=== PATIENT | female | born 1940 | race Caucasian/White ===

== ENCOUNTER → 2016-07-30 | Outpatient (CLI) | payer MEDICARE, BC ==
[2016-07-30 15:15] LABS: CH 29.7; CHCM 31.3; HCT 32.2 % (34.0-46.0); HDW 2.63; HGB 10.2 gm/dL (11.4-16.0); Hypochromasia Slight; MCH 30.3 pg (25.0-35.0); MCHC 31.7 g/dL (31.0-37.0); MCV 95.5 fL (80.0-100.0); Mean Platelet Volume 7.9; RBC 3.37 m/uL (3.80-5.40); RDW 14.2 % (11.5-15.5); WBC 4.6 k/uL (3.8-10.6)
[2016-07-30 15:34] LABS: Calcium 10.1 mg/dL (8.4-10.2); Phosphorous 3.9 mg/dL (2.5-4.5); Potassium 4.5 mmol/L (3.5-5.1)
== END | disposition home or self-care (01) ==
LOC: LABWHC1 14:56
PROVIDERS: ATTEND Internal Medicine Nephrology
DX: N18.4 Chronic kidney disease, stage 4 (severe) (principal)
CPT/HCPCS: 36415; 80069; 85027

== ENCOUNTER → 2016-12-19 | Outpatient (CLI) | payer MEDICARE, BC ==
--- NOTE | 2016-12-20 06:40 | BD ---
EXAMINATION TYPE: MG DEXA axial skeleton. DATE OF EXAM: 12/19/2016 COMPARISON: NONE CLINICAL HISTORY: Postmenopausal female with chronic kidney disease. Height: 64 Weight: 161.1 FRAX RISK QUESTIONS: Alcohol (3 or more units per day): NO Family History (Parent hip fracture): NO Glucocorticoids (More than 3mos): NO (Ex: prednisone, prednisolone, methylprednisolone, dexamethasone, and hydrocortisone). History of Fracture in Adulthood: NO Secondary Osteoporosis: 1. Type 1 Diabetes: NO 2. Hyperthyroidism: NO 3. Menopause before 45: NO 4. Malnutrition: NO 5. Chronic liver disease: NO Rheumatoid Arthritis: NO Current Tobacco Use: NO RISK FACTORS HISTORY OF: Hip Fracture (Right/Left): NO Spine Fracture: NO History of Wrist Fracture: NO Surgery to Spine/Hip(right/left)/Wrist (right/left): NO Family History of Osteoporosis: NO Active: YES Diet low in dairy products/other sources of calcium: YES Postmenopausal woman: AGE 47 Lost more than 2 inches in height since high school: NO Frequent falls: NO Poor Health: NO Hyperparathyroidism: NO Adrenal Insufficiency: NO MEDICATIONS: TYPE 2 DIABETIC MEDS, BLOOD PRESSURE MEDS, CHOLESTEROL MEDS Thyroid Medications: LEVATHYROXINE How Lon YEARS Additional History: CHRONIC KIDNEY DISEASE EXAM MEASUREMENTS: Bone mineral densitometry was performed using the [employer] System. Bone mineral density as measured about the Lumbar spine is: ----- L1-L4(G/cm2): 1.015 T Score Values are as follows: ----- L2: -2.5 ----- L3: -0.7 ----- L4: -0.9 ----- L1-L4: -1.4 Bone mineral density BASELINE Bone mineral density about the R hip (g/cm2): 0.683 Bone mineral density about the L hip (g/cm2): 0.722 T Score values are as follows: -----R Neck: -2.6 -----L Neck: -2.3 -----R Total: -1.7 -----L Total: -1.6 Bone mineral density BASELINE IMPRESSION: Osteopenia (T Score between -2.5 and -1 as noted by T score values) There is slightly increased risk of fracture and the patient may be considered for treatment. Re-Screen 2-5 years. NOTE: T-SCORE=SD OF THE YOUNG ADULT MEAN.
== END | disposition home or self-care (01) ==
LOC: RADBDWWP 13:13
PROVIDERS: ATTEND Family Medicine
DX: M85.80 Other specified disorders of bone density and structure, unspecified site (principal); N95.1 Menopausal and female climacteric states
CPT/HCPCS: 77080

== ENCOUNTER → 2017-01-30 | Outpatient (CLI) | payer MEDICARE, BC ==
[2017-01-30 13:07] LABS: CH 30.2; CHCM 33.2; HCT 35.5 % (34.0-46.0); HDW 2.66; HGB 11.6 gm/dL (11.4-16.0); MCH 29.9 pg (25.0-35.0); MCHC 32.6 g/dL (31.0-37.0); MCV 91.7 fL (80.0-100.0); Mean Platelet Volume 7.4; RBC 3.87 m/uL (3.80-5.40); RDW 14.3 % (11.5-15.5); WBC 5.4 k/uL (3.8-10.6)
[2017-01-30 13:20] LABS: Calcium 9.8 mg/dL (8.4-10.2); Phosphorous 3.3 mg/dL (2.5-4.5); Potassium 4.6 mmol/L (3.5-5.1)
== END | disposition home or self-care (01) ==
LOC: LABWHC1 12:09
PROVIDERS: ATTEND Internal Medicine Nephrology
DX: N18.4 Chronic kidney disease, stage 4 (severe) (principal)
CPT/HCPCS: 36415; 80069; 85027

== ENCOUNTER → 2017-03-26 | Outpatient (CLI) | payer MEDICARE, BC ==
[2017-03-26 16:03] LABS: Calcium 10.4 mg/dL (8.4-10.2); Phosphorus 3.8 mg/dL (2.5-4.5)
== END | disposition home or self-care (01) ==
LOC: LABWHC1 15:13
PROVIDERS: ATTEND Internal Medicine Nephrology
DX: E11.9 Type 2 diabetes mellitus without complications (principal)
CPT/HCPCS: 36415; 80069

== ENCOUNTER → 2017-06-20 | Outpatient (CLI) | payer MEDICARE, BC ==
[2017-06-20 15:25] LABS: Creatinine,Urine Random 62.3 mg/dL
[2017-06-20 15:50] LABS: Albumin 4.7 g/dL (3.5-5.0); Calcium 10.2 mg/dL (8.4-10.2); Phosphorus 3.7 mg/dL (2.5-4.5)
== END | disposition home or self-care (01) ==
LOC: LABWHC1 14:55
PROVIDERS: ATTEND Internal Medicine Nephrology
DX: E11.9 Type 2 diabetes mellitus without complications (principal)
CPT/HCPCS: 36415; 80069; 82570; 84156

== ENCOUNTER → 2017-09-11 | Outpatient (CLI) | payer MEDICARE, BC ==
[2017-09-11 15:34] LABS: HCT 34.2 % (34.0-46.0); HGB 10.8 gm/dL (11.4-16.0); MCH 29.3 pg (25.0-35.0); MCHC 31.7 g/dL (31.0-37.0); MCV 92.5 fL (80.0-100.0); Mean Platelet Volume 7.4; Platelet Count 367 k/uL (150-450); RDW 13.9 % (11.5-15.5); WBC 4.9 k/uL (3.8-10.6)
[2017-09-11 15:55] LABS: Albumin 4.8 g/dL (3.5-5.0); Calcium 10.5 mg/dL (8.4-10.2); Phosphorus 3.7 mg/dL (2.5-4.5); Potassium 5.3 mmol/L (3.5-5.1)
== END | disposition home or self-care (01) ==
LOC: LABWHC1 14:33
PROVIDERS: ATTEND Internal Medicine Nephrology
DX: N18.4 Chronic kidney disease, stage 4 (severe) (principal)
CPT/HCPCS: 36415; 80069; 85027

== ENCOUNTER → 2017-09-25 | Outpatient (CLI) | payer MEDICARE, BC | LOC: LABWHC1 12:59 | PROVIDERS: ATTEND Internal Medicine Nephrology | DX: I12.9 Hypertensive chronic kidney disease with stage 1 through stage 4 chronic kidney disease, or unspecified chronic kidney disease (principal); N18.4 Chronic kidney disease, stage 4 (severe); E83.52 Hypercalcemia | CPT/HCPCS: 36415; 82330 ==

== ENCOUNTER 2019-06-18 15:58 | Inpatient (IN) | payer MEDICARE, BC ==
[2019-06-18] MEDS ORDERED: MORPHINE SULFATE 4 MG/ML SYRINGE IVP STA (16:53)
[2019-06-18] MEDS ORDERED: SODIUM CHLORIDE 0.9% 1,000 ML IV STA ×2 (16:53)
[2019-06-18] MEDS ORDERED: KETOROLAC 30 MG/ML 1 ML VIAL IVP STA (16:53)
[2019-06-18 17:31] LABS: Basophils # (A) 0.3 k/uL (0-0.2); Basophils % (A) 3 %; Eosinophils # (A) 0.3 k/uL (0-0.7); Eosinophils % (A) 3 %; HCT 36.7 % (34.0-46.0); HGB 11.4 gm/dL (11.4-16.0); Lymphocytes # (A) 0.8 k/uL (1.0-4.8); Lymphocytes % (A) 8 %; MCH 29.3 pg (25.0-35.0); MCV 94.4 fL (80.0-100.0); Mean Platelet Volume 7.3; Monocytes # (A) 0.5 k/uL (0-1.0); Monocytes % (A) 6 %; Neutrophils % (A) 78 %; Platelet Count 411 k/uL (150-450); RBC 3.89 m/uL (3.80-5.40); RDW 13.9 % (11.5-15.5); WBC 8.9 k/uL (3.8-10.6)
[2019-06-18 17:37] LABS: Albumin 4.1 g/dL (3.5-5.0); Calcium 10.8 mg/dL (8.4-10.2); Magnesium 1.6 mg/dL (1.6-2.3); Phosphorus 4.6 mg/dL (2.5-4.5); Total Bilirubin 0.6 mg/dL (0.2-1.3); Total Protein 7.3 g/dL (6.3-8.2)
[2019-06-18 17:44] LABS: Potassium 5.6 mmol/L (3.5-5.1)
--- NOTE | 2019-06-18 18:04 | ED ---
Extremity Problem HPI - General Chief complaint: Extremity Problem,Nontraumatic Stated complaint: Hip Pain Time Seen by Provider: 06/18/19 16:23 Source: EMS, RN notes reviewed, old records reviewed Mode of arrival: EMS Limitations: no limitations - History of Present Illness Initial comments: This is a 69-year-old female DF for evaluation severe left hip pain in the left hip and lower back pain especially with movement. No traumas no falls. No other complaints no fevers. Patient denies any significant loss of sensation or muscle weakness which is states the pain is severe. Patient was impatient hospitalized for pain control last week discharged home once her pain patch went off the pain did appear to come back. Otherwise patient has no significant other complaints. No abdominal pain no loss of bowel or bladder MD Complaint: extremity pain, joint pain (l hip) -: days(s) Location: left, lower extremity History of Same: Yes -: Yes myalgia, Yes arthralgia Radiation: none Severity scale (1-10): 7 Consistency: constant Improves with: nothing Worsens with: weight bearing, walking Associated Symptoms: denies other symptoms - Related Data Allergies Allergy/AdvReac Type Severity Reaction Status Date / Time No Known Allergies Allergy Verified 06/18/19 16:36 Review of Systems ROS Statement: Those systems with pertinent positive or pertinent negative responses have been documented in the HPI. ROS Other: All systems not noted in ROS Statement are negative. Past Medical History Past Medical History: Diabetes Mellitus, Hyperlipidemia, Hypertension Additional Past Medical History / Comment(s): osterperosis History of Any Multi-Drug Resistant Organisms: None Reported Past Surgical History: No Surgical Hx Reported Past Psychological History: No Psychological Hx Reported Smoking Status: Former smoker Past Alcohol Use History: None Reported Past Drug Use History: None Reported General Exam Limitations: no limitations General appearance: alert, in no apparent distress Head exam: Present: atraumatic, normocephalic, normal inspection Eye exam: Present: normal appearance, PERRL, EOMI. Absent: scleral icterus, conjunctival injection, periorbital swelling ENT exam: Present: normal exam, mucous membranes moist Neck exam: Present: normal inspection. Absent: tenderness, meningismus, lymphadenopathy Respiratory exam: Present: normal lung sounds bilaterally. Absent: respiratory distress, wheezes, rales, rhonchi, stridor Cardiovascular Exam: Present: regular rate, normal rhythm, normal heart sounds. Absent: systolic murmur, diastolic murmur, rubs, gallop, clicks GI/Abdominal exam: Present: soft, normal bowel sounds. Absent: distended, tenderness, guarding, rebound, rigid Extremities exam: Present: normal inspection, full ROM, normal capillary refill, other (severe leg pain with movement). Absent: tenderness, pedal edema, joint swelling, calf tenderness Back exam: Present: normal inspection Neurological exam: Present: alert, oriented X3, CN II-XII intact Psychiatric exam: Present: normal affect, normal mood Skin exam: Present: warm, dry, intact, normal color. Absent: rash Course Vital Signs 06/18/19 06/18/19 16:11 18:46 Temperature 97.0 F L Pulse Rate 65 70 Respiratory 16 Rate Blood Pressure 160/81 O2 Sat by Pulse 96 99 Oximetry - Reevaluation(s) Reevaluation #1: 06/18/19 18:20 Medical records reviewed 06/18/19 19:52 Request from [facility] not yet received Reevaluation #2: 06/18/19 18:21 Patient does not have any have improved pain control currently 06/18/19 19:52 Pain is still uncontrolled patient is unable to ambulate - Consultations Consultation #1: spoke w [facility] for admission Medical Decision Making - Lab Data Result diagrams: 06/18/19 17:15 06/18/19 17:15 Lab Results 06/18/19 06/18/19 06/18/19 Range/Units 17:15 17:15 17:15 WBC 8.9 (3.8-10.6) k/uL RBC 3.89 (3.80-5.40) m/uL Hgb 11.4 (11.4-16.0) gm/dL Hct 36.7 (34.0-46.0) % MCV 94.4 (80.0-100.0) fL MCH 29.3 (25.0-35.0) pg MCHC 31.0 (31.0-37.0) g/dL RDW 13.9 (11.5-15.5) % Plt Count 411 (150-450) k/uL Neutrophils % 78 % Lymphocytes % 8 % Monocytes % 6 % Eosinophils % 3 % Basophils % 3 % Neutrophils # 7.0 (1.3-7.7) k/uL Lymphocytes # 0.8 L (1.0-4.8) k/uL Monocytes # 0.5 (0-1.0) k/uL Eosinophils # 0.3 (0-0.7) k/uL Basophils # 0.3 H (0-0.2) k/uL Sodium 140 (137-145) mmol/L Potassium 5.6 H (3.5-5.1) mmol/L Chloride 106 (98-107) mmol/L Carbon Dioxide 26 (22-30) mmol/L Anion Gap 8 mmol/L BUN 37 H (7-17) mg/dL Creatinine 1.58 H (0.52-1.04) mg/dL Est GFR (CKD-EPI)AfAm 36 (>60 ml/min/1.73 sqM) Est GFR (CKD-EPI)NonAf 31 (>60 ml/min/1.73 sqM) Glucose 109 H (74-99) mg/dL Calcium 10.8 H (8.4-10.2) mg/dL Phosphorus 4.6 H (2.5-4.5) mg/dL Magnesium 1.6 (1.6-2.3) mg/dL Total Bilirubin 0.6 (0.2-1.3) mg/dL AST 41 H (14-36) U/L ALT 15 (4-34) U/L Alkaline Phosphatase 52 (38-126) U/L Creatine Kinase 36 (30-135) U/L Troponin I 0.061 H* (0.000-0.034) ng/mL Total Protein 7.3 (6.3-8.2) g/dL Albumin 4.1 (3.5-5.0) g/dL Urine Color Urine Appearance (Clear) Urine pH (5.0-8.0) Ur Specific [place] (1.001-1.035) Urine Protein (Negative) Urine Glucose (UA) (Negative) Urine Ketones (Negative) Urine Blood (Negative) Urine Nitrite (Negative) Urine Bilirubin (Negative) Urine Urobilinogen (<2.0) mg/dL Ur Leukocyte Esterase (Negative) 06/18/19 Range/Units 19:09 WBC (3.8-10.6) k/uL RBC (3.80-5.40) m/uL Hgb (11.4-16.0) gm/dL Hct (34.0-46.0) % MCV (80.0-100.0) fL MCH (25.0-35.0) pg MCHC (31.0-37.0) g/dL RDW (11.5-15.5) % Plt Count (150-450) k/uL Neutrophils % % Lymphocytes % % Monocytes % % Eosinophils % % Basophils % % Neutrophils # (1.3-7.7) k/uL Lymphocytes # (1.0-4.8) k/uL Monocytes # (0-1.0) k/uL Eosinophils # (0-0.7) k/uL Basophils # (0-0.2) k/uL Sodium (137-145) mmol/L Potassium (3.5-5.1) mmol/L Chloride (98-107) mmol/L Carbon Dioxide (22-30) mmol/L Anion Gap mmol/L BUN (7-17) mg/dL Creatinine (0.52-1.04) mg/dL Est GFR (CKD-EPI)AfAm (>60 ml/min/1.73 sqM) Est GFR (CKD-EPI)NonAf (>60 ml/min/1.73 sqM) Glucose (74-99) mg/dL Calcium (8.4-10.2) mg/dL Phosphorus (2.5-4.5) mg/dL Magnesium (1.6-2.3) mg/dL Total Bilirubin (0.2-1.3) mg/dL AST (14-36) U/L ALT (4-34) U/L Alkaline Phosphatase (38-126) U/L Creatine Kinase (30-135) U/L Troponin I (0.000-0.034) ng/mL Total Protein (6.3-8.2) g/dL Albumin (3.5-5.0) g/dL Urine Color Light Yellow Urine Appearance Clear (Clear) Urine pH 5.0 (5.0-8.0) Ur Specific [place] 1.011 (1.001-1.035) Urine Protein Negative (Negative) Urine Glucose (UA) Negative (Negative) Urine Ketones Negative (Negative) Urine Blood Negative (Negative) Urine Nitrite Negative (Negative) Urine Bilirubin Negative (Negative) Urine Urobilinogen <2.0 (<2.0) mg/dL Ur Leukocyte Esterase Negative (Negative) - EKG Data -: EKG Interpreted by Me (EKG shows sinus rhythm rate of 82, ND 246, QRS 86, QTc 425) Disposition Clinical Impression: Debility, Intractable pain, Left hip pain, Arthritis Disposition: ADMITTED IP TO THIS HOSP Condition: Fair Is patient prescribed a controlled substance at d/c from ED?: No Referrals: Denton Benoit MD [Primary Care Provider] - 1-2 days
[2019-06-18 19:18] LABS: Appearance,Urine Clear (Clear); Bilirubin,Urine Negative (Negative); Blood,Urine Negative (Negative); Color,Urine Light Yellow; Glucose,Urine (UA) Negative (Negative); Ketones,Urine Negative (Negative); Leukocyte Esterase,Urine Negative (Negative); Nitrite,Urine Negative (Negative); Protein,Urine Negative (Negative); Specific Gravity,Urine 1.011 (1.001-1.035); Urobilinogen,Urine <2.0 mg/dL (<2.0)
[2019-06-18] MEDS ORDERED: SODIUM CHLORIDE 0.9% 1,000 ML IV ONE (19:48)
[2019-06-18] MEDS ORDERED: IBUPROFEN 400 MG TAB PO SCH (22:00)
[2019-06-18] MEDS ORDERED: LORazepam 1 MG TAB PO PRN (22:17)
[2019-06-18] MEDS: MORPHINE SULFATE 4 MG/ML SYRINGE IVP PRN (22:28)
[2019-06-18] MEDS ORDERED: TEMAZEPAM 15 MG CAP PO PRN (22:30)
[2019-06-18] MEDS: PRAVASTATIN SODIUM 80 MG TAB PO SCH (23:06)
[2019-06-18] MEDS: FUROSEMIDE 20 MG TAB PO SCH (23:06)
[2019-06-18] MEDS: SODIUM BICARBONATE TAB 650 MG TAB PO SCH (23:06)
[2019-06-18] MEDS: IMIPRAMINE 25 MG TAB PO SCH (23:07)
--- NOTE | 2019-06-19 00:17 | P.HPIM ---
History of Present Illness H&P Date: 06/18/19 Patient is a 78-year-old female with a PMH of type 2 diabetes mellitus, hypertension, hyperlipidemia, CKD and left hip osteoarthritis presented to the ED with complaints of left hip pain. The patient reports that she was seen at [facility] last week and was discharged home with a pain patch due to her significant left hip pain. She reports that after the patch came off, her pain returned. She reports that she has essentially been bedbound for the last one month, and that her has been having a very difficult time trying to take care of her. The patient notes that she previously used to ambulate with a walker which she is no longer able to do. She reports that her daughter works at one of the rehab facilities and that she would like to be transferred there possible. She is unable to recall the name of the facility at this time. She reports pain at her left hip brought on with movement, 7 out of 10, but no pain at rest. She denied any additional complaints. She denied chest pain, shortness of breath, nausea, vomiting, fever, chills, abdominal pain, diarrhea, or dizziness. She underwent an extensive ALLERGY in the emergency room with EKG showing normal sinus rhythm at 82 bpm with T-wave inversion in leads V1 to V3 and flattening in leads V4 to V6. Laboratory evaluation revealed a WBC count of 8.9, hemoglobin 11.4, sodium 140, potassium 5.6 (hemolyzed sample), BUN 37, creatinine 1.58, glucose 109, troponin of 0.061, and a UA unremarkable. Review of Systems Pertinent positives and negatives as discussed in HPI, a complete review of systems was performed and all other systems are negative. Past Medical History Past Medical History: Diabetes Mellitus, Hyperlipidemia, Hypertension Additional Past Medical History / Comment(s): osterperosis History of Any Multi-Drug Resistant Organisms: None Reported Past Surgical History: No Surgical Hx Reported Past Anesthesia/Blood Transfusion Reactions: No Reported Reaction Past Psychological History: No Psychological Hx Reported Smoking Status: Former smoker Past Alcohol Use History: None Reported Past Drug Use History: None Reported - Past Family History Mother Family Medical History: Cancer Father Family Medical History: Cancer Medications and Allergies Home Medications Medication Instructions Recorded Confirmed Type Diclofenac Sodium [Voltaren Gel] 1 applic TOPICAL QID 06/18/19 06/18/19 History Eszopiclone [Lunesta] 2 mg PO HS 06/18/19 06/18/19 History Fenofibrate Nanocrystallized 145 mg PO DAILY 06/18/19 06/18/19 History [Fenofibrate] Furosemide [Lasix] 20 mg PO BID 06/18/19 06/18/19 History Imipramine Pamoate [Tofranil Pm] 75 mg PO HS 06/18/19 06/18/19 History LORazepam [Ativan] 2 mg PO Q8H PRN 06/18/19 06/18/19 History Levothyroxine Sodium 25 mcg PO DAILY 06/18/19 06/18/19 History Lisinopril [Prinivil] 5 mg PO DAILY 06/18/19 06/18/19 History Pravastatin Sodium [Pravachol] 80 mg PO HS 06/18/19 06/18/19 History Sodium Bicarbonate Tab 650 mg PO BID 06/18/19 06/18/19 History Tolterodine Tartrate [Detrol LA] 4 mg PO DAILY 06/18/19 06/18/19 History amLODIPine [Norvasc] 5 mg PO DAILY 06/18/19 06/18/19 History sitaGLIPtin [Januvia] 50 mg PO DAILY 06/18/19 06/18/19 History traMADol HCL [Ultram] 50 mg PO Q8H PRN 06/18/19 06/18/19 History Allergies Allergy/AdvReac Type Severity Reaction Status Date / Time No Known Allergies Allergy Verified 06/18/19 21:59 Physical Exam Vitals: Vital Signs Temp Pulse Pulse Resp BP BP Pulse Ox 06/18/19 20:55 98.4 F 72 18 168/70 95 06/18/19 20:47 80 16 161/81 98 06/18/19 19:00 97.5 F L 66 18 166/85 98 06/18/19 18:46 70 99 06/18/19 16:11 97.0 F L 65 16 160/81 96 Intake and Output 06/18/19 06/18/19 06/19/19 14:59 22:59 06:59 Other: Voiding Method Bedside Commode Weight 65.771 kg General: Elderly female, non toxic, no distress, appears at stated age, normal weight Derm: no unusual rashes/lesions no unusual ecchymoses, warm, dry Head: atraumatic, normocephalic, symmetric Eyes: EOMI, no lid lag, anicteric sclera, pupils equal round reactive to light ENT: Nose and ears atraumatic, no thrush, no pharyngeal erythema Neck: No thyromegaly, no cervical lymphadenopathy, trachea midline, supple Mouth: no lip lesion, mucus membranes moist Cardiovascular: S1S2 reg, systolic murmur grade 3 appreciated, positive posterior tibial pulse bilateral, no edema, capillary refill less than 2 seconds Lungs: CTA bilateral, no rhonchi, no rales , no accessory muscle use Abdominal: soft, nontender to palpation, no guarding, no appreciable organomegaly, normal bowel sounds Ext: no gross muscle atrophy, muscle strength 4 out of 5 in all extremities except left lower extremity 3 out of 5 due to pain, no contractures, mild left hip tenderness on palpation Neuro: CN II-XI grossly intact, light touch intact all 4 extremities, finger to nose within normal limits, Psych: Alert, oriented, appropriate affect Results CBC & Chem 7: 06/18/19 17:15 06/18/19 17:15 Labs: Abnormal Lab Results - Last 24 Hours (Table) 06/18/19 06/18/19 06/18/19 Range/Units 17:15 17:15 17:15 Lymphocytes # 0.8 L (1.0-4.8) k/uL Basophils # 0.3 H (0-0.2) k/uL Potassium 5.6 H (3.5-5.1) mmol/L BUN 37 H (7-17) mg/dL Creatinine 1.58 H (0.52-1.04) mg/dL Glucose 109 H (74-99) mg/dL Calcium 10.8 H (8.4-10.2) mg/dL Phosphorus 4.6 H (2.5-4.5) mg/dL AST 41 H (14-36) U/L Troponin I 0.061 H* (0.000-0.034) ng/mL Thrombosis Risk Factor Assmnt - Choose All That Apply Any of the Below Risk Factors Present?: Yes Each Factor Represents 1 point: Medical pt on bed rest Other Risk Factors: Yes Each Risk Factor Represents 3 Points: Age 75 years or older Thrombosis Risk Factor Assessment Total Risk Factor Score: 4 Thrombosis Risk Factor Assessment Level: Moderate Risk Assessment and Plan Plan: Left hip pain, chronic -PT/OT consult -Pain control -Patient will need outpatient orthopedic surgery evaluation. Patient and family unsure if she was elevated by orthopedic surgery in the past Troponin elevation -Patient denying any current chest pain or shortness of breath -Trend for now -Cardiac monitoring Type 2 diabetes mellitus -Lispro insulin sliding scale -Blood glucose monitoring CKD, at baseline -Monitor BMP for now Chronic conditions: Hypertension, hyperlipidemia -Continue with home meds: Lisinopril, Norvasc, Pravachol DVT prophylaxis -Heparin The patient is admitted with an anticipated less than 2 midnight stay for evaluation of debility CODE STATUS: Full Code Discussed with: Patient, Anticipated discharge date: 1-[address]: SNF A total of 40 minutes was spent on the care of this complex patient more than 50% of the time was spent in counseling and care coordination.
[2019-06-19] MEDS: MORPHINE SULFATE 4 MG/ML SYRINGE IVP PRN ×5 (01:29→21:16)
[2019-06-19] MEDS: DICLOFENAC SODIUM GEL 100 GM TUBE TOPICAL SCH ×5 (02:14→23:07)
[2019-06-19] MEDS: LEVOTHYROXINE 25 MCG TAB PO SCH (05:18)
[2019-06-19 06:55] LABS: Glucose,Whole Blood 96 mg/dL (75-99)
[2019-06-19] MEDS: INSULIN ASPART (NovoLOG) 100 UNIT/ML VIAL SQ SCH ×4 (06:57→21:11)
[2019-06-19 07:52] LABS: Calcium 9.5 mg/dL (8.4-10.2); Potassium 4.5 mmol/L (3.5-5.1)
[2019-06-19] MEDS: OXYBUTYNIN XL 5 MG TAB.ER.24 PO SCH (08:57)
[2019-06-19] MEDS: SODIUM BICARBONATE TAB 650 MG TAB PO SCH ×2 (08:57→21:23)
[2019-06-19] MEDS: amLODIPine 5 MG TAB PO SCH (08:58)
[2019-06-19] MEDS: FENOFIBRATE 160 MG TAB PO SCH (08:58)
[2019-06-19] MEDS: LISINOPRIL 5 MG TAB PO SCH (08:58)
[2019-06-19] MEDS: HEPARIN SODIUM,PORCINE 5,000 UNIT/ML 1 ML VIAL SQ SCH ×3 (08:58→23:10)
[2019-06-19] MEDS: FUROSEMIDE 20 MG TAB PO SCH ×2 (08:58→16:33)
[2019-06-19] MEDS: ONDANSETRON 4 MG/2 ML VIAL IVP PRN ×3 (11:02→22:04)
[2019-06-19 11:52] LABS: Glucose,Whole Blood 135 mg/dL (75-99)
[2019-06-19] MEDS: traMADol 50 MG TAB PO PRN ×2 (13:14→23:33)
--- NOTE | 2019-06-19 14:47 | P.PN ---
Subjective Progress Note Date: 06/19/19 Principal diagnosis: follow up for left hip pain debilitating patient seen and examined, still reporting left hip pain . denies any chest pain , or trouble breathing denies any fevers or chills, denies any recent fall or trauma patient used to use walker but she can not weight bear any more Objective - Vital Signs Vital signs: Vital Signs Temp 98.4 F 06/19/19 07:27 Pulse 76 06/19/19 07:27 Resp 18 06/19/19 07:27 BP 148/80 06/19/19 07:27 Pulse Ox 96 06/19/19 07:27 Intake & Output 06/18/19 06/19/19 06/19/19 18:59 06:59 18:59 Intake Total 800 1210 Balance 800 1210 Weight 65.771 kg 65.771 kg Intake: Intake, IV Titration 800 700 Amount Sodium Chloride 0.9% 1, 800 700 000 ml @ 100 mls/hr IV . Q10H ONE Rx#:[id number] Oral 510 Other: Voiding Method Bedside Commode Bedside Commode # Voids 3 2 - Exam Constitutional: vital signs stable, Not in acute distress, pleasant, conversant Lungs: Clear to auscultation bilaterally, clear to percussion, normal respiratory effort Cardiovascular: Regular rate and rhythm, no murmurs, no gallops, no rubs, no peripheral edema Gastrointestinal: Soft, no tenderness to palpation, bowel sounds positive Extremities: No digital cyanosis , peripheral pulses palpable and equal , no calf muscle tenderness, no echymosis, swelling, or erythema over left hip, no point tenderness Psych: Alert, oriented to place, person and time, appropriate affect, intact judgment - Labs CBC & Chem 7: 06/18/19 17:15 06/19/19 06:26 Labs: Abnormal Lab Results - Last 24 Hours (Table) 06/18/19 06/18/19 06/18/19 Range/Units 17:15 17:15 17:15 Lymphocytes # 0.8 L (1.0-4.8) k/uL Basophils # 0.3 H (0-0.2) k/uL Potassium 5.6 H (3.5-5.1) mmol/L Chloride (98-107) mmol/L BUN 37 H (7-17) mg/dL Creatinine 1.58 H (0.52-1.04) mg/dL Glucose 109 H (74-99) mg/dL POC Glucose (mg/dL) (75-99) mg/dL Calcium 10.8 H (8.4-10.2) mg/dL Phosphorus 4.6 H (2.5-4.5) mg/dL AST 41 H (14-36) U/L Troponin I 0.061 H* (0.000-0.034) ng/mL 06/19/19 06/19/19 Range/Units 06:26 11:50 Lymphocytes # (1.0-4.8) k/uL Basophils # (0-0.2) k/uL Potassium (3.5-5.1) mmol/L Chloride 109 H (98-107) mmol/L BUN 31 H (7-17) mg/dL Creatinine 1.54 H (0.52-1.04) mg/dL Glucose (74-99) mg/dL POC Glucose (mg/dL) 135 H (75-99) mg/dL Calcium (8.4-10.2) mg/dL Phosphorus (2.5-4.5) mg/dL AST (14-36) U/L Troponin I (0.000-0.034) ng/mL Assessment and Plan Assessment: Patient is a 78-year-old female with type 2 diabetes mellitus, controlled with oral hypoglycemics, hypertension, hyperlipidemia, CKD III and left hip osteoarthritis presented to the ED with complaints of left hip pain. The patient reports that she was seen at [facility] last week and was discharged home with a pain patch due to her significant left hip pain. She reports that after the patch came off, her pain returned. She reports that she has essentially been bedbound for the last one month, The patient notes that she previously used to ambulate with a walker which she is no longer able to do. Plan: Left hip pain, acute on chronic -PT/OT eval -Pain control orthopedic evaluation xrays of left hip Troponin elevation Patient denying any current chest pain or shortness of breath Trend for now Cardiac monitoring Type 2 diabetes mellitus Lispro insulin sliding scale Blood glucose monitoring CKD, at baseline Monitor BMP for now Chronic conditions: Hypertension, hyperlipidemia Continue with home meds: Lisinopril, Norvasc, Pravachol DVT prophylaxis -Heparin discontinue IVF encourage PO intake discharge planning to [facility]o eval
--- NOTE | 2019-06-19 15:05 | XR ---
EXAMINATION TYPE: XR Hip Limited LT DATE OF EXAM: 06/19/2019 CLINICAL HISTORY: Pain TECHNIQUE: Single view left hip submitted. COMPARISON: None. FINDINGS: There is no acute fracture/dislocation evident in the left hip. The joint space in the le ft hip appears within normal limits. The overlying soft tissue appears unremarkable. IMPRESSION: There is no acute fracture or dislocation in the left hip.
[2019-06-19] MEDS: LIDOCAINE 5% PATCH TOPICAL SCH (15:22)
--- NOTE | 2019-06-19 16:24 | P.CNOR ---
History of Present Illness - [facility] Consult date: 06/19/19 Consult reason: joint pain History of present illness: Patient is a 78-year-old female who presented to [facility] late last night with regards to pain involving her left lower extremity. Apparently the patient was at [facility] in [place] earlier in the week with regards the same problem, images were done, they determined it was hip arthritis in the center home with a Lidoderm patch. Patient notes very minimal improvement with patch. She's been having a very difficult time ambulating, she normally uses a walker. She is essentially been lying in bed since being home from the hospital due to the pain. Upon arrival to the hospital, an AP hip x-ray was done on the left side. Images to demonstrate minimal arthritic changes involving the left hip. Orthopedic team was consulted today with regards to the pain involving the left leg. Patient was evaluated at bedside today, there are multiple family members present. The patient had recently received some IV morphine, she did have a slight difficulty answering some of my questions both reviewing her history and doing her physical exam, the patient's family was able to help answer those questions. Family describes that she's had a hard time with the left leg over the last 4-5 months. She has had no significant trauma, this including falls. She has had no previous surgery involving the left or right lower extremity. She denies any previous back surgery. The family does admit that she's had back pain in the past. She normally uses a walker, it's become very hard for her to family with this. Her said been having a very hard time taking care of her at home. There is concern at this time that the patient may need long term facility placement due to help with ADLs. Besides the pain involving the left lower extremity, patient has no other orthopedic complaints at this time. She denies any fevers or chills. Eyes any loss of bowel or bladder function. She does admit to the discomfort extending down the leg and to the foot on occasion. She denies any of those symptoms involving the right lower extremity. Review of Systems Constitutional: Reports as per HPI Past Medical History Past Medical History: Diabetes Mellitus, Hyperlipidemia, Hypertension Additional Past Medical History / Comment(s): osterperosis History of Any Multi-Drug Resistant Organisms: None Reported Past Surgical History: No Surgical Hx Reported Past Anesthesia/Blood Transfusion Reactions: No Reported Reaction Past Psychological History: No Psychological Hx Reported Smoking Status: Former smoker Past Alcohol Use History: None Reported Past Drug Use History: None Reported - Past Family History Mother Family Medical History: Cancer Father Family Medical History: Cancer Medications and Allergies Home Medications Medication Instructions Recorded Confirmed Type Diclofenac Sodium [Voltaren Gel] 1 applic TOPICAL QID 06/18/19 06/18/19 History Eszopiclone [Lunesta] 2 mg PO HS 06/18/19 06/18/19 History Fenofibrate Nanocrystallized 145 mg PO DAILY 06/18/19 06/18/19 History [Fenofibrate] Furosemide [Lasix] 20 mg PO BID 06/18/19 06/18/19 History Imipramine Pamoate [Tofranil Pm] 75 mg PO HS 06/18/19 06/18/19 History LORazepam [Ativan] 2 mg PO Q8H PRN 06/18/19 06/18/19 History Levothyroxine Sodium 25 mcg PO DAILY 06/18/19 06/18/19 History Lisinopril [Prinivil] 5 mg PO DAILY 06/18/19 06/18/19 History Pravastatin Sodium [Pravachol] 80 mg PO HS 06/18/19 06/18/19 History Sodium Bicarbonate Tab 650 mg PO BID 06/18/19 06/18/19 History Tolterodine Tartrate [Detrol LA] 4 mg PO DAILY 06/18/19 06/18/19 History amLODIPine [Norvasc] 5 mg PO DAILY 06/18/19 06/18/19 History sitaGLIPtin [Januvia] 50 mg PO DAILY 06/18/19 06/18/19 History traMADol HCL [Ultram] 50 mg PO Q8H PRN 06/18/19 06/18/19 History Allergies Allergy/AdvReac Type Severity Reaction Status Date / Time No Known Allergies Allergy Verified 06/18/19 21:59 Physical Examination General orthopedic exam: No obvious open lesions or sores present throughout the extremity, Lidoderm patch is noted on the lateral aspect of the lower leg just above the knee No obvious erythema or areas of soft tissue swelling Logroll maneuver the bilateral legs reproduces no pain in the groin Patient is able to straight leg raise with both legs, when testing strength there is weakness on the left when compared to the right. Plantar flexion, dorsiflexion, EHL, FHL are intact, weakness is noted on the left mainly with dorsiflexion Catheters soft, no tenderness with palpation Dorsal pedis pulses 2+ bilaterally Passive motion of the left hip through flexion, internal and external rotation reproduces no pain in the groin No significant tenderness with palpation surrounding the knee, no effusion is appreciated Tenderness with palpation over the greater trochanter and also along the IT band distribution Sensory exam to light touch throughout the bilateral lower extremities is intact Results - Labs Labs: Abnormal Lab Results - Last 24 Hours (Table) 06/18/19 06/18/19 06/18/19 Range/Units 17:15 17:15 17:15 Lymphocytes # 0.8 L (1.0-4.8) k/uL Basophils # 0.3 H (0-0.2) k/uL Potassium 5.6 H (3.5-5.1) mmol/L Chloride (98-107) mmol/L BUN 37 H (7-17) mg/dL Creatinine 1.58 H (0.52-1.04) mg/dL Glucose 109 H (74-99) mg/dL POC Glucose (mg/dL) (75-99) mg/dL Calcium 10.8 H (8.4-10.2) mg/dL Phosphorus 4.6 H (2.5-4.5) mg/dL AST 41 H (14-36) U/L Troponin I 0.061 H* (0.000-0.034) ng/mL 06/19/19 06/19/19 Range/Units 06:26 11:50 Lymphocytes # (1.0-4.8) k/uL Basophils # (0-0.2) k/uL Potassium (3.5-5.1) mmol/L Chloride 109 H (98-107) mmol/L BUN 31 H (7-17) mg/dL Creatinine 1.54 H (0.52-1.04) mg/dL Glucose (74-99) mg/dL POC Glucose (mg/dL) 135 H (75-99) mg/dL Calcium (8.4-10.2) mg/dL Phosphorus (2.5-4.5) mg/dL AST (14-36) U/L Troponin I (0.000-0.034) ng/mL H & H 06/18/19 Range/Units 17:15 Hgb 11.4 (11.4-16.0) gm/dL Hct 36.7 (34.0-46.0) % Result Diagrams: 06/18/19 17:15 06/19/19 06:26 - Diagnostic results Hip x-ray: report reviewed, image reviewed Assessment and Plan Plan: Imaging: Report and image of the AP left hip was reviewed. Minimal osteoarthritic changes are noted. No acute fractures or dislocations appreciated. Assessment: 1. Left lower extremity pain 2. Minimal left hip osteoarthritis 3. Left hip greater trochanteric bursitis 4. Likely lumbar radiculopathy 5. Other medical comorbidities Plan: I was able to discuss the case, including both physical exam findings and imaging studies and the attending Dr. Enamorado. No general orthopedic surgical intervention recommended at this time. I believe that most of the symptoms involving the left lower extremity are stemming from a likely lumbar radiculopathy. X-rays will be ordered of the lumbar spine, complete right hip and also right knee. Due to the patient's difficulty and altered gait, this is likely lead to the greater trochanteric bursitis on the left side. May consider a steroid injection to that area Pain control, avoid IV narcotics GI and DVT prophylaxis per medical recommendations Internal medicine recommendations Further recommendations to follow Time with Patient: Less than 30
[2019-06-19 17:37] LABS: Glucose,Whole Blood 133 mg/dL (75-99)
--- NOTE | 2019-06-19 17:38 | XR ---
EXAMINATION TYPE: XR lumbar spine 2 or 3V DATE OF EXAM: 06/19/2019 COMPARISON: NONE HISTORY: Low back pain TECHNIQUE: 3 views FINDINGS: There is mild levoscoliosis. There is mild disc space narrowing at L4-5 with vacuum disc an d spur formation. Abdominal aorta is atheromatous. There is no compression fracture. Sacroiliac joint s appear normal. There is disc space narrowing at L5-S1. IMPRESSION: Spondylotic changes. No fracture seen.
--- NOTE | 2019-06-19 17:39 | XR ---
EXAMINATION TYPE: XR knee limited LT DATE OF EXAM: 06/19/2019 COMPARISON: NONE HISTORY: Left knee pain TECHNIQUE: 2 views FINDINGS: I see no fracture nor dislocation. Joint spaces are fairly normal. There is calcification o f the menisci. There is no joint effusion. IMPRESSION: There is meniscal calcification consistent with pseudogout. No fracture. No significant j oint space narrowing.
--- NOTE | 2019-06-19 17:40 | XR ---
EXAMINATION TYPE: XR Hip Complete LT DATE OF EXAM: 06/19/2019 COMPARISON: Today HISTORY: Hip pain TECHNIQUE: 3 views FINDINGS: There is mild acetabular spurring. There is minor spurring on the femoral head. I see no fr acture nor dislocation. There is no sign of hip dysplasia. Sacroiliac joint appears intact. IMPRESSION: Mild degenerative hypertrophic changes. No fracture.
[2019-06-19 20:04] LABS: Glucose,Whole Blood 124 mg/dL (75-99)
[2019-06-19] MEDS: PRAVASTATIN SODIUM 80 MG TAB PO SCH (21:24)
[2019-06-19] MEDS: IMIPRAMINE 25 MG TAB PO SCH (21:25)
[2019-06-20] MEDS: MORPHINE SULFATE 4 MG/ML SYRINGE IVP PRN ×4 (04:33→22:01)
[2019-06-20] MEDS: LEVOTHYROXINE 25 MCG TAB PO SCH (04:39)
[2019-06-20 04:47] LABS: Glucose,Whole Blood 140 mg/dL (75-99)
[2019-06-20 06:49] LABS: Glucose,Whole Blood 134 mg/dL (75-99)
[2019-06-20] MEDS: OXYBUTYNIN XL 5 MG TAB.ER.24 PO SCH (08:15)
[2019-06-20] MEDS: FUROSEMIDE 20 MG TAB PO SCH ×2 (08:15→16:05)
[2019-06-20] MEDS: DICLOFENAC SODIUM GEL 100 GM TUBE TOPICAL SCH ×4 (08:18→22:12)
[2019-06-20] MEDS: FENOFIBRATE 160 MG TAB PO SCH (08:18)
[2019-06-20] MEDS: SODIUM BICARBONATE TAB 650 MG TAB PO SCH ×2 (08:18→22:05)
[2019-06-20] MEDS: LISINOPRIL 5 MG TAB PO SCH (08:18)
[2019-06-20] MEDS: amLODIPine 5 MG TAB PO SCH (08:18)
[2019-06-20] MEDS: HEPARIN SODIUM,PORCINE 5,000 UNIT/ML 1 ML VIAL SQ SCH ×3 (08:20→23:57)
[2019-06-20] MEDS: ONDANSETRON 4 MG/2 ML VIAL IVP PRN (08:20)
--- NOTE | 2019-06-20 09:59 | P.PN ---
Subjective Progress Note Date: 06/20/19 Principal diagnosis: Left lower extremity pain, left greater trochanteric bursitis, lumbar degenerative disc disease with radiculopathy Patient was evaluated today at bedside. Her is present with her. They've been trying to wean off the IV pain medication, she's having some nausea and stomach discomfort along with increasing pain in the left leg. I discussed with the patient and family yesterday the possibility of a steroid injection into the trochanteric bursa on the left side help with symptoms, patient does not want to do that today. X-rays were done of the hip, knee and lumbar spine. Objective - Vital Signs Vital signs: Vital Signs Temp 97.8 F 06/20/19 07:00 Pulse 80 06/20/19 07:00 Resp 17 06/20/19 07:00 BP 122/69 06/20/19 07:00 Pulse Ox 96 06/20/19 07:00 Intake & Output 06/19/19 06/20/19 06/20/19 18:59 06:59 18:59 Intake Total 1310 Balance 1310 Intake: Intake, IV Titration 700 Amount Sodium Chloride 0.9% 1, 700 000 ml @ 100 mls/hr IV . Q10H ONE Rx#:[id number] Oral 610 Other: Voiding Method Bedside Commode Bedside Commode # Voids 1 1 - Exam Physical exam is unchanged since initial exam - Labs CBC & Chem 7: 06/18/19 17:15 06/19/19 06:26 Labs: Abnormal Lab Results - Last 24 Hours (Table) 06/19/19 06/19/19 06/19/19 Range/Units 11:50 17:35 20:01 POC Glucose (mg/dL) 135 H 133 H 124 H (75-99) mg/dL 06/20/19 06/20/19 Range/Units 04:45 06:47 POC Glucose (mg/dL) 140 H 134 H (75-99) mg/dL Assessment and Plan Plan: Imaging: X-rays reviewed of the left knee, hip and lumbar spine. Images of the knee no acute fractures or dislocations, calcifications noted throughout the joint, likely pseudogout. X-rays of the hip confirmed the minimal arthritic changes, no fractures or dislocations. Lumbar spine x-rays reveal multiple levels of degenerative disc disease Assessment: 1. Left lower extremity pain 2. Minimal left hip osteoarthritis 3. Left hip greater trochanteric bursitis 4. Lumbar degenerative disc disease with lumbar radiculopathy 5. Other medical comorbidities Plan: Patient does not want to proceed with the steroid injection of the greater trochanteric bursitis. I believe most of her symptoms are stemming from the lumbar spine. Recommend pain management orthopedic spine evaluation for further evaluation and treatment Physical therapy evaluation, which appears tolerated with walker Pain control, avoid IV narcotics GI and DVT prophylaxis per medical recommendations Internal medicine recommendations We'll be available for any further questions regarding this patient Time with Patient: Less than 30
[2019-06-20] MEDS: traMADol 50 MG TAB PO PRN ×2 (10:52→17:48)
[2019-06-20 11:36] LABS: Glucose,Whole Blood 157 mg/dL (75-99)
--- NOTE | 2019-06-20 14:18 | CT ---
EXAMINATION TYPE: CT thor lumbar spine wo con DATE OF EXAM: 06/20/2019 COMPARISON: None. HISTORY: iNTRACTABLE LEG PAIN CT DLP: 1434.1 mGycm Automated exposure control for dose reduction was used. FINDINGS there is extensive vascular calcification of the visualized arterial structures. This includ es coronary arteries. Paraspinal soft tissues are otherwise unremarkable. Vertebral body height is maintained. There is a minimal retrograde listhesis of L2 on L3 and L4 on L5 . No fractures are seen. There is no spondylolisthesis or spondylolysis. There is a gentle levoscolio sis in the thoracic region and a gentle dextroscoliosis in the lumbar region. Thoracic region, there is no significant compressive discopathy. The neural foramina appear well main tained. In the lumbar region there is degenerative disc disease with vacuum phenomena present at L2-3, L4-5 a nd L5-S1. There is hypertrophic spondylosis present at L2-3, L3-4 and L4-5. There is hypertrophic changes in the facets at L3-4 and there is a diffuse disc displacement causing moderate to severe central canal stenosis at this level. Similar appearance is present at L4-5. There is only moderate central canal stenosis at this level. No definite discal protrusion is seen. IMPRESSION: 1. NO ACUTE OSSEOUS LESION. 2. DIFFUSE DEGENERATIVE DISC DISEASE. 3. LUMBAR FACET ARTHROPATHY. 4. VARYING DEGREES OF CENTRAL CANAL COMPROMISE MOST MARKED AT L3-4 BUT ALSO PRESENT TO LESSER EXTENT L4-5.
[2019-06-20] MEDS: INSULIN ASPART (NovoLOG) 100 UNIT/ML VIAL SQ SCH ×4 (15:15→21:56)
[2019-06-20] MEDS: SODIUM CHLORIDE 0.9% 1,000 ML IV SCH (15:55)
[2019-06-20] MEDS: LIDOCAINE 5% PATCH TOPICAL SCH (15:55)
[2019-06-20 16:43] LABS: Glucose,Whole Blood 148 mg/dL (75-99)
--- NOTE | 2019-06-20 17:21 | P.PN ---
Subjective Progress Note Date: 06/20/19 (delayed charting seen at 1300) Principal diagnosis: hip pain Patient is a 78-year-old female with diabetes mellitus type 2, hypertension, dyslipidemia, chronic kidney disease who presented to the emergency Department complaints of left hip pain. [facility] with a Lidoderm patch patch was removed her pain came back. The ER she was found to be hypertensive with a blood pressure of 160/81. Analysis did show an elevated potassium of 5.6, creatinine was near her baseline at 1.58, calcium slightly elevated at 10.6, phosphorus elevated at 4.6, and a mildly elevated troponin at 0.061. Urinalysis was negative. X-ray showed no fracture or dislocation. She was seen by orthopedic surgery and was thought to have possible trochanteric bursitis. She underwent lumbar spine x-ray which showed lytic changes with mild disc space narrowing at L4 5 and disc space narrowing at L5-S1. Left knee showed meniscal calcification about fracture or significant joint space narrowing. Repeat x-ray again demonstrated arthritic changes in the left hip but no fracture. Orthopedic surgery recommended possible tear right injection however patient refused. Seen and examined at bedside with family present. Arrival to the room patient was having some urinary retention. She has been receiving morphine and her oxybutynin. I ordered a straight cath 1. Patient appears significantly confused and slow to answer questions. Initially she is unable to tell me if she's been having any back pain. However family indicates that she has been complaining of some lower spine and buttock pain along with her left hip pain. For me she complained of left groin and hip discomfort. She denied any chest pain or shortness of breath. Objective - Vital Signs Vital signs: Vital Signs Temp 98.3 F 06/20/19 15:00 Pulse 99 06/20/19 15:00 Resp 17 06/20/19 15:00 BP 168/83 06/20/19 15:00 Pulse Ox 93 L 06/20/19 15:00 Intake & Output 06/19/19 06/20/19 06/20/19 18:59 06:59 18:59 Intake Total 1310 Output Total 600 Balance 1310 -600 Intake: Intake, IV Titration 700 Amount Sodium Chloride 0.9% 1, 700 000 ml @ 100 mls/hr IV . Q10H ONE Rx#:[id number] Oral 610 Output: Urine 600 Straight 500 Other: Voiding Method Bedside Commode Bedside Commode # Voids 1 1 - Exam General: ill appearing, no distress, appears at stated age Derm: warm, dry Head: atraumatic, normocephalic, symmetric Eyes: EOMI, no lid lag, anicteric sclera Mouth: no lip lesion, mucus membranes moist Cardiovascular: S1S2 reg, no murmur, positive posterior tibial pulse bilateral, Lungs: CTA bilateral, no rhonchi, no rales , no accessory muscle use Abdominal: soft, nontender to palpation, no guarding, no appreciable organomegaly Ext: no gross muscle atrophy, no edema, no contractures, no spinous process tenderness Neuro: CN II-XI grossly intact, no focal neuro deficits inability to lift left hip due to pain, msucels trength 4.5 RLE Psych: Alert, oriented, appropriate affect - Labs CBC & Chem 7: 06/18/19 17:15 06/19/19 06:26 Labs: Abnormal Lab Results - Last 24 Hours (Table) 06/19/19 06/19/19 06/20/19 Range/Units 17:35 20:01 04:45 POC Glucose (mg/dL) 133 H 124 H 140 H (75-99) mg/dL 06/20/19 06/20/19 06/20/19 Range/Units 06:47 11:34 16:41 POC Glucose (mg/dL) 134 H 157 H 148 H (75-99) mg/dL Assessment and Plan Assessment: Severe left hip pain, intractable, failed outpatient treatment - pain control - ortho recs appreciated - PT/OT evaluation - fn Back pain with urinary retention - stat CT thoracic and lumbar spine - pain control - straight cath X1 then bladder scan after next void - consult ortho spine Elevated troponin - no symptoms of acute cornary syndrome - repeat troponin and CPK DM 2 - Januvia - SSI - check A1C CKD III - Cr at bseline - avoid additional nephrotoxic agents - continue sodium bicarb HTN - lisinopril and norvasc HLD - statin hypercalcemia, resolved DVT prophylaxis: Heparin Discussed with: Patient, family, nursing Anticipated discharge: 2-[address]: [facility] A total of [45] minutes was spent on the care of this complex patient more than 50% of the time was spent in counseling and care coordination.
[2019-06-20 20:23] LABS: Glucose,Whole Blood 172 mg/dL (75-99)
[2019-06-20] MEDS: IMIPRAMINE 25 MG TAB PO SCH (22:05)
[2019-06-20] MEDS: PRAVASTATIN SODIUM 80 MG TAB PO SCH (22:06)
[2019-06-21] MEDS: MORPHINE SULFATE 4 MG/ML SYRINGE IVP PRN ×2 (03:16→11:44)
[2019-06-21] MEDS: LEVOTHYROXINE 25 MCG TAB PO SCH (06:10)
[2019-06-21 06:51] LABS: HCT 33.6 % (34.0-46.0); HGB 10.6 gm/dL (11.4-16.0); MCH 29.5 pg (25.0-35.0); MCHC 31.7 g/dL (31.0-37.0); MCV 93.2 fL (80.0-100.0); Mean Platelet Volume 7.1; Platelet Count 378 k/uL (150-450); RDW 13.9 % (11.5-15.5); WBC 8.6 k/uL (3.8-10.6)
[2019-06-21 07:02] LABS: Calcium 8.6 mg/dL (8.4-10.2); Potassium 3.8 mmol/L (3.5-5.1)
[2019-06-21 07:03] LABS: Glucose,Whole Blood 145 mg/dL (75-99)
[2019-06-21] MEDS: INSULIN ASPART (NovoLOG) 100 UNIT/ML VIAL SQ SCH ×4 (07:30→22:42)
[2019-06-21] MEDS: traMADol 50 MG TAB PO PRN (07:30)
[2019-06-21] MEDS: HEPARIN SODIUM,PORCINE 5,000 UNIT/ML 1 ML VIAL SQ SCH ×3 (07:30→23:03)
[2019-06-21] MEDS: amLODIPine 5 MG TAB PO SCH (07:32)
[2019-06-21] MEDS: SODIUM BICARBONATE TAB 650 MG TAB PO SCH ×2 (07:32→22:28)
[2019-06-21] MEDS: FUROSEMIDE 20 MG TAB PO SCH ×2 (07:32→17:15)
[2019-06-21] MEDS: FENOFIBRATE 160 MG TAB PO SCH (07:32)
[2019-06-21] MEDS: LISINOPRIL 5 MG TAB PO SCH (07:32)
[2019-06-21] MEDS: DICLOFENAC SODIUM GEL 100 GM TUBE TOPICAL SCH ×4 (07:36→22:33)
[2019-06-21] MEDS ORDERED: ASPIRIN 81 MG PO SCH (09:00)
[2019-06-21] MEDS ORDERED: HYDROcodone/APAP 5-325MG 1 EACH TAB PO PRN (09:26)
[2019-06-21] MEDS ORDERED: DEXAMETHASONE SOD PHOSPHATE 4 MG/ML 1 ML VIAL IV STA (10:02)
--- NOTE | 2019-06-21 10:22 | P.PN ---
Subjective Progress Note Date: 06/21/19 Principal diagnosis: hip pain Patient is a 78-year-old female with diabetes mellitus type 2, hypertension, dyslipidemia, chronic kidney disease who presented to the emergency Department complaints of left hip pain. [facility] with a Lidoderm patch patch was removed her pain came back. The ER she was found to be hypertensive with a blood pressure of 160/81. Analysis did show an elevated potassium of 5.6, creatinine was near her baseline at 1.58, calcium slightly elevated at 10.6, phosphorus elevated at 4.6, and a mildly elevated troponin at 0.061. Urinalysis was negative. X-ray showed no fracture or dislocation. She was seen by orthopedic surgery and was thought to have possible trochanteric bursitis. She underwent lumbar spine x-ray which showed lytic changes with mild disc space narrowing at L4 5 and disc space narrowing at L5-S1. Left knee showed meniscal calcification about fracture or significant joint space narrowing. Repeat x-ray again demonstrated arthritic changes in the left hip but no fracture. Orthopedic surgery recommended possible tear right injection however patient refused. CT thorasic and lumbar spine demonstrated lumbar facet arthropathy with central canal compromise that is moderate to severe at L3/4. She continued to have low back pain with pain into the left hip and leg and intermittently wrapping around the abdomen. She developed urinary retention [facility] incomplete bladder emptying on 06/20, she required straigth cath X 1 and her detrol was discontinued. Patient seen and examined at bedside wt presented. She continues to have low back pain and feels the frequent need to empty her bladder. She denies any constipation, chest pain, or shortness of breath. She continues to have slowed thinking and appears confused. Objective - Vital Signs Vital signs: Vital Signs Temp 97.8 F 06/21/19 07:00 Pulse 77 06/21/19 07:00 Resp 17 06/21/19 07:00 BP 187/74 06/21/19 07:00 Pulse Ox 94 L 06/21/19 07:00 Intake & Output 06/20/19 06/21/19 06/21/19 18:59 06:59 18:59 Intake Total 600 Output Total 600 700 90 Balance -600 -100 -90 Intake: Intake, IV Titration 600 Amount Sodium Chloride 0.9% 1, 600 000 ml @ 100 mls/hr IV . Q10H [facility] Rx#:[id number] Output: Urine 600 450 90 Straight 500 450 Post Void Residual 250 Other: Voiding Method Bedside Commode # Voids 1 - Exam General: ill appearing, no distress, appears at stated age Derm: warm, dry Head: atraumatic, normocephalic, symmetric Eyes: EOMI, no lid lag, anicteric sclera Mouth: no lip lesion, mucus membranes moist Cardiovascular: S1S2 reg, no murmur, positive posterior tibial pulse bilateral, Lungs: CTA bilateral, no rhonchi, no rales , no accessory muscle use Abdominal: soft, nontender to palpation, no guarding, no appreciable organomegaly Ext: no gross muscle atrophy, no edema, no contractures, no spinous process tenderness Neuro: CN II-XI grossly intact, no focal neuro deficits Psych: Alert, oriented with slowed thinking, unable to answer questions appropriatly., appropriate affect - Labs CBC & Chem 7: 06/21/19 06:35 06/21/19 06:35 Labs: Abnormal Lab Results - Last 24 Hours (Table) 06/20/19 06/20/19 06/20/19 Range/Units 11:34 16:41 18:21 RBC (3.80-5.40) m/uL Hgb (11.4-16.0) gm/dL Hct (34.0-46.0) % BUN (7-17) mg/dL Creatinine (0.52-1.04) mg/dL Glucose (74-99) mg/dL POC Glucose (mg/dL) 157 H 148 H (75-99) mg/dL Troponin I 0.107 H* (0.000-0.034) ng/mL 06/20/19 06/21/19 06/21/19 Range/Units 20:21 06:35 06:35 RBC 3.60 L (3.80-5.40) m/uL Hgb 10.6 L (11.4-16.0) gm/dL Hct 33.6 L (34.0-46.0) % BUN 18 H (7-17) mg/dL Creatinine 1.15 H (0.52-1.04) mg/dL Glucose 140 H (74-99) mg/dL POC Glucose (mg/dL) 172 H (75-99) mg/dL Troponin I (0.000-0.034) ng/mL 06/21/19 06/21/19 Range/Units 06:35 07:01 RBC (3.80-5.40) m/uL Hgb (11.4-16.0) gm/dL Hct (34.0-46.0) % BUN (7-17) mg/dL Creatinine (0.52-1.04) mg/dL Glucose (74-99) mg/dL POC Glucose (mg/dL) 145 H (75-99) mg/dL Troponin I 0.102 H* (0.000-0.034) ng/mL Assessment and Plan Assessment: Severe left hip pain, intractable, failed outpatient treatment - pain control - ortho recs appreciated - PT/OT evaluation - ultram discontinued started on norco, lidoderm patch ordered - alternate heart and ice Low back pain with central canal stenosis with urinary retention - solumedrol IV X 3, then prednisone in AM - pain control - required straight cath X1, continue to bladder scan after each void. - await ortho spine recs Elevated troponin - flat not consistent with acute coronary syndrome - no symptoms of acute coronary syndrome - repeat troponin and CPK DM 2 - Januvia - SSI - await A1C CKD III - Cr at bseline - avoid additional nephrotoxic agents - continue sodium bicarb HTN - lisinopril and norvasc HLD - statin hypercalcemia, resolved DVT prophylaxis: Heparin Discussed with: Patient, family, nursing Anticipated discharge: 2-[address]: [facility] A total of 25 minutes was spent on the care of this complex patient more than 50% of the time was spent in counseling and care coordination.
[2019-06-21] MEDS: methylPREDNISolone SOD SUCCI 125 MG/2 ML VIAL IV SCH ×3 (10:24→23:04)
[2019-06-21] MEDS: LINAGLIPTIN 5 MG TABLET PO SCH (10:28)
--- NOTE | 2019-06-21 11:07 | P.CNOR ---
History of Present Illness - [facility] Consult date: 06/21/19 Consult reason: low back pain History of present illness: Patient is a very pleasant 78-year-old female who is been having low back pain with worsening for her over the past 6 months. She says that last summer she is not having any problems. She is somewhat of a limited historian and her is present with her at bedside. She is having some difficulty answering questions but she is able answer questions and follow commands appropriately. She denies any specific injury or trauma. Prior to 6 months ago she says she is not having problems with her back but was having some increased difficulty getting around and doing activities. She was doing the household activities such as cleaning and meal preparation just last month but slowing down with that. Her daughter lives with her and she has been doing significant help with those activities. Over the past couple weeks patient has had worsening of her symptoms and has had significant decrease cavity decreased ability to do things run house. She is now needing assistance with the person and with her walker over the past week and presented to the hospital. She says the pain was primarily at her left side of her low back and down toward her thigh. It occasionally went down her left leg but not regularly. She was not having weakness. She is not having nausea or vomiting or fevers. She denies any changes in her bowels but was having some difficulty with urinating. She has been able to urinate on her own. Review of Systems As stated per HPI. Denies any weakness in her lower extremity is. She there is some troubles with her being able to urinate. She has been able to urinate on her own. She denies any loss of control of her bowels. She denies any trauma or injury. She denies any back pain prior to 6 months ago. Past Medical History Past Medical History: Diabetes Mellitus, Hyperlipidemia, Hypertension Additional Past Medical History / Comment(s): osterperosis History of Any Multi-Drug Resistant Organisms: None Reported Past Surgical History: No Surgical Hx Reported Past Anesthesia/Blood Transfusion Reactions: No Reported Reaction Past Psychological History: No Psychological Hx Reported Smoking Status: Former smoker Past Alcohol Use History: None Reported Past Drug Use History: None Reported - Past Family History Mother Family Medical History: Cancer Father Family Medical History: Cancer Medications and Allergies Home Medications Medication Instructions Recorded Confirmed Type Diclofenac Sodium [Voltaren Gel] 1 applic TOPICAL QID 06/18/19 06/18/19 History Eszopiclone [Lunesta] 2 mg PO HS 06/18/19 06/18/19 History Fenofibrate Nanocrystallized 145 mg PO DAILY 06/18/19 06/18/19 History [Fenofibrate] Furosemide [Lasix] 20 mg PO BID 06/18/19 06/18/19 History Imipramine Pamoate [Tofranil Pm] 75 mg PO HS 06/18/19 06/18/19 History LORazepam [Ativan] 2 mg PO Q8H PRN 06/18/19 06/18/19 History Levothyroxine Sodium 25 mcg PO DAILY 06/18/19 06/18/19 History Lisinopril [Prinivil] 5 mg PO DAILY 06/18/19 06/18/19 History Pravastatin Sodium [Pravachol] 80 mg PO HS 06/18/19 06/18/19 History Sodium Bicarbonate Tab 650 mg PO BID 06/18/19 06/18/19 History Tolterodine Tartrate [Detrol LA] 4 mg PO DAILY 06/18/19 06/18/19 History amLODIPine [Norvasc] 5 mg PO DAILY 06/18/19 06/18/19 History sitaGLIPtin [Januvia] 50 mg PO DAILY 06/18/19 06/18/19 History traMADol HCL [Ultram] 50 mg PO Q8H PRN 06/18/19 06/18/19 History Allergies Allergy/AdvReac Type Severity Reaction Status Date / Time No Known Allergies Allergy Verified 06/18/19 21:59 Physical Examination Osteopathic Statement: *. No significant issues noted on an osteopathic structural exam other than those noted in the History and Physical/Consult. - L Spine: dermatomal strength & reflexes left Strength: hip flexion: 5/5 (At her lower back there are no open wounds lacerations or abrasions. She is nontender over her lower back at the midline and toward her left side. She is able to lift her legs up off the bed independently with good 5 out of 5 strength. She has sustained 5 and 5 strength at 4/plantarflexion and EHL. There is no pain with internal rotation or external rotation of her hips. Her abdomen is soft and nontender. Sensory is intact in her lower extremity is. She has 2 over 4 deep tendon reflexes and pulses.) Results - Labs Labs: Abnormal Lab Results - Last 24 Hours (Table) 06/20/19 06/20/19 06/20/19 Range/Units 11:34 16:41 18:21 RBC (3.80-5.40) m/uL Hgb (11.4-16.0) gm/dL Hct (34.0-46.0) % BUN (7-17) mg/dL Creatinine (0.52-1.04) mg/dL Glucose (74-99) mg/dL POC Glucose (mg/dL) 157 H 148 H (75-99) mg/dL Troponin I 0.107 H* (0.000-0.034) ng/mL 06/20/19 06/21/19 06/21/19 Range/Units 20:21 06:35 06:35 RBC 3.60 L (3.80-5.40) m/uL Hgb 10.6 L (11.4-16.0) gm/dL Hct 33.6 L (34.0-46.0) % BUN 18 H (7-17) mg/dL Creatinine 1.15 H (0.52-1.04) mg/dL Glucose 140 H (74-99) mg/dL POC Glucose (mg/dL) 172 H (75-99) mg/dL Troponin I (0.000-0.034) ng/mL 06/21/19 06/21/19 Range/Units 06:35 07:01 RBC (3.80-5.40) m/uL Hgb (11.4-16.0) gm/dL Hct (34.0-46.0) % BUN (7-17) mg/dL Creatinine (0.52-1.04) mg/dL Glucose (74-99) mg/dL POC Glucose (mg/dL) 145 H (75-99) mg/dL Troponin I 0.102 H* (0.000-0.034) ng/mL H & H 06/18/19 06/21/19 Range/Units 17:15 06:35 Hgb 11.4 10.6 L (11.4-16.0) gm/dL Hct 36.7 33.6 L (34.0-46.0) % Result Diagrams: 06/21/19 06:35 06/21/19 06:35 - Diagnostic results Lumbar AP/lateral x-ray: report reviewed, image reviewed CT Scan - lumbar: report reviewed, image reviewed (Computed tomography scan of her lumbar spine as well as x-rays of her lumbar spine reviewed. She has degenerative scoliosis. She has severe degenerative disc disease at L2-3 L3 4 L4 5 and L5-S1. There is evidence of severe central and bilateral foraminal stenosis L2-3 L3 4 and L4 5. I do not see acute fracture. There is significant bony sclerosis at the interbody spaces and facet arthrosis.) Assessment and Plan Assessment: Chronic low back pain with acute exacerbation Degenerative scoliosis Spinal stenosis with left lower extremity radiculopathy Facet arthrosis and diffuse severe lumbar spondylosis No apparent neurologic deficit Plan: Chronic low back pain with acute exacerbation Degenerative scoliosis Spinal stenosis with left lower extremity radiculopathy Facet arthrosis and diffuse severe lumbar spondylosis No apparent neurologic deficit The patient has chronic changes at her lumbar spine on imaging but her symptoms are still relatively new. She's been having worsening over the past 6 months with acute exacerbation over the past week. Her symptoms are primarily located her left low back and down her left lower extremity. She is not having any neurologic deficit. I do not think that she needs any acute surgical intervention but could do well with dedicated conservative treatment. I was asked to see if she does with IV steroid and possible epidural steroid injection through interventional pain management. I would also have physical therapy see her to try to help with her mobilization and activity. She has been able to urinate on her own and I do not see need for acute surgical intervention for her. Certainly she has severe changes at his lumbar spine and may need further treatment if conservative measures are not alleviating her. I think that she would attempt conservative treatment over the next several weeks to months before considering any sort of possible surgical intervention. Physical to predict how she would do with any sort of surgery if needed given her age and somewhat frail overall status and extensive lumbar issues. They would like to avoid surgery as well think that is appropriate. We will continue see how she does with dedicated conservative treatment. We will give her IV steroid medication and then consult interventional pain management. When she is stable from medical aspect it'll be okay for her to be discharged from surgery and follow-up on an outpatient basis. Time with Patient: Greater than 30
[2019-06-21 11:55] LABS: Glucose,Whole Blood 165 mg/dL (75-99)
[2019-06-21] MEDS: LIDOCAINE 5% PATCH TOPICAL SCH (12:57)
[2019-06-21] MEDS: SODIUM CHLORIDE 0.9% 1,000 ML IV SCH ×3 (12:57→22:45)
[2019-06-21 17:01] LABS: Glucose,Whole Blood 213 mg/dL (75-99)
[2019-06-21] MEDS: ONDANSETRON 4 MG/2 ML VIAL IVP PRN (19:41)
[2019-06-21 20:16] LABS: Glucose,Whole Blood 177 mg/dL (75-99)
[2019-06-21] MEDS ORDERED: DEXAMETHASONE 4 MG TAB PO SCH (21:00)
[2019-06-21] MEDS ORDERED: MELATONIN 3 MG TABLET PO SCH (21:00)
[2019-06-21] MEDS: PRAVASTATIN SODIUM 80 MG TAB PO SCH ×2 (22:28→22:31)
[2019-06-21] MEDS: IMIPRAMINE 25 MG TAB PO SCH (22:31)
[2019-06-21 22:46] LABS: Glucose,Whole Blood 202 mg/dL (75-99)
[2019-06-22] MEDS ORDERED: MELATONIN 3 MG TABLET PO PRN (04:45)
[2019-06-22] MEDS: LEVOTHYROXINE 25 MCG TAB PO SCH (06:12)
[2019-06-22] MEDS: SODIUM CHLORIDE 0.9% 1,000 ML IV SCH ×2 (06:12→17:27)
[2019-06-22 06:53] LABS: Glucose,Whole Blood 179 mg/dL (75-99)
[2019-06-22 07:27] LABS: HCT 35.1 % (34.0-46.0); HGB 10.9 gm/dL (11.4-16.0); MCH 29.3 pg (25.0-35.0); MCHC 31.1 g/dL (31.0-37.0); MCV 94.3 fL (80.0-100.0); Platelet Count 371 k/uL (150-450); RBC 3.72 m/uL (3.80-5.40); WBC 10.2 k/uL (3.8-10.6)
[2019-06-22 07:35] LABS: Albumin 3.7 g/dL (3.5-5.0); Calcium 8.7 mg/dL (8.4-10.2); Potassium 4.4 mmol/L (3.5-5.1); Total Bilirubin 0.5 mg/dL (0.2-1.3); Total Protein 6.8 g/dL (6.3-8.2)
[2019-06-22] MEDS: DICLOFENAC SODIUM GEL 100 GM TUBE TOPICAL SCH ×4 (07:38→21:40)
[2019-06-22] MEDS: methylPREDNISolone SOD SUCCI 125 MG/2 ML VIAL IV SCH (07:39)
[2019-06-22] MEDS: HEPARIN SODIUM,PORCINE 5,000 UNIT/ML 1 ML VIAL SQ SCH ×3 (07:39→18:30)
[2019-06-22] MEDS: LIDOCAINE 5% PATCH TOPICAL SCH (07:40)
[2019-06-22] MEDS: FENOFIBRATE 160 MG TAB PO SCH (07:40)
[2019-06-22] MEDS: LINAGLIPTIN 5 MG TABLET PO SCH (07:40)
[2019-06-22] MEDS: amLODIPine 5 MG TAB PO SCH (07:40)
[2019-06-22] MEDS: FUROSEMIDE 20 MG TAB PO SCH ×2 (07:40→17:27)
[2019-06-22] MEDS: SODIUM BICARBONATE TAB 650 MG TAB PO SCH ×2 (07:40→20:23)
[2019-06-22] MEDS: LISINOPRIL 5 MG TAB PO SCH (07:40)
[2019-06-22] MEDS: INSULIN ASPART (NovoLOG) 100 UNIT/ML VIAL SQ SCH ×4 (07:41→20:24)
[2019-06-22 11:27] VITALS: BMI 24.9
[2019-06-22 11:35] LABS: Glucose,Whole Blood 174 mg/dL (75-99)
[2019-06-22] MEDS: predniSONE 20 MG TAB PO SCH (12:39)
[2019-06-22 13:40] LABS: Hemoglobin A1C 5.8 % (4.0-6.0)
--- NOTE | 2019-06-22 15:29 | P.PAINCN ---
History of Present Illness - Reason for Consult Consult date: 06/22/19 - History of Present Illness This is 78 years old female with a chronic history of low back pain with radiation to the left lower extremity, she reported that the pain started 6 months ago she denies any initiating event, and she reported that the intensity of the pain increased over the last few weeks, the pain is constant and increases with any activity and admitted to the left lower extremity, interfering with her ability to walk or do any activity of daily livings, she is not able to ambulate secondary to an intensity of the pain, the pain is constant radiated to the posterior aspect of her left leg, she denies any change in her bowel movement but she has difficulty urinating and now she had a Reynoso catheter in place, she is being treated for her pain with [place] 5/325 every 6 hours when necessary and Voltaren gel and she continued to have severe pain Past Medical History Past Medical History: Diabetes Mellitus, Hyperlipidemia, Hypertension Additional Past Medical History / Comment(s): osterperosis History of Any Multi-Drug Resistant Organisms: None Reported Past Surgical History: No Surgical Hx Reported Past Anesthesia/Blood Transfusion Reactions: No Reported Reaction Past Psychological History: No Psychological Hx Reported Smoking Status: Former smoker Past Alcohol Use History: None Reported Past Drug Use History: None Reported - Past Family History Mother Family Medical History: Cancer Father Family Medical History: Cancer Medications and Allergies Home Medications Medication Instructions Recorded Confirmed Type Diclofenac Sodium [Voltaren Gel] 1 applic TOPICAL QID 06/18/19 06/18/19 History Eszopiclone [Lunesta] 2 mg PO HS 06/18/19 06/18/19 History Fenofibrate Nanocrystallized 145 mg PO DAILY 06/18/19 06/18/19 History [Fenofibrate] Furosemide [Lasix] 20 mg PO BID 06/18/19 06/18/19 History Imipramine Pamoate [Tofranil Pm] 75 mg PO HS 06/18/19 06/18/19 History LORazepam [Ativan] 2 mg PO Q8H PRN 06/18/19 06/18/19 History Levothyroxine Sodium 25 mcg PO DAILY 06/18/19 06/18/19 History Lisinopril [Prinivil] 5 mg PO DAILY 06/18/19 06/18/19 History Pravastatin Sodium [Pravachol] 80 mg PO HS 06/18/19 06/18/19 History Sodium Bicarbonate Tab 650 mg PO BID 06/18/19 06/18/19 History Tolterodine Tartrate [Detrol LA] 4 mg PO DAILY 06/18/19 06/18/19 History amLODIPine [Norvasc] 5 mg PO DAILY 06/18/19 06/18/19 History sitaGLIPtin [Januvia] 50 mg PO DAILY 06/18/19 06/18/19 History traMADol HCL [Ultram] 50 mg PO Q8H PRN 06/18/19 06/18/19 History Allergies Allergy/AdvReac Type Severity Reaction Status Date / Time No Known Allergies Allergy Verified 06/18/19 21:59 Physical Exam Vitals: Vital Signs Temp Pulse Resp BP Pulse Ox 06/22/19 07:00 97.7 F 97 17 132/74 93 L 06/22/19 03:06 18 06/22/19 02:30 81 18 113/68 06/22/19 00:30 16 06/21/19 20:00 93 16 06/21/19 19:48 98.1 F 93 16 183/80 93 L Intake and Output 06/22/19 06/22/19 06/22/19 06:59 14:59 22:59 Intake Total 600 354 Balance 600 354 Intake: Intake, IV Titration 600 Amount Sodium Chloride 0.9% 1, 600 000 ml @ 100 mls/hr IV . Q10H [facility] Rx#:[id number] Oral 354 Other: Voiding Method Indwelling Catheter # Voids 3 # Bowel Movements 1 Weight 65.771 kg Results CBC & Chem 7: 06/22/19 06:55 06/22/19 06:55 Labs: Abnormal Lab Results - Last 24 Hours (Table) 06/21/19 06/21/19 06/21/19 Range/Units 16:59 20:13 22:28 RBC (3.80-5.40) m/uL Hgb (11.4-16.0) gm/dL BUN (7-17) mg/dL Creatinine (0.52-1.04) mg/dL Glucose (74-99) mg/dL POC Glucose (mg/dL) 213 H 177 H 202 H (75-99) mg/dL 06/22/19 06/22/19 06/22/19 Range/Units 06:51 06:55 06:55 RBC 3.72 L (3.80-5.40) m/uL Hgb 10.9 L (11.4-16.0) gm/dL BUN 21 H (7-17) mg/dL Creatinine 1.38 H (0.52-1.04) mg/dL Glucose 163 H (74-99) mg/dL POC Glucose (mg/dL) 179 H (75-99) mg/dL 06/22/19 Range/Units 11:33 RBC (3.80-5.40) m/uL Hgb (11.4-16.0) gm/dL BUN (7-17) mg/dL Creatinine (0.52-1.04) mg/dL Glucose (74-99) mg/dL POC Glucose (mg/dL) 174 H (75-99) mg/dL Computed tomography scan of the lumbar spine= multilevel lumbar degenerative disc disease and multilevel lumbar facet arthropathy. Comments: Physical Examinations : -Constitutiona : Cooperative , not in acute distress . -HEENT : nech : supple , no Lymphadenopathy , normal thyroid size . : eyes : no ptosis , no icterus, no photophobia . : ENT : normal of hearing , normal oropharynx , no Thrush . - Respiratory : Chest clear to auscultations Bilaterally , no wheezing , no Rhonchi . - Cardiovascula : regular rate and rhythem , S1 , S2 , no S3 , no S4. - Gastrointestina : abdomen soft no tenderness , bowel sounds , no organomegally . - Genitourinary : Defferred . - neurologic : Cranial nerve II to XII intact , no focal neurological deffecit . -psychatric : alert , oriented X 3 , appropriate affect , intact judgment and insight . -Lymphatic : no Lymphadenopathy . - musculoskeltal : Lumber spine moter stegnth lower extremities ,thigh and legs 5/5 Right side , 4/5 Left side deep tendon reflexes : normal Knee Jerk , normal ankle Jerk lumber facet Loading Test =positive Right , positive Left Range of motion of the lumbar spine Flexion 30 degrees, extension 10 degrees strait leg raising test = positive bi lateral Fabere test= positive Right , and positive LT . tenderness over the Sacroiliac joint on the Left sides Assessment and Plan Plan: Assessment and plan=1-lumbar radiculopathy. 2-Lumber degenerative disc disease. 3-lumbar spondylosis with lumbar facet arthropathy. she good candidate to have lumbar epidural steroid injections under fluoroscopy guidance. It will be done tomorrow morning We'll hold heparin subcu for the procedure Time with Patient: Greater than 30 PQRS Measure Charge Sheet PQRS Narrative: Smoking Status Former smoker Do You Want the Pneumonia Vaccine Up to Date Vaccine AT THIS TIME? Blood Pressure [Right Arm] 132/74 Blood Pressure 161/81 Pain Intensity [Left Hip] 0 Pain Intensity 1 Pain Scale Used Non Verbal Pain Indicator Scale Used Non Verbal Pain Indicator Home Medications: Ambulatory Orders Diclofenac Sodium [Voltaren Gel] 1 applic TOPICAL QID 06/18/19 Eszopiclone [Lunesta] 2 mg PO HS 06/18/19 Fenofibrate Nanocrystallized [Fenofibrate] 145 mg PO DAILY 06/18/19 Furosemide [Lasix] 20 mg PO BID 06/18/19 Imipramine Pamoate [Tofranil Pm] 75 mg PO HS 06/18/19 LORazepam [Ativan] 2 mg PO Q8H PRN 06/18/19 Levothyroxine Sodium 25 mcg PO DAILY 06/18/19 Lisinopril [Prinivil] 5 mg PO DAILY 06/18/19 Pravastatin Sodium [Pravachol] 80 mg PO HS 06/18/19 Sodium Bicarbonate Tab 650 mg PO BID 06/18/19 Tolterodine Tartrate [Detrol LA] 4 mg PO DAILY 06/18/19 amLODIPine [Norvasc] 5 mg PO DAILY 06/18/19 sitaGLIPtin [Januvia] 50 mg PO DAILY 06/18/19 traMADol HCL [Ultram] 50 mg PO Q8H PRN 06/18/19
[2019-06-22 16:59] LABS: Glucose,Whole Blood 203 mg/dL (75-99)
--- NOTE | 2019-06-22 17:10 | P.PN ---
Subjective Progress Note Date: 06/22/19 (delayed charting seen at 1130) Principal diagnosis: hip pain Patient is a 78-year-old female with diabetes mellitus type 2, hypertension, dyslipidemia, chronic kidney disease who presented to the emergency Department complaints of left hip pain. [facility] with a Lidoderm patch patch was removed her pain came back. The ER she was found to be hypertensive with a blood pressure of 160/81. Analysis did show an elevated potassium of 5.6, creatinine was near her baseline at 1.58, calcium slightly elevated at 10.6, phosphorus elevated at 4.6, and a mildly elevated troponin at 0.061. Urinalysis was negative. X-ray showed no fracture or dislocation. She was seen by orthopedic surgery and was thought to have possible trochanteric bursitis. She underwent lumbar spine x-ray which showed lytic changes with mild disc space narrowing at L4 5 and disc space narrowing at L5-S1. Left knee showed meniscal calcification about fracture or significant joint space narrowing. Repeat x-ray again demonstrated arthritic changes in the left hip but no fracture. Orthopedic surgery recommended possible tear right injection however patient refused. CT thorasic and lumbar spine demonstrated lumbar facet arthropathy with central canal compromise that is moderate to severe at L3/4. She continued to have low back pain with pain into the left hip and leg and intermittently wrapping around the abdomen. She developed urinary retention with incomplete bladder emptying on 06/20, she required straigth cath X 1 and her detrol was discontinued. She continued to have urinary retention and a gilbert cath was placed. She was started on IV steroids. Ortho spine recommended conservative management. Seen by pain management. Patient seen and examined at bedside with presented. Pain is much improved today, responding faster, eating better, able to move better. Objective - Vital Signs Vital signs: Vital Signs Temp 98.1 F 06/22/19 15:00 Pulse 101 H 06/22/19 15:00 Resp 18 06/22/19 15:00 BP 145/69 06/22/19 15:00 Pulse Ox 97 06/22/19 15:00 Intake & Output 06/21/19 06/22/19 06/22/19 18:59 06:59 18:59 Intake Total 600 354 Output Total 890 150 Balance -890 450 354 Weight 65.771 kg Intake: Intake, IV Titration 600 Amount Sodium Chloride 0.9% 1, 600 000 ml @ 100 mls/hr IV . Q10H [facility] Rx#:[id number] Oral 354 Output: Urine 890 150 Other: Voiding Method Indwelling Catheter # Voids 3 # Bowel Movements 1 - Exam General: non toxic, no distress, appears at stated age Derm: warm, dry Head: atraumatic, normocephalic, symmetric Eyes: EOMI, no lid lag, anicteric sclera Mouth: no lip lesion, mucus membranes moist Cardiovascular: S1S2 reg, no murmur, positive posterior tibial pulse bilateral, Lungs: CTA bilateral, no rhonchi, no rales , no accessory muscle use Abdominal: soft, nontender to palpation, no guarding, no appreciable organomegaly, gilbert in place Ext: no gross muscle atrophy, no edema, no contractures, no spinous process tenderness Neuro: CN II-XI grossly intact, no focal neuro deficits Psych: Alert, oriented still slight confusion when answering questions, appr opriate affect - Labs CBC & Chem 7: 06/22/19 06:55 06/22/19 06:55 Labs: Abnormal Lab Results - Last 24 Hours (Table) 06/21/19 06/21/19 06/21/19 Range/Units 16:59 20:13 22:28 RBC (3.80-5.40) m/uL Hgb (11.4-16.0) gm/dL BUN (7-17) mg/dL Creatinine (0.52-1.04) mg/dL Glucose (74-99) mg/dL POC Glucose (mg/dL) 213 H 177 H 202 H (75-99) mg/dL 06/22/19 06/22/19 06/22/19 Range/Units 06:51 06:55 06:55 RBC 3.72 L (3.80-5.40) m/uL Hgb 10.9 L (11.4-16.0) gm/dL BUN 21 H (7-17) mg/dL Creatinine 1.38 H (0.52-1.04) mg/dL Glucose 163 H (74-99) mg/dL POC Glucose (mg/dL) 179 H (75-99) mg/dL 06/22/19 Range/Units 11:33 RBC (3.80-5.40) m/uL Hgb (11.4-16.0) gm/dL BUN (7-17) mg/dL Creatinine (0.52-1.04) mg/dL Glucose (74-99) mg/dL POC Glucose (mg/dL) 174 H (75-99) mg/dL Assessment and Plan Assessment: Low back pain with central canal stenosis and left leg radiculopathy causing intractable left hip pain Degenerative disc disease - pain management recs appreciated: plan is for steroid injection in AM - Prednisone X 1 more day - pain control - ortho spice recs appreciated - norco Urinary retention - off detrol - D/C gilbert today, voiding trail - limit morphine Elevated troponin - flat not consistent with acute coronary syndrome - no symptoms of acute coronary syndrome DM 2 - Januvia - SSI - A1C 5.8 CKD III - Cr at bseline - avoid additional nephrotoxic agents - continue sodium bicarb HTN - lisinopril and norvasc HLD - statin hypercalcemia, resolved DVT prophylaxis: Heparin Discussed with: Patient, family, nursing Anticipated discharge: in AM after epidural injection Anticipated discharge place: [facility] A total of 25 minutes was spent on the care of this complex patient more than 50% of the time was spent in counseling and care coordination.
[2019-06-22 20:17] LABS: Glucose,Whole Blood 218 mg/dL (75-99)
[2019-06-22] MEDS: IMIPRAMINE 25 MG TAB PO SCH (20:23)
[2019-06-23] MEDS: SODIUM CHLORIDE 0.9% 1,000 ML IV SCH (02:15)
[2019-06-23] MEDS: LEVOTHYROXINE 25 MCG TAB PO SCH (05:41)
[2019-06-23 06:47] LABS: Glucose,Whole Blood 141 mg/dL (75-99)
[2019-06-23] MEDS: HEPARIN SODIUM,PORCINE 5,000 UNIT/ML 1 ML VIAL SQ SCH (07:40)
[2019-06-23] MEDS: FUROSEMIDE 20 MG TAB PO SCH (07:42)
[2019-06-23] MEDS: LIDOCAINE 5% PATCH TOPICAL SCH (07:42)
[2019-06-23] MEDS: amLODIPine 5 MG TAB PO SCH (07:42)
[2019-06-23] MEDS: SODIUM BICARBONATE TAB 650 MG TAB PO SCH (07:42)
[2019-06-23] MEDS: predniSONE 20 MG TAB PO SCH (07:42)
[2019-06-23] MEDS: FENOFIBRATE 160 MG TAB PO SCH (07:42)
[2019-06-23] MEDS: LISINOPRIL 5 MG TAB PO SCH (07:42)
[2019-06-23] MEDS: LINAGLIPTIN 5 MG TABLET PO SCH (07:42)
[2019-06-23] MEDS: INSULIN ASPART (NovoLOG) 100 UNIT/ML VIAL SQ SCH ×2 (07:42→12:28)
[2019-06-23] MEDS: DICLOFENAC SODIUM GEL 100 GM TUBE TOPICAL SCH (07:43)
[2019-06-23] MEDS ORDERED: IV FLUID CONTINUATION 1,000 ML IV ONE (09:28)
[2019-06-23 09:29] VITALS: BP 163/73; PULSE 90; RESP 16; TEMP 96.6
[2019-06-23] MEDS ORDERED: IOPAMIDOL M200 10 ML VIAL ONE (10:18)
[2019-06-23] MEDS ORDERED: TRIAMCINOLONE ACETONIDE 40 MG/ML 1 ML VIAL ONE (10:18)
[2019-06-23] MEDS ORDERED: BUPIVACAINE (PF) 0.5% 30 ML VIAL ONE (10:18)
--- NOTE | 2019-06-23 10:37 | P.PCN ---
Date of Procedure: 06/23/19 Surgeon: Frances Ambrosio Pathology: none sent Condition: stable Disposition: PACU Description of Procedure: PREOPERATIVE DIAGNOSIS: 1-Lumbar radiculopathy 2- Lumber Degenerative Disc Diseases. POSTOPERATIVE DIAGNOSIS: 1-Lumbar radiculopathy. 2-Lumbar Degenerative Disc Diseases PROCEDURE 1. Lumbar epidural steroid injection under fluoroscopic guidance at the L2-3 level in the left paramedian approach. 2. Lumbar epidurogram. ANESTHESIA: Local only with 1% lidocaine EBL: Minimal PROCEDURE INDICATION: The patient with low back pain and radiculitis symptoms unresponsive to conservative treatment. Fluoroscopy was used to optimize visualization of the needle placement and to maximize safety. The patient's pain is in the left iliac crest and hip area which is more consistent with a pathology at the L2-3 or L3 4 levels in the lumbar spine. PROCEDURE DESCRIPTION / TECHNIQUE: The patient was seen and identified in the preoperative area. Risks, benefits, complications including but not limited to infections ,bleeding ,allergic reaction to the medications ,nerve damage and not complete pain relief , and alternatives were discussed with the patient. The patient agreed to proceed with the procedure and signed the consent. IV was started, and vital signs were stable. Patient was taken to the OR and time out was completed. The patient was placed in the prone position on procedure table and a pillow was placed under the abdomen to reduce lumbar lordosis. The lumbosacral area was prepped and draped in the usual sterile fashion with ChloraPrep.Patient was closely monitored during the procedure. Conscious sedation was used during the procedure to decrease patients anxiety. Vital signs were monitered during the entire procedure. Using anterior-posterior fluoroscopy, the L3-3 interlaminar space was identified and the skin over this site was marked and then infiltrated with 1% lidocaine subcutaneously. Subsequently, a 20-gauge Tuohy epidural needle was inserted in the left paramedian approach and advanced toward the epidural space using the Loss of resistance to air technique and guided by AP and lateral fluoroscopy. The correct needle position in the epidural space was verified with the injection of 1 mL of the water soluble contrast dye Omnipaque 180 contrast and observing an excellent epidurogram with the epidural spread of the dye, after negative aspiration for blood and CSF and in the absence of paresthesias. Again after negative aspiration, a 6 ml mixture containing 40 mg of Kenalog and 3 ml of preservative free Normal Saline, and 2 ml of preservative free ropivacaine 0.5% solution was injected and a washout of epidurogram was seen. Needle was withdrawn intact, skin was cleansed, and bandages were applied. patient tolerated procedure well and was transferred to PACU in stable condition. COMPLICATIONS: None DISPOSITION / PLANS: The patient was placed in a supine position and transferred to the recovery area in a stable condition for observation. There was no evidence of lower extremity motor or sensory deficit after the procedure. Patient was discharged from the recovery room after meeting discharge criteria.
--- NOTE | 2019-06-23 11:09 | FL ---
EXAMINATION TYPE: FL guided pain mgmt statistic DATE OF EXAM: 06/23/2019 CLINICAL HISTORY: Left sacroiliac joint pain. TECHNIQUE: Fluoroscopy. COMPARISON: None. FINDINGS: Fluoroscopic guidance was provided during pain relief procedure performed by Dr. Ambrosio . A total of 8 seconds of fluoroscopic time was utilized during the procedure and two spot images are acquired. Images acquired shows needle localization from posterior approach with contrast injection at L3 level. IMPRESSION: As Above.
[2019-06-23 11:32] LABS: Glucose,Whole Blood 141 mg/dL (75-99)
--- NOTE | 2019-06-23 11:46 | P.DS ---
Providers Date of admission: 06/19/19 12:26 Expected date of discharge: 06/23/19 Attending physician: Kirby Nicholas MD Consults: 06/19/19 14:26 Consult Physician Routine Consulting Provider: Ian Denny Consult Reason/Comments: left hip pain Do you want consulting provider notified?: Yes 06/20/19 12:46 Consult Physician Routine Consulting Provider: Ralph Urias Consult Reason/Comments: back and hip pain Do you want consulting provider notified?: Yes 06/21/19 11:08 Consult to Anesthesia Routine Consulting Provider: Anesthesia,Services Consult Reason/Comments: Possible epidural injections for low back pain and left lower extremity rad Primary care physician: D[facility] Course: Discharge Diagnosis: Back pain secondary to 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 [facility] with a Lidoderm patch patch was removed her pain came back. In the ER she was found to be hypertensive with a blood pressure of 160/81. Labatory analysis did show an elevated potassium of 5.6, creatinine was near her baseline at 1.58, calcium slightly elevated at 10.6, phosphorus elevated at 4.6, and a mildly elevated troponin at 0.061. Urinalysis was negative. X-ray showed no fracture or dislocation. She was seen by orthopedic surgery and was thought to have possible trochanteric bursitis. She underwent lumbar spine x-ray which showed lytic changes with mild disc space narrowing at L4-5 and disc space narrowing at L5-S1. Left knee x-ray showed meniscal calcification about fracture or significant joint space narrowing. Repeat x-ray again demonstrated arthritic changes in the left hip but no fracture. Orthopedic surgery recommended possible right hip injection however patient refused. CT thorasic and lumbar spine demonstrated lumbar facet arthropathy with central canal compromise that is moderate to severe at L3/4. She continued to have low back pain with pain into the left hip and leg and intermittently wrapping around the abdomen. She developed urinary retention with incomplete bladder emptying on 06/20, she required straigth cath X 1 and her detrol was discontinued. She continued to have urinary retention and a gilbert cath was placed, and was sucessfully removed on 06/22. She was started on IV steroids. Ortho spine recommended conservative management. Seen by pain management and had epidural steroid injection on 06/23. Her pain was much improved. She was determined stable for discharge home. She will follow-up with pain management and Dr. Urias. She was given an RX for norcoa and will follow-up with the physi solomon at the [facility] for further dosing. Patient seen and examined at bedside. Feeling better, eating better, pain is better controlled, Confusion improving per family. Vital signs reviewed and stable. General: non toxic, no distress, appears at stated age Derm: warm, dry Head: atraumatic, normocephalic, symmetric Eyes: EOMI, no lid lag, anicteric sclera Mouth: no lip lesion, mucus membranes moist Cardiovascular: S1S2 reg, no murmur, positive posterior tibial pulse bilateral, Lungs: CTA bilateral, no rhonchi, no rales , no accessory muscle use Abdominal: soft, nontender to palpation, no guarding, no appreciable organomegaly Ext: no gross muscle atrophy, no edema, no contractures Neuro: CN II-XI grossly intact, no focal neuro deficits Psych: Alert, oriented to self, confusion improving, appropriate affect A total of 35 minutes of time were spent preparing this complex discharge summary . Patient Condition at Discharge: Stable Plan - Discharge Summary Discharge Rx Participant: No New Discharge Prescriptions: New predniSONE [Deltasone] 40 mg PO DAILY #2 tab Lidocaine 5% Patch [Lidoderm 5% Patch] 1 patch TOPICAL DAILY patch HYDROcodone/APAP 5-325MG [[place] 5-325] 1 each PO Q6HR PRN #12 tab PRN Reason: Pain Continue Sodium Bicarbonate Tab 650 mg PO BID Diclofenac Sodium [Voltaren Gel] 1 applic TOPICAL QID sitaGLIPtin [Januvia] 50 mg PO DAILY Pravastatin Sodium [Pravachol] 80 mg PO HS Lisinopril [Prinivil] 5 mg PO DAILY Levothyroxine Sodium 25 mcg PO DAILY Imipramine Pamoate [Tofranil Pm] 75 mg PO HS Furosemide [Lasix] 20 mg PO BID Fenofibrate Nanocrystallized [Fenofibrate] 145 mg PO DAILY amLODIPine [Norvasc] 5 mg PO DAILY Eszopiclone [Lunesta] 2 mg PO HS LORazepam [Ativan] 2 mg PO Q8H PRN #9 tab PRN Reason: Anxiety Discontinued traMADol HCL [Ultram] 50 mg PO Q8H PRN PRN Reason: Pain Tolterodine Tartrate [Detrol LA] 4 mg PO DAILY Discharge Medication List Diclofenac Sodium [Voltaren Gel] 1 applic TOPICAL QID 06/18/19 [History] Eszopiclone [Lunesta] 2 mg PO HS 06/18/19 [History] Fenofibrate Nanocrystallized [Fenofibrate] 145 mg PO DAILY 06/18/19 [History] Furosemide [Lasix] 20 mg PO BID 06/18/19 [History] Imipramine Pamoate [Tofranil Pm] 75 mg PO HS 06/18/19 [History] Levothyroxine Sodium 25 mcg PO DAILY 06/18/19 [History] Lisinopril [Prinivil] 5 mg PO DAILY 06/18/19 [History] Pravastatin Sodium [Pravachol] 80 mg PO HS 06/18/19 [History] Sodium Bicarbonate Tab 650 mg PO BID 06/18/19 [History] amLODIPine [Norvasc] 5 mg PO DAILY 06/18/19 [History] sitaGLIPtin [Januvia] 50 mg PO DAILY 06/18/19 [History] HYDROcodone/APAP 5-325MG [[place] 5-325] 1 each PO Q6HR PRN #12 tab 06/23/19 [Rx] LORazepam [Ativan] 2 mg PO Q8H PRN #9 tab 06/23/19 [Rx] Lidocaine 5% Patch [Lidoderm 5% Patch] 1 patch TOPICAL DAILY patch 06/23/19 [Rx] predniSONE [Deltasone] 40 mg PO DAILY #2 tab 06/23/19 [Rx] Follow up Appointment(s)/Referral(s): Denton Benoit MD [Primary Care Provider] - 1-2 days Ralph Urias DO [Doctor of Osteopathic Medicine] - 4 Weeks (Patient may follow- up with Dr. Yonas Urias at [facility] in approximately 3-4 weeks for further evaulation following discharge.) [facility] [NON-STAFF] - 2 Weeks Activity/Diet/Wound Care/Special Instructions: Activity: as tolerated, fall precuations Diet: regular ensure Discharge/Stand Alone Forms: [facility] Instructions Discharge Disposition: TRANSFER TO SNF/ECF
== END 2019-06-23 14:01 | DRG 552 ==
LOC: EC 15:58 → 4SSUR 19:48 → OBSVTOIN 06-19 12:26
PROVIDERS: ADMIT Internal Medicine; ATTEND Internal Medicine
PROC: 3E0R3BZ Introduction of Anesthetic Agent into Spinal Canal, Percutaneous Approach (ICD-10-PCS; principal; 2019-06-23 10:00)
PROC: B01B1ZZ Fluoroscopy of Spinal Cord using Low Osmolar Contrast (ICD-10-PCS; principal; 2019-06-23 10:00)
PROC: 3E0R33Z Introduction of Anti-inflammatory into Spinal Canal, Percutaneous Approach (ICD-10-PCS; principal; 2019-06-23 10:00)
DX: M51.16 Intervertebral disc disorders with radiculopathy, lumbar region (principal); M41.50 Other secondary scoliosis, site unspecified; E11.22 Type 2 diabetes mellitus with diabetic chronic kidney disease; N18.3 Chronic kidney disease, stage 3 (moderate); M16.12 Unilateral primary osteoarthritis, left hip; M70.62 Trochanteric bursitis, left hip; G89.29 Other chronic pain; I12.9 Hypertensive chronic kidney disease with stage 1 through stage 4 chronic kidney disease, or unspecified chronic kidney disease; E83.52 Hypercalcemia; E86.0 Dehydration; R33.9 Retention of urine, unspecified; M48.061 Spinal stenosis, lumbar region without neurogenic claudication; M81.0 Age-related osteoporosis without current pathological fracture; E78.5 Hyperlipidemia, unspecified; R79.89 Other specified abnormal findings of blood chemistry; Z79.890 Hormone replacement therapy; Z79.84 Long term (current) use of oral hypoglycemic drugs; Z79.899 Other long term (current) drug therapy; Z87.891 Personal history of nicotine dependence; Z74.01 Bed confinement status; Z80.9 Family history of malignant neoplasm, unspecified
CPT/HCPCS: 36415; 62323; 72100; 72128; 72131; 73501; 73502; 80048; 80053; 81003; 82550; 83036; 83735; 84100; 84484; 85025; 85027; 93005; 96361; 96374; 96375; 99152; 99285

== ENCOUNTER → 2019-07-28 | Day surgery (SDC) | payer MEDICARE, BC ==
[2019-07-27 09:12] VITALS: BMI 21.2
[~2019-07-28] MED LIST: IOPAMIDOL M200 10 ML VIAL ONE; IV FLUID CONTINUATION 600 ML IV ONE; LACTATED RINGERS 1,000 ML IV SCH; LIDOCAINE 1% (10MG/ML) FOR IV START INTRADERMA ONE; MIDAZOLAM 2 MG/2 ML VIAL ONE; ROPIVACAINE 5MG/ML 20ML VIAL ONE; fentaNYL (PF) 50 MCG/ML 2 ML AMP ONE; methylPREDNISolone ACETATE 40 MG/ML 1 ML VIAL ONE
[2019-07-28 09:28] VITALS: RESP 16; TEMP 98.1
[2019-07-28 09:40] LABS: Glucose,Whole Blood 171 mg/dL (75-99)
--- NOTE | 2019-07-28 10:14 | P.GSHP ---
History of Present Illness H&P Date: 07/28/19 This is 78 years old female with a chronic history of low back pain with radiation to the left lower extremity, she reported that the pain started 6 months ago she denies any initiating event, and she reported that the intensity of the pain increased over the last few weeks, the pain is constant and increases with any activity and admitted to the left lower extremity, interfering with her ability to walk or do any activity of daily livings, she is not able to ambulate secondary to an intensity of the pain, the pain is constant radiated to the posterior aspect of her left leg, a few weeks ago we have done lumbar epidural steroid injection, the procedure helped her pain to some degree, Past Medical History Past Medical History: Diabetes Mellitus, Hyperlipidemia, Hypertension, Renal Disease, Vascular Disorder Additional Past Medical History / Comment(s): osteoporosis. stage III kidney disease. peripheral circ. disorder. DDD History of Any Multi-Drug Resistant Organisms: None Reported Past Surgical History: No Surgical Hx Reported Past Anesthesia/Blood Transfusion Reactions: No Reported Reaction Smoking Status: Former smoker - Past Family History Mother Family Medical History: Cancer Father Family Medical History: Cancer Medications and Allergies Home Medications Medication Instructions Recorded Confirmed Type Diclofenac Sodium [Voltaren Gel] 1 applic TOPICAL QID 06/18/19 07/27/19 History Furosemide [Lasix] 20 mg PO BID 06/18/19 07/27/19 History Imipramine Pamoate [Tofranil Pm] 75 mg PO HS 06/18/19 07/27/19 History Levothyroxine Sodium 25 mcg PO QAM 06/18/19 07/27/19 History Lisinopril [Prinivil] 5 mg PO QAM 06/18/19 07/27/19 History Pravastatin Sodium [Pravachol] 80 mg PO HS 06/18/19 07/27/19 History Sodium Bicarbonate Tab 650 mg PO BID 06/18/19 07/27/19 History amLODIPine [Norvasc] 5 mg PO QAM 06/18/19 07/27/19 History sitaGLIPtin [Januvia] 50 mg PO QAM 06/18/19 07/27/19 History Lidocaine 5% Patch [Lidoderm 5% 1 patch TOPICAL DAILY patch 06/23/19 07/27/19 Rx Patch] Tolterodine Tartrate [Detrol LA] 4 mg PO QAM 07/10/19 07/27/19 History HYDROcodone/APAP 5-325MG [[place] 1 tab PO Q4HR PRN 07/27/19 07/27/19 History 5-325] LORazepam [Ativan] 1 mg PO Q8H PRN 07/27/19 07/27/19 History Pregabalin [Lyrica] 25 mg PO HS 07/27/19 07/27/19 History Allergies Allergy/AdvReac Type Severity Reaction Status Date / Time No Known Allergies Allergy Verified 07/28/19 09:26 Surgical - Exam Vital Signs Temp Pulse Resp BP Pulse Ox 98.1 F 102 H 16 133/77 97 07/28/19 09:26 07/28/19 09:26 07/28/19 09:26 07/28/19 09:26 07/28/19 09:26 -Constitutiona : Cooperative , not in acute distress . -HEENT : nech : supple , no Lymphadenopathy , normal thyroid size . : eyes : no ptosis , no icterus, no photophobia . : ENT : normal of hearing , normal oropharynx , no Thrush . - Respiratory : Chest clear to auscultations Bilaterally , no wheezing , no Rhonchi . - Cardiovascula : regular rate and rhythem , S1 , S2 , no S3 , no S4. - Gastrointestina : abdomen soft no tenderness , bowel sounds , no organomegally . - Genitourinary : Defferred . - neurologic : Cranial nerve II to XII intact , no focal neurological deffecit . -psychatric : alert , oriented X 3 , appropriate affect , intact judgment and insight . -Lymphatic : no Lymphadenopathy . - musculoskeltal : Lumber spine moter stegnth lower extremities ,thigh and legs 5/5 Right side , 3- 4/5 Left side deep tendon reflexes : normal Knee Jerk , normal ankle Jerk lumber facet Loading Test =positive Right , positive Left Range of motion of the lumbar spine Flexion 30 degrees, extension 10 degrees strait leg raising test = positive left side at 45, negative on the right Fabere test= positive Right , and positive LT . tenderness over the Sacroiliac joint on the Left sides. Severe tenderness over the left trochanteric bursa Results - Labs Abnormal Lab Results - Last 24 Hours (Table) 07/28/19 Range/Units 09:34 POC Glucose (mg/dL) 171 H (75-99) mg/dL Assessment and Plan Plan: Assessment and plan=1-lumbar radiculopathy. 2-Lumber degenerative disc disease. 3-lumbar spondylosis with lumbar facet arthropathy. 4-left trochanteric bursitis Patient here for lumbar epidural steroid injections ( left paramedian at L3-4 or L4-5 )& Left trochanteric bursa steroid injection Time with Patient: Less than 30
--- NOTE | 2019-07-28 10:34 | P.PCN ---
Date of Procedure: 07/28/19 Procedure(s) Performed: PREOPERATIVE DIAGNOSIS: 1- Lumbar Degenerative Disc Diseases 2-Lumbar spondylosis with Facet arthropathy without myelopathy. 3-lumbar radiculopathy. 4-left trochanteric bursitis. POSTOPERATIVE DIAGNOSIS: Same as pre-op diagnosis . PROCEDURE 1. Lumbar epidural steroid injection under fluoroscopic guidance at the L4-5 level. (Fluoroscopy imaging was available in radiology department) 2. Lumbar epidurogram. 3. Left trochanteric bursa steroid injection under fluoroscopy guidance. ANESTHESIA: Local with 1% lidocaine 3 ml and , moderate sedation with intravenous Versed 1 mg ,and fentanyle 50 Mcg EBL: Minimal PROCEDURE INDICATION: The patient with low back pain and radiculitis symptoms unresponsive to conservative treatment. Fluoroscopy was used to optimize visualization of the needle placement and to maximize safety. PROCEDURE DESCRIPTION / TECHNIQUE: The patient was seen and identified in the preoperative area. Risks, benefits, complications including but not limited to infections ,bleeding ,allergic reaction to the medications ,nerve damage and not complete pain releife , and alternatives were discussed with the patient. The patient agreed to proceed with the procedure and signed the consent. IV was started, and vital signs were stable. Patient was taken to the OR and time out was completed. The patient was placed in the prone position on procedure table and a pillow was placed under the abdomen to reduce lumbar lordosis. The lumbosacral area was prepped and draped in the usual sterile fashion.ere closely monitored during the procedure. Conscious sedation was used during the procedure to decrease patients anxiety. Vital signs was monitered during the entire procedure. Using anterior-posterior fluoroscopy, the L4-5 interlaminar space was identified and the skin over this site was marked and then infiltrated with 1% lidocaine subcutaneously. Subsequently, a 20-gauge Tuohy epidural needle was inserted and advanced toward the epidural space using the ``Loss of resistance technique and guided by AP and lateral fluoroscopy. The correct needle position in the epidural space was verified with the injection of 2 mL of the water soluble contrast dye Isovue 200 contrast and observing an excellent epidurogram with the epidural spread of the dye, after negative aspiration for blood and CSF and in the absence of paresthesias. Again after negative aspiration, a 6 ml mixture containing 30 mg of Depo-medrol , and 2 ml of preservative free Normal Saline, and 2 ml of preservative free lidocaine 1% solution was injected and a washout of epidurogram was seen. Needle was withdrawn intact, Then after that the left trochanteric bursa injection done in steril technique after the left hip area prepped with Betadine 3, then 22-gauge Quincke-type needle advanced slowly under fluoroscopy and placed in the left trochanteric bursa , needle placement confirmed with the fluoroscopy, then after negative aspiration ropivacaine 0.5% 5 ML and 10 mg of Depo-Medrol were injected and the left trochanter bursa after negative aspiration COMPLICATIONS: None DISPOSITION / PLANS: The patient was placed in a supine position and transferred to the recovery area in a stable condition for observation. There was no evidence of lower extremity motor or sensory deficit after the procedure. Patient was discharged from the recovery room after meeting discharge criteria. Home discharge instructions were given to the patient by the staff. The patient was reexamined prior to discharge. The patient will schedule a follow up in the clinic in 2-4 weeks.
--- NOTE | 2019-07-28 10:39 | FL ---
EXAMINATION TYPE: FL guided pain mgmt statistic DATE OF EXAM: 07/28/2019 CLINICAL HISTORY: Low back and hip pain. TECHNIQUE: Fluoroscopy. COMPARISON: None. FINDINGS: Fluoroscopic guidance was provided during pain relief procedure performed by Dr. Dowling . A total of 4 seconds of fluoroscopic time was utilized during the procedure and two spot images ar e acquired. Images acquired shows needle localization of the lumbosacral junction and left hip. IMPRESSION: As Above.
[2019-07-28 10:56] VITALS: BP 120/70; PULSE 80
== END ==
LOC: ORPAIN 09:02
PROVIDERS: ATTEND Specialist
DX: G89.29 Other chronic pain (principal); M70.62 Trochanteric bursitis, left hip; M51.16 Intervertebral disc disorders with radiculopathy, lumbar region; M47.26 Other spondylosis with radiculopathy, lumbar region; I12.9 Hypertensive chronic kidney disease with stage 1 through stage 4 chronic kidney disease, or unspecified chronic kidney disease; N18.3 Chronic kidney disease, stage 3 (moderate); E11.51 Type 2 diabetes mellitus with diabetic peripheral angiopathy without gangrene; E78.5 Hyperlipidemia, unspecified; M81.0 Age-related osteoporosis without current pathological fracture; Z87.891 Personal history of nicotine dependence; Z80.9 Family history of malignant neoplasm, unspecified; Z79.890 Hormone replacement therapy; Z79.899 Other long term (current) drug therapy; Z78.0 Asymptomatic menopausal state
CPT/HCPCS: 62323; 20610; J2250; J1030; J3010; Q9966; J2795; 99152

== ENCOUNTER → 2019-09-25 | Outpatient (CLI) | payer MEDICARE, BC ==
--- NOTE | 2019-09-25 12:20 | P.PAINPG ---
Subjective Progress Note Date: 09/25/19 THIS ENCOUNTER WAS PERFORMED A TELEMEDICINE VISIT VIA SECURE TWO-WAY VIDEO AND AUDIO TO MINIMIZE RISK AND TRANSMISSION OF COVID-19. This is a 78 year old female with a chronic history of low back pain with radiation to the left lower extremity, she has been diagnosed with lumbar radiculopathy, lumbar degenerative disc disease, left trochanteric bursitis. She underwent lumbar epidural steroid injection and left greater trochanter bursa injection on 07/28/2019. She reports 100% relief from these procedures, lasting until about 2 weeks ago. over the last 2 weeks, her pain has been getting worse, primarily located in the low back and left hip. Pain is rated as 10/10. It is constant. pain is associated with numbness and tingling in the left lower extremity, from left hip up to foot. she is finding it very difficult to ambulate due to pain. She does endorse subjective weakness.Pain is described as dull and aching, worse with standing on left leg, better with lidocaine patch, ice, heat, steroid pack prescribed by primary care physician. PCP has also prescribed [place] however this was constipating, she is also prescribed tramadol. Review of systems is negative for chest pain, shortness of breath, new onset weakness, numbness/tingling, abdominal pain, malaise, fever, night sweats, chills, homicidal or suicidal ideation, or bowel or bladder incontinence. Objective Physical exam : Constitutional: Healthy appearing, well developed, alert, in no acute distress Psychiatric: Judgement and insight intact, alert and oriented Mood and Affect: mood normal, affect appropriate Head and Face: Inspection: normocephalic atraumatic, extraocular movement intact Respiratory: Breathing non-labored nondyspneic Skin: Head and Neck: skin with no lesions of rash Gait:ambulates with walker Assessment and Plan Assessment and plan=1-lumbar radiculopathy. 2-Lumber degenerative disc disease. 3-lumbar spondylosis with lumbar facet arthropathy. 4-left trochanteric bursitis she could benefit from repeat lumbar epidural steroid injections ( left paramedian at L4-5 ), and left trochanteric bursa steroid injection Which can be done and the same timewe will schedule this when the clinic is reopened for procedures I advised the patient to call primary care physician as she needs a refill of tramadol. I also advised her to take extra strength Tylenol2 tablets 3 times a day. PQRS Measure Charge Sheet PQRS Narrative: Smoking Status Former smoker Hx Alcohol Use (MH) No Home Medications: Ambulatory Orders Diclofenac Sodium [Voltaren Gel] 1 applic TOPICAL QID 06/18/19 Furosemide [Lasix] 20 mg PO BID 06/18/19 Imipramine Pamoate [Tofranil Pm] 75 mg PO HS 06/18/19 Levothyroxine Sodium 25 mcg PO QAM 06/18/19 Lisinopril [Prinivil] 5 mg PO QAM 06/18/19 Pravastatin Sodium [Pravachol] 80 mg PO HS 06/18/19 Sodium Bicarbonate Tab 650 mg PO BID 06/18/19 amLODIPine [Norvasc] 5 mg PO QAM 06/18/19 sitaGLIPtin [Januvia] 50 mg PO QAM 06/18/19 Lidocaine 5% Patch [Lidoderm 5% Patch] 1 patch TOPICAL DAILY patch 06/23/19 Tolterodine Tartrate [Detrol LA] 4 mg PO QAM 07/10/19 HYDROcodone/APAP 5-325MG [[place] 5-325] 1 tab PO Q4HR PRN 07/27/19 LORazepam [Ativan] 1 mg PO Q8H PRN 07/27/19 Pregabalin [Lyrica] 25 mg PO HS 07/27/19 Controlled Substance Measures - Controlled Substance Measures Is patient prescribed a controlled substance at discharge?: No
== END | disposition home or self-care (01) ==
LOC: PNWHC3 07:23
PROVIDERS: ATTEND Anesthesiology
DX: Z53.9 Procedure and treatment not carried out, unspecified reason (principal)

== ENCOUNTER → 2019-10-23 | Outpatient (CLI) | payer MEDICARE, BC | END | disposition home or self-care (01) | LOC: LABWHC1 14:36 | PROVIDERS: ATTEND Family Medicine | DX: Z11.59 Encounter for screening for other viral diseases (principal) ==

== ENCOUNTER 2019-10-27 08:55 | Day surgery (SDC) | payer MEDICARE, BC ==
[2019-10-26 11:28] VITALS: BMI 21.6
[2019-10-27 09:15] VITALS: RESP 16; TEMP 98.5
[2019-10-27 09:19] LABS: Glucose,Whole Blood 160 mg/dL (75-99)
[2019-10-27] MEDS ORDERED: LACTATED RINGERS 1,000 ML IV ONE ×2 (09:21→10:06)
[2019-10-27] MEDS ORDERED: fentaNYL (PF) 50 MCG/ML 2 ML AMP ONE (09:45)
[2019-10-27] MEDS ORDERED: MIDAZOLAM 2 MG/2 ML VIAL ONE (09:45)
[2019-10-27] MEDS ORDERED: IOPAMIDOL M200 10 ML VIAL ONE (09:45)
[2019-10-27] MEDS ORDERED: TRIAMCINOLONE ACETONIDE 40 MG/ML 1 ML VIAL ONE (09:45)
[2019-10-27] MEDS ORDERED: LACTATED RINGERS 1,000 ML IV SCH (10:00)
--- NOTE | 2019-10-27 10:03 | P.PCN ---
Date of Procedure: 10/27/19 Description of Procedure: PREOPERATIVE DIAGNOSIS: 1-lumbar radiculopathy 2-Lumbar spondylosis with Facet arthropathy without myelopathy POSTOPERATIVE DIAGNOSIS: Lumbar radiculopathy 2-Lumbar spondylosis with Facet arthropathy without myelopathy PROCEDURE 1. Lumbar epidural steroid injection under fluoroscopic guidance at the L3-L4 level. 2. Lumbar epidurogram. ANESTHESIA: Local with 1% lidocaine 3 ml and IV sedation with Versed 1mg and 50mcq Fentanyl EBL: Minimal PROCEDURE INDICATION: The patient with low back pain and radiculitis symptoms unresponsive to conservative treatment. Fluoroscopy was used to optimize visualization of the needle placement and to maximize safety. PROCEDURE DESCRIPTION / TECHNIQUE: The patient was seen and identified in the preoperative area. Risks, benefits, complications including but not limited to infections ,bleeding ,allergic reaction to the medications ,nerve damage and not complete pain releife , and alternatives were discussed with the patient. The patient agreed to proceed with the procedure and signed the consent. IV was started, and vital signs were stable. Patient was taken to the OR and time out was completed. The patient was placed in the prone position on procedure table and a pillow was placed under the abdomen to reduce lumbar lordosis. The lumbosacral area was prepped and draped in the usual sterile fashion.ere closely monitored during the procedure. Conscious sedation was used during the procedure to decrease patients anxiety. Vital signs was monitered during the entire procedure. Using anterior-posterior fluoroscopy, the L3-L4 interlaminar space was identified and the skin over this site was marked and then infiltrated with 1% lidocaine subcutaneously. Subsequently, a 20-gauge Tuohy epidural needle was inserted and advanced toward the epidural space using the ``Loss of resistance technique and guided by AP and lateral fluoroscopy. The correct needle position in the epidural space was verified with the injection of 2 mL of the water soluble contrast dye Omnipaque 180 contrast and observing an excellent epidurogram with the epidural spread of the dye, after negative aspiration for blood and CSF and in the absence of paresthesias. Again after negative aspiration, a 5 ml mixture containing 40mg of Kenalog and 4 ml of preservative free Normal Saline was injected and a washout of epidurogram was seen. Needle was withdrawn intact, skin was cleansed, and bandages were applied. AP and Oblique images were saved. COMPLICATIONS: None DISPOSITION / PLANS: The patient was placed in a supine position and transferred to the recovery area in a stable condition for observation. There was no e vidence of lower extremity motor or sensory deficit after the procedure. Patient was discharged from the recovery room after meeting discharge criteria. Home discharge instructions were given to the patient by the staff. The patient was reexamined prior to discharge. Patient will return in 2-4 weeks for LEFT TFESI at L4-5 interspace. Interlaminar access is difficult.
[2019-10-27] MEDS ORDERED: IV FLUID CONTINUATION 1,000 ML IV ONE (10:06)
[2019-10-27 10:19] VITALS: BP 111/70; PULSE 84
--- NOTE | 2019-10-27 12:12 | FL ---
EXAMINATION TYPE: FL guided pain mgmt statistic DATE OF EXAM: 10/27/2019 HISTORY: Fluoroscopy time 10 seconds of fluoroscopy provided. IMPRESSION: 1. Fluoroscopy time.
== END 2019-10-27 10:37 | disposition home or self-care (01) ==
LOC: ORPAIN 08:55
PROVIDERS: ATTEND Anesthesiology
DX: M47.26 Other spondylosis with radiculopathy, lumbar region (principal); E11.9 Type 2 diabetes mellitus without complications; I10 Essential (primary) hypertension; E07.9 Disorder of thyroid, unspecified
CPT/HCPCS: 62323; J2250; J3301; J3010; Q9966; 99152

== ENCOUNTER → 2019-11-04 | Outpatient (CLI) | payer MEDICARE, BC ==
[2019-11-04 13:37] VITALS: BP 121/85; PULSE 95; RESP 18; TEMP 97.9
--- NOTE | 2019-11-05 07:29 | P.PAINPG ---
Subjective Progress Note Date: 11/04/19 This is a 78 year old female with a chronic history of low back pain with radiation to the left lower extremity, she has been diagnosed with lumbar radiculopathy, lumbar degenerative disc disease, left trochanteric bursitis. She underwent lumbar epidural steroid injection at L3-4 on 10/27/2019. Unfortun ately, she has had significant pain in the low back since procedure. On review procedure note, it appears that interlaminar space access was difficult. She did have 1 episode of bladder incontinence following the procedure, however attributes this to not wanting to get up from a seated position due to pain. She did have the sensation of bladder fullness at the time. She does not report any new weakness, numbness, tingling or bowel incontinence. She continues to use a walker to ambulate. She does continue to have left hip pain as well. Pain is rated as 10/10. It is constant. she is finding it very difficult to ambulate due to pain. Review of systems is negative for chest pain, shortness of breath, new onset weakness, numbness/tingling, abdominal pain, malaise, fever, chills, homicidal or suicidal ideation, or bowel incontinence. Review of systems is notable for weight loss of 30 pounds over the last 3 months, reduced appetite, excessive fatigue and night sweats. I have asked her to follow up with her primary care physician regarding these concerning symptoms. Objective Physical exam: Vitals: Reviewed in EMR GENERAL: Well appearing, in no acute distress, seated in wheelchair PSYCH: Mood and affect is appropriate. Awake, alert, and oriented SKIN: Skin color, texture, turgor normal, no rashes or lesions HEENT: Normocephalic, atraumatic. EOM intact CV: No pedal edema RESP: Respirations are unlabored, no audible wheezing GI: Abdomen non-distended MUSCULOSKELETAL: Bilateral lower extremity strength is normal and symmetric. No atrophy or tone abnormalities are noted. Lumbar spine: Tenderness to palpation over the lumbar spine and paraspinous muscles. Limited range of motion with pain reproduction Buttocks: No pain to palpation over the PSIS, sacroiliac joint maneuvers are negative for pain. Tenderness to palpation along left greater trochanter Extremities: Peripheral joint ROM is full and pain free without obvious instability or laxity in all four extremities. No edema or skin discolorations noted. NEUR: Bilateral lower extremity coordination and muscle stretch reflexes are physiologic and symmetric. Negative clonus bilaterally. No loss of sensation is noted. Assessment and Plan Assessment and plan=1-lumbar radiculopathy. 2-Lumber degenerative disc disease. 3-lumbar spondylosis with lumbar facet arthropathy. 4-left trochanteric bursitis 5. Acute post procedural pain I counseled the patient on red flag symptoms such as new onset fevers, weakness, numbness, tingling, bowel or bladder incontinence and asked her to seek care in an emergency department if she were to give any of these. For acute postprocedural pain, I prescribed tramadol 50 mg 3 times a day when necessary for pain7 day course with no refills. We will schedule her for repeat lumbar epidural steroid injections ( left paramedian at L4-5 ), and left trochanteric bursa steroid injection in 2-3 weeks. Patient had excellent relief from prior procedure done in July, we will plan on using Depo-Medrol for the procedure, as it was done in July. Procedure done on 10/27/2019, Kenalog was used. I asked her to seek care with her primary care physician regarding weight loss, fatigue, night sweats, reduced appetite prior to the procedure. Objective - Vital Signs Vital signs: Intake & Output 11/03/19 11/04/19 11/04/19 18:59 06:59 18:59 Weight 59.421 kg PQRS Measure Charge Sheet Measure #130: Documentation of Current Meds in Medical Chart: Patient's medications documented in chart Measure #226: Tobacco Use: Screen & Cessation Intervention: Pt not a tobacco user Measure #111: Pneumonia Vaccination: Pneumococcal vaccine administered or previously received Measure #47: Advance Care Plan: Advance care planning discussed & documented, pt chose/unable to give Measure #412: Opioid Treatment Agreement: No documentation of signed opioid treatment agreement Measure #408: Opioid Therapy Follow-up Evaluation: Patient had NO f/u eval minimum every 3 months during opioid therapy Measure #317: Preventitive Care & Scrn High Bld Press & F/U: Normal blood pressure, f/u not required Measure #128: Body Mass Index (BMI) Screening & Follow-up: BMI documented within normal parameters Measure #131: Pain Assessment & Follow-up: Pain positive & plan documented, Follow-up scheduled Measure #431: Unhealthy Alcohol Use Preventative Care & Scrn: Patient not identified as an unhealthy alcohol user PQRS Narrative: Smoking Status Former smoker Pain Intensity [Left Hip] 10 Scale Used Numeric (1 - 10) Hx Alcohol Use (MH) No Home Medications: Ambulatory Orders Furosemide [Lasix] 20 mg PO DAILY 06/18/19 Levothyroxine Sodium 25 mcg PO QAM 06/18/19 Lisinopril [Prinivil] 5 mg PO QAM 06/18/19 Pravastatin Sodium [Pravachol] 80 mg PO HS 06/18/19 Sodium Bicarbonate Tab 650 mg PO BID 06/18/19 amLODIPine [Norvasc] 5 mg PO QAM 06/18/19 Tolterodine Tartrate [Detrol LA] 4 mg PO QAM 07/10/19 Arnicare 1 applic TOPICAL DIRECTED PRN 10/26/19 Cholecalciferol [Vitamin D3 (25 Mcg = 1000 Iu)] 1,000 unit PO DAILY 10/26/19 Cognium 1 tab PO DAILY 10/26/19 Cyanocobalamin [Vitamin B-12] 500 mcg PO DAILY 10/26/19 Escitalopram [Lexapro] 10 mg PO DAILY 10/26/19 Fenofibrate Nanocrystallized [Fenofibrate] 145 mg PO DAILY 10/26/19 Lidocaine HCl [Aspercreme] 1 applic TOPICAL DIRECTED PRN 10/26/19 Megestrol [Megace] 40 mg PO DAILY PRN 10/26/19 Ondansetron [Zofran] 4 mg PO Q8HR PRN 10/26/19 hydrOXYzine HCL [Atarax] 50 mg PO DAILY PRN 10/26/19 traMADol HCL [Ultram] 50 mg PO TID PRN 10/26/19 Controlled Substance Measures - Controlled Substance Measures Is patient prescribed a controlled substance at discharge?: Yes When asked, does pt state using other controlled substances?: No If prescribed controlled substance>3 days was MAPS reviewed?: Yes If Rx opioid, was Start Talking consent form obtained?: Yes If opioid is for acute pain is fill amount 7 days or less?: Yes Was information provided regarding opioid addiction?: Yes
== END | disposition home or self-care (01) ==
LOC: PNWHC3 13:18
PROVIDERS: ATTEND Anesthesiology
DX: M51.16 Intervertebral disc disorders with radiculopathy, lumbar region (principal); M47.26 Other spondylosis with radiculopathy, lumbar region; M46.96 Unspecified inflammatory spondylopathy, lumbar region; M70.62 Trochanteric bursitis, left hip; G89.18 Other acute postprocedural pain; Z87.891 Personal history of nicotine dependence; Z79.899 Other long term (current) drug therapy
CPT/HCPCS: 99211

== ENCOUNTER 2019-11-17 10:26 | Day surgery (SDC) | payer MEDICARE, BC ==
[2019-11-16 13:06] VITALS: BMI 22.3
[~2019-11-17 10:26] MED LIST changes: -IOPAMIDOL M200 10 ML VIAL ONE; -IV FLUID CONTINUATION 600 ML IV ONE; -LIDOCAINE 1% (10MG/ML) FOR IV START INTRADERMA ONE; -MIDAZOLAM 2 MG/2 ML VIAL ONE; -ROPIVACAINE 5MG/ML 20ML VIAL ONE; -fentaNYL (PF) 50 MCG/ML 2 ML AMP ONE; -methylPREDNISolone ACETATE 40 MG/ML 1 ML VIAL ONE
[2019-11-17 10:48] VITALS: RESP 16; TEMP 96.1
[2019-11-17] MEDS ORDERED: LIDOCAINE 1% (10MG/ML) FOR IV START INTRADERMA ONE (10:55)
[2019-11-17 11:03] LABS: Glucose,Whole Blood 148 mg/dL (75-99)
[2019-11-17] MEDS ORDERED: methylPREDNISolone ACETATE 40 MG/ML 1 ML VIAL ONE (11:05)
[2019-11-17] MEDS ORDERED: IOPAMIDOL M200 10 ML VIAL ONE (11:05)
[2019-11-17] MEDS ORDERED: ROPIVACAINE 5MG/ML 20ML VIAL ONE (11:05)
[2019-11-17] MEDS ORDERED: MIDAZOLAM 2 MG/2 ML VIAL ONE (11:05)
[2019-11-17 11:42] VITALS: BP 124/71; PULSE 88
--- NOTE | 2019-11-17 12:02 | P.PCN ---
Date of Procedure: 11/17/19 Procedure(s) Performed: PREOPERATIVE DIAGNOSIS: 1- Lumbar radiculopathy, Lumbar Degenerative Disc Diseases 2-Lumbar spondylosis with Facet arthropathy without myelopathy 3. Left greater trochanter bursitis POSTOPERATIVE DIAGNOSIS: 1-Lumber Degenerative Disc Diseases 2-Lumbar spondylosis with Facet arthropathy without myelopathy 3. Left greater trochanter bursitis PROCEDURE 1. Lumbar epidural steroid injection under fluoroscopic guidance at the L4-5 level using a left paramedian approach 2. Lumbar epidurogram. 3. Left greater trochanter bursa injection ANESTHESIA: Local with 1% lidocaine 3 ml, moderate sedation with intravenous Versed, sedation time 13 minutes Fluoroscopy was used for the procedure and images were saved in the radiology portion of the chart. EBL: Minimal PROCEDURE INDICATION: The patient with low back pain and radiculitis symptoms unresponsive to conservative treatment. Fluoroscopy was used to optimize visualization of the needle placement and to maximize safety. PROCEDURE DESCRIPTION / TECHNIQUE: The patient was seen and identified in the preoperative area. Risks, benefits, complications including but not limited to infections ,bleeding ,allergic reaction to the medications ,nerve damage and incomplete pain releif , and alternatives were discussed with the patient. The patient agreed to proceed with the procedure and signed the consent. IV was started, and vital signs were stable. Patient was taken to the OR and time out was completed. The patient was placed in the prone position on procedure table and a pillow was placed under the abdomen to reduce lumbar lordosis. The lumbosacral area was prepped and draped in the usual sterile fashion. Vitals were closely monitored during the procedure. Conscious sedation was used during the procedure to decrease patients anxiety. Using anterior-posterior fluoroscopy, the L4-5 interlaminar space was identified and the skin over this site was marked and then infiltrated with 1% lidocaine subcutaneously. Subsequently, a 20-gauge 3.5" Tuohy epidural needle was inserted and advanced toward the epidural space using the loss of resistance technique and guided by AP and lateral/ oblique fluoroscopy. The correct needle position in the epidural space was verified with the injection of 2 mL of the water soluble contrast dye Isovue 200 contrast under live fluoroscopy, observing an excellent epidurogram. Then, after negative aspiration for blood and CSF and in the absence of paresthesias, a 5 ml mixture containing 20 mg of Depo-medrol , 3 ml of preservative free Normal Saline, and 1 ml of preservative free lidocaine 1% solution was injected and a washout epidurogram was seen. Needle was withd rawn intact, skin was cleansed, and bandages were applied. Then, I turned my attention to the left greater trochanter, which was identified on AP fluoroscopy. After the skin and subcutaneous tissue was infiltrated with 2mL of1% lidocaine, a , a 3.5 inch Quincke needle, was advanced to the left greater trochanter. Then, 1 mL of Isovue was injected, revealing no intravascular uptake. Then, treatment solution consisting of 3 mL 5% ropivacaine and 20 mL of Depo-Medrol was injected. The needle was removed. Band-Aid was applied. COMPLICATIONS: None DISPOSITION / PLANS: The patient was placed in a supine position and transferred to the recovery area in a stable condition for observation. There was no evidence of lower extremity motor or sensory deficit after the procedure. Patient was discharged from the recovery room after meeting discharge criteria. Home discharge instructions were given to the patient by the staff. The patient will schedule a follow up in the clinic in 2-4 weeks.
--- NOTE | 2019-11-17 12:29 | FL ---
Fluoroscopy HISTORY: Pain 7 seconds fluoroscopy time supplied to the referring clinician. 4 intraoperative C-arm images docume nt the procedure. See dictated report from anesthesia.
== END 2019-11-17 11:55 | disposition home or self-care (01) ==
LOC: ORPAIN 10:26
PROVIDERS: ATTEND Anesthesiology
DX: M47.26 Other spondylosis with radiculopathy, lumbar region (principal); M51.16 Intervertebral disc disorders with radiculopathy, lumbar region; M70.62 Trochanteric bursitis, left hip; E11.9 Type 2 diabetes mellitus without complications
CPT/HCPCS: 62323; 20610; J2250; J1030; Q9966; J2795; 99152

== ENCOUNTER 2019-11-24 19:56 | Inpatient (IN) | payer MEDICARE, BC ==
[2019-11-24] MEDS ORDERED: SODIUM CHLORIDE 0.9% 500 ML 500 ML IV STA (20:54)
[2019-11-24] MEDS ORDERED: ONDANSETRON 4 MG/2 ML VIAL IVP STA (20:54)
[2019-11-24] MEDS ORDERED: METOCLOPRAMIDE 5 MG/ML 2 ML VIAL IVP STA ×2 (20:58→21:14)
[2019-11-24 21:54] LABS: Anisocytosis Slight; Basophils % (A) 1 %; Eosinophils # (A) 0.2 k/uL (0-0.7); Eosinophils % (A) 3 %; HCT 30.3 % (34.0-46.0); HGB 9.5 gm/dL (11.4-16.0); Lymphocytes # (A) 1.8 k/uL (1.0-4.8); Lymphocytes % (A) 31 %; MCH 27.4 pg (25.0-35.0); MCHC 31.3 g/dL (31.0-37.0); MCV 87.5 fL (80.0-100.0); Monocytes # (A) 0.6 k/uL (0-1.0); Monocytes % (A) 10 %; Neutrophils # (A) 3.1 k/uL (1.3-7.7); Neutrophils % (A) 53 %; Platelet Count 536 k/uL (150-450); RBC 3.46 m/uL (3.80-5.40); RDW 16.5 % (11.5-15.5); WBC 5.7 k/uL (3.8-10.6)
[2019-11-24 22:04] LABS: Albumin 4.1 g/dL (3.5-5.0); Calcium 10.2 mg/dL (8.4-10.2); Potassium 4.3 mmol/L (3.5-5.1); Total Bilirubin 0.5 mg/dL (0.2-1.3); Total Protein 6.6 g/dL (6.3-8.2)
[2019-11-24 22:51] LABS: Appearance,Urine Cloudy (Clear); Bilirubin,Urine Negative (Negative); Blood,Urine Negative (Negative); Color,Urine Yellow; Glucose,Urine (UA) Negative (Negative); Hyaline Casts,Urine 5 /lpf (0-2); Ketones,Urine Negative (Negative); Leukocyte Esterase,Urine Trace (Negative); Mucus,Urine Rare /hpf; Nitrite,Urine Negative (Negative); PH, Urine 6.5 (5.0-8.0); Protein,Urine Negative (Negative); RBC,Urine 2 /hpf (0-5); Specific Gravity,Urine 1.016 (1.001-1.035); Squamous Epithelial Cell,Urine <1 /hpf (0-4); Urobilinogen,Urine <2.0 mg/dL (<2.0); WBC,Urine 10 /hpf (0-5)
[2019-11-24] MEDS ORDERED: MORPHINE SULFATE 4 MG/ML SYRINGE IV STA (22:58)
[2019-11-24] MEDS ORDERED: HEPARIN SODIUM,PORCINE 5,000 UNIT/ML 1 ML VIAL IV PRN (23:02)
[2019-11-24] MEDS ORDERED: HEPARIN SODIUM,PORCINE 5,000 UNIT/ML 1 ML VIAL IV ONE (23:02)
[2019-11-24] MEDS ORDERED: cefTRIAXone IN SWFI 1,000 MG/10 ML SYRINGE IVP STA (23:02)
[2019-11-24] MEDS: HEPARIN SOD,PORK IN 0.45% NACL 25,000 UNIT in 0.45% NACL 1 250ML.BAG IV SCH (23:10)
[2019-11-24] MEDS ORDERED: NITROGLYCERIN SL TABS 0.4 MG TAB SUBLINGUAL PRN (23:11)
[2019-11-24] MEDS ORDERED: MORPHINE SULFATE 4 MG/ML SYRINGE IV PRN (23:11)
--- NOTE | 2019-11-24 23:15 | ED ---
General Adult HPI - General Chief complaint: Back Pain/Injury Stated complaint: Back Pain Time Seen by Provider: 11/24/19 19:59 Source: patient, RN notes reviewed, old records reviewed Mode of arrival: ambulatory Limitations: no limitations - History of Present Illness Initial comments: 78-year-old female patient proceeded for chief complaint of nausea. Patient reports that she does have chronic hip and back pain is unchanged denies any recent falls or trauma. Has a flag symptoms. She reports that she has been fully nauseous today. Denies any abdominal pain. Denies any chest pain or shortness of breath. Denies any other complaints. Systemic: Pt denies fatigue, fever/chills, rash. Pt denies weakness, night sweats, weight loss. Neuro: Pt denies headache, visual disturbances, syncope or pre-syncope. HEENT: Pt denies ocular discharge or irritation, otalgia, rhinorrhea, pharyngitis or notable lymphadenopathy. Cardiopulmonary: Pt denies chest pain, SOB, heart palpitations, dyspnea on exertion. Abdominal/GI: Pt denies abdominal pain, v/d. : Pt denies dysuria, burning w/ urination, frequency/urgency. Denies new onset urinary or bowel incontinence. MSK: Pt denies myalgia, loss of strength or function in extremities. Neuro: Pt denies new onset weakness, paresthesias. - Related Data Home Medications Medication Instructions Recorded Confirmed Furosemide [Lasix] 20 mg PO BID 06/18/19 11/24/19 Levothyroxine Sodium 25 mcg PO QAM 06/18/19 11/24/19 Lisinopril [Prinivil] 5 mg PO QAM 06/18/19 11/24/19 Pravastatin Sodium [Pravachol] 80 mg PO HS 06/18/19 11/24/19 Sodium Bicarbonate Tab 650 mg PO BID 06/18/19 11/24/19 amLODIPine [Norvasc] 5 mg PO QAM 06/18/19 11/24/19 Tolterodine Tartrate [Detrol LA] 4 mg PO QAM 07/10/19 11/24/19 Cholecalciferol [Vitamin D3 (25 1,000 unit PO DAILY 10/26/19 11/24/19 Mcg = 1000 Iu)] Escitalopram [Lexapro] 10 mg PO DAILY 06/08/20 07/07/20 hydrOXYzine HCL [Atarax] 50 mg PO TID PRN 10/26/19 11/24/19 Cyanocobalamin (Vitamin B-12) 1,000 mcg PO DAILY 11/24/19 11/24/19 [Vitamin B-12] Eszopiclone [Lunesta] 2 mg PO HS PRN 11/24/19 11/24/19 Imipramine Pamoate [Tofranil Pm] 100 mg PO DAILY 11/24/19 11/24/19 Multivitamins, Thera [Multivitamin 1 tab PO DAILY 11/24/19 11/24/19 (formulary)] Niacin 250 mg PO DAILY 11/24/19 11/24/19 Allergies Allergy/AdvReac Type Severity Reaction Status Date / Time No Known Allergies Allergy Verified 11/24/19 22:25 Review of Systems ROS Statement: Those systems with pertinent positive or pertinent negative responses have been documented in the HPI. ROS Other: All systems not noted in ROS Statement are negative. Past Medical History Past Medical History: Diabetes Mellitus, Hyperlipidemia, Hypertension, Renal Disease, Vascular Disorder Additional Past Medical History / Comment(s): osteoporosis. stage III kidney disease. peripheral circ. disorder. DDD. HAS SOME MOLES ON HER BACK THAT HAVE CHANGES RECENTLY-PCP AWARE History of Any Multi-Drug Resistant Organisms: None Reported Past Surgical History: No Surgical Hx Reported Additional Past Surgical History / Comment(s): PAIN CLINIC PROCEDURE Past Anesthesia/Blood Transfusion Reactions: No Reported Reaction Past Psychological History: Anxiety Smoking Status: Former smoker - Past Family History Mother Family Medical History: Cancer Father Family Medical History: Cancer General Exam - General Exam Comments Initial Comments: Constitutional: NAD, AOX3, Pt has pleasant affect. HEENT: NC/AT, trachea midline, neck supple, no lymphadenopathy. Posterior pharynx non erythematous, without exudates. External ears appear normal, without discharge. Mucous membranes moist. Eyes PERRLA, EOM intact. There is no scleral icterus. No pallor noted. Cardiopulmonary: RRR, no murmurs, rubs or gallops, no JVD noted. Lungs CTAB in anterior and posterior meyer. No peripheral edema. Abdominal exam: Abdomen soft and non-distended. Abdomen non-tender to palpation in all 4 quadrants. Bowel sounds active in LLQ. No hepatosplenomegaly. No ecchym osis Neuro: CN II-XII intact. No nuchal rigidity. No raccon eyes, no tillman sign, no hemotympanum. No cervical spinal tenderness. MSK: Left lateral hip and left paralumbar region mildly tender to palpation. No external skin changes. No fluctuance or discharge is noted. Range of motion is intact. Distal pulses are intact and equal. Limitations: no limitations Course Vital Signs 11/24/19 11/24/19 20:04 23:19 Temperature 98.8 F Pulse Rate 88 113 H Respiratory 16 18 Rate Blood Pressure 126/80 119/74 O2 Sat by Pulse 99 98 Oximetry Medical Decision Making - Medical Decision Making 78-year-old female patient proceeded for chief complaint of nausea. Patient reports that she does have chronic hip and back pain is unchanged denies any recent falls or trauma. Has a flag symptoms. She reports that she has been fully nauseous today. Denies any abdominal pain. Denies any chest pain or shortness of breath. Denies any other complaints. Pt VSS, afebrile. Physical exam displayed: Left lateral hip and left paralumbar region mildly tender to palpation. No external skin changes. No fluctuance or discharge is noted. Range of motion is intact. Distal pulses are intact and equal. Laboratory investigations reveal hemoglobin of 9.5. Patient's baseline is in the low times. Mild increase in BUN/creatinine. Agent was administered a fluid bolus. Lipase is 266. Troponin 0.030. UA displayed mild urinary tract infection. Patient is initiated on Rocephin. EKG does display atrial fibrillation with a rate of 106. Patient has now history of atrial fibrillation. Patient declines any contra indication to anticoagulation. Pt is declining any imaging of her back or hip as she states that the pain is unchanged. Denies any prior history of GI bleed any recent bleeding from any locations any recent falls. Patient will be admitted for further evaluation. Case discussed with Dr. No. - Lab Data Result diagrams: 11/24/19 21:19 11/24/19 21: Lab Results 11/24/19 11/24/19 11/24/19 Range/Units 21:19 21:19 21:19 WBC 5.7 (3.8-10.6) k/uL RBC 3.46 L (3.80-5.40) m/uL Hgb 9.5 L (11.4-16.0) gm/dL Hct 30.3 L (34.0-46.0) % MCV 87.5 (80.0-100.0) fL MCH 27.4 (25.0-35.0) pg MCHC 31.3 (31.0-37.0) g/dL RDW 16.5 H (11.5-15.5) % Plt Count 536 H (150-450) k/uL Neutrophils % 53 % Lymphocytes % 31 % Monocytes % 10 % Eosinophils % 3 % Basophils % 1 % Neutrophils # 3.1 (1.3-7.7) k/uL Lymphocytes # 1.8 (1.0-4.8) k/uL Monocytes # 0.6 (0-1.0) k/uL Eosinophils # 0.2 (0-0.7) k/uL Basophils # 0.0 (0-0.2) k/uL Anisocytosis Slight Sodium 139 (137-145) mmol/L Potassium 4.3 (3.5-5.1) mmol/L Chloride 105 (98-107) mmol/L Carbon Dioxide 24 (22-30) mmol/L Anion Gap 10 mmol/L BUN 44 H (7-17) mg/dL Creatinine 2.14 H (0.52-1.04) mg/dL Est GFR (CKD-EPI)AfAm 25 (>60 ml/min/1.73 sqM) Est GFR (CKD-EPI)NonAf 21 (>60 ml/min/1.73 sqM) Glucose 166 H (74-99) mg/dL Calcium 10.2 (8.4-10.2) mg/dL Total Bilirubin 0.5 (0.2-1.3) mg/dL AST 29 (14-36) U/L ALT 13 (4-34) U/L Alkaline Phosphatase 60 (38-126) U/L Troponin I 0.030 (0.000-0.034) ng/mL Total Protein 6.6 (6.3-8.2) g/dL Albumin 4.1 (3.5-5.0) g/dL Lipase 366 H (23-300) U/L Urine Color Urine Appearance (Clear) Urine pH (5.0-8.0) Ur Specific [place] (1.001-1.035) Urine Protein (Negative) Urine Glucose (UA) (Negative) Urine Ketones (Negative) Urine Blood (Negative) Urine Nitrite (Negative) Urine Bilirubin (Negative) Urine Urobilinogen (<2.0) mg/dL Ur Leukocyte Esterase (Negative) Urine RBC (0-5) /hpf Urine WBC (0-5) /hpf Ur Squamous Epith Cells (0-4) /hpf Hyaline Casts (0-2) /lpf Urine Mucus (None) /hpf 11/24/19 Range/Units 22:10 WBC (3.8-10.6) k/uL RBC (3.80-5.40) m/uL Hgb (11.4-16.0) gm/dL Hct (34.0-46.0) % MCV (80.0-100.0) fL MCH (25.0-35.0) pg MCHC (31.0-37.0) g/dL RDW (11.5-15.5) % Plt Count (150-450) k/uL Neutrophils % % Lymphocytes % % Monocytes % % Eosinophils % % Basophils % % Neutrophils # (1.3-7.7) k/uL Lymphocytes # (1.0-4.8) k/uL Monocytes # (0-1.0) k/uL Eosinophils # (0-0.7) k/uL Basophils # (0-0.2) k/uL Anisocytosis Sodium (137-145) mmol/L Potassium (3.5-5.1) mmol/L Chloride (98-107) mmol/L Carbon Dioxide (22-30) mmol/L Anion Gap mmol/L BUN (7-17) mg/dL Creatinine (0.52-1.04) mg/dL Est GFR (CKD-EPI)AfAm (>60 ml/min/1.73 sqM) Est GFR (CKD-EPI)NonAf (>60 ml/min/1.73 sqM) Glucose (74-99) mg/dL Calcium (8.4-10.2) mg/dL Total Bilirubin (0.2-1.3) mg/dL AST (14-36) U/L ALT (4-34) U/L Alkaline Phosphatase (38-126) U/L Troponin I (0.000-0.034) ng/mL Total Protein (6.3-8.2) g/dL Albumin (3.5-5.0) g/dL Lipase (23-300) U/L Urine Color Yellow Urine Appearance Cloudy H (Clear) Urine pH 6.5 (5.0-8.0) Ur Specific [place] 1.016 (1.001-1.035) Urine Protein Negative (Negative) Urine Glucose (UA) Negative (Negative) Urine Ketones Negative (Negative) Urine Blood Negative (Negative) Urine Nitrite Negative (Negative) Urine Bilirubin Negative (Negative) Urine Urobilinogen <2.0 (<2.0) mg/dL Ur Leukocyte Esterase Trace H (Negative) Urine RBC 2 (0-5) /hpf Urine WBC 10 H (0-5) /hpf Ur Squamous Epith Cells <1 (0-4) /hpf Hyaline Casts 5 H (0-2) /lpf Urine Mucus Rare H (None) /hpf - EKG Data -: EKG Interpreted by Me (and Dr. No ) EKG Comments: Ventricular rate 106, QRS 70, QT/QTC 350/460. Atrial fibrillation with rapid ventricular response. Nonspecific T wave abnormality. Abnormal ECG. Disposition Clinical Impression: Atrial fibrillation Disposition: ADMITTED IP TO THIS HOSP Condition: Serious Is patient prescribed a controlled substance at d/c from ED?: No Referrals: Denton Benoit MD [Primary Care Provider] - 1-2 days
[2019-11-24] MEDS ORDERED: ONDANSETRON 4 MG/2 ML VIAL IVP PRN (23:21)
[2019-11-24] MEDS ORDERED: METOPROLOL SUCCINATE (ER) 25 MG TAB.ER.24H PO STA (23:35)
[2019-11-25 00:01] LABS: Anisocytosis Slight; Basophils % (A) 1 %; Eosinophils # (A) 0.3 k/uL (0-0.7); Eosinophils % (A) 4 %; HCT 29.3 % (34.0-46.0); Hypochromasia Slight; Lymphocytes # (A) 2.4 k/uL (1.0-4.8); Lymphocytes % (A) 35 %; MCH 27.4 pg (25.0-35.0); MCHC 30.7 g/dL (31.0-37.0); Mean Platelet Volume 7.2; Monocytes # (A) 0.5 k/uL (0-1.0); Monocytes % (A) 8 %; Neutrophils # (A) 3.3 k/uL (1.3-7.7); Neutrophils % (A) 49 %; Platelet Count 505 k/uL (150-450); RBC 3.29 m/uL (3.80-5.40); RDW 16.6 % (11.5-15.5); WBC 6.7 k/uL (3.8-10.6)
[2019-11-25 01:29] LABS: INR 1.1 (<1.2); Prothrombin Time 11.2 sec (9.0-12.0)
[2019-11-25 01:36] LABS: Partial Thromboplastin Time 21.6 sec (22.0-30.0)
[2019-11-25] MEDS ORDERED: MORPHINE SULFATE 2 MG/ML SYRINGE IV PRN (04:16)
--- NOTE | 2019-11-25 04:22 | P.HPIM ---
History of Present Illness H&P Date: 11/25/19 The patient was seen and evaluated in the emergency room at 2 AM on 11/24 Patient is 78-year-old female with a PMH of chronic kidney disease, left hip OA, hypertension, hyperlipidemia, hypothyroidism, and type II DM who presented to the ED with complaints of nausea. The patient reports that her nausea started 2 days ago and has been persistent, causing her to have a poor appetite. She denied vomiting, abdominal pain, or diarrhea. The patient also reports chronic lower back pain and left sided hip pain. She denied chest discomfort, palpitations, shortness of breath, or dizziness. She also denied dysuria, fever, chills, or cough. In the emergency room, EKG revealed A. fib with RVR at 106 bpm with T-wave inversion in leads V1 and V2 and flattening in lead V3. The patient denied any prior history of A. fib or any other arrhythmias. Laboratory evaluation revealed a WBC count of 6.7, hemoglobin 9.0, platelets 505, troponin 0.030, sodium 139, potassium 4.3, BUN 44, creatinine 2.14, glucose 166, and lipase of 366. The patient was started on heparin infusion and is being admitted for further management. Review of Systems Pertinent positives and negatives as discussed in HPI, a complete review of systems was performed and all other systems are negative. Past Medical History Past Medical History: Diabetes Mellitus, Hyperlipidemia, Hypertension, Renal Disease, Vascular Disorder Additional Past Medical History / Comment(s): osteoporosis. stage III kidney disease. peripheral circ. disorder. DDD. HAS SOME MOLES ON HER BACK THAT HAVE CHANGES RECENTLY-PCP AWARE History of Any Multi-Drug Resistant Organisms: None Reported Past Surgical History: No Surgical Hx Reported Additional Past Surgical History / Comment(s): PAIN CLINIC PROCEDURE for hip pain Past Anesthesia/Blood Transfusion Reactions: No Reported Reaction Past Psychological History: Anxiety Additional Psychological History / Comment(s): dueto medication while in the hospital Smoking Status: Former smoker Past Alcohol Use History: None Reported Additional Past Alcohol Use History / Comment(s): QUIT SMOKING 25+YEARS AGO Past Drug Use History: None Reported - Past Family History Mother Family Medical History: Cancer Father Family Medical History: Cancer Medications and Allergies Home Medications Medication Instructions Recorded Confirmed Type Furosemide [Lasix] 20 mg PO BID 06/18/19 11/24/19 History Levothyroxine Sodium 25 mcg PO QAM 06/18/19 11/24/19 History Lisinopril [Prinivil] 5 mg PO QAM 06/18/19 11/24/19 History Pravastatin Sodium [Pravachol] 80 mg PO HS 06/18/19 11/24/19 History Sodium Bicarbonate Tab 650 mg PO BID 06/18/19 11/24/19 History amLODIPine [Norvasc] 5 mg PO QAM 06/18/19 11/24/19 History Tolterodine Tartrate [Detrol LA] 4 mg PO QAM 07/10/19 11/24/19 History Cholecalciferol [Vitamin D3 (25 1,000 unit PO DAILY 10/26/19 11/24/19 History Mcg = 1000 Iu)] Escitalopram [Lexapro] 10 mg PO DAILY 10/26/19 11/24/19 History hydrOXYzine HCL [Atarax] 50 mg PO TID PRN 10/26/19 11/24/19 History Cyanocobalamin (Vitamin B-12) 1,000 mcg PO DAILY 11/24/19 11/24/19 History [Vitamin B-12] Eszopiclone [Lunesta] 2 mg PO HS PRN 11/24/19 11/24/19 History Imipramine Pamoate [Tofranil Pm] 100 mg PO DAILY 11/24/19 11/24/19 History Multivitamins, Thera [Multivitamin 1 tab PO DAILY 11/24/19 11/24/19 History (formulary)] Niacin 250 mg PO DAILY 11/24/19 11/24/19 History Allergies Allergy/AdvReac Type Severity Reaction Status Date / Time No Known Allergies Allergy Verified 11/24/19 22:25 Physical Exam Vitals: Vital Signs Temp Pulse Resp BP Pulse Ox 11/24/19 23:19 113 H 18 119/74 98 11/24/19 20:04 98.8 F 88 16 126/80 99 Intake and Output 11/24/19 11/24/19 11/25/19 14:59 22:59 06:59 Other: Weight 58.967 kg 58.967 kg General: non toxic, no distress, appears at stated age, normal weight Derm: no unusual rashes/lesions no unusual ecchymoses, warm, dry Head: atraumatic, normocephalic, symmetric Eyes: EOMI, no lid lag, anicteric sclera, pupils equal round reactive to light ENT: Nose and ears atraumatic, no thrush, no pharyngeal erythema Neck: No thyromegaly, no cervical lymphadenopathy, trachea midline, supple Mouth: no lip lesion, mucus membranes moist Cardiovascular: S1S2 reg, systolic murmur appreciated, positive posterior tibial pulse bilateral, no edema, capillary refill less than 2 seconds Lungs: CTA bilateral, no rhonchi, no rales , no accessory muscle use Abdominal: soft, nontender to palpation, no guarding, no appreciable organomegaly, normal bowel sounds Ext: no gross muscle atrophy, muscle strength 4 out of 5 in all 4 extremities grossly, no contractures, left hip and left lower back mild tenderness to palpation Neuro: CN II-XI grossly intact, light touch intact all 4 extremities, finger to nose within normal limits, Psych: Alert, oriented, appropriate affect Results CBC & Chem 7: 11/24/19 23:42 11/24/19 21:19 Labs: Abnormal Lab Results - Last 24 Hours (Table) 11/24/19 11/24/19 11/24/19 Range/Units 21:15 21:19 21:19 RBC 3.46 L (3.80-5.40) m/uL Hgb 9.5 L (11.4-16.0) gm/dL Hct 30.3 L (34.0-46.0) % MCHC (31.0-37.0) g/dL RDW 16.5 H (11.5-15.5) % Plt Count 536 H (150-450) k/uL APTT 21.6 L (22.0-30.0) sec BUN 44 H (7-17) mg/dL Creatinine 2.14 H (0.52-1.04) mg/dL Glucose 166 H (74-99) mg/dL Lipase 366 H (23-300) U/L Urine Appearance (Clear) Ur Leukocyte Esterase (Negative) Urine WBC (0-5) /hpf Hyaline Casts (0-2) /lpf Urine Mucus (None) /hpf 11/24/19 11/24/19 Range/Units 22:10 23:42 RBC 3.29 L (3.80-5.40) m/uL Hgb 9.0 L (11.4-16.0) gm/dL Hct 29.3 L (34.0-46.0) % MCHC 30.7 L (31.0-37.0) g/dL RDW 16.6 H (11.5-15.5) % Plt Count 505 H (150-450) k/uL APTT (22.0-30.0) sec BUN (7-17) mg/dL Creatinine (0.52-1.04) mg/dL Glucose (74-99) mg/dL Lipase (23-300) U/L Urine Appearance Cloudy H (Clear) Ur Leukocyte Esterase Trace H (Negative) Urine WBC 10 H (0-5) /hpf Hyaline Casts 5 H (0-2) /lpf Urine Mucus Rare H (None) /hpf Thrombosis Risk Factor Assmnt - Choose All That Apply Any of the Below Risk Factors Present?: No Other Risk Factors: Yes Each Risk Factor Represents 3 Points: Age 75 years or older Other congenital or acquired thrombophilia - If yes, enter type in comment: No Thrombosis Risk Factor Assessment Total Risk Factor Score: 3 Thrombosis Risk Factor Assessment Level: Moderate Risk Assessment and Plan Plan: Newly diagnosed A. fib with RVR, with systolic murmur on exam -Heparin infusion -Cardiac monitoring -Cardiology consult -Echocardiogram Nausea, possibly secondary to A. fib -Continue with antiemetics for now BELLA on chronic kidney disease -Possibly secondary to poor oral intake in setting of nausea -Gentle hydration -Monitor BMP Normocytic anemia, slightly worse from baseline -Patient denying bloody or dark stools, or noticing any additional bleeding -Monitor for now Abnormal UA, likely colonization -Patient denying dysuria -Hold off on antibiotics at this time Type II DM -Lispro sliding scale with blood glucose monitoring -Check A1C Chronic conditions: Hypertension, hyperlipidemia, hypothyroidism -Hold off on antihypertensives in setting of A. fib and borderline BP DVT prophylaxis -Heparin infusion The patient is admitted with an anticipated greater than 2 midnight stay for evaluation of afib CODE STATUS: Full Code Discussed with: Patient, Anticipated discharge date: 2-[address]: Home A total of 40 minutes was spent on the care of this complex patient more than 50% of the time was spent in counseling and care coordination.
[2019-11-25 04:42] LABS: Magnesium 1.9 mg/dL (1.6-2.3); Phosphorus 3.6 mg/dL (2.5-4.5)
[2019-11-25 06:09] LABS: Anisocytosis Slight; Basophils % (A) 1 %; Eosinophils # (A) 0.2 k/uL (0-0.7); Eosinophils % (A) 3 %; HCT 29.4 % (34.0-46.0); HGB 9.1 gm/dL (11.4-16.0); Hypochromasia Slight; Lymphocytes # (A) 2.9 k/uL (1.0-4.8); Lymphocytes % (A) 38 %; MCH 27.7 pg (25.0-35.0); MCHC 30.8 g/dL (31.0-37.0); MCV 89.9 fL (80.0-100.0); Mean Platelet Volume 6.9; Monocytes # (A) 0.5 k/uL (0-1.0); Monocytes % (A) 7 %; Neutrophils # (A) 3.6 k/uL (1.3-7.7); Neutrophils % (A) 48 %; Platelet Count 510 k/uL (150-450); RBC 3.27 m/uL (3.80-5.40); RDW 16.5 % (11.5-15.5); WBC 7.5 k/uL (3.8-10.6)
[2019-11-25 06:31] LABS: Cholesterol 119 mg/dL (<200); HDL Cholesterol 25 mg/dL (40-60); LDL Cholesterol,Calculated 40 mg/dL (0-99); Triglycerides 270 mg/dL (<150)
[2019-11-25] MEDS ORDERED: hydrOXYzine HCL 25 MG TAB PO PRN (09:00)
[2019-11-25] MEDS: LEVOTHYROXINE 25 MCG TAB PO SCH (09:07)
[2019-11-25] MEDS: INSULIN ASPART (NovoLOG) 100 UNIT/ML VIAL SQ SCH ×3 (09:07→17:44)
[2019-11-25] MEDS: SODIUM BICARBONATE TAB 650 MG TAB PO SCH ×2 (09:08→22:41)
[2019-11-25] MEDS: IMIPRAMINE PAMOATE 100 MG PO SCH (09:08)
--- NOTE | 2019-11-25 14:48 | P.CRDCN ---
History of Present Illness Consult date: 11/25/19 Consult reason: atrial fibrillation Chief complaint: Nausea and weakness History of present illness: This is a 78-year-old with history of hypertension, hyperlipidemia, hypothyroidism, presented to the emergency room with symptoms of nausea and weakness, she states that she felt like she had flulike symptoms. She denies any fever no chills no shortness of breath or palpitations. EKG was performed on arrival here that showed atrial fibrillation with a rapid ventricular response for this reason a cardiology consultation was requested. Patient is currently on IV heparin, I spoke with the patient and her regarding the importance of anticoagulation for stroke prevention. Blood pressure 120/68, heart rate 80, respirations 16, 97% on room air. White blood cell count 7.5, hemoglobin 9.1, platelet count 510. Sodium 139, potassium 4.3, BUN 44, creatinine 2.1. Troponin 0.03, 0.02, 0.03. At the time of my examination, patient is having diarrhea stools, she was quite constipated on arrival to the emergency room, was given some medication for that and now she's having significant loose stools. Past Medical History Past Medical History: Diabetes Mellitus, Hyperlipidemia, Hypertension, Renal Disease, Vascular Disorder Additional Past Medical History / Comment(s): osteoporosis. stage III kidney disease. peripheral circ. disorder. DDD. HAS SOME MOLES ON HER BACK THAT HAVE CHANGES RECENTLY-PCP AWARE History of Any Multi-Drug Resistant Organisms: None Reported Past Surgical History: No Surgical Hx Reported Additional Past Surgical History / Comment(s): PAIN CLINIC PROCEDURE for hip pain Past Anesthesia/Blood Transfusion Reactions: No Reported Reaction Past Psychological History: Anxiety Additional Psychological History / Comment(s): dueto medication while in the hospital Smoking Status: Former smoker Past Alcohol Use History: None Reported Additional Past Alcohol Use History / Comment(s): QUIT SMOKING 25+YEARS AGO Past Drug Use History: None Reported - Past Family History Mother Family Medical History: Cancer Father Family Medical History: Cancer Medications and Allergies Home Medications Medication Instructions Recorded Confirmed Type Furosemide [Lasix] 20 mg PO BID 06/18/19 11/24/19 History Levothyroxine Sodium 25 mcg PO QAM 06/18/19 11/24/19 History Lisinopril [Prinivil] 5 mg PO QAM 06/18/19 11/24/19 History Pravastatin Sodium [Pravachol] 80 mg PO HS 06/18/19 11/24/19 History Sodium Bicarbonate Tab 650 mg PO BID 06/18/19 11/24/19 History amLODIPine [Norvasc] 5 mg PO QAM 06/18/19 11/24/19 History Tolterodine Tartrate [Detrol LA] 4 mg PO QAM 07/10/19 11/24/19 History Cholecalciferol [Vitamin D3 (25 1,000 unit PO DAILY 10/26/19 11/24/19 History Mcg = 1000 Iu)] Escitalopram [Lexapro] 10 mg PO DAILY 10/26/19 11/24/19 History hydrOXYzine HCL [Atarax] 50 mg PO TID PRN 10/26/19 11/24/19 History Cyanocobalamin (Vitamin B-12) 1,000 mcg PO DAILY 11/24/19 11/24/19 History [Vitamin B-12] Eszopiclone [Lunesta] 2 mg PO HS PRN 11/24/19 11/24/19 History Imipramine Pamoate [Tofranil Pm] 100 mg PO DAILY 11/24/19 11/24/19 History Multivitamins, Thera [Multivitamin 1 tab PO DAILY 11/24/19 11/24/19 History (formulary)] Niacin 250 mg PO DAILY 11/24/19 11/24/19 History Allergies Allergy/AdvReac Type Severity Reaction Status Date / Time No Known Allergies Allergy Verified 11/24/19 22:25 Physical Exam Vitals: Vital Signs Temp Pulse Pulse Resp BP BP Pulse Ox 11/25/19 07:55 80 16 121/68 97 11/25/19 04:00 77 16 128/72 98 11/24/19 23:19 113 H 18 119/74 98 11/24/19 20:04 98.8 F 88 16 126/80 99 Intake and Output 11/24/19 11/25/19 11/25/19 22:59 06:59 14:59 Intake Total 55.311 Balance 55.311 Intake: Intake, IV Titration 55.311 Amount Heparin Sod,Pork in 0.45% 55.311 NaCl 25,000 unit In 0.45 % NaCl 1 250ml.bag @ 12 UNITS/KG/HR 7.076 mls/hr IV .Q24H [facility] Rx#: [id number] Other: Voiding Method Bedside Commode Weight 58.967 kg 58.967 kg PHYSICAL EXAMINATION: GENERAL: 78-year-old female in no acute distress at the time of my examination HEENT: Head is atraumatic, normocephalic. Pupils equal, round. Sclera anicteric. Conjunctiva are clear. Mucous membranes of the mouth are moist. Neck is supple. There is no elevated jugular venous pressure. No carotid bruit is heard. HEART EXAMINATION: S1 and S2 irregularly irregular CHEST EXAMINATION: Lungs are clear to auscultation and precussion. No chest wall tenderness is noted on palpation or with deep breathing. ABDOMEN: Soft, nontender. Bowel sounds are heard. No organomegaly noted. EXTREMITIES: 2+ peripheral pulses with no evidence of peripheral edema and no calf tenderness noted. NEUROLOGIC patient is awake, alert and oriented 3 . . Results 11/25/19 05:31 11/24/19 21:19 Cardiac Enzymes 11/24/19 11/24/19 11/24/19 Range/Units 21:19 21:19 23:42 AST 29 (14-36) U/L Troponin I 0.030 0.029 (0.000-0.034) ng/mL 11/25/19 Range/Units 03:00 AST (14-36) U/L Troponin I 0.032 (0.000-0.034) ng/mL Coagulation 11/24/19 11/25/19 Range/Units 21:15 05:31 PT 11.2 (9.0-12.0) sec APTT 21.6 L 57.4 H (22.0-30.0) sec Lipids 11/25/19 Range/Units 05:31 Triglycerides 270 H (<150) mg/dL Cholesterol 119 (<200) mg/dL HDL Cholesterol 25 L (40-60) mg/dL CBC 11/24/19 11/24/19 11/25/19 Range/Units 21:19 23:42 05:31 WBC 5.7 6.7 7.5 (3.8-10.6) k/uL RBC 3.46 L 3.29 L 3.27 L (3.80-5.40) m/uL Hgb 9.5 L 9.0 L 9.1 L (11.4-16.0) gm/dL Hct 30.3 L 29.3 L 29.4 L (34.0-46.0) % Plt Count 536 H 505 H 510 H (150-450) k/uL Comprehensive Metabolic Panel 11/24/19 Range/Units 21:19 Sodium 139 (137-145) mmol/L Potassium 4.3 (3.5-5.1) mmol/L Chloride 105 (98-107) mmol/L Carbon Dioxide 24 (22-30) mmol/L BUN 44 H (7-17) mg/dL Creatinine 2.14 H (0.52-1.04) mg/dL Glucose 166 H (74-99) mg/dL Calcium 10.2 (8.4-10.2) mg/dL AST 29 (14-36) U/L ALT 13 (4-34) U/L Alkaline Phosphatase 60 (38-126) U/L Total Protein 6.6 (6.3-8.2) g/dL Albumin 4.1 (3.5-5.0) g/dL Current Medications Generic Name Dose Route Start Last Admin Trade Name Freq PRN Reason Stop Dose Admin Heparin Sodium (Porcine) 0 unit 11/24/19 23:02 Heparin IV PER PROTOCOL PRN Low PTT Protocol Hydroxyzine HCl 50 mg 11/25/19 09:00 Atarax PO TID PRN Anxiety Heparin Sodium/Sodium Chloride 250 mls @ 7.076 mls/hr 11/24/19 23:15 11/25/19 06:59 25,000 unit/ Sodium Chloride IV 12 units/kg/hr .Q24H [facility] 7.076 mls/hr Titration Protocol 12 UNITS/KG/HR Sodium Chloride 1,000 mls @ 75 mls/hr 11/25/19 04:30 Saline 0.9% IV .[id number] [facility] Insulin Aspart 0 unit 11/25/19 07:30 11/25/19 13:19 Novolog SQ Not Given AC-TID [facility] Protocol Levothyroxine Sodium 25 mcg 11/25/19 06:30 11/25/19 09:07 Synthroid PO 25 mcg DAILY@0630 [facility] Administration Morphine Sulfate 2 mg 11/25/19 04:16 11/25/19 09:06 Morphine Sulfate (Inj) IV 2 mg Q6HR PRN Administration Breakthrough Pain Nitroglycerin 0.4 mg 11/24/19 23:11 Nitrostat SUBLINGUAL Q5M PRN Chest Pain Non-Formulary Medication 100 mg 11/25/19 09:00 11/25/19 09:08 Imipramine Pamoate [Tofranil Pm] PO Not Given DAILY [facility] Ondansetron HCl 4 mg 11/24/19 23:21 Zofran IVP Q8HR PRN Nausea And Vomiting Pravastatin Sodium 80 mg 11/25/19 21:00 Pravachol PO HS [facility] Sodium Bicarbonate 650 mg 11/25/19 09:00 11/25/19 09:08 Sodium Bicarbonate Tab PO Not Given BID [facility] Intake and Output 11/24/19 11/25/19 11/25/19 22:59 06:59 14:59 Intake Total 55.311 Balance 55.311 Intake: Intake, IV Titration 55.311 Amount Heparin Sod,Pork in 0.45% 55.311 NaCl 25,000 unit In 0.45 % NaCl 1 250ml.bag @ 12 UNITS/KG/HR 7.076 mls/hr IV .Q24H [facility] Rx#: [id number] Other: Voiding Method Bedside Commode Weight 58.967 kg 58.967 kg 11/25/19 05:31 11/24/19 21:19 EKG Interpretations (text) EKG shows atrial fibrillation with rapid ventricular response. Assessment and Plan Plan: Assessment and plan #1 symptoms of nausea and weakness #2 atrial fibrillation with rapid ventricular response #3 hypertension #4 hyperlipidemia #5 hypothyroidism Plan We will obtain an echocardiogram with Doppler study. The IV heparin this evening from tomorrow start the patient on Eliquis. We will also state the patient on Lopressor 25 mg one tablet by mouth twice a day. Check a TSH level. DNP note has been reviewed, I agree with a documented findings and plan of care. Patient was seen and examined.
--- NOTE | 2019-11-25 16:00 | ECHOF ---
Referral Reason:afib MEASUREMENTS -------- HEIGHT: 162.6 cm WEIGHT: 59.0 kg BP: 128/72 RVIDd: 2.9 cm (< 3.3) IVSd: 1.1 cm (0.6 - 1.1) LVIDd: 4.1 cm (3.9 - 5.3) LVPWd: 1.1 cm (0.6 - 1.1) IVSs: 1.7 cm LVIDs: 3.0 cm LVPWs: 1.9 cm LA Diam: 3.7 cm (2.7 - 3.8) LAESV Index (A-L): 20.74 ml/m Ao Diam: 2.7 cm (2.0 - 3.7) AV Cusp: 1.7 cm (1.5 - 2.6) MV EXCURSION: 17.007 mm (> 18.000) MV EF SLOPE: 79 mm/s (70 - 150) EPSS: 0.3 cm MV E Syed: 1.13 m/s MV DecT: 291 ms MV A Syed: 1.38 m/s MV E/A Ratio: 0.82 AV maxP.71 mmHg AV meanP.35 mmHg RAP: 5.00 mmHg RVSP: 34.50 mmHg FINDINGS -------- Atrial fibrillation. This was a technically adequate study. The left ventricular size is normal. There is borderline concentric left ventricular hypertrophy. Overall left ventricular systolic function is normal with, an EF between 55 - 60 %. The right ventricle is normal in size. Normal LA size by volume 22+/-6 ml/m2. The right atrial size is normal. Interatrial and interventricular septum intact. There is mild aortic valve sclerosis. There is mild aortic stenosis present. Peak/mean gradient a cross the Aortic Valve is 14.71mmHg / 7.35mmHg. Mild mitral annular calcification present. Mild mitral regurgitation is present. Mild tricuspid regurgitation present. Right ventricular systolic pressure is normal at < 35 mmHg. The right ventricular systolic pressure, as measured by Doppler, is 34.50mmHg. Trace/mild (physiologic) pulmonic regurgitation. The aortic root size is normal. IVC Not well visulized. There is no pericardial effusion. CONCLUSIONS -------- 1. There is borderline concentric left ventricular hypertrophy. 2. Overall left ventricular systolic function is normal with, an EF between 55 - 60 %. 3. Normal LA size by volume 22+/-6 ml/m2. 4. There is mild aortic valve sclerosis. 5. There is mild aortic stenosis present. 6. Peak/mean gradient across the Aortic Valve is 14.71mmHg / 7.35mmHg. 7. Mild mitral annular calcification present. 8. Mild mitral regurgitation is present. 9. Mild tricuspid regurgitation present. 10. Trace/mild (physiologic) pulmonic regurgitation. 11. There is no pericardial effusion. WEB ADMINISTRATOR: Marybeth Chapman RDCS
[2019-11-25] MEDS ORDERED: METOPROLOL TARTRATE 25 MG TAB ONE (16:10)
[2019-11-25] MEDS ORDERED: MORPHINE SULFATE 2 MG/ML SYRINGE ONE (16:10)
--- NOTE | 2019-11-25 16:47 | P.PN ---
Progress Note - Text Progress Note Date: 11/25/19 Patient was seen and examined. Patient reports improvement in her nausea. She reports pain in her lower back, chronic. She denies any chest pain, shortness of breath or palpitations. No vomiting. No fever or chills. Heart rate continues to be irregular but now in the 80s. She has been started on Eliquis and Toprol by mouth. She is on telemetry monitoring. Echocardiogram has been ordered. TSH has been ordered. She is pending clinical improvement. Likely DC tomorrow.
[2019-11-25 16:55] LABS: Glucose,Whole Blood 174 mg/dL (75-99)
--- NOTE | 2019-11-25 17:38 | XR ---
EXAMINATION TYPE: XR chest 1V DATE OF EXAM: 11/25/2019 COMPARISON: NONE HISTORY: Short of breath TECHNIQUE: Single view FINDINGS: There is no heart failure nor confluent pneumonic infiltrate. Costophrenic angles are clear . Thoracic aorta is atheromatous. There are chest leads. Bony thorax is intact. IMPRESSION: No active cardiopulmonary disease. Normal heart.
[2019-11-25] MEDS: SODIUM CHLORIDE 0.9% 1,000 ML IV SCH ×2 (17:44→20:12)
--- NOTE | 2019-11-25 18:09 | CONS ---
CONSULTATION REASON FOR CONSULT: Renal failure. HISTORY OF PRESENT ILLNESS: Patient is a 78-year-old female with history of chronic kidney disease, stage 4, who follows with Dr. Rocha from our group in the [facility]. The patient was admitted to the hospital with complaints of severe back pain radiating to down to the leg. She also complained of weakness. She has not been eating much. The patient complained of nausea. No diarrhea. The patient was found to have atrial fibrillation with RVR and T- wave changes on EKG on arrival in the ER. She has been started on heparin IV and IV fluids. Serum creatinine was 2.1 mg/dL, with a previous creatinine noted on 06/22/2019 to be 1.38. Blood pressure has been on the lower side. Patient denies use of any nonsteroidal anti-inflammatory agents prior to admission. She is not on any ARELIS inhibitors or angiotensin receptor blockers. The patient was on diuretics, which are currently on hold. No significant urinary symptoms. PAST MEDICAL HISTORY: Hypertension, type 2 diabetes, CKD, osteoarthritis, hypothyroidism, hyperlipidemia, osteoporosis. PAST SURGICAL HISTORY: None. SOCIAL HISTORY: Negative for smoking, drug abuse or alcohol abuse. Patient is an ex-smoker. MEDICATIONS: Medications at home prior to admission included Lasix, Synthroid, Prinivil, Pravachol, sodium bicarb, Norvasc, Detrol LA, Lexapro, Atarax, Tofranil, Lunesta, multivitamins, niacin. ALLERGIES: NONE. PHYSICAL EXAMINATION: Patient is comfortable, awake, not in any acute distress. Blood pressure was 128/72, heart rate 77 per minute. She is afebrile. EXAMINATION OF THE HEART: S1 and S2. EXAMINATION OF LUNGS: Bilateral breath sounds are heard. ABDOMEN: Soft, non-tender. Examination of lower extremities shows no evidence of edema. MAINTENANCE MANAGER exam is grossly intact. LABS: Labs show sodium 139, potassium 4.3, chloride 105, BUN 44, creatinine 2.14. Hemoglobin was 9.5 g/dL. UA shows WBCs 10. No blood or protein was noted. ASSESSMENT: 1. Acute kidney injury, most likely prerenal. Agree with holding off on ARELIS inhibitors. May continue with IV fluids for now. Check chest x-ray. Repeat labs today. UA is quite benign. 2. Atrial fibrillation with rapid ventricular response with controlled ventricular response now, maintained on IV heparin. 3. Metabolic acidosis, maintained on sodium bicarb at home. 4. Hypertension. Blood pressure is not elevated. Continue to maintain patient off of ARELIS inhibitors and hold off on Lasix as well. 5. Chronic kidney disease, stage 3, secondary to nephrosclerosis. Previous creatinine 1.3 in June of 2019. Etiology is nephrosclerosis. PLAN: Check chest x-ray. Repeat labs today. May continue IV fluids. Continue to hold off on ARELIS inhibitors. Thank you for this consultation. Will continue to follow the patient with you during her hospitalization. MMODL / IJN: [id number] /
[2019-11-25] MEDS: ACETAMINOPHEN TAB 325 MG TAB PO SCH (20:10)
[2019-11-25 20:47] LABS: Glucose,Whole Blood 181 mg/dL (75-99)
[2019-11-25] MEDS: PRAVASTATIN SODIUM 80 MG TAB PO SCH (22:41)
[2019-11-26] MEDS: METOPROLOL TARTRATE 25 MG TAB PO SCH ×4 (05:18→20:41)
[2019-11-26] MEDS: ACETAMINOPHEN TAB 325 MG TAB PO SCH ×4 (05:19→17:43)
[2019-11-26 05:37] LABS: Calcium 10.1 mg/dL (8.4-10.2); Potassium 4.2 mmol/L (3.5-5.1)
[2019-11-26 06:13] LABS: Glucose,Whole Blood 184 mg/dL (75-99)
[2019-11-26] MEDS: SODIUM CHLORIDE 0.9% 1,000 ML IV SCH (06:23)
[2019-11-26] MEDS: INSULIN ASPART (NovoLOG) 100 UNIT/ML VIAL SQ SCH ×3 (06:23→17:45)
[2019-11-26] MEDS: LEVOTHYROXINE 25 MCG TAB PO SCH (06:23)
[2019-11-26] MEDS: HEPARIN SOD,PORK IN 0.45% NACL 25,000 UNIT in 0.45% NACL 1 250ML.BAG IV SCH (06:24)
[2019-11-26 07:12] LABS: Anisocytosis Slight; Basophils % (A) 1 %; Eosinophils # (A) 0.3 k/uL (0-0.7); Eosinophils % (A) 4 %; HCT 28.6 % (34.0-46.0); Hypochromasia Moderate; Lymphocytes # (A) 2.3 k/uL (1.0-4.8); Lymphocytes % (A) 30 %; MCH 28.5 pg (25.0-35.0); MCHC 31.3 g/dL (31.0-37.0); MCV 90.9 fL (80.0-100.0); Mean Platelet Volume 6.9; Monocytes # (A) 0.4 k/uL (0-1.0); Monocytes % (A) 6 %; Neutrophils # (A) 4.3 k/uL (1.3-7.7); Neutrophils % (A) 58 %; Platelet Count 481 k/uL (150-450); RBC 3.14 m/uL (3.80-5.40); RDW 16.3 % (11.5-15.5); WBC 7.4 k/uL (3.8-10.6)
[2019-11-26] MEDS: SODIUM BICARBONATE TAB 650 MG TAB PO SCH ×2 (09:52→20:41)
[2019-11-26] MEDS: IMIPRAMINE PAMOATE 100 MG PO SCH (11:14)
[2019-11-26] MEDS: HYDROcodone/APAP 5-325MG 1 EACH TAB PO PRN ×2 (11:22→15:51)
[2019-11-26 11:41] LABS: Calcium 9.7 mg/dL (8.4-10.2); Potassium 4.4 mmol/L (3.5-5.1)
[2019-11-26 11:50] LABS: Glucose,Whole Blood 171 mg/dL (75-99)
--- NOTE | 2019-11-26 12:21 | P.PN ---
Subjective Patient is feeling well today. She is complaining of low back pain and hip pain that is not well controlled with Tylenol. She said that her pain is mostly chronic. He denies any chest pain or palpitation. Objective - Vital Signs Vital signs: Vital Signs Temp 97.0 F L 11/26/19 08:15 Pulse 66 11/26/19 08:15 Resp 16 11/26/19 08:15 BP 149/72 11/26/19 08:15 Pulse Ox 99 11/26/19 08:15 Intake & Output 11/25/19 11/26/19 11/26/19 18:59 06:59 18:59 Intake Total 240 165.696 360 Balance 240 165.696 360 Weight 58.5 kg Intake: Intake, IV Titration 165.696 Amount Heparin Sod,Pork in 0.45% 165.696 NaCl 25,000 unit In 0.45 % NaCl 1 250ml.bag @ 12 UNITS/KG/HR 7.076 mls/hr IV .Q24H [facility] Rx#: [id number] Oral 240 360 Other: Voiding Method Bedside Commode Bedside Commode # Voids 1 1 - Exam General: The patient is awake and alert, in no distress Eye: there is normal conjunctiva bilaterally. Neck: The neck is supple, there is no JVD. Cardiovascular: Normal S1-S2, no S3-S4, no murmurs. Respiratory: Lungs clear to auscultation bilaterally Gastrointestinal: Abdomen is soft, nontender Musculoskeletal: There is no pedal edema. Neurological:. Speech is normal. Skin: Skin is warm and dry - Labs CBC & Chem 7: 11/26/19 06:20 11/26/19 06:20 Labs: Abnormal Lab Results - Last 24 Hours (Table) 11/24/19 11/25/19 11/25/19 Range/Units 21:15 05:31 16:53 RBC (3.80-5.40) m/uL Hgb (11.4-16.0) gm/dL Hct (34.0-46.0) % RDW (11.5-15.5) % Plt Count (150-450) k/uL APTT 21.6 L (22.0-30.0) sec Chloride 110 H (98-107) mmol/L Carbon Dioxide 17 L (22-30) mmol/L BUN 42 H (7-17) mg/dL Creatinine 1.91 H (0.52-1.04) mg/dL Glucose 174 H (74-99) mg/dL POC Glucose (mg/dL) 174 H (75-99) mg/dL 11/25/19 11/26/19 11/26/19 Range/Units 20:46 06:12 06:20 RBC 3.14 L (3.80-5.40) m/uL Hgb 9.0 L (11.4-16.0) gm/dL Hct 28.6 L (34.0-46.0) % RDW 16.3 H (11.5-15.5) % Plt Count 481 H (150-450) k/uL APTT (22.0-30.0) sec Chloride (98-107) mmol/L Carbon Dioxide (22-30) mmol/L BUN (7-17) mg/dL Creatinine (0.52-1.04) mg/dL Glucose (74-99) mg/dL POC Glucose (mg/dL) 181 H 184 H (75-99) mg/dL 11/26/19 11/26/19 11/26/19 Range/Units 06:20 06:20 11:49 RBC (3.80-5.40) m/uL Hgb (11.4-16.0) gm/dL Hct (34.0-46.0) % RDW (11.5-15.5) % Plt Count (150-450) k/uL APTT 38.6 H (22.0-30.0) sec Chloride 112 H (98-107) mmol/L Carbon Dioxide 20 L (22-30) mmol/L BUN 24 H (7-17) mg/dL Creatinine 1.18 H (0.52-1.04) mg/dL Glucose 159 H (74-99) mg/dL POC Glucose (mg/dL) 171 H (75-99) mg/dL Assessment and Plan Assessment: Newly diagnosed A. fib with RVR, -Seen and evaluated by cardiology. Currently on IV heparin for anticoagulation was plan to transition to oral Eliquis. Started on metoprolol 25 mg twice daily. -Thyroid function tests within normal range -Echocardiogram showed preserved ejection fraction with no significant valvular Nausea, now resolved BELLA on chronic kidney disease -Possibly secondary to poor oral intake in setting of nausea -Improved with IV fluid hydration. We will discontinue today and encourage oral fluid hydration. -Repeat BMP in the morning. Normocytic anemia, slightly worse from baseline -Patient denying bloody or dark stools, or noticing any additional bleeding -Monitor for now Chronic conditions: Hypertension, hyperlipidemia, hypothyroidism, and DM -Hold off on antihypertensives in setting of A. fib and borderline BP DVT prophylaxis -Heparin infusion
--- NOTE | 2019-11-26 12:45 | PN ---
PROGRESS NOTE Patient is seen for followup for chronic kidney disease and acute kidney injury. Patient is currently comfortable. She is complaining of feeling very depressed since they have recently moved and the fact that patient is currently admitted to the hospital. She denies any chest pains or shortness of breath. Patient is maintained on IV fluids at 75 mL an hour. Her creatinine was slightly better yesterday 1.9 from 2.1 on initial admission. We do not have labs from today. The patient has had good urine output. She is having some abdominal discomfort as well as diarrhea. She also admitted to some nausea this morning. No fevers or chills. PHYSICAL EXAMINATION: On examination, blood pressure was 149/72, heart rate 66 per minute, she is afebrile. Examination of the heart S1, S2. Examination of lungs, bilateral breath sounds are heard. Abdomen is soft. Mild tenderness noted. Examination of the lower extremities shows no significant edema. BUTTER [employer] exam grossly intact. LABS: From yesterday show sodium 140, potassium 4.2, chloride 110, CO2 is 17, BUN 42, creatinine 1.9. No labs available today. Hemoglobin was 9.0, white cell count 7.4. ASSESSMENT: 1. Acute kidney injury, mostly prerenal currently maintained on IV fluids with some improvement in renal function from labs yesterday. I do not have labs from today. We will order a BMP for today. 2. Chronic kidney disease NKF stage 4, secondary to nephrosclerosis with baseline creatinine around 1.3 in June of 2019. 3. Atrial fibrillation with RVR currently within sinus rhythm, maintained on IV heparin. 4. Metabolic acidosis maintained on sodium bicarb which is being continued. 5. Hypertension, currently off ARELIS inhibitors and diuretics. PLAN: Continue IV fluids. Continue to hold off ARELIS inhibitors and diuretics. Check labs today. Symptomatic treatment for nausea. Consider CT of the abdomen if abdominal pain and diarrhea does not improve. MMODL / IJN: [id number] /
--- NOTE | 2019-11-26 14:12 | P.PN ---
Subjective Progress Note Date: 11/26/19 This is a 78-year-old with history of hypertension, hyperlipidemia, hypothyroidism, presented to the emergency room with symptoms of nausea and weakness, she states that she felt like she had flulike symptoms. She denies any fever no chills no shortness of breath or palpitations. EKG was performed on arrival here that showed atrial fibrillation with a rapid ventricular response for this reason a cardiology consultation was requested. Patient is currently on IV heparin, I spoke with the patient and her regarding the importance of anticoagulation for stroke prevention. Blood pressure 120/68, heart rate 80, respirations 16, 97% on room air. White blood cell count 7.5, hemoglobin 9.1, platelet count 510. Sodium 139, potassium 4.3, BUN 44, creatinine 2.1. Troponin 0.03, 0.02, 0.03. At the time of my examination, patient is having diarrhea stools, she was quite constipated on arrival to the emergency room, was given some medication for that and now she's having significant loose stools. 11/26/2019 Patient seen and examined this morning, she is actually able to start eating a little bit today, still has some nausea and decreased appetite feeling. Echocardiogram with Doppler study revealed an ejection fraction of 55-60%. Blood pressure 140/60 with a heart rate in the 60s, 99% on room air. White blood cell count 7.4, hemoglobin 9.0, platelet count 481. Sodium 141, potassium 4.4, BUN 24, creatinine 1.1. Objective - Vital Signs Vital signs: Vital Signs Temp 97.0 F L 11/26/19 08:15 Pulse 66 11/26/19 08:15 Resp 16 11/26/19 08:15 BP 149/72 11/26/19 08:15 Pulse Ox 99 11/26/19 08:15 Intake & Output 11/25/19 11/26/19 11/26/19 18:59 06:59 18:59 Intake Total 240 165.696 600 Balance 240 165.696 600 Weight 58.5 kg Intake: Intake, IV Titration 165.696 Amount Heparin Sod,Pork in 0.45% 165.696 NaCl 25,000 unit In 0.45 % NaCl 1 250ml.bag @ 12 UNITS/KG/HR 7.076 mls/hr IV .Q24H [facility] Rx#: [id number] Oral 240 600 Other: Voiding Method Bedside Commode Bedside Commode # Voids 1 1 - Exam PHYSICAL EXAMINATION: GENERAL: 78-year-old female in no acute distress at the time of my examination HEENT: Head is atraumatic, normocephalic. Pupils equal, round. Sclera anicteric. Conjunctiva are clear. Mucous membranes of the mouth are moist. Neck is supple. There is no elevated jugular venous pressure. No carotid bruit is heard. HEART EXAMINATION: S1 and S2 irregularly irregular CHEST EXAMINATION: Lungs are clear to auscultation and precussion. No chest wall tenderness is noted on palpation or with deep breathing. ABDOMEN: Soft, nontender. Bowel sounds are heard. No organomegaly noted. EXTREMITIES: 2+ peripheral pulses with no evidence of peripheral edema and no calf tenderness noted. NEUROLOGIC patient is awake, alert and oriented 3 . - Labs CBC & Chem 7: 11/26/19 06:20 11/26/19 06:20 Labs: Abnormal Lab Results - Last 24 Hours (Table) 11/24/19 11/25/19 11/25/19 Range/Units 21:15 05:31 16:53 RBC (3.80-5.40) m/uL Hgb (11.4-16.0) gm/dL Hct (34.0-46.0) % RDW (11.5-15.5) % Plt Count (150-450) k/uL APTT 21.6 L (22.0-30.0) sec Chloride 110 H (98-107) mmol/L Carbon Dioxide 17 L (22-30) mmol/L BUN 42 H (7-17) mg/dL Creatinine 1.91 H (0.52-1.04) mg/dL Glucose 174 H (74-99) mg/dL POC Glucose (mg/dL) 174 H (75-99) mg/dL 11/25/19 11/26/19 11/26/19 Range/Units 20:46 06:12 06:20 RBC 3.14 L (3.80-5.40) m/uL Hgb 9.0 L (11.4-16.0) gm/dL Hct 28.6 L (34.0-46.0) % RDW 16.3 H (11.5-15.5) % Plt Count 481 H (150-450) k/uL APTT (22.0-30.0) sec Chloride (98-107) mmol/L Carbon Dioxide (22-30) mmol/L BUN (7-17) mg/dL Creatinine (0.52-1.04) mg/dL Glucose (74-99) mg/dL POC Glucose (mg/dL) 181 H 184 H (75-99) mg/dL 11/26/19 11/26/19 11/26/19 Range/Units 06:20 06:20 11:49 RBC (3.80-5.40) m/uL Hgb (11.4-16.0) gm/dL Hct (34.0-46.0) % RDW (11.5-15.5) % Plt Count (150-450) k/uL APTT 38.6 H (22.0-30.0) sec Chloride 112 H (98-107) mmol/L Carbon Dioxide 20 L (22-30) mmol/L BUN 24 H (7-17) mg/dL Creatinine 1.18 H (0.52-1.04) mg/dL Glucose 159 H (74-99) mg/dL POC Glucose (mg/dL) 171 H (75-99) mg/dL Assessment and Plan Plan: Assessment and plan #1 symptoms of nausea and weakness #2 atrial fibrillation with rapid ventricular response, persistent #3 hypertension #4 hyperlipidemia #5 hypothyroidism Plan Echocardiogram with Doppler study revealed a normal left ventricular systolic function. We'll discontinue the IV heparin and start the patient on oral anticoagulation. From our perspective the patient may be discharged home once cleared by primary. We will make her a follow-up appointment in the office post discharge. DNP note has been reviewed, I agree with a documented findings and plan of care. Patient was seen and examined.
[2019-11-26 16:55] LABS: Glucose,Whole Blood 136 mg/dL (75-99)
[2019-11-26] MEDS: PRAVASTATIN SODIUM 80 MG TAB PO SCH (20:41)
[2019-11-26 20:43] LABS: Glucose,Whole Blood 158 mg/dL (75-99)
[2019-11-26] MEDS: APIXABAN 5 MG TAB PO SCH (21:52)
[2019-11-27] MEDS: ACETAMINOPHEN TAB 325 MG TAB PO SCH ×2 (00:19→05:58)
[2019-11-27 05:54] LABS: Glucose,Whole Blood 123 mg/dL (75-99)
[2019-11-27] MEDS: LEVOTHYROXINE 25 MCG TAB PO SCH (05:59)
[2019-11-27] MEDS: INSULIN ASPART (NovoLOG) 100 UNIT/ML VIAL SQ SCH (06:02)
[2019-11-27 07:20] LABS: Calcium 9.9 mg/dL (8.4-10.2); Potassium 4.3 mmol/L (3.5-5.1)
[2019-11-27 07:24] LABS: Anisocytosis Slight; Basophils % (A) 0 %; Eosinophils # (A) 0.3 k/uL (0-0.7); Eosinophils % (A) 4 %; HCT 28.2 % (34.0-46.0); HGB 8.9 gm/dL (11.4-16.0); Hypochromasia Marked; Lymphocytes # (A) 1.7 k/uL (1.0-4.8); Lymphocytes % (A) 26 %; MCH 28.7 pg (25.0-35.0); MCHC 31.5 g/dL (31.0-37.0); MCV 91.2 fL (80.0-100.0); Mean Platelet Volume 6.8; Monocytes # (A) 0.4 k/uL (0-1.0); Monocytes % (A) 6 %; Neutrophils # (A) 4.1 k/uL (1.3-7.7); Neutrophils % (A) 62 %; Platelet Count 464 k/uL (150-450); RDW 16.6 % (11.5-15.5); WBC 6.7 k/uL (3.8-10.6)
[2019-11-27] MEDS: SODIUM BICARBONATE TAB 650 MG TAB PO SCH (08:41)
[2019-11-27] MEDS: APIXABAN 5 MG TAB PO SCH (08:41)
[2019-11-27] MEDS: METOPROLOL TARTRATE 25 MG TAB PO SCH (08:41)
[2019-11-27] MEDS: IMIPRAMINE PAMOATE 100 MG PO SCH (08:42)
--- NOTE | 2019-11-27 08:59 | P.DS ---
Providers Date of admission: 11/24/19 23:35 Expected date of discharge: 11/27/19 Attending physician: Kirby Nicholas MD Consults: 11/24/19 23:11 Consult Physician Urgent Consulting Provider: Guanakito Jacobo Consult Reason/Comments: atrial fibrillation new onset Do you want consulting provider notified?: Yes Primary care physician: Denton Knox [facility] Course: This is a 78-year-old female with past medical history significant for underlying CKG, left hip also arthritis, attention, and hyperlipidemia who presented to the hospital with chief complaint of nausea. Patient was evaluated in the ER and twelve-lead EKG reveals atrial fibrillation with heart rate up to 106. Patient was admitted to the hospital for further management of her medical problems noted below. Newly diagnosed A. fib with RVR, -Seen and evaluated by cardiology. Started on metoprolol 25 mg twice daily, heart rate well controlled. Also started on anticoagulation with Eliquis. Risk and benefits of anticoagulation discussed with patient. -Thyroid function tests within normal range -Echocardiogram showed preserved ejection fraction with no significant valvular Nausea, now resolved BELLA on chronic kidney disease -Possibly secondary to poor oral intake in setting of nausea -Improved with IV fluid hydration. Normocytic anemia, slightly worse from baseline -Patient denying bloody or dark stools, or noticing any additional bleeding -Follow up outpatient Chronic conditions: Hypertension, hyperlipidemia, hypothyroidism, and DM -Blood pressure regimen adjusted. Amlodipine dose changed to 2.5 mg daily. Patient will be discharged home in a stable condition. For further details about this hospitalization please refer to the electronic chart. Patient Condition at Discharge: Fair Plan - Discharge Summary Discharge Rx Participant: No New Discharge Prescriptions: New Apixaban [Eliquis] 5 mg PO BID #60 tab Metoprolol Tartrate [Lopressor] 25 mg PO BID #60 tab amLODIPine [Norvasc] 2.5 mg PO DAILY #30 tablet Continue Sodium Bicarbonate Tab 650 mg PO BID Pravastatin Sodium [Pravachol] 80 mg PO HS Lisinopril [Prinivil] 5 mg PO QAM Levothyroxine Sodium 25 mcg PO QAM Tolterodine Tartrate [Detrol LA] 4 mg PO QAM Escitalopram [Lexapro] 10 mg PO DAILY Cholecalciferol [Vitamin D3 (25 Mcg = 1000 Iu)] 1,000 unit PO DAILY Imipramine Pamoate [Tofranil Pm] 100 mg PO DAILY Eszopiclone [Lunesta] 2 mg PO HS PRN PRN Reason: Insomnia Cyanocobalamin (Vitamin B-12) [Vitamin B-12] 1,000 mcg PO DAILY Niacin 250 mg PO DAILY Multivitamins, Thera [Multivitamin (formulary)] 1 tab PO DAILY Discontinued Furosemide [Lasix] 20 mg PO BID amLODIPine [Norvasc] 5 mg PO QAM hydrOXYzine HCL [Atarax] 50 mg PO TID PRN PRN Reason: Anxiety Discharge Medication List Levothyroxine Sodium 25 mcg PO QAM 06/18/19 [History] Lisinopril [Prinivil] 5 mg PO QAM 06/18/19 [History] Pravastatin Sodium [Pravachol] 80 mg PO HS 06/18/19 [History] Sodium Bicarbonate Tab 650 mg PO BID 06/18/19 [History] Tolterodine Tartrate [Detrol LA] 4 mg PO QAM 07/10/19 [History] Cholecalciferol [Vitamin D3 (25 Mcg = 1000 Iu)] 1,000 unit PO DAILY 10/26/19 [History] Escitalopram [Lexapro] 10 mg PO DAILY 10/26/19 [History] Cyanocobalamin (Vitamin B-12) [Vitamin B-12] 1,000 mcg PO DAILY 11/24/19 [History] Eszopiclone [Lunesta] 2 mg PO HS PRN 11/24/19 [History] Imipramine Pamoate [Tofranil Pm] 100 mg PO DAILY 11/24/19 [History] Multivitamins, Thera [Multivitamin (formulary)] 1 tab PO DAILY 11/24/19 [History] Niacin 250 mg PO DAILY 11/24/19 [History] Apixaban [Eliquis] 5 mg PO BID #60 tab 11/27/19 [Rx] Metoprolol Tartrate [Lopressor] 25 mg PO BID #60 tab 11/27/19 [Rx] amLODIPine [Norvasc] 2.5 mg PO DAILY #30 tablet 11/27/19 [Rx] Follow up Appointment(s)/Referral(s): Denton Benoit MD [Primary Care Provider] - 1-2 days Discharge Disposition: HOME SELF-CARE
[2019-11-27 09:15] VITALS: BP 177/90; PULSE 77; RESP 16
[2019-11-27 09:47] VITALS: TEMP 98.5
--- NOTE | 2019-11-27 11:22 | PN ---
PROGRESS NOTE Patient is seen for followup for acute kidney injury on top of chronic kidney disease. Patient was maintained on IV fluids, she is doing better. There are plans for discharge today. Serum creatinine has decreased to 1.1 mg/dL from 2 at the time of admission. Baseline creatinine about 1.3 mg/dL. PHYSICAL EXAMINATION: Patient is comfortable. Blood pressure was elevated 177/90, heart rate is 77 per minute. She is afebrile. Examination shows patient to be euvolemic, with no evidence of edema bilateral lower extremities. [employer] exam is grossly intact. LABS: Show sodium 142, potassium 4.3, chloride 113, CO2 is 22, BUN 17, creatinine 1.1, hemoglobin 8.9 g/dL. ASSESSMENT: 1. Acute kidney injury prerenal, currently resolved. 2. Chronic kidney disease secondary to nephrosclerosis NKF stage 3. Baseline creatinine about 1.3 mg/dL. 3. Atrial fibrillation with RVR, now in sinus rhythm. 4. Metabolic acidosis maintained on sodium bicarb which is to be continued. 5. Hypertension. Patient can resume her ARELIS inhibitors that she was taking at home. He should maintain adequate fluid intake as well. Follow up with Nephrology as outpatient. Patient has an appointment with Dr. Rocha next week. MMODL / IJN: [id number] /
--- NOTE | 2019-11-27 14:12 | P.PN ---
Subjective Progress Note Date: 11/27/19 This is a 78-year-old with history of hypertension, hyperlipidemia, hypothyroidism, presented to the emergency room with symptoms of nausea and weakness, she states that she felt like she had flulike symptoms. She denies any fever no chills no shortness of breath or palpitations. EKG was performed on arrival here that showed atrial fibrillation with a rapid ventricular response for this reason a cardiology consultation was requested. Patient is currently on IV heparin, I spoke with the patient and her regarding the importance of anticoagulation for stroke prevention. Blood pressure 120/68, heart rate 80, respirations 16, 97% on room air. White blood cell count 7.5, hemoglobin 9.1, platelet count 510. Sodium 139, potassium 4.3, BUN 44, creatinine 2.1. Troponin 0.03, 0.02, 0.03. At the time of my examination, patient is having diarrhea stools, she was quite constipated on arrival to the emergency room, was given some medication for that and now she's having significant loose stools. 11/26/2019 Patient seen and examined this morning, she is actually able to start eating a little bit today, still has some nausea and decreased appetite feeling. Echocardiogram with Doppler study revealed an ejection fraction of 55-60%. Blood pressure 140/60 with a heart rate in the 60s, 99% on room air. White blood cell count 7.4, hemoglobin 9.0, platelet count 481. Sodium 141, potassium 4.4, BUN 24, creatinine 1.1. 11/27/2019 Patient seen and examined this morning, hemodynamically stable. Blood pressure 150/70 with a heart rate of 70, 98.5 temperature, 98% on room air. White blood cell count 6.7, hemoglobin 8.9, platelet count 464. Sodium 142, potassium 4.3, BUN 17, creatinine 1.1. Objective - Vital Signs Vital signs: Vital Signs Temp 98.5 F 11/27/19 08:40 Pulse 77 11/27/19 08:40 Resp 16 11/27/19 08:40 BP 177/90 11/27/19 08:40 Pulse Ox 98 11/27/19 08:40 Intake & Output 11/26/19 11/27/19 11/27/19 18:59 06:59 18:59 Intake Total 840 0 Balance 840 0 Weight 58.8 kg Intake: Oral 840 0 Other: Voiding Method Bedside Commode Toilet Toilet # Voids 3 1 1 # Bowel Movements 1 - Exam PHYSICAL EXAMINATION: GENERAL: 78-year-old female in no acute distress at the time of my examination HEENT: Head is atraumatic, normocephalic. Pupils equal, round. Sclera anicteric. Conjunctiva are clear. Mucous membranes of the mouth are moist. Neck is supple. There is no elevated jugular venous pressure. No carotid bruit is heard. HEART EXAMINATION: S1 and S2 irregularly irregular CHEST EXAMINATION: Lungs are clear to auscultation and precussion. No chest wall tenderness is noted on palpation or with deep breathing. ABDOMEN: Soft, nontender. Bowel sounds are heard. No organomegaly noted. EXTREMITIES: 2+ peripheral pulses with no evidence of peripheral edema and no calf tenderness noted. NEUROLOGIC patient is awake, alert and oriented 3 . - Labs CBC & Chem 7: 11/27/19 06:38 11/27/19 06:38 Labs: Abnormal Lab Results - Last 24 Hours (Table) 11/26/19 11/26/19 11/27/19 Range/Units 16:54 20:39 05:51 RBC (3.80-5.40) m/uL Hgb (11.4-16.0) gm/dL Hct (34.0-46.0) % RDW (11.5-15.5) % Plt Count (150-450) k/uL Chloride (98-107) mmol/L Creatinine (0.52-1.04) mg/dL Glucose (74-99) mg/dL POC Glucose (mg/dL) 136 H 158 H 123 H (75-99) mg/dL 11/27/19 11/27/19 Range/Units 06:38 06:38 RBC 3.10 L (3.80-5.40) m/uL Hgb 8.9 L (11.4-16.0) gm/dL Hct 28.2 L (34.0-46.0) % RDW 16.6 H (11.5-15.5) % Plt Count 464 H (150-450) k/uL Chloride 113 H (98-107) mmol/L Creatinine 1.11 H (0.52-1.04) mg/dL Glucose 126 H (74-99) mg/dL POC Glucose (mg/dL) (75-99) mg/dL Assessment and Plan Plan: Assessment and plan #1 symptoms of nausea and weakness #2 atrial fibrillation with rapid ventricular response, persistent #3 hypertension #4 hyperlipidemia #5 hypothyroidism Plan From cardiology's perspective, patient may be able to be discharged home today. We'll make her a follow-up appointment to see Dr. Lopez in the office post discharge. DNP note has been reviewed, I agree with a documented findings and plan of care. Patient was seen and examined.
== END 2019-11-27 11:08 | disposition home or self-care (01) | DRG 309 ==
LOC: EC 19:56 → 3SCARD 23:35
PROVIDERS: ADMIT Internal Medicine; ATTEND Internal Medicine
DX: I48.19 Other persistent atrial fibrillation (principal); N17.9 Acute kidney failure, unspecified; N18.4 Chronic kidney disease, stage 4 (severe); E87.2 Acidosis; E78.5 Hyperlipidemia, unspecified; E11.22 Type 2 diabetes mellitus with diabetic chronic kidney disease; E03.9 Hypothyroidism, unspecified; F41.9 Anxiety disorder, unspecified; D64.9 Anemia, unspecified; I12.9 Hypertensive chronic kidney disease with stage 1 through stage 4 chronic kidney disease, or unspecified chronic kidney disease; G89.29 Other chronic pain; M16.12 Unilateral primary osteoarthritis, left hip; Z79.899 Other long term (current) drug therapy; Z87.891 Personal history of nicotine dependence; Z80.9 Family history of malignant neoplasm, unspecified; Z11.59 Encounter for screening for other viral diseases
CPT/HCPCS: 36415; 71045; 80048; 80053; 80061; 81001; 83690; 83735; 84100; 84443; 84484; 85025; 85610; 85730; 93005; 93306; 96361; 96365; 96366; 96375; 96376; 99285

== ENCOUNTER → 2020-01-06 | Outpatient (CLI) | payer MEDICARE, BC ==
[2020-01-06 13:58] VITALS: BP 139/63; PULSE 51; RESP 18; TEMP 97
--- NOTE | 2020-01-06 14:07 | P.PAINPG ---
Subjective Progress Note Date: 12/23/19 This is a 79 year old female with a chronic history of low back pain with radiation to the left lower extremity, she has been diagnosed with lumbar radiculopathy, lumbar degenerative disc disease, left trochanteric bursitis. She underwent lumbar epidural steroid injection at L3-4 on 11/17/2019. This pro cedure did not help enforce that she had significant low back pain after the procedure she was prescribed 7 days prescription of tramadol which her primary care physician is since picked up. She also had a sensation of bladder fullness at the time but she did not have any weakness, numbness, tingling or bowel incontinence. She noted that the epidural that she had in July helped significantly but her last 2 have not helped at all. Her pain is in the left low back scribe as sharp shooting and stabbing with radiation into the buttock and left hip as well as the anterior thigh. Sitting is uncomfortable for her and any form of physical activity exacerbates the pain. Tramadol takes the edge off the nothing really alleviates the pain. Currently an 8 out of 10. Of note she is on Eliquis due to diagnosis of atrial fibrillation. Review of systems is negative for chest pain, shortness of breath, new onset weakness, numbness/tingling, abdominal pain, malaise, fever, night sweats, chills, homicidal or suicidal ideation, or bowel or bladder incontinence. Objective Physical exam: Vitals: Reviewed in EMR GENERAL: Well appearing, in no acute distress, seated in wheelchair PSYCH: Mood and affect is appropriate. Awake, alert, and oriented SKIN: Skin color, texture, turgor normal, no rashes or lesions HEENT: Normocephalic, atraumatic. EOM intact CV: No pedal edema RESP: Respirations are unlabored, no audible wheezing GI: Abdomen non-distended MUSCULOSKELETAL: Bilateral lower extremity strength is normal and symmetric. No atrophy or tone abnormalities are noted. Lumbar spine: Tenderness to palpation over the lumbar spine and paraspinous muscles. Limited range of motion with pain reproduction Buttocks: No pain to palpation over the PSIS, sacroiliac joint maneuvers are negative for pain. Tenderness to palpation along left greater trochanter Extremities: Peripheral joint ROM is full and pain free without obvious instabil ity or laxity in all four extremities. No edema or skin discolorations noted. NEUR: Bilateral lower extremity coordination and muscle stretch reflexes are physiologic and symmetric. Negative clonus bilaterally. No loss of sensation is noted. Assessment and Plan Assessment and plan=1-lumbar radiculopathy. 2-Lumber degenerative disc disease. 3-lumbar spondylosis with lumbar facet arthropathy. 4-left trochanteric bursitis 5- atrial fibrillation ON ELIQUIS - Schedule patient for left SI joint injection. If this does not work could consider left-sided medial branch workup - Her PCP is prescribing her tramadol and I'll defer to them for this - Educated on doing some form of physical activity at home to strengthen her paraspinal musculature. Objective - Vital Signs Vital signs: Intake & Output Smoking Status Former smoker Pain Intensity [Left Hip] 10 Scale Used Numeric (1 - 10) Hx Alcohol Use (MH) No PQRS Measure Charge Sheet Measure #226: Tobacco Use: Screen & Cessation Intervention: Pt not a tobacco user Measure #111: Pneumonia Vaccination: Pneumococcal vaccine administered or previously received Measure #47: Advance Care Plan: Advance care planning discussed & documented, pt chose/unable to give Measure #412: Opioid Treatment Agreement: No documentation of signed opioid treatment agreement Measure #408: Opioid Therapy Follow-up Evaluation: Patient had NO f/u eval minimum every 3 months during opioid therapy Measure #131: Pain Assessment & Follow-up: Pain positive & plan documented, Follow-up scheduled Measure #431: Unhealthy Alcohol Use Preventative Care & Scrn: Patient not identified as an unhealthy alcohol user PQRS Narrative: Smoking Status Former smoker Pain Intensity [Back] 5 Scale Used Numeric (1 - 10) Hx Alcohol Use (MH) No Home Medications: Ambulatory Orders Levothyroxine Sodium 25 mcg PO QAM 06/18/19 Pravastatin Sodium [Pravachol] 80 mg PO HS 06/18/19 Sodium Bicarbonate Tab 650 mg PO BID 06/18/19 lisinopriL [Prinivil] 5 mg PO QAM 06/18/19 Tolterodine Tartrate [Detrol LA] 4 mg PO QAM 07/10/19 Cholecalciferol [Vitamin D3 (25 Mcg = 1000 Iu)] 1,000 unit PO DAILY 10/26/19 Escitalopram [Lexapro] 10 mg PO DAILY 10/26/19 Cyanocobalamin (Vitamin B-12) [Vitamin B-12] 1,000 mcg PO DAILY 11/24/19 Apixaban [Eliquis] 5 mg PO BID #60 tab 11/27/19 Metoprolol Tartrate [Lopressor] 25 mg PO BID #60 tab 11/27/19 amLODIPine [Norvasc] 2.5 mg PO DAILY #30 tablet 11/27/19 Fenofibrate Nanocrystallized [Fenofibrate] 145 mg PO DAILY 12/17/19 traMADol HCL [Ultram] 50 mg PO Q6HR PRN 12/17/19 Controlled Substance Measures - Controlled Substance Measures Is patient prescribed a controlled substance at discharge?: No
== END | disposition home or self-care (01) ==
LOC: PNWHC3 13:31
PROVIDERS: ATTEND Anesthesiology
DX: M51.16 Intervertebral disc disorders with radiculopathy, lumbar region (principal); M47.26 Other spondylosis with radiculopathy, lumbar region; M70.62 Trochanteric bursitis, left hip; I48.91 Unspecified atrial fibrillation; Z79.01 Long term (current) use of anticoagulants; Z87.891 Personal history of nicotine dependence; Z79.890 Hormone replacement therapy; Z79.899 Other long term (current) drug therapy; Z79.891 Long term (current) use of opiate analgesic
CPT/HCPCS: 99211

== ENCOUNTER → 2020-03-16 | Outpatient (CLI) | payer MEDICARE, BC ==
[2020-03-16 14:27] VITALS: BP 183/75; PULSE 50; RESP 20; TEMP 98.3
--- NOTE | 2020-03-16 15:02 | P.PN ---
Subjective Progress Note Date: 03/16/20 Amelia is an 79-year-old female presents today for follow-up. She is status post 2 injections which she reports did not help significant only. She reports she's doing OK with the current medication. She has pain across the low back which sometimes goes into her left leg. She is here today with her . She has slight difficulty hearing so her assists her. She feels that she has pain with movement including standing or trying to walk for long periods of time. She denies any significant weakness. Denies any bowel or bladder incontinence related to the back pain. She is currently happy with the medications that she is receiving from the primary care doctor. Objective - Vital Signs Vital signs: Vital Signs Temp 98.3 F 03/16/20 14:20 Pulse 50 L 03/16/20 14:20 Resp 20 03/16/20 14:20 BP 183/75 03/16/20 14:20 Pulse Ox 96 03/16/20 14:20 Intake & Output 03/15/20 03/16/20 03/16/20 18:59 06:59 18:59 Weight 58.693 kg - Exam General: Awake and alert oriented 3 no distress Respiratory exam: No audible wheezing no accessory muscle usage Cardiovascular exam: regular rate, palpable bilateral pulses, no lower extremity edema Abdominal exam: No distention nontender to palpation Cervical spine: Normal alignment, Spurling's negative, facet loading negative, Results Technician strength is 5/5, garnett negative Lumbar spine: Forward flexed body position, level scoliosis, loss of lordosis and atrophy of the paraspinal muscles and is evident. Lower extremity strength is 4-5 across all muscle groups. Neuro exam: Normal sensation in bilateral upper extremities, deep tendon reflexes are 2+ bilateral upper extremities. Normal sensation in bilateral lower extremities. Deep tendon reflexes are 2+ in lower extremities Psych exam: Cooperative, appropriate mood Assessment and Plan Assessment: #1 lumbar spinal stenosis #2 neurogenic claudication Plan: I discussed with the patient her that the symptoms may not be alleviated with conservative therapy. She is not a good surgical candidate. If she is happy with the current medication regimen she should continue with that as a conservative role. She can have injections in the future if her pain progresses. At this time I'll have him follow-up with us as needed
== END | disposition home or self-care (01) ==
LOC: PNWHC3 14:02
PROVIDERS: ATTEND Hospitalist
DX: M48.061 Spinal stenosis, lumbar region without neurogenic claudication (principal); I73.9 Peripheral vascular disease, unspecified
CPT/HCPCS: 99211

== ENCOUNTER 2021-01-02 14:32 | Inpatient (IN) | payer MEDICARE, BC ==
--- NOTE | 2021-01-02 14:41 | ED ---
General Adult HPI - General Source: patient, family, RN notes reviewed Limitations: altered mental status <Mando Nava - Last Filed: 01/02/21 14:40> <Tres Hu - Last Filed: 01/02/21 17:15> - General Stated complaint: altered mental status Time Seen by Provider: 01/02/21 14:38 - History of Present Illness Initial comments: This an 80-year-old female presents emergency department for generalized weakness, confusion. states that she has not been eating much, decreased oral intake. He is also last 3 days. She has had some confusion. She also complained of some lower abdominal pain. No reported fever. Denies any chest pain or shortness of breath no new medications. Patient is in no recent procedures. Denies any cough or cold like symptoms (Mando Nava) - Related Data Home Medications Medication Instructions Recorded Confirmed Levothyroxine Sodium 25 mcg PO QAM 06/18/19 03/16/20 Pravastatin Sodium [Pravachol] 80 mg PO HS 06/18/19 03/16/20 Sodium Bicarbonate Tab 650 mg PO BID 06/18/19 03/16/20 lisinopriL [Prinivil] 5 mg PO QAM 06/18/19 03/16/20 Tolterodine Tartrate [Detrol LA] 4 mg PO QAM 07/10/19 03/16/20 Cholecalciferol [Vitamin D3 (25 1,000 unit PO DAILY 10/26/19 03/16/20 Mcg = 1000 Iu)] Escitalopram [Lexapro] 10 mg PO DAILY 10/26/19 03/16/20 Cyanocobalamin (Vitamin B-12) 1,000 mcg PO DAILY 11/24/19 03/16/20 [Vitamin B-12] Fenofibrate Nanocrystallized 145 mg PO DAILY 12/17/19 03/16/20 [Fenofibrate] traMADol HCL [Ultram] 50 mg PO Q6HR PRN 12/17/19 03/16/20 Furosemide [Lasix] 20 mg PO DAILY 01/29/20 03/16/20 Lidocaine 5% Patch [Lidoderm] 1 patch TOPICAL DAILY 01/29/20 03/16/20 Mirtazapine 7.5 mg PO HS 01/29/20 03/16/20 amLODIPine [Norvasc] 5 mg PO DAILY 01/29/20 03/16/20 hydrOXYzine HCL [Atarax] 50 mg PO DIRECTED PRN 01/29/20 03/16/20 sitaGLIPtin [Januvia] 50 mg PO DAILY 01/29/20 03/16/20 Previous Rx's Medication Instructions Recorded Apixaban [Eliquis] 5 mg PO BID #60 tab 11/27/19 Metoprolol Tartrate [Lopressor] 25 mg PO BID #60 tab 11/27/19 Allergies Allergy/AdvReac Type Severity Reaction Status Date / Time No Known Allergies Allergy Verified 01/02/21 14:43 Review of Systems ROS Other: All systems not noted in ROS Statement are negative. <Mando Nava - Last Filed: 01/02/21 14:40> ROS Other: All systems not noted in ROS Statement are negative. <Tres Hu - Last Filed: 01/02/21 17:15> ROS Statement: Those systems with pertinent positive or pertinent negative responses have been documented in the HPI. Past Medical History Past Medical History: Diabetes Mellitus, Hyperlipidemia, Hypertension, Renal Disease, Vascular Disorder Additional Past Medical History / Comment(s): osteoporosis. stage III kidney disease. peripheral circ. disorder. DDD. HAS SOME MOLES ON HER BACK THAT HAVE CHANGES RECENTLY-PCP AWARE History of Any Multi-Drug Resistant Organisms: None Reported Past Surgical History: No Surgical Hx Reported Additional Past Surgical History / Comment(s): PAIN CLINIC PROCEDURE for hip pain Past Anesthesia/Blood Transfusion Reactions: No Reported Reaction Past Psychological History: Anxiety Additional Psychological History / Comment(s): dueto medication while in the hospital Smoking Status: Former smoker Past Alcohol Use History: None Reported Additional Past Alcohol Use History / Comment(s): QUIT SMOKING 25+YEARS AGO Past Drug Use History: None Reported - Past Family History Mother Family Medical History: Cancer Father Family Medical History: Cancer <Mando Nava - Last Filed: 01/02/21 14:40> Course Vital Signs 01/02/21 01/02/21 01/02/21 14:39 15:13 16:33 Temperature 97.6 F Pulse Rate 85 59 L 55 L Respiratory 18 18 Rate Blood Pressure 188/58 188/66 O2 Sat by Pulse 97 98 96 Oximetry EKG Findings - EKG Comments: EKG Findings:: EKG: Normal sinus rhythm, right bundle-branch block, rate of 76, RI interval 124, QRS duration 134, QTC 463, no ST segment elevation. <Tres Hu - Last Filed: 01/02/21 17:15> Medical Decision Making - Lab Data Result diagrams: 01/02/21 15:13 01/02/21 15:13 <Tres Hu - Last Filed: 01/02/21 17:15> - Medical Decision Making 20-year-old female presenting with increased confusion, poor intake over the past 3 days. History is obtained. We from the is at bedside. Patient herself has no pain complaints, no headache, no chest pain, no abdominal pain. Workup is initiated, head CT shows no acute process, there is signs of active vascular ischemia, no intracranial hemorrhage or mass effect, chest x-rays negative for focal pneumonia. She has a mild leukocytosis, stable hemoglobin, kidney function is at baseline. Troponin is mildly elevated which does appear chronic for this patient has 0.036, repeat level will be added to ensure stability. Urinalysis pending. Case discussed with Dr. Fraser who will admit. (Tres Hu) - Lab Data Lab Results 01/02/21 01/02/21 01/02/21 Range/Units 15:13 15:13 15:13 WBC 11.3 H (3.8-10.6) k/uL RBC 4.13 (3.80-5.40) m/uL Hgb 12.5 (11.4-16.0) gm/dL Hct 38.0 (34.0-46.0) % MCV 91.9 (80.0-100.0) fL MCH 30.2 (25.0-35.0) pg MCHC 32.8 (31.0-37.0) g/dL RDW 14.2 (11.5-15.5) % Plt Count 396 (150-450) k/uL MPV 7.4 Neutrophils % 83 % Lymphocytes % 8 % Monocytes % 6 % Eosinophils % 1 % Basophils % 0 % Neutrophils # 9.4 H (1.3-7.7) k/uL Lymphocytes # 0.9 L (1.0-4.8) k/uL Monocytes # 0.7 (0-1.0) k/uL Eosinophils # 0.1 (0-0.7) k/uL Basophils # 0.0 (0-0.2) k/uL PT 11.7 (9.0-12.0) sec INR 1.1 (<1.2) APTT 25.1 (22.0-30.0) sec Sodium 135 L (137-145) mmol/L Potassium 3.9 (3.5-5.1) mmol/L Chloride 98 (98-107) mmol/L Carbon Dioxide 26 (22-30) mmol/L Anion Gap 11 mmol/L BUN 28 H (7-17) mg/dL Creatinine 1.25 H (0.52-1.04) mg/dL Est GFR (CKD-EPI)AfAm 47 (>60 ml/min/1.73 sqM) Est GFR (CKD-EPI)NonAf 41 (>60 ml/min/1.73 sqM) Glucose 212 H (74-99) mg/dL Plasma Lactic Acid Melvin (0.7-2.0) mmol/L Calcium 10.4 H (8.4-10.2) mg/dL Total Bilirubin 0.6 (0.2-1.3) mg/dL AST 46 H (14-36) U/L ALT 13 (4-34) U/L Alkaline Phosphatase 74 (38-126) U/L Troponin I (0.000-0.034) ng/mL Total Protein 6.9 (6.3-8.2) g/dL Albumin 4.0 (3.5-5.0) g/dL Lipase 125 (23-300) U/L 01/02/21 01/02/21 Range/Units 15:13 15:13 WBC (3.8-10.6) k/uL RBC (3.80-5.40) m/uL Hgb (11.4-16.0) gm/dL Hct (34.0-46.0) % MCV (80.0-100.0) fL MCH (25.0-35.0) pg MCHC (31.0-37.0) g/dL RDW (11.5-15.5) % Plt Count (150-450) k/uL MPV Neutrophils % % Lymphocytes % % Monocytes % % Eosinophils % % Basophils % % Neutrophils # (1.3-7.7) k/uL Lymphocytes # (1.0-4.8) k/uL Monocytes # (0-1.0) k/uL Eosinophils # (0-0.7) k/uL Basophils # (0-0.2) k/uL PT (9.0-12.0) sec INR (<1.2) APTT (22.0-30.0) sec Sodium (137-145) mmol/L Potassium (3.5-5.1) mmol/L Chloride (98-107) mmol/L Carbon Dioxide (22-30) mmol/L Anion Gap mmol/L BUN (7-17) mg/dL Creatinine (0.52-1.04) mg/dL Est GFR (CKD-EPI)AfAm (>60 ml/min/1.73 sqM) Est GFR (CKD-EPI)NonAf (>60 ml/min/1.73 sqM) Glucose (74-99) mg/dL Plasma Lactic Acid Melvin 1.8 (0.7-2.0) mmol/L Calcium (8.4-10.2) mg/dL Total Bilirubin (0.2-1.3) mg/dL AST (14-36) U/L ALT (4-34) U/L Alkaline Phosphatase (38-126) U/L Troponin I 0.036 H* (0.000-0.034) ng/mL Total Protein (6.3-8.2) g/dL Albumin (3.5-5.0) g/dL Lipase (23-300) U/L Disposition <Mando Nava - Last Filed: 01/02/21 14:40> Is patient prescribed a controlled substance at d/c from ED?: No Decision to Admit Reason: Admit from EC Decision Date: 01/02/21 Decision Time: 17:15 <Tres Hu - Last Filed: 01/02/21 17:15> Clinical Impression: Altered mental status, Dehydration Disposition: ADMITTED IP TO THIS [facility] Condition: Stable Referrals: None,Stated [REFERRING] - 1-2 days
[2021-01-02 15:32] LABS: Basophils % (A) 0 %; Eosinophils # (A) 0.1 k/uL (0-0.7); Eosinophils % (A) 1 %; HGB 12.5 gm/dL (11.4-16.0); Lymphocytes # (A) 0.9 k/uL (1.0-4.8); Lymphocytes % (A) 8 %; MCH 30.2 pg (25.0-35.0); MCHC 32.8 g/dL (31.0-37.0); MCV 91.9 fL (80.0-100.0); Mean Platelet Volume 7.4; Monocytes # (A) 0.7 k/uL (0-1.0); Monocytes % (A) 6 %; Neutrophils # (A) 9.4 k/uL (1.3-7.7); Neutrophils % (A) 83 %; Platelet Count 396 k/uL (150-450); RBC 4.13 m/uL (3.80-5.40); RDW 14.2 % (11.5-15.5); WBC 11.3 k/uL (3.8-10.6)
[2021-01-02 15:41] LABS: Calcium 10.4 mg/dL (8.4-10.2); Potassium 3.9 mmol/L (3.5-5.1); Total Bilirubin 0.6 mg/dL (0.2-1.3); Total Protein 6.9 g/dL (6.3-8.2)
--- NOTE | 2021-01-02 15:45 | CT ---
EXAMINATION TYPE: CT brain wo con DATE OF EXAM: 01/02/2021 COMPARISON: None HISTORY: Altered mental status. CT DLP: 1099.4 mGycm Automated exposure control for dose reduction was used. FINDINGS: Moderate to severe generalized degenerative change. Low-attenuation the white matter is nonspecific b ut most typical remote white matter ischemia. Ocular calcifications are noted. Intracranial atheroscl erotic disease. No midline shift or mass effect no acute hemorrhage. Calvarium intact. Cerebellar tonsils low-lying in position at the level of the foramen magnum. Sella turcica has a normal appearance. IMPRESSION: DEGENERATIVE AND NONSPECIFIC WHITE MATTER CHANGES MOST TYPICAL REMOTE MICROVASCULAR ISCHEMIA. NO MIDL INE SHIFT OR MASS EFFECT.
--- NOTE | 2021-01-02 15:48 | XR ---
EXAMINATION TYPE: XR chest 2V DATE OF EXAM: 01/02/2021 COMPARISON: 11/25/19 HISTORY: Shortness of breath TECHNIQUE: Frontal and lateral views of the chest are obtained. FINDINGS: Scattered senescent parenchymal changes noted. Hyperinflation compatible with COPD. No evidence for infiltrate. No evidence for atelectasis. Heart size is stable. Mediastinal structures are stable and grossly unremarkable. No evidence for hilar prominence. Degenerative changes dorsal spine. IMPRESSION: 1. No evidence for acute pulmonary disease.
[2021-01-02 15:55] LABS: INR 1.1 (<1.2); Partial Thromboplastin Time 25.1 sec (22.0-30.0); Prothrombin Time 11.7 sec (9.0-12.0)
[2021-01-02] MEDS ORDERED: SODIUM CHLORIDE 0.9% 500 ML 500 ML IV ONE (16:41)
[2021-01-02] MEDS ORDERED: LORazepam 2 MG/ML INJ IV STA (17:06)
[2021-01-02] MEDS ORDERED: NALOXONE 0.4 MG/ML 1 ML VIAL IV PRN (17:06)
[2021-01-02 17:43] LABS: Appearance,Urine Clear (Clear); Bilirubin,Urine Negative (Negative); Blood,Urine Small (Negative); Color,Urine Yellow; Glucose,Urine (UA) Negative (Negative); Hyaline Casts,Urine 23 /lpf (0-2); Ketones,Urine Negative (Negative); Leukocyte Esterase,Urine Negative (Negative); Mucus,Urine Rare /hpf; Nitrite,Urine Negative (Negative); Protein,Urine 2+ (Negative); RBC,Urine 4 /hpf (0-5); Specific Gravity,Urine 1.011 (1.001-1.035); Squamous Epithelial Cell,Urine <1 /hpf (0-4); Urobilinogen,Urine <2.0 mg/dL (<2.0); WBC,Urine 3 /hpf (0-5)
[2021-01-02] MEDS ORDERED: amLODIPine 5 MG TAB PO SCH (18:30)
[2021-01-02] MEDS: SODIUM CHLORIDE 0.9% 1,000 ML IV SCH (19:57)
--- NOTE | 2021-01-02 20:35 | HP ---
HISTORY AND PHYSICAL DATE OF SERVICE: 01/02/2021 CHIEF COMPLAINTS: Change in mental status and confusion, dehydration. HISTORY OF PRESENT ILLNESS: This 80-year-old woman with a past medical history of diabetes, hypertension, hyperlipidemia, history of renal disease, history of vascular disorder, history of anxiety, being followed by a primary physician elsewhere, was not eating or drinking for the last couple of days, according to the patient's . The patient has complaints of weakness. The patient also got confused. The patient was taken to [facility] and was admitted for evaluation and treatment. The creatinine was found to be 1.25. The baseline was around 1.11. There is no history of any fever or rigors. No history of headache, loss of consciousness, seizures. Troponin was found to be 0.036. UA showed 2+ protein and some hyaline casts. PAST MEDICAL HISTORY: History of diabetes mellitus, hypertension, hyperlipidemia, history of vascular disorder, osteoporosis, stage 3 kidney disease. MEDICATIONS: Home medications are Ultram, Prinivil, buspirone, Norvasc, Detrol LA, sodium bicarb, , Remeron, Toprol-XL, levothyroxine, Neurontin, Lasix, fenofibrate, Pepcid, Lexapro, vitamin D3, Eliquis. Doses are reviewed. ALLERGIES: NONE. FAMILY HISTORY: History of cancer in the family. SOCIAL HISTORY: No history of smoking. REVIEW OF SYSTEMS: ENT: Diminished hearing. Diminished vision. CARDIOVASCULAR SYSTEM: No angina, palpitations. RESPIRATORY SYSTEM: No cough, hemoptysis. GI: As mentioned earlier. : No dysuria. NERVOUS SYSTEM: No numbness, weakness. ALLERGY/IMMUNOLOGY: No asthma or hay fever. MUSCULOSKELETAL: As mentioned earlier. HEMATOLOGY/ONCOLOGY: No history of anemia. ENDOCRINE: No history of diabetes or hypothyroidism. CONSTITUTIONAL: As mentioned earlier. DERMATOLOGY: Negative. RHEUMATOLOGY: Negative. PSYCHIATRY: As mentioned earlier. PHYSICAL EXAMINATION: Patient alert and oriented x2. Pulse 60, blood pressure 168/77, respiration 18, temperature 97.6, pulse ox 99% on room air. HEENT: Conjunctivae normal. Oral mucosa moist. NECK: No jugular venous distention. No carotid bruit. No lymph node enlargement. CARDIOVASCULAR SYSTEM: S1, S2 muffled. No S3. No S4. RESPIRATORY: Breath sounds diminished at the bases. A few rhonchi. No crackles. ABDOMEN: Soft, nontender. No mass palpable. LEGS: No edema. No swelling. NERVOUS SYSTEM: Higher functions as mentioned earlier. Moves all 4 limbs. Mild diffuse weakness. LYMPHATICS: No lymph node palpable in neck, axillae or groin. SKIN: No ulcer, rash, bleeding. JOINTS: No active deforming arthropathy. LABS: WBC 11.3. Sodium 135. UA unremarkable. Calcium is 10.4. ASSESSMENT: 1. Acute dehydration because of diminished oral intake. 2. Acute on chronic renal failure with chronic kidney disease, stage 3 baseline. 3. Right bundle branch block pattern on EKG. 4. Hypercalcemia. 5. Troponin 0.036, indeterminate. 6. Increased white count, possibly reactive. 7. Diabetes mellitus, type 2. 8. Hypertension. 9. Hyperlipidemia. 10.History of osteoporosis. 11.History of peripheral vascular disease. 12.History of anxiety. 13.Remote history of nicotine dependence. RECOMMENDATION AND DISCUSSION: I recommend to continue current medications, continue with symptomatic treatment. Gentle IV hydration. Repeat labs. Monitor blood pressure closely. Cardiology consultation for elevated troponin. EKG shows right bundle branch block pattern. CT brain also reviewed personally which showed degenerative disease and remote microvascular ischemia. Prognosis is guarded because of multiple complex medical issues. Further recommendations to follow. See orders for further details. Neurology was also consulted. MMODL / IJN: [id number] / KACIE
[2021-01-02] MEDS: SODIUM BICARBONATE TAB 650 MG TAB PO SCH (21:27)
[2021-01-02] MEDS: APIXABAN 2.5 MG TABLET PO SCH (21:27)
[2021-01-02] MEDS: busPIRone HCl 5 MG TAB PO SCH (21:27)
[2021-01-02] MEDS: MIRTAZAPINE 15 MG TAB PO SCH (21:27)
[2021-01-02] MEDS: PRAVASTATIN SODIUM 80 MG TAB PO SCH (21:30)
[2021-01-02] MEDS ORDERED: ASPIRIN 81 MG PO STA (22:38)
[2021-01-02] MEDS: hydrALAZINE HCL 25 MG TAB PO PRN (22:44)
[2021-01-03] MEDS ORDERED: HALOPERIDOL LACTATE 5 MG/ML 1 ML VIAL IVP PRN (01:02)
[2021-01-03] MEDS: LEVOTHYROXINE 25 MCG TAB PO SCH (05:54)
[2021-01-03] MEDS: SODIUM CHLORIDE 0.9% 1,000 ML IV SCH ×2 (05:55→20:00)
[2021-01-03] MEDS: hydrALAZINE HCL 25 MG TAB PO PRN (06:02)
[2021-01-03 06:56] LABS: African American GFR (CKD) 44 (>60 ml/min/1.73 sqM); Anion Gap 7 mmol/L; Blood Urea Nitrogen 24 mg/dL (7-17); Calcium 9.8 mg/dL (8.4-10.2); Carbon Dioxide 28 mmol/L (22-30); Chloride 104 mmol/L (98-107); Glucose 104 mg/dL (74-99); Non-African American GFR(CKD) 38 (>60 ml/min/1.73 sqM); Potassium 3.9 mmol/L (3.5-5.1); Sodium 139 mmol/L (137-145)
[2021-01-03] MEDS: busPIRone HCl 5 MG TAB PO SCH ×3 (08:33→21:15)
[2021-01-03] MEDS: APIXABAN 2.5 MG TABLET PO SCH ×2 (08:33→21:15)
[2021-01-03] MEDS: lisinopriL 10 MG TAB PO SCH (08:33)
[2021-01-03] MEDS: amLODIPine 10 MG TAB PO SCH (08:33)
[2021-01-03] MEDS: CHOLECALCIFEROL 25 MCG (1000 IU) TABLET PO SCH (08:34)
[2021-01-03] MEDS: METOPROLOL SUCCINATE (ER) 25 MG TAB.ER.24H PO SCH (08:34)
[2021-01-03] MEDS: OXYBUTYNIN 10 MG TAB.ER.24 PO SCH (08:35)
[2021-01-03 08:54] LABS: Basophils # (A) 0.04 X 10*3/uL (0.00-0.10); Basophils % (A) 0.3 %; Eosinophils # (A) 0.12 X 10*3/uL (0.04-0.35); Eosinophils % (A) 0.9 %; HCT 31.7 % (37.2-46.3); HGB 10.6 g/dL (12.0-15.0); Lymphocytes # (A) 1.51 X 10*3/uL (0.90-5.00); Lymphocytes % (A) 11.9 %; MCH 31.9 pg (27.0-32.0); MCHC 33.4 g/dL (32.0-37.0); MCV 95.5 fL (80.0-97.0); Mean Platelet Volume 10.3 fL (9.5-12.2); Monocytes # (A) 1.48 X 10*3/uL (0.20-1.00); Monocytes % (A) 11.6 %; Neutrophils # (A) 9.53 X 10*3/uL (1.80-7.70); Neutrophils % (A) 74.9 %; Platelet Count 362 X 10*3/uL (140-440); RBC 3.32 X 10*6/uL (4.10-5.20); RDW 14.6 % (11.5-14.5); WBC 12.73 X 10*3/uL (4.50-10.00)
--- NOTE | 2021-01-03 10:17 | P.CRDCN ---
History of Present Illness History of present illness: This is a 80-year-old with a past medical history of paroxysmal atrial fibrillation (on Eliquis), type 2 diabetes, former tobacco use, hypertension, hyperlipidemia, hypothyroidism. We have been asked to see in consultation for elevated troponin. Patient follows with a nail maker, Dr. Garzon. Patient presented to the emergency room by her for 3 days of worsening confusion, fatigue, and decreased appetite. He also states she was complaining of some abdominal pain. Patient seen and examined in the emergency department, no acute distress, she is lying flat in bed comfortably. When awoken she is alert. Only oriented to person. Per her she does appear more alert but sometimes it comes and goes. Her orientation sometimes comes and goes as well. Patient denies chest pain, shortness of breath, palpitations, abdominal pain, nausea, vomiting, lightheadedness or dizziness. No symptoms of orthopnea or PND. No history of AL, Stroke. No family history of heart disease. Laboratory. WBC 12.7, hemoglobin 10.6, platelets 262, sodium 139, potassium 3.9, BUN 24, serum creatinine 1.3, troponin 0.03, 0.06, 0.08. DIAGNOSTICS EKG reveals sinus rhythm, heart rate 76, right bundle branch block which is new compared to old EKGs. T wave inversions in lead III. Prior EKG in 11/2019- Patient appears to be in multifocal atrial tachycardia not A Fib. Telemetry tracings indicate sinus mechanism with PACs. Chest xray no acute cardiopulmonary process. Brain CT reveals degenerative a nonspecific white matter changes most typical remote microvascular ischemia. No midline shift or mass effect. No acute hemorrhage. Current home cardiac medications include Eliquis 2.5 mg twice a day, fenofibrate, Lasix 20 mg twice a day, metoprolol succinate 12.5mg daily, pravastatin 80 mg nightly, amlodipine 5 mg daily, lisinopril 10 mg daily Most recent echocardiogram 11/2019 revealed EF 5560%, mild aortic stenosis peak/mean gradient of 14 mmHg/7.3 mmHg, mild mitral regurgitation, mild tricuspid regurgitation. REVIEW OF SYSTEMS At the time of my exam: CONSTITUTIONAL: Denies fever or chills. CARDIOVASCULAR: Denies chest pain, shortness of breath, orthopnea, PND or palpitations. RESPIRATORY: Denies cough. GASTROINTESTINAL: Denies abdominal pain, diarrhea, constipation, nausea or vomiting. MUSCULOSKELETAL: Denies myalgias. NEUROLOGIC: Denies numbness, tingling, headacbe or weakness. ENDOCRINE: Denies fatigue, weight change, polydipsia or polyurina. GENITOURINARY: Denies burning, hematuria or urgency with micturation. HEMATOLOGIC: Denies history of anemia or bleeding. PHYSICAL EXAMINATION Blood pressure 161/66 heart rate 82 afebrile and maintaining oxygen saturation 97% room air CONSTITUTIONAL: No apparent distress. HEENT: Head is normocephalic. Pupils are equal, round. Sclerae anicteric. Mucous membranes of the mouth are moist. No JVD. No carotid bruit. CHEST EXAMINATION: Lungs are clear to auscultation. No chest wall tenderness is noted on palpation or with deep breathing. HEART EXAMINATION: Regular rate and rhythm. S1, S2 heard. Systolic murmur at right sternal border ABDOMEN: Soft, nontender. Positive bowel sounds. EXTREMITIES: 2+ peripheral pulses, no lower extremity edema and no calf tenderness. NEUROLOGIC EXAMINATION: Patient is awake,alert and oriented x 1. ASSESSMENT Elevated troponin, most likely related to patient's acute kidney injury and dehydration, patient without any symptoms of chest pain or shortness of breath Right bundle branch block Confusion Dehydration Acute on chronic kidney disease Nausea and abdominal pain History of paroxysmal atrial fibrillation- however, past EKG patient in multifocal atrial tachycardia Type 2 Diabetes Former tobacco use PLAN Obtain 2D echocardiogram Monitor renal function and electrolytes Continue home cardiac medications Recommend patient follow up with her primary nail maker for outpatient monitor for further evaluation of patient's atrial fibrillation and if anticoagulation is indicated. Further recommendations based on clinical course Nurse Practitioner note has been reviewed, I agree with a documented findings and plan of care. Patient was seen and examined. Past Medical History Past Medical History: Diabetes Mellitus, Hyperlipidemia, Hypertension, Renal Disease, Vascular Disorder Additional Past Medical History / Comment(s): osteoporosis. stage III kidney disease. peripheral circ. disorder. DDD. HAS SOME MOLES ON HER BACK THAT HAVE CHANGES RECENTLY-PCP AWARE History of Any Multi-Drug Resistant Organisms: None Reported Past Surgical History: No Surgical Hx Reported Additional Past Surgical History / Comment(s): PAIN CLINIC PROCEDURE for hip pain Past Anesthesia/Blood Transfusion Reactions: No Reported Reaction Past Psychological History: Anxiety Additional Psychological History / Comment(s): dueto medication while in the hospital Smoking Status: Former smoker Past Alcohol Use History: None Reported Additional Past Alcohol Use History / Comment(s): QUIT SMOKING 25+YEARS AGO Past Drug Use History: None Reported - Past Family History Mother Family Medical History: Cancer Father Family Medical History: Cancer Medications and Allergies Home Medications Medication Instructions Recorded Confirmed Type Levothyroxine Sodium 25 mcg PO DAILY 06/18/19 01/02/21 History Pravastatin Sodium [Pravachol] 80 mg PO HS 06/18/19 01/02/21 History Sodium Bicarbonate Tab 650 mg PO BID 06/18/19 01/02/21 History lisinopriL [Prinivil] 10 mg PO DAILY 06/18/19 01/02/21 History Tolterodine Tartrate [Detrol LA] 4 mg PO DAILY 07/10/19 01/02/21 History Cholecalciferol [Vitamin D3 (25 50 mcg PO DAILY 10/26/19 01/02/21 History Mcg = 1000 Iu)] Escitalopram [Lexapro] 10 mg PO DAILY 10/26/19 01/02/21 History Fenofibrate Nanocrystallized 145 mg PO DAILY 12/17/19 01/02/21 History [Fenofibrate] traMADol HCL [Ultram] 50 mg PO Q6H PRN 12/17/19 01/02/21 History Furosemide [Lasix] 20 mg PO BID 01/29/20 01/02/21 History Mirtazapine 7.5 mg PO HS 01/29/20 01/02/21 History amLODIPine [Norvasc] 5 mg PO DAILY 01/29/20 01/02/21 History Apixaban [Eliquis] 2.5 mg PO BID 01/02/21 01/02/21 History Famotidine [Pepcid] 20 mg PO BID 01/02/21 01/02/21 History Gabapentin [Neurontin] 100 mg PO TID 01/02/21 01/02/21 History Metoprolol Succinate (ER) [Toprol 12.5 mg PO DAILY 01/02/21 01/02/21 History Xl] busPIRone HCL 15 mg PO TID 01/02/21 01/02/21 History Allergies Allergy/AdvReac Type Severity Reaction Status Date / Time No Known Allergies Allergy Verified 01/02/21 17:21 Physical Exam Vitals: Vital Signs Temp Pulse Pulse Resp BP BP Pulse Ox 01/03/21 08:05 80 161/66 01/03/21 06:00 82 20 174/70 97 01/03/21 02:00 99.2 F 75 13 149/63 98 01/02/21 23:41 161/64 01/02/21 22:20 63 18 188/68 97 01/02/21 21:05 62 18 170/66 97 01/02/21 18:04 60 18 168/77 99 01/02/21 16:33 55 L 188/66 96 01/02/21 15:13 59 L 18 188/58 98 01/02/21 14:39 97.6 F 85 18 97 Results 01/03/21 05:48 01/03/21 05:48 Cardiac Enzymes 01/02/21 01/02/21 01/02/21 Range/Units 15:13 15:13 21:11 AST 46 H (14-36) U/L Troponin I 0.036 H* 0.065 H* (0.000-0.034) ng/mL 01/03/21 Range/Units 05:48 AST (14-36) U/L Troponin I 0.082 H* (0.000-0.034) ng/mL Coagulation 01/02/21 Range/Units 15:13 PT 11.7 (9.0-12.0) sec APTT 25.1 (22.0-30.0) sec CBC 01/02/21 Range/Units 15:13 WBC 11.3 H (3.8-10.6) k/uL RBC 4.13 (3.80-5.40) m/uL Hgb 12.5 (11.4-16.0) gm/dL Hct 38.0 (34.0-46.0) % Plt Count 396 (150-450) k/uL Comprehensive Metabolic Panel 01/02/21 01/03/21 Range/Units 15:13 05:48 Sodium 135 L 139 (137-145) mmol/L Potassium 3.9 3.9 (3.5-5.1) mmol/L Chloride 98 104 (98-107) mmol/L Carbon Dioxide 26 28 (22-30) mmol/L BUN 28 H 24 H (7-17) mg/dL Creatinine 1.25 H 1.32 H (0.52-1.04) mg/dL Glucose 212 H 104 H (74-99) mg/dL Calcium 10.4 H 9.8 (8.4-10.2) mg/dL AST 46 H (14-36) U/L ALT 13 (4-34) U/L Alkaline Phosphatase 74 (38-126) U/L Total Protein 6.9 (6.3-8.2) g/dL Albumin 4.0 (3.5-5.0) g/dL Current Medications Generic Name Dose Route Start Last Admin Trade Name Freq PRN Reason Stop Dose Admin Acetaminophen 650 mg 01/02/21 17:06 Acetaminophen Tab 325 Mg Tab PO Q6HR PRN Mild Pain or Fever > 100.5 Amlodipine Besylate 10 mg 01/03/21 09:00 Amlodipine 10 Mg Tab PO DAILY [facility] Apixaban 2.5 mg 01/02/21 21:00 01/02/21 21:27 Apixaban 2.5 Mg Tablet PO 2.5 mg BID BESSIE Administration Buspirone HCl 15 mg 01/02/21 22:00 01/02/21 21:27 Buspirone Hcl 5 Mg Tab PO 15 mg TID [facility] Administration Cholecalciferol 50 mcg 01/03/21 09:00 Cholecalciferol 25 Mcg (1000 Iu) Tablet PO DAILY [facility] Haloperidol Lactate 1 mg 01/03/21 01:02 01/03/21 01:10 Haloperidol Lactate 5 Mg/Ml 1 Ml Vial IVP 1 mg Q6H PRN Administration Agitation or Acute Psychosis Hydralazine HCl 25 mg 01/02/21 22:34 01/03/21 06:02 Hydralazine Hcl 25 Mg Tab PO 25 mg QID PRN Administration Blood Pressure - High Sodium Chloride 1,000 mls @ 75 mls/hr 01/02/21 16:45 01/03/21 05:55 Saline 0.9% IV 75 mls/hr .[id number] BESSIE Administration Levothyroxine Sodium 25 mcg 01/03/21 06:30 01/03/21 05:54 Levothyroxine 25 Mcg Tab PO 25 mcg DAILY@0630 [facility] Administration Lisinopril 10 mg 01/03/21 09:00 Lisinopril 10 Mg Tab PO DAILY [facility] Metoprolol Succinate 12.5 mg 01/03/21 09:00 Metoprolol Succinate (Er) 25 Mg Tab.Er.24h PO DAILY [facility] Mirtazapine 7.5 mg 01/02/21 21:00 01/02/21 21:27 Mirtazapine 15 Mg Tab PO 7.5 mg HS BESSIE Administration Naloxone HCl 0.2 mg 01/02/21 17:06 Naloxone 0.4 Mg/Ml 1 Ml Vial IV Q2M PRN Opioid Reversal Oxybutynin Chloride 10 mg 01/03/21 09:00 Oxybutynin 10 Mg Tab.Er.24 PO DAILY BESSIE Pravastatin Sodium 80 mg 01/02/21 21:00 01/02/21 21:30 Pravastatin Sodium 80 Mg Tab PO 80 mg HS BESSIE Administration Sodium Bicarbonate 650 mg 01/02/21 21:00 01/02/21 21:27 Sodium Bicarbonate Tab 650 Mg Tab PO 650 mg BID BESSIE Administration 01/02/21 15:13 01/03/21 05:48
--- NOTE | 2021-01-03 10:24 | P.CNNES ---
History of Present Illness Consult date: 01/03/21 Requesting physician: Tres Hu Reason for Consult: altered mental status History of Present Illness: This is a 80-year-old woman with medical history of diabetes mellitus, chronic lower back pain, hyperlipidemia, hypertension, chronic kidney insuffiency multiple osteoporosis is at the emergency department on 01/02/2021 for generalized weakness and decreased oral intake as well as confusion for the last 3 days. Some of the history was reported from patient's (Alvaro) who is at bedside. The patient's he stated the patient has been having nausea as well as lower abdominal pain for the last 3 days with decreased oral intake and she's been more sleepy. He stated that the patient that he felt was slightly confused than baseline and upon asking him not to expand on that he said that she's been more sleepy but otherwise she hasn't been slurring her speech, any jerk in of any extremity, any focal weakness, any gaze deviation, no foaming around the mouth. He denies the patient has any history of seizures. He denies of the patient had any fevers. Currently he feels the patient is doing drastically better compared to initial presentation. Patient also states that she's doing better. Patient will medication consist of tramadol 50 mg every 6 hours as needed, Lisnopril, Buspirone 15 mg 1 tablet 3 times a day, amlodipine 5 mg daily, pravastatin 80 mg daily at bedtime, mirtazapine 7.5 mg daily at bedtime, Toprol, Synthroid, gabapentin 100 mg 1 tablet 3 times a day, Lasix, Pepcid, Lexapro, Eliquis 2.5 mg 1 tablet twice a day, vitamin D3, Lexapro. Upon asking the patient and her Y the patient is on mirtazapine he stated that he is not sure but she does not have any history of dementia that he knows of. Some of the workup in the hospital consisted of: Initial vital signs is blood pressure of 188/58, with a heart rate of 59, respiratory rate of 18, initial temperature is 97.6 Fahrenheit oral and pulse ox of 98% room air. So far the patient has been afebrile that is recorded. CT of the head is reported as degenerative and nonspecific white matter changes most typical remote microvascular ischemia. No midline shift or mass effect. EKG is reported as normal sinus rhythm. Right bundle branch block. Abnormal EKG. Initial white blood cell is 11.3 thousand which is slightly elevated and slightly neutrophilic otherwise that hemoglobin and hematocrit is normal. Imagery panel is the sodium is 135 which slightly low in the repeat is 139 which is concerned within normal limits. The creatinine is 1.25 which is slightly elevated in the repeat is 1.32. The glucose is 212 which is elevated repeat is 104 which is improved. AST is 46 which is slightly elevated but ALT is 13 which is considered within normal limits. Troponin is 0.036 and the repeat his 0.065 and then the last one is 0.082 which is slightly trending up at. Urinalysis is negative for urinary tract infection. Review of Systems Review of system: The 12 point system was reviewed and apparent positive and negative per HPI. Past Medical History Past Medical History: Diabetes Mellitus, Hyperlipidemia, Hypertension, Renal Disease, Vascular Disorder Additional Past Medical History / Comment(s): osteoporosis. stage III kidney disease. peripheral circ. disorder. DDD. HAS SOME MOLES ON HER BACK THAT HAVE CHANGES RECENTLY-PCP AWARE History of Any Multi-Drug Resistant Organisms: None Reported Past Surgical History: No Surgical Hx Reported Additional Past Surgical History / Comment(s): PAIN CLINIC PROCEDURE for hip pain Past Anesthesia/Blood Transfusion Reactions: No Reported Reaction Past Psychological History: Anxiety Additional Psychological History / Comment(s): dueto medication while in the hospital Smoking Status: Former smoker Past Alcohol Use History: None Reported Additional Past Alcohol Use History / Comment(s): QUIT SMOKING 25+YEARS AGO Past Drug Use History: None Reported - Past Family History Mother Family Medical History: Cancer Father Family Medical History: Cancer Medications and Allergies Home Medications Medication Instructions Recorded Confirmed Type Levothyroxine Sodium 25 mcg PO DAILY 06/18/19 01/02/21 History Pravastatin Sodium [Pravachol] 80 mg PO HS 06/18/19 01/02/21 History Sodium Bicarbonate Tab 650 mg PO BID 06/18/19 01/02/21 History lisinopriL [Prinivil] 10 mg PO DAILY 06/18/19 01/02/21 History Tolterodine Tartrate [Detrol LA] 4 mg PO DAILY 07/10/19 01/02/21 History Cholecalciferol [Vitamin D3 (25 50 mcg PO DAILY 10/26/19 01/02/21 History Mcg = 1000 Iu)] Escitalopram [Lexapro] 10 mg PO DAILY 10/26/19 01/02/21 History Fenofibrate Nanocrystallized 145 mg PO DAILY 12/17/19 01/02/21 History [Fenofibrate] traMADol HCL [Ultram] 50 mg PO Q6H PRN 12/17/19 01/02/21 History Furosemide [Lasix] 20 mg PO BID 01/29/20 01/02/21 History Mirtazapine 7.5 mg PO HS 01/29/20 01/02/21 History amLODIPine [Norvasc] 5 mg PO DAILY 01/29/20 01/02/21 History Apixaban [Eliquis] 2.5 mg PO BID 01/02/21 01/02/21 History Famotidine [Pepcid] 20 mg PO BID 01/02/21 01/02/21 History Gabapentin [Neurontin] 100 mg PO TID 01/02/21 01/02/21 History Metoprolol Succinate (ER) [Toprol 12.5 mg PO DAILY 01/02/21 01/02/21 History Xl] busPIRone HCL 15 mg PO TID 01/02/21 01/02/21 History Allergies Allergy/AdvReac Type Severity Reaction Status Date / Time No Known Allergies Allergy Verified 01/02/21 17:21 Physical Examination - Vital Signs Vital Signs: Vital Signs Temp Pulse Pulse Resp BP BP Pulse Ox 01/03/21 08:05 80 161/66 01/03/21 06:00 82 20 174/70 97 01/03/21 02:00 99.2 F 75 13 149/63 98 01/02/21 23:41 161/64 01/02/21 22:20 63 18 188/68 97 01/02/21 21:05 62 18 170/66 97 01/02/21 18:04 60 18 168/77 99 01/02/21 16:33 55 L 188/66 96 01/02/21 15:13 59 L 18 188/58 98 01/02/21 14:39 97.6 F 85 18 97 GENERAL: The patient is lying in bed and is not in acute distress. CHEST: The heart rate is regular rate rhythm. No murmurs to auscultation. No carotid bruit bilaterally. LUNG: Clear to auscultation bilaterally no wheezing noted throughout. Not labored breathing. ABDOMEN/GI: Bowel sounds present in all 4 quadrants. No tenderness to palpation throughout. NEUROLOGICAL: Higher mental function: The patient is awake, alert, oriented to self, place. She is oriented to year but did not respond to month. She was able to state the season is summer. She is able to name objects appropriately (watch, pen). She correctly stated that she has only 4 daughter and name of her . Patient is following commands. No aphasia and no neglect. Cranial nerves: The pupils are round, equal and reactive to light and accommodation. Visual meyer are full to confrontation throughout. Extraocular movement is intact no nystagmus is noted. Facial sensation is normal to touch throughout. The facial strength is flattening over the left (per patient and is baseline). Hearing is moderately decrased bilaterally to hand rub (has hearing aids). Tongue is midline and moved [id number] without any difficulty. No dysarthria is noted. Shoulder shrug is normal bilaterally. Motor: Gait is deferred. The strength is 5 over 5 throughout. Normal tone and bulk. Cerebellum: Normal finger to nose bilaterally. Sensation: Sensation is normal to touch throughout. Reflexes (right/left): 2+ throughout uppers while lowers are 1+ throughout.. Plantars is upgoing on the left (baseline without stimulation) and mute on the right. Results - Laboratory Findings CBC and BMP: 01/03/21 05:48 01/03/21 05:48 Abnormal Lab Findings: Abnormal Labs 01/02/21 01/02/21 01/02/21 15:13 15:13 15:13 WBC 11.3 H RBC Hgb Hct RDW Immature Gran # Neutrophils # 9.4 H Lymphocytes # 0.9 L Monocytes # Sodium 135 L BUN 28 H Creatinine 1.25 H Glucose 212 H Calcium 10.4 H AST 46 H Troponin I 0.036 H* Urine Protein Urine Blood Hyaline Casts Urine Mucus 01/02/21 01/02/21 01/03/21 17:19 21:11 05:48 WBC 12.73 H RBC 3.32 L Hgb 10.6 L Hct 31.7 L RDW 14.6 H Immature Gran # 0.05 H Neutrophils # 9.53 H Lymphocytes # Monocytes # 1.48 H Sodium BUN Creatinine Glucose Calcium AST Troponin I 0.065 H* Urine Protein 2+ H Urine Blood Small H Hyaline Casts 23 H Urine Mucus Rare H 01/03/21 01/03/21 05:48 05:48 WBC RBC Hgb Hct RDW Immature Gran # Neutrophils # Lymphocytes # Monocytes # Sodium BUN 24 H Creatinine 1.32 H Glucose 104 H Calcium AST Troponin I 0.082 H* Urine Protein Urine Blood Hyaline Casts Urine Mucus Assessment and Plan Assessment: Altered mental status seems due likely due component of metabolic encephalopathy (elevated sugar and acute on chronic kidney insuffiency)--improved Nausea and abdominal pain for past 3 days. Acute on chronic kidney insufficiency Diabetes mellitus with the elevated sugar on presentation in the 200s--improved Slight elevated troponin History of hyperlipidemia Hypertension History of osteoporosis Plan: I ordered TSH, folate and the vitamin B-12. An EEG is not warranted since this is not seizure (per she was having nausea, abdominal pain for past 3 days and was more sleepy). 2-D echo was ordered the by the cardiology team is pending. PT and OT are consulted. Will defer the rest of medical management to the primary team. The plan is discussed with the patient and her . Beside work-up stated above no further work-up is needed for neurological perspective. Thank you for the consultation. Jaylen Munson MD Neuro-Hospitalist Time with Patient: Greater than 30
--- NOTE | 2021-01-03 12:00 | ECHOF ---
Referral Reason:LV function. elevated troponin MEASUREMENTS -------- HEIGHT: 165.1 cm WEIGHT: 58.5 kg BP: 161/66 RVIDd: 2.9 cm (< 3.3) IVSd: 1.5 cm (0.6 - 1.1) LVIDd: 4.1 cm (3.9 - 5.3) LVPWd: 1.7 cm (0.6 - 1.1) IVSs: 1.8 cm LVIDs: 2.5 cm LVPWs: 1.6 cm LAESV Index (A-L): 32.99 ml/m Ao Diam: 2.8 cm (2.0 - 3.7) AV Cusp: 1.9 cm (1.5 - 2.6) LA Diam: 4.0 cm (2.7 - 3.8) MV EXCURSION: 15.792 mm (> 18.000) MV EF SLOPE: 41 mm/s (70 - 150) EPSS: 0.3 cm MV E Syed: 1.36 m/s MV DecT: 217 ms MV A Syed: 0.90 m/s MV E/A Ratio: 1.52 AV maxP.62 mmHg AV meanP.81 mmHg RAP: 5.00 mmHg RVSP: 40.98 mmHg FINDINGS -------- Sinus rhythm. This was a technically adequate study. The left ventricular size is normal. There is moderate concentric left ventricular hypertrophy. O verall left ventricular systolic function is normal with, an EF between 55 - 60 %. The diastolic fi lling pattern is normal for the age of the patient 40.20. The right ventricle is normal in size. LA is midly dilated 29-33ml/m2. The right atrial size is normal. Interatrial and interventricular septum intact. The aortic valve is trileaflet and appears structurally normal. There is no evidence of aortic regu rgitation. There is mild aortic stenosis present. Peak/mean gradient across the Aortic Valve is 2 5.62mmHg / 11.81mmHg. Mild mitral annular calcification present. Mild mitral regurgitation is present. [id number]-[id number] mitral stenosis , with a MVA of 2.4cm (by PHT) [id number] tricuspid regurgitation present. There is mild to moderate pulmonary hypertension. The right ventricular systolic pressure, as measured by Doppler, is 40.98mmHg. Trace/mild (physiologic) pulmonic regurgitation. The aortic root size is normal. Normal inferior vena cava with normal inspiratory collapse consistent with estimated right atrial pre ssure of 5 mmHg. There is no pericardial effusion. CONCLUSIONS -------- 1. The left ventricular size is normal. 2. There is moderate concentric left ventricular hypertrophy. 3. Overall left ventricular systolic function is normal with, an EF between 55 - 60 %. 4. The diastolic filling pattern is normal for the age of the patient 40.20 5. LA is midly dilated 29-33ml/m2. 6. There is mild aortic stenosis present. 7. Peak/mean gradient across the Aortic Valve is 25.62mmHg / 11.81mmHg. 8. Mild mitral annular calcification present. 9. Mild mitral regurgitation is present. 10. Dmht-ie-hrrwsood mitral stenosis. 11. , with a MVA of 2.4cm (by PHT) 12. [id number] tricuspid regurgitation present. 13. There is mild to moderate pulmonary hypertension. 14. The right ventricular systolic pressure, as measured by Doppler, is 40.98mmHg. 15. Trace/mild (physiologic) pulmonic regurgitation. MD ALLERGY IMMUNOLOGY: Lacy Randle RDCS
[2021-01-03] MEDS: SODIUM BICARBONATE TAB 650 MG TAB PO SCH ×2 (14:47→21:15)
[2021-01-03 16:17] LABS: Folate, Serum >24.0 ng/mL
--- NOTE | 2021-01-03 17:10 | PN ---
PROGRESS NOTE DATE OF SERVICE: 01/03/2021 This 80-year-old woman who was admitted with change in mental status and dehydration is being closely monitored at this time. The patient also had right bundle branch block in the EKG. The patient underwent a 2D echo with Doppler which showed ejection fraction about 55-60 percent and mild aortic stenosis also noted with multiple mild to moderate valvular abnormalities, including mitral regurgitation, mitral stenosis also as well as tricuspid regurgitation. Neurology has seen the patient. Recommended continue the current medications. Patient also had diminished p.o. intake also. PAST MEDICAL HISTORY: Reviewed. REVIEW OF SYSTEMS: Cardiovascular: No angina or palpitations. Respiration: As mentioned earlier. GI: As mentioned earlier. : No dysuria. Nervous system: No numbness or weakness. CURRENT MEDICATIONS: Reviewed and include: Tylenol, Norvasc, Eliquis, BuSpar, vitamin D, Haldol, Apresoline, Synthroid. PHYSICAL EXAMINATION: Patient is alert, oriented x2. Pulse 74, blood pressure 161/51, respirations 16, temperature 98.7, pulse ox 97% on room air. HEENT: Conjunctivae normal. Neck: No JVD. Cardiovascular: S1, S2 muffled. Respiratory: Breath sounds diminished in the bases. A few scattered rhonchi. Abdomen: Soft, nontender. Legs are no edema, no swelling. Nervous system: No focal deficits. LAB STUDIES: WBC 12.7, hemoglobin 10.6. INR is 1.32. The troponin 0.082. ASSESSMENT: 1. Acute dehydration because of diminished p.o. intake with possible acute gastritis, rule out peptic ulcer disease. 2. Change in mental status, acute metabolic encephalopathy multifactorial. 3. Acute on chronic renal failure with chronic kidney disease stage 3 baseline. 4. Right bundle block in EKG. 5. Hypercalcemia. 6. Troponin 0.036 indeterminate. 7. Increased WBC, possibly reactive. 8. Diabetes mellitus type 2. 9. Hypertension. 10.Hyperlipidemia. 11.History of osteoporosis. 12.History of peripheral vascular disease. 13.History of anxiety. 14.Remote history of nicotine dependence. 15.Mild to moderate mitral stenosis. Mitral regurgitation as well as tricuspid regurgitation. RECOMMENDATIONS AND DISCUSSION: I recommend to continue current medications, symptomatic treatment. Otherwise, I would repeat the UA as well and also recommend Gastroenterology evaluation for possible endoscopes and continue to monitor. Prognosis guarded. Discussed with the family. MMODL / IJN: [id number] /
[2021-01-03] MEDS: PRAVASTATIN SODIUM 80 MG TAB PO SCH (21:15)
[2021-01-03] MEDS: MIRTAZAPINE 15 MG TAB PO SCH (21:15)
[2021-01-04] MEDS: LEVOTHYROXINE 25 MCG TAB PO SCH (05:14)
[2021-01-04] MEDS: SODIUM CHLORIDE 0.9% 1,000 ML IV SCH ×2 (05:14→21:30)
[2021-01-04 07:07] LABS: Glucose,Whole Blood 131 mg/dL (75-99)
[2021-01-04] MEDS: lisinopriL 10 MG TAB PO SCH (07:50)
[2021-01-04] MEDS: busPIRone HCl 5 MG TAB PO SCH ×3 (07:50→21:28)
[2021-01-04] MEDS: ACETAMINOPHEN TAB 325 MG TAB PO PRN ×2 (07:51→21:19)
[2021-01-04] MEDS: SODIUM BICARBONATE TAB 650 MG TAB PO SCH ×2 (07:51→21:19)
[2021-01-04] MEDS: APIXABAN 2.5 MG TABLET PO SCH ×2 (07:51→21:20)
[2021-01-04] MEDS: amLODIPine 10 MG TAB PO SCH (07:51)
[2021-01-04] MEDS: METOPROLOL SUCCINATE (ER) 25 MG TAB.ER.24H PO SCH (07:51)
[2021-01-04] MEDS: CHOLECALCIFEROL 25 MCG (1000 IU) TABLET PO SCH (07:52)
[2021-01-04] MEDS: OXYBUTYNIN 10 MG TAB.ER.24 PO SCH (07:52)
[2021-01-04] MEDS: PANTOPRAZOLE 40 MG/10 ML VIAL IVP SCH (07:55)
[2021-01-04 11:31] LABS: Glucose,Whole Blood 188 mg/dL (75-99)
--- NOTE | 2021-01-04 11:59 | P.CONS ---
History of Present Illness - Reason for Consult Consult date: 01/04/21 Decreased oral intake, possible peptic ulcer disease Requesting physician: Ludmila Fraser - Chief Complaint Confusion, weakness, decreased oral intake - History of Present Illness This is an 80-year-old female with a past medical history of atrial fibrillation on Eliquis, type 2 diabetes, former tobacco user, hypertension, hyperlipidemia, hypothyroidism who presented to the emergency department with confusion, decreased oral intake, with complaints of nausea and abdominal pain for the last 3-4 days duration. The patient is a poor historian and pleasantly confused. jah is unable to give much of a history. Her is at the bedside. Her had reported that she was having worsening confusion, fatigue and decreased appetite. States he could not get her to eat much only a couple bites of soup over the last couple days. On admission the patient was found to be dehydrated due to poor oral intake, acute on chronic renal failure with elevated troponins. WBC was 12.7, hemoglobin 10.6, hematocrit 31, platelet count 362,000, total bilirubin 0.6, alkaline phosphatase 74, AST 46, ALT 13. Patient denies any abdominal pain, nausea or vomiting. No fevers or chills. She was able to eat at least half of her breakfast this morning. She's had no vomiting. reports that she's had some nausea at home but no vomiting with a poor appetite. Cardiology is following and believes elevated troponins are related to acute kidney injury. Neurology is following patient as well believes that she has some component of metabolic encephalopathy due to dehydration and acute on chronic kidney injury. Review of Systems REVIEW OF SYSTEMS: CARDIOPULMONARY: No chest pain or shortness of breath. Gastrointestinal: Abdominal pain. Nausea, no vomiting. Decreased appetite and poor oral intake.. No hematemesis, coffee-ground emesis. No rectal bleeding, or melena. GENITOURINARY: No dysuria or hematuria. MUSCULOSKELETAL: Reports normal range of motion., Joint pain. SKIN: No rashes. No jaundice. ENDOCRINE: No chills, fevers. No excessive weight gain or loss. No polydipsia or polyuria. PSYCHIATRIC: Unremarkable. NEUROLOGY: Confusion.. ENT: Vision unremarkable. CONSTITUTIONAL: No recent weight loss. No fever, chills, night sweats. Past Medical History Past Medical History: Diabetes Mellitus, Hyperlipidemia, Hypertension, Renal Disease, Vascular Disorder Additional Past Medical History / Comment(s): osteoporosis. stage III kidney disease. peripheral circ. disorder. DDD. HAS SOME MOLES ON HER BACK THAT HAVE CHANGES RECENTLY-PCP AWARE History of Any Multi-Drug Resistant Organisms: None Reported Past Surgical History: No Surgical Hx Reported Additional Past Surgical History / Comment(s): PAIN CLINIC PROCEDURE for hip pain Past Anesthesia/Blood Transfusion Reactions: No Reported Reaction Past Psychological History: Anxiety Additional Psychological History / Comment(s): dueto medication while in the hospital Smoking Status: Former smoker Past Alcohol Use History: None Reported Additional Past Alcohol Use History / Comment(s): QUIT SMOKING 25+YEARS AGO Past Drug Use History: None Reported - Past Family History Mother Family Medical History: Cancer Father Family Medical History: Cancer Medications and Allergies Home Medications Medication Instructions Recorded Confirmed Type Levothyroxine Sodium 25 mcg PO DAILY 06/18/19 01/02/21 History Pravastatin Sodium [Pravachol] 80 mg PO HS 06/18/19 01/02/21 History Sodium Bicarbonate Tab 650 mg PO BID 06/18/19 01/02/21 History lisinopriL [Prinivil] 10 mg PO DAILY 06/18/19 01/02/21 History Tolterodine Tartrate [Detrol LA] 4 mg PO DAILY 07/10/19 01/02/21 History Cholecalciferol [Vitamin D3 (25 50 mcg PO DAILY 10/26/19 01/02/21 History Mcg = 1000 Iu)] Escitalopram [Lexapro] 10 mg PO DAILY 10/26/19 01/02/21 History Fenofibrate Nanocrystallized 145 mg PO DAILY 12/17/19 01/02/21 History [Fenofibrate] traMADol HCL [Ultram] 50 mg PO Q6H PRN 12/17/19 01/02/21 History Furosemide [Lasix] 20 mg PO BID 01/29/20 01/02/21 History Mirtazapine 7.5 mg PO HS 01/29/20 01/02/21 History amLODIPine [Norvasc] 5 mg PO DAILY 01/29/20 01/02/21 History Apixaban [Eliquis] 2.5 mg PO BID 01/02/21 01/02/21 History Famotidine [Pepcid] 20 mg PO BID 01/02/21 01/02/21 History Gabapentin [Neurontin] 100 mg PO TID 01/02/21 01/02/21 History Metoprolol Succinate (ER) [Toprol 12.5 mg PO DAILY 01/02/21 01/02/21 History Xl] busPIRone HCL 15 mg PO TID 01/02/21 01/02/21 History Allergies Allergy/AdvReac Type Severity Reaction Status Date / Time No Known Allergies Allergy Verified 01/02/21 17:21 Physical Exam Vitals: Vital Signs Temp Pulse Pulse Pulse Resp BP BP 01/04/21 02:06 100.0 F H 84 17 185/70 01/03/21 20:00 75 72 18 01/03/21 19:19 98.5 F 77 17 185/73 01/03/21 17:28 98.3 F 72 187/69 01/03/21 15:51 99.9 F H 79 18 01/03/21 15:28 98.7 F 74 16 161/51 01/03/21 14:31 16 01/03/21 10:58 98.7 F 74 18 161/51 01/03/21 08:05 80 161/66 Pulse Ox 01/04/21 02:06 98 01/03/21 20:00 01/03/21 19:19 97 01/03/21 17:28 01/03/21 15:51 98 01/03/21 15:28 97 01/03/21 14:31 01/03/21 10:58 97 01/03/21 08:05 Intake and Output 01/03/21 01/04/21 01/04/21 22:59 06:59 14:59 Other: Voiding Method Incontinent # Voids 1 2 Weight 58.513 kg General appearance: The patient is alert, oriented, appears in no acute distress. HET: Head is normocephalic and atraumatic. Conjunctiva pink. Sclera anicteric. Neck: Supple without lymphadenopathy. Trachea midline. Heart: S1 S2. Regular rate and rhythm. Lungs: Clear to auscultation. Abdomen: Soft, nontender, nondistended with bowel sounds. No guarding or rigidity. Skin: No rashes. No jaundice. Extremities: Normal skin color and turgor. No pedal edema. Neurological: No focal deficits. Alert and oriented 3.. Results CBC & Chem 7: 01/03/21 05:48 01/03/21 05:48 Labs: Abnormal Lab Results - Last 24 Hours (Table) 01/03/21 01/03/21 01/04/21 Range/Units 05:48 05:48 07:06 WBC 12.73 H (4.50-10.00) X 10*3/uL RBC 3.32 L (4.10-5.20) X 10*6/uL Hgb 10.6 L (12.0-15.0) g/dL Hct 31.7 L (37.2-46.3) % RDW 14.6 H (11.5-14.5) % Immature Gran # 0.05 H (0.00-0.04) X 10*3/uL Neutrophils # 9.53 H (1.80-7.70) X 10*3/uL Monocytes # 1.48 H (0.20-1.00) X 10*3/uL POC Glucose (mg/dL) 131 H (75-99) mg/dL Vitamin B12 1299.0 H (200.0-944.0) pg/mL Microbiology - Last 24 Hours (Table) 01/02/21 19:46 Blood Culture - Preliminary Blood No Growth after 24 hours Assessment and Plan (1) Abdominal pain Narrative/Plan: 80-year-old female who was brought in by her for complaints of increased confusion over the last 3-4 days duration. Patient has had poor oral intake due to abdominal pain and nausea is reported per the .. She's been afebrile. She has multiple comorbidities including atrial fibrillation on Eliquis. She was found to be dehydrated with acute on chronic kidney injury. She had elevated troponins on admission and cardiology was consult, they believe related to dehydration and acute kidney injury. Neurology is also following patient for confusion and believes a component related to metabolic encephalopathy due to dehydration and acute kidney injury. Patient is reporting no abdominal pain, she is nontender on palpation. She was able to eat have her breakfast this morning. No complaints of nausea or vomiting today. Current Visit: Yes Status: Acute Code(s): R10.9 - UNSPECIFIED ABDOMINAL PAIN SNOMED Code(s): 93624267 (2) Nausea Current Visit: Yes Status: Acute Code(s): R11.0 - NAUSEA SNOMED Code(s): 244330407 (3) Decreased oral intake Current Visit: Yes Status: Acute Code(s): R63.8 - OTHER SYMPTOMS AND SIGNS CONCERNING FOOD AND FLUID INTAKE SNOMED Code(s): 996848673 (4) Altered mental status Current Visit: Yes Status: Acute Code(s): R41.82 - ALTERED MENTAL STATUS, UNSPECIFIED SNOMED Code(s): 472928391 (5) Dehydration Current Visit: Yes Status: Acute Code(s): E86.0 - DEHYDRATION SNOMED Code(s): 48532979 (6) Atrial fibrillation Current Visit: No Status: Acute Code(s): I48.91 - UNSPECIFIED ATRIAL FIBRILLATION SNOMED Code(s): 26797870 Plan: 1. Continue symptomatic and supportive care 2. Protonix 40 mg daily 3. Antiemetics as needed 4. Diet as tolerated 5. No plans on endoscopic evaluation at this time Thank you for this consultation, we will continue to follow. Dr. Leobardo Jacobo I agree with the dictator's note, documented as a scribe by Aranza Scott.
--- NOTE | 2021-01-04 12:39 | P.PN ---
Subjective Progress Note Date: 01/04/21 The patient seen at bedside and that she is accompanied with her and he stated that she's doing the what's better today compared to her initial presentation. Denies of any new neurological or all problems. Objective - Vital Signs Vital signs: Vital Signs Temp 100.5 F H 01/04/21 07:30 Pulse 85 01/04/21 07:30 Resp 28 H 01/04/21 08:00 BP 179/75 01/04/21 07:30 Pulse Ox 96 01/04/21 07:30 Intake & Output 01/03/21 01/04/21 01/04/21 18:59 06:59 18:59 Weight 58.513 kg Other: Voiding Method Incontinent Incontinent # Voids 1 2 - Exam GENERAL: The patient is lying in bed and is not in acute distress. NEUROLOGICAL: Higher mental function: The patient is awake, alert, oriented to self and stated she was in the hospital but did not know name. She is oriented to year but did not respond to month. She is able to name objects appropriately (watch, pen). She correctly stated that she has only 4 daughter and name of her . Patient is following commands. No aphasia and no neglect. Cranial nerves: The pupils are round, equal and reactive to light and accommodation. Visual meyer are full to confrontation throughout. Extraocular movement is intact no nystagmus is noted. Facial sensation is normal to touch throughout. The facial strength is flattening over the left (per patient and is baseline). Hearing is moderately decrased bilaterally to hand rub (has hearing aids). Tongue is midline and moved [id number] without any difficulty. No dysarthria is noted. Shoulder shrug is normal bilaterally. Motor: Gait is deferred. The strength is 5 over 5 throughout. Normal tone and bulk. Cerebellum: Normal finger to nose bilaterally. Sensation: Sensation is normal to touch throughout. Reflexes (right/left): 2+ throughout uppers while lowers are 1+ throughout.. Plantars is upgoing on the left (baseline without stimulation) and mute on the right. WORK-UP: Vitamin B12 was 1299 which is above normal limits (which is considered normal). Serum folate level is more than 24 which is considered normal. TSH is 1.310 which is considered within normal limits. CT of the head is reported as degenerative and nonspecific white matter changes most typical remote microvascular ischemia. No midline shift or mass effect. EKG is reported as normal sinus rhythm. Right bundle branch block. Abnormal EKG. - Labs CBC & Chem 7: 01/03/21 05:48 01/03/21 05:48 Labs: Abnormal Lab Results - Last 24 Hours (Table) 01/03/21 01/04/21 01/04/21 Range/Units 05:48 07:06 11:25 POC Glucose (mg/dL) 131 H 188 H (75-99) mg/dL Vitamin B12 1299.0 H (200.0-944.0) pg/mL Microbiology - Last 24 Hours (Table) 01/02/21 19:46 Blood Culture - Preliminary Blood No Growth after 24 hours Assessment and Plan Assessment: Altered mental status seems due likely due component of metabolic encephalopathy (elevated sugar and acute on chronic kidney insuffiency)--improved Nausea and abdominal pain for past 3 days. Acute on chronic kidney insufficiency Diabetes mellitus with the elevated sugar on presentation in the 200s--improved Slight elevated troponin History of hyperlipidemia Hypertension History of osteoporosis Plan: An EEG is not warranted since this is not seizure (per she was having nausea, abdominal pain for past 3 days and was more sleepy). PT and OT are consulted. Will defer the rest of medical management to the primary team. The plan is discussed with the patient and her . There is no further neurological work-up. Neurology will sign off. Please reconsult if needed. Jaylen Munson MD Neuro-Hospitalist Time with Patient: Less than 30
[2021-01-04 13:07] LABS: Basophils % (A) 0 %; Eosinophils # (A) 0.1 k/uL (0-0.7); Eosinophils % (A) 1 %; HCT 34.5 % (34.0-46.0); HGB 10.8 gm/dL (11.4-16.0); Lymphocytes % (A) 8 %; MCHC 31.3 g/dL (31.0-37.0); MCV 92.6 fL (80.0-100.0); Mean Platelet Volume 7.2; Monocytes # (A) 0.9 k/uL (0-1.0); Monocytes % (A) 7 %; Neutrophils # (A) 10.5 k/uL (1.3-7.7); Neutrophils % (A) 82 %; Platelet Count 409 k/uL (150-450); RBC 3.72 m/uL (3.80-5.40); RDW 14.9 % (11.5-15.5); WBC 12.8 k/uL (3.8-10.6)
[2021-01-04 13:15] LABS: African American GFR (CKD) 58 (>60 ml/min/1.73 sqM); Anion Gap 10 mmol/L; Blood Urea Nitrogen 23 mg/dL (7-17); Calcium 9.3 mg/dL (8.4-10.2); Carbon Dioxide 23 mmol/L (22-30); Chloride 108 mmol/L (98-107); Glucose 191 mg/dL (74-99); Non-African American GFR(CKD) 50 (>60 ml/min/1.73 sqM); Potassium 3.2 mmol/L (3.5-5.1); Sodium 141 mmol/L (137-145)
[2021-01-04 14:04] VITALS: BMI 21.4
[2021-01-04] MEDS ORDERED: POTASSIUM CHLORIDE ER 20 MEQ TAB.ER PO STA (14:39)
--- NOTE | 2021-01-04 16:27 | P.PN ---
Subjective Progress Note Date: 01/04/21 This is an 80-year-old female who was recently admitted with change in mental status and dehydration and being closely monitored. Patient was seen and evaluated by neurology along with GI. No plans for endoscopic intervention and patient is tolerating diet with no further reports of nausea or vomiting or abdominal pain noted. at the bedside states she was able to eat most of her breakfast and mentation has improved. Patient is weak and will have PT/OT therapy evaluate the patient and states plans are to return home with possible home care as needed. Patient denies any chest pain, shortness of breath, or palpitations. Patient is having low-grade temp of 99.0-100.5. White blood count continues to be elevated at 12.8 with no obvious source of infection and will order COVID-19, pro-calcitonin, sed rate, and CRP along with repeat urinalysis and continue to monitor closely. Most recent chest x-ray shows no evidence for acute pulmonary disease or process. Blood culture remains negative. May initiate empiric antibiotics. Sodium is 141 with a potassium of 3.2 and will replace and repeat labs and creatinine slightly improved at 1.05. Review of systems: Constitutional: No reports of fatigue, fever, or chills Cardiovascular: No reports of chest pain or palpitations Respiratory: No reports of shortness of breath or cough GI: No reports of nausea, vomiting, or diarrhea, reports being able to tolerate breakfast : No reports of dysuria or retention Neurovascular: Reports generalized weakness All medications have been reviewed Active Medications Acetaminophen (Acetaminophen Tab 325 Mg Tab) 650 mg PO Q6HR PRN PRN Reason: Mild Pain or Fever > 100.5 Last Admin: 01/04/21 07:51 Dose: 650 mg Documented by: Amlodipine Besylate (Amlodipine 10 Mg Tab) 10 mg PO DAILY [facility] Last Admin: 01/04/21 07:51 Dose: 10 mg Documented by: Apixaban (Apixaban 2.5 Mg Tablet) 2.5 mg PO BID [facility] Last Admin: 01/04/21 07:51 Dose: 2.5 mg Documented by: Buspirone HCl (Buspirone Hcl 5 Mg Tab) 15 mg PO TID [facility] Last Admin: 01/04/21 15:24 Dose: 15 mg Documented by: Cholecalciferol (Cholecalciferol 25 Mcg (1000 Iu) Tablet) 50 mcg PO DAILY [facility] Last Admin: 01/04/21 07:52 Dose: 50 mcg Documented by: Haloperidol Lactate (Haloperidol Lactate 5 Mg/Ml 1 Ml Vial) 1 mg IVP Q6H PRN PRN Reason: Agitation or Acute Psychosis Last Admin: 01/03/21 01:10 Dose: 1 mg Documented by: Hydralazine HCl (Hydralazine Hcl 25 Mg Tab) 25 mg PO QID PRN PRN Reason: Blood Pressure - High Last Admin: 01/03/21 06:02 Dose: 25 mg Documented by: Sodium Chloride (Saline 0.9%) 1,000 mls @ 75 mls/hr IV .[id number] [facility] Last Admin: 01/04/21 05:14 Dose: 75 mls/hr Documented by: Levothyroxine Sodium (Levothyroxine 25 Mcg Tab) 25 mcg PO DAILY@0630 [facility] Last Admin: 01/04/21 05:14 Dose: 25 mcg Documented by: Lisinopril (Lisinopril 10 Mg Tab) 10 mg PO DAILY [facility] Last Admin: 01/04/21 07:50 Dose: 10 mg Documented by: Metoprolol Succinate (Metoprolol Succinate (Er) 25 Mg Tab.Er.24h) 12.5 mg PO DAILY [facility] Last Admin: 01/04/21 07:51 Dose: 12.5 mg Documented by: Mirtazapine (Mirtazapine 15 Mg Tab) 7.5 mg PO HS [facility] Last Admin: 01/03/21 21:15 Dose: 7.5 mg Documented by: Naloxone HCl (Naloxone 0.4 Mg/Ml 1 Ml Vial) 0.2 mg IV Q2M PRN PRN Reason: Opioid Reversal Oxybutynin Chloride (Oxybutynin 10 Mg Tab.Er.24) 10 mg PO DAILY [facility] Last Admin: 01/04/21 07:52 Dose: 10 mg Documented by: Pantoprazole Sodium (Pantoprazole 40 Mg/10 Ml Vial) 40 mg IVP DAILY [facility] Last Admin: 01/04/21 07:55 Dose: 40 mg Documented by: Pravastatin Sodium (Pravastatin Sodium 80 Mg Tab) 80 mg PO HS [facility] Last Admin: 01/03/21 21:15 Dose: 80 mg Documented by: Sodium Bicarbonate (Sodium Bicarbonate Tab 650 Mg Tab) 650 mg PO BID [facility] Last Admin: 01/04/21 07:51 Dose: 650 mg Documented by: Objective - Vital Signs Vital signs: Vital Signs Temp 100.5 F H 01/04/21 07:30 Pulse 85 01/04/21 07:30 Resp 28 H 01/04/21 08:00 BP 179/75 01/04/21 07:30 Pulse Ox 96 01/04/21 07:30 Intake & Output 01/03/21 01/04/21 01/04/21 18:59 06:59 18:59 Weight 58.513 kg Other: Voiding Method Incontinent Incontinent # Voids 1 2 - Exam Gen: This is a 80-year-old female awake, alert and oriented 1-2. Thin built. Temp is 99F, pulse is 68, respirations are 16, blood pressure 170/53, oxygen saturation is 98% on room air. HEENT: Head is atraumatic, normocephalic. Pupils equal, round. Sclerae is anicteric. NECK: Supple. No JVD. No lymphadenopathy. No thyromegaly. LUNGS: Diminished breath sounds bilaterally with no wheezing or rhonchi noted. No intercostal retractions. HEART: S1, S2 are muffled ABDOMEN: Soft. Bowel sounds are present. No masses. No tenderness. EXTREMITIES: No pedal edema. No calf tenderness. NEUROLOGICAL: Patient is awake, alert and oriented x1-2. Diffusely weak. - Labs CBC & Chem 7: 01/04/21 12:38 01/04/21 12:38 Labs: Abnormal Lab Results - Last 24 Hours (Table) 01/03/21 01/04/21 01/04/21 Range/Units 05:48 07:06 11:25 POC Glucose (mg/dL) 131 H 188 H (75-99) mg/dL Vitamin B12 1299.0 H (200.0-944.0) pg/mL Microbiology - Last 24 Hours (Table) 01/02/21 19:46 Blood Culture - Preliminary Blood No Growth after 24 hours Assessment and Plan Assessment: Acute dehydration because of diminished oral intake with possible acute gastritis, rule out peptic ulcer disease Change in mental status, acute metabolic encephalopathy, multifactorial Acute on chronic renal failure with chronic kidney disease stage III baseline Right bundle branch block on the EKG Hypercalcemia troponin 0.036 indeterminant Increased white blood count, possibly reactive Diabetes mellitus type 2 Hypertension Hyperlipidemia History of osteoporosis history of peripheral vascular disease history of anxiety Remote history of nicotine dependence Mild to moderate mitral stenosis with mitral regurgitation as well as tricuspid regurgitation present Full code Recommendations and discussion: Recommend to continue with current medications, management, and symptomatic treatment. Will continue with gentle IV hydration and repeat labs. Patient is having intermittent low-grade fevers and will order repeat urinalysis along with Propulsid on an, CRP, COVID-19, sed rate and monitor vital signs and labs closely. Patient was seen by GI recommending outpatient follow-up as needed with no endoscopic interventions at this time. Patient also evaluated by neurology with no further workup indicated. Per at the bedside patient's mentation is improved. Patient continues to be weak and will have PT/OT evaluate the patient. May initiate empiric antibiotics given low-grade temp and continued elevated white blood count. Will await repeat labs and repeat a.m. labs as well. Due to multiple complex medical issues, prognosis is guarded. states they will be returning home with home care when stabilized and discharged. Possible discharge in 24-48 hours. Time with Patient: Greater than 30
[2021-01-04 16:59] LABS: Glucose,Whole Blood 169 mg/dL (75-99)
[2021-01-04 17:00] LABS: Appearance,Urine Clear (Clear); Bacteria,Urine Rare /hpf; Bilirubin,Urine Negative (Negative); Blood,Urine Moderate (Negative); Color,Urine Yellow; Glucose,Urine (UA) Trace (Negative); Ketones,Urine Negative (Negative); Leukocyte Esterase,Urine Small (Negative); Mucus,Urine Rare /hpf; Nitrite,Urine Negative (Negative); Protein,Urine 3+ (Negative); RBC,Urine 12 /hpf (0-5); Specific Gravity,Urine 1.015 (1.001-1.035); Squamous Epithelial Cell,Urine <1 /hpf (0-4); Urobilinogen,Urine <2.0 mg/dL (<2.0); WBC,Urine 7 /hpf (0-5)
[2021-01-04 20:56] LABS: Glucose,Whole Blood 163 mg/dL (75-99)
[2021-01-04] MEDS: PRAVASTATIN SODIUM 80 MG TAB PO SCH (21:19)
[2021-01-04] MEDS: MIRTAZAPINE 15 MG TAB PO SCH (21:20)
[2021-01-05] MEDS: LEVOTHYROXINE 25 MCG TAB PO SCH (06:17)
[2021-01-05 06:46] LABS: Glucose,Whole Blood 164 mg/dL (75-99)
[2021-01-05 07:08] LABS: Basophils % (A) 0 %; Eosinophils # (A) 0.2 k/uL (0-0.7); Eosinophils % (A) 1 %; HCT 31.4 % (34.0-46.0); HGB 10.1 gm/dL (11.4-16.0); Hypochromasia Slight; Lymphocytes % (A) 9 %; MCH 30.1 pg (25.0-35.0); MCHC 32.2 g/dL (31.0-37.0); MCV 93.4 fL (80.0-100.0); Mean Platelet Volume 7.7; Monocytes % (A) 8 %; Neutrophils # (A) 9.4 k/uL (1.3-7.7); Neutrophils % (A) 80 %; Platelet Count 331 k/uL (150-450); RBC 3.36 m/uL (3.80-5.40); RDW 14.2 % (11.5-15.5); WBC 11.8 k/uL (3.8-10.6)
[2021-01-05 07:33] LABS: African American GFR (CKD) 63 (>60 ml/min/1.73 sqM); Anion Gap 7 mmol/L; Blood Urea Nitrogen 26 mg/dL (7-17); Carbon Dioxide 20 mmol/L (22-30); Chloride 115 mmol/L (98-107); Glucose 154 mg/dL (74-99); Non-African American GFR(CKD) 54 (>60 ml/min/1.73 sqM); Potassium 3.9 mmol/L (3.5-5.1); Sodium 142 mmol/L (137-145)
[2021-01-05] MEDS: PANTOPRAZOLE 40 MG/10 ML VIAL IVP SCH (08:46)
[2021-01-05] MEDS: busPIRone HCl 5 MG TAB PO SCH ×4 (08:46→21:09)
[2021-01-05] MEDS: lisinopriL 10 MG TAB PO SCH (08:46)
[2021-01-05] MEDS: METOPROLOL SUCCINATE (ER) 25 MG TAB.ER.24H PO SCH (08:46)
[2021-01-05] MEDS: OXYBUTYNIN 10 MG TAB.ER.24 PO SCH (08:46)
[2021-01-05] MEDS: SODIUM BICARBONATE TAB 650 MG TAB PO SCH ×2 (08:46→21:07)
[2021-01-05] MEDS: amLODIPine 10 MG TAB PO SCH (08:47)
[2021-01-05] MEDS: CHOLECALCIFEROL 25 MCG (1000 IU) TABLET PO SCH (08:47)
[2021-01-05] MEDS: APIXABAN 2.5 MG TABLET PO SCH ×2 (08:47→21:08)
[2021-01-05] MEDS: SODIUM CHLORIDE 0.9% 1,000 ML IV SCH ×2 (08:48→15:58)
[2021-01-05] MEDS: ACETAMINOPHEN TAB 325 MG TAB PO PRN (09:12)
--- NOTE | 2021-01-05 10:01 | XR ---
EXAMINATION TYPE: XR chest 1V portable DATE OF EXAM: 01/05/2021 HISTORY: Shortness of breath. COMPARISON: 01/02/2021 TECHNIQUE: Single view of the chest is submitted. FINDINGS: Demonstrated are scattered senescent parenchymal change. There is no evidence for focal infiltrate. The heart is stable. Hilar and mediastinal structures are within normal limits. Degenerative changes are seen of the dorsal spine. IMPRESSION: 1. Chronic changes without evidence for acute pulmonary disease.
[2021-01-05 11:39] LABS: Glucose,Whole Blood 183 mg/dL (75-99)
[2021-01-05] MEDS: traMADol 50 MG TAB PO PRN (15:52)
[2021-01-05] MEDS: LIDOCAINE 5% PATCH TOPICAL SCH (15:53)
--- NOTE | 2021-01-05 16:38 | P.PN ---
Subjective Progress Note Date: 01/05/21 Principal diagnosis: poor oral intake, possible peptic ulcer disease 80-year-old female who presented to the emergency department with altered mental status, poor oral intake for the last 1 week's duration. Yesterday the patient was seen and had eaten half of her breakfast at that time. Today she seen and examined sitting up. She denies any abdominal pain, nausea, or vomiting. Her is at the bedside and states that she ate her breakfast and lunch. Objective - Vital Signs Vital signs: Vital Signs Temp 99.4 F 01/05/21 13:26 Pulse 69 01/05/21 13:26 Resp 32 H 01/05/21 13:26 BP 163/73 01/05/21 13:26 Pulse Ox 99 01/05/21 13:26 Intake & Output 01/04/21 01/05/21 01/05/21 18:59 06:59 18:59 Weight 58.513 kg Other: Voiding Method Incontinent # Voids 2 1 1 # Bowel Movements 1 - Exam General appearance: The patient is alert, oriented, appears in no acute distress. HET: Head is normocephalic and atraumatic. Conjunctiva pink. Sclera anicteric. Neck: Supple without lymphadenopathy. Abdomen: Soft, nontender, nondistended with bowel sounds. No guarding or rigidity. Extremities: Normal skin color and turgor. No pedal edema Skin: No rashes, no jaundice Neurological: No focal deficits. Alert and oriented 1. - Labs CBC & Chem 7: 01/05/21 06:38 01/05/21 06:38 Labs: Abnormal Lab Results - Last 24 Hours (Table) 01/04/21 01/04/21 01/04/21 Range/Units 12:38 12:38 16:00 WBC (3.8-10.6) k/uL RBC (3.80-5.40) m/uL Hgb (11.4-16.0) gm/dL Hct (34.0-46.0) % Neutrophils # (1.3-7.7) k/uL Chloride (98-107) mmol/L Carbon Dioxide (22-30) mmol/L BUN (7-17) mg/dL Glucose (74-99) mg/dL POC Glucose (mg/dL) (75-99) mg/dL C-Reactive Protein 8.1 H (<1.0) mg/dL Procalcitonin 0.17 H (0.02-0.09) ng/mL Urine Protein 3+ H (Negative) Urine Glucose (UA) Trace H (Negative) Urine Blood Moderate H (Negative) Ur Leukocyte Esterase Small H (Negative) Urine RBC 12 H (0-5) /hpf Urine WBC 7 H (0-5) /hpf Urine Bacteria Rare H (None) /hpf Urine Mucus Rare H (None) /hpf 01/04/21 01/04/21 01/05/21 Range/Units 16:57 20:54 06:38 WBC 11.8 H (3.8-10.6) k/uL RBC 3.36 L (3.80-5.40) m/uL Hgb 10.1 L (11.4-16.0) gm/dL Hct 31.4 L (34.0-46.0) % Neutrophils # 9.4 H (1.3-7.7) k/uL Chloride (98-107) mmol/L Carbon Dioxide (22-30) mmol/L BUN (7-17) mg/dL Glucose (74-99) mg/dL POC Glucose (mg/dL) 169 H 163 H (75-99) mg/dL C-Reactive Protein (<1.0) mg/dL Procalcitonin (0.02-0.09) ng/mL Urine Protein (Negative) Urine Glucose (UA) (Negative) Urine Blood (Negative) Ur Leukocyte Esterase (Negative) Urine RBC (0-5) /hpf Urine WBC (0-5) /hpf Urine Bacteria (None) /hpf Urine Mucus (None) /hpf 01/05/21 01/05/21 01/05/21 Range/Units 06:38 06:45 11:37 WBC (3.8-10.6) k/uL RBC (3.80-5.40) m/uL Hgb (11.4-16.0) gm/dL Hct (34.0-46.0) % Neutrophils # (1.3-7.7) k/uL Chloride 115 H (98-107) mmol/L Carbon Dioxide 20 L (22-30) mmol/L BUN 26 H (7-17) mg/dL Glucose 154 H (74-99) mg/dL POC Glucose (mg/dL) 164 H 183 H (75-99) mg/dL C-Reactive Protein (<1.0) mg/dL Procalcitonin (0.02-0.09) ng/mL Urine Protein (Negative) Urine Glucose (UA) (Negative) Urine Blood (Negative) Ur Leukocyte Esterase (Negative) Urine RBC (0-5) /hpf Urine WBC (0-5) /hpf Urine Bacteria (None) /hpf Urine Mucus (None) /hpf Microbiology - Last 24 Hours (Table) 01/04/21 16:00 Urine Culture - Preliminary Urine,Voided 01/02/21 19:46 Blood Culture - Preliminary Blood No Growth after 48 hours Assessment and Plan (1) Abdominal pain Narrative/Plan: 80-year-old female who was brought in by her for complaints of increased confusion over the last 3-4 days duration. Patient has had poor oral intake due to abdominal pain and nausea is reported per the .. She's been afebrile. She has multiple comorbidities including atrial fibrillation on Eliquis. She was found to be dehydrated with acute on chronic kidney injury. She had elevated troponins on admission and cardiology was consult, they believe related to dehydration and acute kidney injury. Neurology is also following patient for confusion and believes a component related to metabolic encephalopathy due to dehydration and acute kidney injury. Patient is reporting no abdominal pain, she is nontender on palpation. She was able to eat have her breakfast this morning. No complaints of nausea or vomiting today. Current Visit: Yes Status: Acute Code(s): R10.9 - UNSPECIFIED ABDOMINAL PAIN SNOMED Code(s): 01568373 (2) Nausea Current Visit: Yes Status: Acute Code(s): R11.0 - NAUSEA SNOMED Code(s): 381299673 (3) Decreased oral intake Current Visit: Yes Status: Acute Code(s): R63.8 - OTHER SYMPTOMS AND SIGNS CONCERNING FOOD AND FLUID INTAKE SNOMED Code(s): 002043148 (4) Altered mental status Current Visit: Yes Status: Acute Code(s): R41.82 - ALTERED MENTAL STATUS, UNSPECIFIED SNOMED Code(s): 260279969 (5) Dehydration Current Visit: Yes Status: Acute Code(s): E86.0 - DEHYDRATION SNOMED Code(s): 26927310 (6) Atrial fibrillation Current Visit: No Status: Acute Code(s): I48.91 - UNSPECIFIED ATRIAL FIBRILLATION SNOMED Code(s): 66943049 Plan: 1. Continue symptomatic and supportive care 2. Protonix 40 mg daily 3. Antiemetics as needed 4. Diet as tolerated 5. No plans on endoscopic evaluation at this time Thank you for this consultation, we will sign off at this time. Dr. Leobardo Jacobo I agree with the dictator's note, documented as a scribe by Aranza Scott.
[2021-01-05 16:42] LABS: Glucose,Whole Blood 166 mg/dL (75-99)
[2021-01-05 20:23] LABS: Glucose,Whole Blood 166 mg/dL (75-99)
[2021-01-05] MEDS: PRAVASTATIN SODIUM 80 MG TAB PO SCH (21:07)
[2021-01-05] MEDS: MIRTAZAPINE 15 MG TAB PO SCH (22:26)
[2021-01-06] MEDS: ACETAMINOPHEN TAB 325 MG TAB PO PRN ×2 (02:05→11:54)
--- NOTE | 2021-01-06 04:45 | P.PN ---
Subjective Progress Note Date: 01/05/21 This is an 80-year-old female who was recently admitted with change in mental status and dehydration and being closely monitored. Patient was seen and evaluated by neurology along with GI. No plans for endoscopic intervention and patient is tolerating diet with no further reports of nausea or vomiting or abdominal pain noted. at the bedside states she was able to eat most of her breakfast and mentation has improved. Patient is weak and will have PT/OT therapy evaluate the patient and states plans are to return home with possible home care as needed. Patient denies any chest pain, shortness of breath, or palpitations. Patient is having low-grade temp of 99.0-100.5. White blood count continues to be elevated at 12.8 with no obvious source of infection and will order COVID-19, pro-calcitonin, sed rate, and CRP along with repeat urinalysis and continue to monitor closely. Most recent chest x-ray shows no evidence for acute pulmonary disease or process. Blood culture remains negative. May initiate empiric antibiotics. Sodium is 141 with a potassium of 3.2 and will replace and repeat labs and creatinine slightly improved at 1.05. 01/05/2021 Patient is seen and evaluated this morning and family is at the bedside. Patient urinalysis is positive for leukocytes esterace and will initiate IV rocephin and patient WBC elevated at 11.8 and has continued fevers. Will consult infectious disease and appreciate recommendations. Nursing staff reports to continued confusion and difficulty to arouse this morning and patient was hesitant to take medications or eat and required encouragement. Patient denies any abdominal pain and has no guarding or rigidity with palpation. Patient was able to get up to the bathroom with assistance and then became more awake, but continues with confusion per . Patient kidney functions improving and creatinine is 0.98 and will decrease fluids and continue gentle IV hydration. Review of systems: Constitutional: No reports of fatigue, fever, or chills, although is having fevers Cardiovascular: No reports of chest pain or palpitations Respiratory: No reports of shortness of breath or cough GI: No reports of nausea, vomiting, or diarrhea : No reports of dysuria or retention Neurovascular: Reports generalized weakness All medications have been reviewed Active Medications Acetaminophen (Acetaminophen Tab 325 Mg Tab) 650 mg PO Q6HR PRN PRN Reason: Mild Pain or Fever > 100.5 Last Admin: 01/05/21 09:12 Dose: 650 mg Documented by: Amlodipine Besylate (Amlodipine 10 Mg Tab) 10 mg PO DAILY [facility] Last Admin: 01/05/21 08:47 Dose: 10 mg Documented by: Apixaban (Apixaban 2.5 Mg Tablet) 2.5 mg PO BID [facility] Last Admin: 01/05/21 08:47 Dose: 2.5 mg Documented by: Buspirone HCl (Buspirone Hcl 5 Mg Tab) 15 mg PO TID [facility] Last Admin: 01/05/21 15:53 Dose: 15 mg Documented by: Cholecalciferol (Cholecalciferol 25 Mcg (1000 Iu) Tablet) 50 mcg PO DAILY [facility] Last Admin: 01/05/21 08:47 Dose: 50 mcg Documented by: Haloperidol Lactate (Haloperidol Lactate 5 Mg/Ml 1 Ml Vial) 1 mg IVP Q6H PRN PRN Reason: Agitation or Acute Psychosis Last Admin: 01/03/21 01:10 Dose: 1 mg Documented by: Hydralazine HCl (Hydralazine Hcl 25 Mg Tab) 25 mg PO QID PRN PRN Reason: Blood Pressure - High Last Admin: 01/03/21 06:02 Dose: 25 mg Documented by: Sodium Chloride (Saline 0.9%) 1,000 mls @ 50 mls/hr IV .Q20H [facility] Last Admin: 01/05/21 15:58 Dose: 50 mls/hr Documented by: Ceftriaxone Sodium 1 gm/ (Sodium Chloride) 50 mls @ 100 mls/hr IVPB Q24HR [facility] Last Admin: 01/05/21 09:03 Dose: 100 mls/hr Documented by: Levothyroxine Sodium (Levothyroxine 25 Mcg Tab) 25 mcg PO DAILY@0630 [facility] Last Admin: 01/05/21 06:17 Dose: 25 mcg Documented by: Lidocaine (Lidocaine 5% Patch) 1 patch TOPICAL DAILY@1600 [facility]; Protocol Last Admin: 01/05/21 15:53 Dose: 1 patch Documented by: Lisinopril (Lisinopril 10 Mg Tab) 10 mg PO DAILY [facility] Last Admin: 01/05/21 08:46 Dose: 10 mg Documented by: Metoprolol Succinate (Metoprolol Succinate (Er) 25 Mg Tab.Er.24h) 12.5 mg PO DAILY [facility] Last Admin: 01/05/21 08:46 Dose: 12.5 mg Documented by: Mirtazapine (Mirtazapine 15 Mg Tab) 7.5 mg PO [facility] Last Admin: 01/04/21 21:20 Dose: 7.5 mg Documented by: Naloxone HCl (Naloxone 0.4 Mg/Ml 1 Ml Vial) 0.2 mg IV Q2M PRN PRN Reason: Opioid Reversal Oxybutynin Chloride (Oxybutynin 10 Mg Tab.Er.24) 10 mg PO DAILY [facility] Last Admin: 01/05/21 08:46 Dose: 10 mg Documented by: Pantoprazole Sodium (Pantoprazole 40 Mg Tablet) 40 mg [facility] Pravastatin Sodium (Pravastatin Sodium 80 Mg Tab) 80 mg PO [facility] Last Admin: 01/04/21 21:19 Dose: 80 mg Documented by: Sodium Bicarbonate (Sodium Bicarbonate Tab 650 Mg Tab) 650 mg PO BID [facility] Last Admin: 01/05/21 08:46 Dose: 650 mg Documented by: Tramadol HCl (Tramadol 50 Mg Tab) 50 mg PO BID PRN PRN Reason: Pain Last Admin: 01/05/21 15:52 Dose: 50 mg Documented by: Objective - Vital Signs Vital signs: Vital Signs Temp 100.7 F H 01/05/21 07:18 Pulse 82 01/05/21 07:18 Resp 30 H 01/05/21 07:18 BP 185/74 01/05/21 07:18 Pulse Ox 99 01/05/21 07:18 Intake & Output 01/04/21 01/05/21 01/05/21 18:59 06:59 18:59 Weight 58.513 kg Other: Voiding Method Incontinent # Voids 2 1 # Bowel Movements 1 - Exam Gen: This is a 80-year-old female awake, alert and oriented 1-2. Thin built. Temp is 100.7F, pulse is 82, respirations are 30, blood pressure 185/74, oxygen saturation is 99% on room air. HEENT: Head is atraumatic, normocephalic. Pupils equal, round. Sclerae is anicteric. NECK: Supple. No JVD. No lymphadenopathy. No thyromegaly. LUNGS: Diminished breath sounds bilaterally with no wheezing or rhonchi noted. No intercostal retractions. HEART: S1, S2 are muffled ABDOMEN: Soft. Bowel sounds are present. No masses. No tenderness. EXTREMITIES: No pedal edema. No calf tenderness. NEUROLOGICAL: Patient is awake, but lethargic, alert and oriented x1-2. continued confusion. Diffusely weak. - Labs CBC & Chem 7: 01/05/21 06:38 01/05/21 06:38 Labs: Abnormal Lab Results - Last 24 Hours (Table) 01/03/21 01/04/21 01/04/21 Range/Units 05:48 11:25 12:38 WBC 12.8 H (3.8-10.6) k/uL RBC 3.72 L (3.80-5.40) m/uL Hgb 10.8 L (11.4-16.0) gm/dL Hct (34.0-46.0) % Neutrophils # 10.5 H (1.3-7.7) k/uL Potassium (3.5-5.1) mmol/L Chloride (98-107) mmol/L Carbon Dioxide (22-30) mmol/L BUN (7-17) mg/dL Creatinine (0.52-1.04) mg/dL Glucose (74-99) mg/dL POC Glucose (mg/dL) 188 H (75-99) mg/dL C-Reactive Protein (<1.0) mg/dL RBC Folate 1,170 H (280 - 791) ng/mL Procalcitonin (0.02-0.09) ng/mL Urine Protein (Negative) Urine Glucose (UA) (Negative) Urine Blood (Negative) Ur Leukocyte Esterase (Negative) Urine RBC (0-5) /hpf Urine WBC (0-5) /hpf Urine Bacteria (None) /hpf Urine Mucus (None) /hpf 01/04/21 01/04/21 01/04/21 Range/Units 12:38 12:38 12:38 WBC (3.8-10.6) k/uL RBC (3.80-5.40) m/uL Hgb (11.4-16.0) gm/dL Hct (34.0-46.0) % Neutrophils # (1.3-7.7) k/uL Potassium 3.2 L (3.5-5.1) mmol/L Chloride 108 H (98-107) mmol/L Carbon Dioxide (22-30) mmol/L BUN 23 H (7-17) mg/dL Creatinine 1.05 H (0.52-1.04) mg/dL Glucose 191 H (74-99) mg/dL POC Glucose (mg/dL) (75-99) mg/dL C-Reactive Protein 8.1 H (<1.0) mg/dL RBC Folate (280 - 791) ng/mL Procalcitonin 0.17 H (0.02-0.09) ng/mL Urine Protein (Negative) Urine Glucose (UA) (Negative) Urine Blood (Negative) Ur Leukocyte Esterase (Negative) Urine RBC (0-5) /hpf Urine WBC (0-5) /hpf Urine Bacteria (None) /hpf Urine Mucus (None) /hpf 01/04/21 01/04/21 01/04/21 Range/Units 16:00 16:57 20:54 WBC (3.8-10.6) k/uL RBC (3.80-5.40) m/uL Hgb (11.4-16.0) gm/dL Hct (34.0-46.0) % Neutrophils # (1.3-7.7) k/uL Potassium (3.5-5.1) mmol/L Chloride (98-107) mmol/L Carbon Dioxide (22-30) mmol/L BUN (7-17) mg/dL Creatinine (0.52-1.04) mg/dL Glucose (74-99) mg/dL POC Glucose (mg/dL) 169 H 163 H (75-99) mg/dL C-Reactive Protein (<1.0) mg/dL RBC Folate (280 - 791) ng/mL Procalcitonin (0.02-0.09) ng/mL Urine Protein 3+ H (Negative) Urine Glucose (UA) Trace H (Negative) Urine Blood Moderate H (Negative) Ur Leukocyte Esterase Small H (Negative) Urine RBC 12 H (0-5) /hpf Urine WBC 7 H (0-5) /hpf Urine Bacteria Rare H (None) /hpf Urine Mucus Rare H (None) /hpf 01/05/21 01/05/21 01/05/21 Range/Units 06:38 06:38 06:45 WBC 11.8 H (3.8-10.6) k/uL RBC 3.36 L (3.80-5.40) m/uL Hgb 10.1 L (11.4-16.0) gm/dL Hct 31.4 L (34.0-46.0) % Neutrophils # 9.4 H (1.3-7.7) k/uL Potassium (3.5-5.1) mmol/L Chloride 115 H (98-107) mmol/L Carbon Dioxide 20 L (22-30) mmol/L BUN 26 H (7-17) mg/dL Creatinine (0.52-1.04) mg/dL Glucose 154 H (74-99) mg/dL POC Glucose (mg/dL) 164 H (75-99) mg/dL C-Reactive Protein (<1.0) mg/dL RBC Folate (280 - 791) ng/mL Procalcitonin (0.02-0.09) ng/mL Urine Protein (Negative) Urine Glucose (UA) (Negative) Urine Blood (Negative) Ur Leukocyte Esterase (Negative) Urine RBC (0-5) /hpf Urine WBC (0-5) /hpf Urine Bacteria (None) /hpf Urine Mucus (None) /hpf Microbiology - Last 24 Hours (Table) 01/04/21 16:00 Urine Culture - Preliminary Urine,Voided 01/02/21 19:46 Blood Culture - Preliminary Blood No Growth after 48 hours Assessment and Plan Assessment: Acute dehydration because of diminished oral intake with possible acute gastritis, rule out peptic ulcer disease Change in mental status, acute metabolic encephalopathy, multifactorial Acute on chronic renal failure with chronic kidney disease stage III baseline possible acute urinary tract infection with cultures growing gram negative bacilli fevers possibly secondary to above Right bundle branch block on the EKG Hypercalcemia troponin 0.036 indeterminant Increased white blood count, possibly reactive or possibly secondary to acute UTI Diabetes mellitus type 2 Hypertension Hyperlipidemia History of osteoporosis history of peripheral vascular disease history of anxiety Remote history of nicotine dependence Mild to moderate mitral stenosis with mitral regurgitation as well as tricuspid regurgitation present Full code Recommendations and discussion: Recommend to continue with current medications, management, and symptomatic treatment. Will continue with gentle IV hydration and decrease the rate as patient continues with poor oral intake and needs encouragement. Continue with s upplements. Creatinine improving. Patient is having continued fevers and urine culture preliminary showing gram negative bacilli and will add IV ceftriaxone. Blood cultures have been negative. Will consult infectious disease and appreciate recommendations. Patient was seen by GI recommending outpatient follow-up as needed with no endoscopic interventions at this time and have signed off. Patient also evaluated by neurology with no further workup indicated. Per at the bedside patient is confused and weak. PT/OT to evaluate the patient. Will repeat a.m. labs as well. Due to multiple complex medical issues, prognosis is guarded.
[2021-01-06] MEDS: traMADol 50 MG TAB PO PRN ×2 (06:10→14:03)
[2021-01-06] MEDS: LEVOTHYROXINE 25 MCG TAB PO SCH (06:10)
[2021-01-06 06:58] LABS: Basophils % (A) 0 %; Eosinophils # (A) 0.1 k/uL (0-0.7); Eosinophils % (A) 1 %; HCT 26.6 % (34.0-46.0); Lymphocytes # (A) 1.2 k/uL (1.0-4.8); Lymphocytes % (A) 10 %; MCH 29.7 pg (25.0-35.0); MCHC 32.1 g/dL (31.0-37.0); MCV 92.5 fL (80.0-100.0); Mean Platelet Volume 7.7; Monocytes # (A) 1.2 k/uL (0-1.0); Monocytes % (A) 10 %; Neutrophils # (A) 9.6 k/uL (1.3-7.7); Neutrophils % (A) 77 %; Platelet Count 310 k/uL (150-450); RBC 2.88 m/uL (3.80-5.40); RDW 13.9 % (11.5-15.5); WBC 12.4 k/uL (3.8-10.6)
[2021-01-06 07:01] LABS: Glucose,Whole Blood 140 mg/dL (75-99)
[2021-01-06 07:12] LABS: African American GFR (CKD) 62 (>60 ml/min/1.73 sqM); Anion Gap 11 mmol/L; Blood Urea Nitrogen 27 mg/dL (7-17); Calcium 8.8 mg/dL (8.4-10.2); Carbon Dioxide 18 mmol/L (22-30); Chloride 110 mmol/L (98-107); Glucose 140 mg/dL (74-99); Non-African American GFR(CKD) 54 (>60 ml/min/1.73 sqM); Potassium 3.6 mmol/L (3.5-5.1); Sodium 139 mmol/L (137-145)
[2021-01-06 07:15] LABS: HGB 8.5 gm/dL (11.4-16.0)
[2021-01-06] MEDS ORDERED: PANTOPRAZOLE 40 MG TABLET PO SCH (07:30)
--- NOTE | 2021-01-06 07:57 | P.CONS ---
History of Present Illness - Reason for Consult Consult date: 01/05/21 fever Requesting physician: Anna Hebert - Chief Complaint confusion and weakness x few days - History of Present Illness History of present illness : Patient is 80-year-old female presenting to the ER 3 days ago for evaluation of generalized weakness confusion and per the patient has not been eating much with decreased oral intake patient symptom has been going on for about 3 days before presentation to the hospital and apparently patient complaining of some lower abdominal pain with the symptom the patient has been evaluated by the ER physician on arrival to the ER the patient was afebrile subsequently has been running a low-grade fever and this morning he spiked a fever of 102.5 F patient did have a white count of 11.3 which is down to 11.8 today urine is showing a gram-negative patient has been treated with Rocephin however with this new fever ID was consulted for further management patient did have my evaluation is feeling slightly better today patient denies any chest pain no shortness of breath or cough denies any nausea no vomiting and no diarrhea Review of system: CONSTITUTIONAL: Positive for weakness along with the fever. EYES: No complaint. ENT: No complaint. RESPIRATORY: No complaint. CARDIOVASCULAR: No complaint. GENITOURINARY: As per history of present illness GASTROINTESTINAL: As per HPI. MUSCULOSKELETAL: No complaint. INTEGUMENTARY: No complaint. PSYCHOLOGIC: No complaint. ENDOCRINE: No complaint. NEUROLOGIC: As per history of present illness. Past medical history : Reviewed, documented below Past surgical history : Reviewed, documented below Social history: Reviewed, documented below Medications: Reviewed, as documented below GENERAL DESCRIPTION: Elderly female up in bed, no distress. No tachypnea or accessory muscle of respiration use. HEENT: Shows Pallor , no scleral icterus. Oral mucous membrane is dry. NECK: Trachea central, no thyromegaly. LUNGS: Unlabored breathing. Clear to auscultation anteriorly. No wheeze or crackle. HEART: S1, S2, regular rate and rhythm. ABDOMEN: Soft, no tenderness , guarding or rigidity EXTREMITIES: No edema of feet. SKIN: No rash, no masses palpable. NEUROLOGICAL: The patient is awake, alert, oriented x2, mood and affect normal. LABS AND RADIOLOGY: Reviewed results see below Assessment : Patient presented to hospital with sepsis in this patient did have fever elevated white count source is likely urinary versus abdominal in this patient seem to have more responded well to the initial bite therapy concern for possible resistant pathogen Plan: 1-we will obtain a CT of abdominal pelvis with contrast to rule out any abdominal pathology 2-discontinue Rocephin 3-start the patient on Zosyn 3.375 g every 8 hours We will follow on clinical condition and cultures to further adjust medication if needed Thank you for this consultation we will follow the patient along with you Past Medical History Past Medical History: Diabetes Mellitus, Hyperlipidemia, Hypertension, Renal Disease, Vascular Disorder Additional Past Medical History / Comment(s): osteoporosis. stage III kidney d isease. peripheral circ. disorder. DDD. HAS SOME MOLES ON HER BACK THAT HAVE CHANGES RECENTLY-PCP AWARE History of Any Multi-Drug Resistant Organisms: None Reported Past Surgical History: No Surgical Hx Reported Additional Past Surgical History / Comment(s): PAIN CLINIC PROCEDURE for hip pain Past Anesthesia/Blood Transfusion Reactions: No Reported Reaction Past Psychological History: Anxiety Additional Psychological History / Comment(s): dueto medication while in the hospital Smoking Status: Former smoker Past Alcohol Use History: None Reported Additional Past Alcohol Use History / Comment(s): QUIT SMOKING 25+YEARS AGO Past Drug Use History: None Reported - Past Family History Mother Family Medical History: Cancer Father Family Medical History: Cancer Medications and Allergies Home Medications Medication Instructions Recorded Confirmed Type Levothyroxine Sodium 25 mcg PO DAILY 06/18/19 01/02/21 History Pravastatin Sodium [Pravachol] 80 mg PO HS 06/18/19 01/02/21 History Sodium Bicarbonate Tab 650 mg PO BID 06/18/19 01/02/21 History lisinopriL [Prinivil] 10 mg PO DAILY 06/18/19 01/02/21 History Tolterodine Tartrate [Detrol LA] 4 mg PO DAILY 07/10/19 01/02/21 History Cholecalciferol [Vitamin D3 (25 50 mcg PO DAILY 10/26/19 01/02/21 History Mcg = 1000 Iu)] Escitalopram [Lexapro] 10 mg PO DAILY 10/26/19 01/02/21 History Fenofibrate Nanocrystallized 145 mg PO DAILY 12/17/19 01/02/21 History [Fenofibrate] traMADol HCL [Ultram] 50 mg PO Q6H PRN 12/17/19 01/02/21 History Furosemide [Lasix] 20 mg PO BID 01/29/20 01/02/21 History Mirtazapine 7.5 mg PO HS 01/29/20 01/02/21 History amLODIPine [Norvasc] 5 mg PO DAILY 01/29/20 01/02/21 History Apixaban [Eliquis] 2.5 mg PO BID 01/02/21 01/02/21 History Famotidine [Pepcid] 20 mg PO BID 01/02/21 01/02/21 History Gabapentin [Neurontin] 100 mg PO TID 01/02/21 01/02/21 History Metoprolol Succinate (ER) [Toprol 12.5 mg PO DAILY 01/02/21 01/02/21 History Xl] busPIRone HCL 15 mg PO TID 01/02/21 01/02/21 History Allergies Allergy/AdvReac Type Severity Reaction Status Date / Time No Known Allergies Allergy Verified 01/02/21 17:21 Physical Exam Vitals: Vital Signs Temp Pulse Resp BP Pulse Ox 01/05/21 09:18 99.0 F 01/05/21 09:02 99 01/05/21 08:55 102.5 F H 01/05/21 07:18 100.7 F H 82 30 H 185/74 99 01/05/21 02:21 98.1 F 81 16 138/54 92 L 01/04/21 21:49 101.9 F H 24 96 01/04/21 19:17 98.4 F 65 18 173/86 96 01/04/21 13:23 99.0 F 68 16 170/53 98 Intake and Output 01/04/21 01/05/21 01/05/21 22:59 06:59 14:59 Other: # Voids 2 1 1 # Bowel Movements 1 Results CBC & Chem 7: 01/06/21 06:20 01/06/21 06:20 Labs: Abnormal Lab Results - Last 24 Hours (Table) 01/03/21 01/04/21 01/04/21 Range/Units 05:48 12:38 12:38 WBC 12.8 H (3.8-10.6) k/uL RBC 3.72 L (3.80-5.40) m/uL Hgb 10.8 L (11.4-16.0) gm/dL Hct (34.0-46.0) % Neutrophils # 10.5 H (1.3-7.7) k/uL Potassium 3.2 L (3.5-5.1) mmol/L Chloride 108 H (98-107) mmol/L Carbon Dioxide (22-30) mmol/L BUN 23 H (7-17) mg/dL Creatinine 1.05 H (0.52-1.04) mg/dL Glucose 191 H (74-99) mg/dL POC Glucose (mg/dL) (75-99) mg/dL C-Reactive Protein (<1.0) mg/dL RBC Folate 1,170 H (280 - 791) ng/mL Procalcitonin (0.02-0.09) ng/mL Urine Protein (Negative) Urine Glucose (UA) (Negative) Urine Blood (Negative) Ur Leukocyte Esterase (Negative) Urine RBC (0-5) /hpf Urine WBC (0-5) /hpf Urine Bacteria (None) /hpf Urine Mucus (None) /hpf 01/04/21 01/04/21 01/04/21 Range/Units 12:38 12:38 16:00 WBC (3.8-10.6) k/uL RBC (3.80-5.40) m/uL Hgb (11.4-16.0) gm/dL Hct (34.0-46.0) % Neutrophils # (1.3-7.7) k/uL Potassium (3.5-5.1) mmol/L Chloride (98-107) mmol/L Carbon Dioxide (22-30) mmol/L BUN (7-17) mg/dL Creatinine (0.52-1.04) mg/dL Glucose (74-99) mg/dL POC Glucose (mg/dL) (75-99) mg/dL C-Reactive Protein 8.1 H (<1.0) mg/dL RBC Folate (280 - 791) ng/mL Procalcitonin 0.17 H (0.02-0.09) ng/mL Urine Protein 3+ H (Negative) Urine Glucose (UA) Trace H (Negative) Urine Blood Moderate H (Negative) Ur Leukocyte Esterase Small H (Negative) Urine RBC 12 H (0-5) /hpf Urine WBC 7 H (0-5) /hpf Urine Bacteria Rare H (None) /hpf Urine Mucus Rare H (None) /hpf 01/04/21 01/04/21 01/05/21 Range/Units 16:57 20:54 06:38 WBC 11.8 H (3.8-10.6) k/uL RBC 3.36 L (3.80-5.40) m/uL Hgb 10.1 L (11.4-16.0) gm/dL Hct 31.4 L (34.0-46.0) % Neutrophils # 9.4 H (1.3-7.7) k/uL Potassium (3.5-5.1) mmol/L Chloride (98-107) mmol/L Carbon Dioxide (22-30) mmol/L BUN (7-17) mg/dL Creatinine (0.52-1.04) mg/dL Glucose (74-99) mg/dL POC Glucose (mg/dL) 169 H 163 H (75-99) mg/dL C-Reactive Protein (<1.0) mg/dL RBC Folate (280 - 791) ng/mL Procalcitonin (0.02-0.09) ng/mL Urine Protein (Negative) Urine Glucose (UA) (Negative) Urine Blood (Negative) Ur Leukocyte Esterase (Negative) Urine RBC (0-5) /hpf Urine WBC (0-5) /hpf Urine Bacteria (None) /hpf Urine Mucus (None) /hpf 01/05/21 01/05/21 Range/Units 06:38 06:45 WBC (3.8-10.6) k/uL RBC (3.80-5.40) m/uL Hgb (11.4-16.0) gm/dL Hct (34.0-46.0) % Neutrophils # (1.3-7.7) k/uL Potassium (3.5-5.1) mmol/L Chloride 115 H (98-107) mmol/L Carbon Dioxide 20 L (22-30) mmol/L BUN 26 H (7-17) mg/dL Creatinine (0.52-1.04) mg/dL Glucose 154 H (74-99) mg/dL POC Glucose (mg/dL) 164 H (75-99) mg/dL C-Reactive Protein (<1.0) mg/dL RBC Folate (280 - 791) ng/mL Procalcitonin (0.02-0.09) ng/mL Urine Protein (Negative) Urine Glucose (UA) (Negative) Urine Blood (Negative) Ur Leukocyte Esterase (Negative) Urine RBC (0-5) /hpf Urine WBC (0-5) /hpf Urine Bacteria (None) /hpf Urine Mucus (None) /hpf Microbiology - Last 24 Hours (Table) 01/04/21 16:00 Urine Culture - Preliminary Urine,Voided 01/02/21 19:46 Blood Culture - Preliminary Blood No Growth after 48 hours
[2021-01-06] MEDS ORDERED: IOPAMIDOL CONTRAST (ORAL USE) VIAL PO PRN (07:58)
[2021-01-06] MEDS: METOPROLOL SUCCINATE (ER) 25 MG TAB.ER.24H PO SCH (08:40)
[2021-01-06] MEDS: APIXABAN 2.5 MG TABLET PO SCH ×2 (08:41→20:14)
[2021-01-06] MEDS: lisinopriL 10 MG TAB PO SCH (08:41)
[2021-01-06] MEDS: amLODIPine 10 MG TAB PO SCH (08:43)
[2021-01-06] MEDS: busPIRone HCl 5 MG TAB PO SCH ×3 (08:43→20:14)
[2021-01-06] MEDS: PIPERACILLIN-TAZOBACTAM 3.375 GM in SODIUM CHLORIDE 0.9% 100 ML IVPB SCH ×3 (08:47→22:59)
[2021-01-06] MEDS: OXYBUTYNIN 10 MG TAB.ER.24 PO SCH (08:51)
[2021-01-06] MEDS: SODIUM BICARBONATE TAB 650 MG TAB PO SCH ×2 (08:52→20:14)
[2021-01-06] MEDS: CHOLECALCIFEROL 25 MCG (1000 IU) TABLET PO SCH (08:52)
[2021-01-06] MEDS ORDERED: METOPROLOL SUCCINATE (ER) 25 MG TAB.ER.24H PO STA (10:46)
--- NOTE | 2021-01-06 11:19 | US ---
EXAMINATION TYPE: US venous doppler duplex UE LT DATE OF EXAM: 01/06/2021 COMPARISON: NONE CLINICAL HISTORY: 80-year-old female recent attempt of phlebotomy with redness and pain. TECHNIQUE: Grayscale, color doppler, spectral doppler imaging performed of the deep veins of the upp er extremities. SIDE PERFORMED: LEFT FINDINGS: Sonography note: Slightly limited exam as the patient is unable to move arm. Left Arm: Negative for DVT IMPRESSION: Exam limitations due to the patient's immobility. No visualized DVT within the left upper extremity.
--- NOTE | 2021-01-06 11:23 | XR ---
EXAMINATION TYPE: XR wrist complete LT DATE OF EXAM: 01/06/2021 COMPARISON: NONE HISTORY: 80-year-old female with left wrist pain TECHNIQUE: 4 views FINDINGS: Generalized soft tissue swelling. Scattered synovial calcifications are present. SHEYLA calcifications a lso noted. Mild degenerative change triscaphe joint and first CMC joint. Some irregularity to the rad ial side distal pole of the scaphoid. No subluxation or dislocation. IMPRESSION: 1. Generalized soft tissue swelling, synovial calcifications, and TFC calcifications. Correlate for p ossible CPPD. 2. 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 3. If there is history of trauma injury, a subtle underlying fracture to the radial sided distal pole of the scaphoid would be difficult to exclude given the cortical irregularity here. If no history of trauma, the irregularity likely relates to osteoarthritic change.
[2021-01-06 11:44] LABS: Glucose,Whole Blood 174 mg/dL (75-99)
--- NOTE | 2021-01-06 15:03 | CT ---
EXAMINATION TYPE: CT abdomen pelvis w con DATE OF EXAM: 01/06/2021 COMPARISON: NONE HISTORY: 80-year-old female Fever, abdominal pain. TECHNIQUE: Contiguous axial scanning of the abdomen and pelvis following administration of 80 ml Isov ue 300 IV contrast. Delayed images through the kidneys and coronal/sagittal reconstructions performe d. CT DLP: 753.4 mGycm Automated exposure control for dose reduction was used. FINDINGS: Heart normal size without pericardial effusion. Mitral annular calcifications. Lung bases show patchy dependent atelectasis. No pleural effusion. Small amount of focal fat along the anterior falciform ligament. Portal venous system is patent. No b iliary ductal dilatation. No abnormal gallbladder distention. Adrenal glands, kidneys, spleen, pancreas within normal limits. Some generalized fold thickening throughout the gastric fundus and proximal to mid gastric body. Moderate atherosclerotic calcifications abdominal aorta. There may be moderate to severe atherosclero tic narrowing proximal common iliac arteries on both sides. No dilated small bowel, free fluid, or free air. Sigmoid diverticulosis. No pericolonic inflammatory change. Mild circumferential wall thickening ammy g the transverse and upper to mid descending colon. Bladder is urine distended. Uterus anteverted. No abnormal fluid collection in the pelvis or pelvic l ymphadenopathy. Both ovaries are visualized. Mild generalized anasarca change. 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 Grade 1 retrolisthesis L2-L5 levels. IMPRESSION: 1. GENERALIZED FOLD THICKENING INVOLVING THE GASTRIC FUNDUS AND PROXIMAL TO MID GASTRIC BODY. CORRELA TE FOR POSSIBLE GASTRITIS. 2. MILD CIRCUMFERENTIAL WALL THICKENING TRANSVERSE COLON AND UPPER TO MID DESCENDING COLON SUSPECTED TO BE SECONDARY TO NONDISTENTION. NONSPECIFIC MILD COLITIS CONSIDERED LESS LIKELY. THERE IS SIGMOID D IVERTICULOSIS WITHOUT ACUTE DIVERTICULITIS. 3. MODERATE TO ADVANCED SPONDYLOTIC CHANGE IN THE LUMBAR SPINE.
[2021-01-06] MEDS: LIDOCAINE 5% PATCH TOPICAL SCH (16:00)
[2021-01-06 17:03] LABS: Glucose,Whole Blood 312 mg/dL (75-99)
[2021-01-06] MEDS: PRAVASTATIN SODIUM 80 MG TAB PO SCH (20:14)
[2021-01-06] MEDS: MIRTAZAPINE 15 MG TAB PO SCH (20:14)
[2021-01-06 20:29] LABS: Glucose,Whole Blood 189 mg/dL (75-99)
[2021-01-06] MEDS: SODIUM CHLORIDE 0.9% 1,000 ML IV SCH (22:59)
[2021-01-07] MEDS: hydrALAZINE HCL 25 MG TAB PO PRN (02:45)
[2021-01-07] MEDS: ACETAMINOPHEN TAB 325 MG TAB PO PRN (02:45)
--- NOTE | 2021-01-07 03:07 | P.PN ---
Subjective Progress Note Date: 01/06/21 This is an 80-year-old female who was recently admitted with change in mental status and dehydration and being closely monitored. Patient was seen and evaluated by neurology along with GI. No plans for endoscopic intervention and patient is tolerating diet with no further reports of nausea or vomiting or abdominal pain noted. at the bedside states she was able to eat most of her breakfast and mentation has improved. Patient is weak and will have PT/OT therapy evaluate the patient and states plans are to return home with possible home care as needed. Patient denies any chest pain, shortness of breath, or palpitations. Patient is having low-grade temp of 99.0-100.5. White blood count continues to be elevated at 12.8 with no obvious source of infection and will order COVID-19, pro-calcitonin, sed rate, and CRP along with repeat urinalysis and continue to monitor closely. Most recent chest x-ray shows no evidence for acute pulmonary disease or process. Blood culture remains negative. May initiate empiric antibiotics. Sodium is 141 with a potassium of 3.2 and will replace and repeat labs and creatinine slightly improved at 1.05. 01/05/2021 Patient is seen and evaluated this morning and family is at the bedside. Patient urinalysis is positive for leukocytes esterace and will initiate IV rocephin and patient WBC elevated at 11.8 and has continued fevers. Will consult infectious disease and appreciate recommendations. Nursing staff reports to continued confusion and difficulty to arouse this morning and patient was hesitant to take medications or eat and required encouragement. Patient denies any abdominal pain and has no guarding or rigidity with palpation. Patient was able to get up to the bathroom with assistance and then became more awake, but continues with confusion per . Patient kidney functions improving and creatinine is 0.98 and will decrease fluids and continue gentle IV hydration. 01/06/2021 Patient seen in follow up this morning and continues to be confused and extremely weak with continued fevers. Patient was continued on IV ceftriaxone with urine cultures finalized showing ecoli with proteus mirabilis and will transition to IV zosyn and infectious disease following closely. Patient is complaining of some mild abdominal discomfort and continued poor oral intake and per nursing staff reported to dark tarry stool and hemoglobin is found to be 8.5. Will continue with protonix and transition to IV protonix twice daily. patient continues with fevers and white blood count is elevated at 12.4. Blood cultures are negative. Patient underwent CT abdomen showing generalized fold thickening involving the gastric fundus and proximal to mid-gastric body to correlate for possible gastritis with mild circumferential wall thickening of the transverse colon and upper to mid descending colon with some diverticulosis without acute diverticulitis. Will repeat am labs and continue to monitor closely. Review of systems: Constitutional: No reports of fatigue, fever, or chills, although is having fevers Cardiovascular: No reports of chest pain or palpitations Respiratory: No reports of shortness of breath or cough GI: No reports of nausea, vomiting, or diarrhea : No reports of dysuria or retention Neurovascular: Reports generalized weakness All medications have been reviewed Active Medications Acetaminophen (Acetaminophen Tab 325 Mg Tab) 650 mg PO Q6HR PRN PRN Reason: Mild Pain or Fever > 100.5 Last Admin: 01/06/21 11:54 Dose: 650 mg Documented by: Amlodipine Besylate (Amlodipine 10 Mg Tab) 10 mg PO DAILY [facility] Last Admin: 01/06/21 08:43 Dose: 10 mg Documented by: Apixaban (Apixaban 2.5 Mg Tablet) 2.5 mg PO BID [facility] Last Admin: 01/06/21 08:41 Dose: 2.5 mg Documented by: Buspirone HCl (Buspirone Hcl 5 Mg Tab) 15 mg PO TID [facility] Last Admin: 01/06/21 08:43 Dose: 15 mg Documented by: Cholecalciferol (Cholecalciferol 25 Mcg (1000 Iu) Tablet) 50 mcg PO DAILY [facility] Last Admin: 01/06/21 08:52 Dose: 50 mcg Documented by: Haloperidol Lactate (Haloperidol Lactate 5 Mg/Ml 1 Ml Vial) 1 mg IVP Q6H PRN PRN Reason: Agitation or Acute Psychosis Last Admin: 01/03/21 01:10 Dose: 1 mg Documented by: Hydralazine HCl (Hydralazine Hcl 25 Mg Tab) 25 mg PO QID PRN PRN Reason: Blood Pressure - High Last Admin: 01/03/21 06:02 Dose: 25 mg Documented by: Sodium Chloride (Saline 0.9%) 1,000 mls @ 50 mls/hr IV .Q20H [facility] Last Admin: 01/05/21 15:58 Dose: 50 mls/hr Documented by: Piperacillin Sod/Tazobactam (Sod 3.375 gm/ Sodium Chloride) 100 mls @ 25 mls/hr IVPB Q8HR [facility] Last Admin: 01/06/21 15:58 Dose: 25 mls/hr Documented by: Iopamidol (Iopamidol Contrast (Oral Use) Vial) 30 ml PO Q60M PRN PRN Reason: CT Scan Stop: 01/07/21 07:58 Last Admin: 01/06/21 08:56 Dose: 30 ml Documented by: Levothyroxine Sodium (Levothyroxine 25 Mcg Tab) 25 mcg PO DAILY@0630 [facility] Last Admin: 01/06/21 06:10 Dose: 25 mcg Documented by: Lidocaine (Lidocaine 5% Patch) 1 patch TOPICAL DAILY@1600 [facility]; Protocol Last Admin: 01/05/21 15:53 Dose: 1 patch Documented by: Lisinopril (Lisinopril 10 Mg Tab) 10 mg PO DAILY [facility] Last Admin: 01/06/21 08:41 Dose: 10 mg Documented by: Metoprolol Succinate (Metoprolol Succinate (Er) 25 Mg Tab.Er.24h) 25 mg PO DAILY [facility] Mirtazapine (Mirtazapine 15 Mg Tab) 7.5 mg PO HS [facility] Last Admin: 01/05/21 22:26 Dose: 7.5 mg Documented by: Naloxone HCl (Naloxone 0.4 Mg/Ml 1 Ml Vial) 0.2 mg IV Q2M PRN PRN Reason: Opioid Reversal Oxybutynin Chloride (Oxybutynin 10 Mg Tab.Er.24) 10 mg PO DAILY [facility] Last Admin: 01/06/21 08:51 Dose: 10 mg Documented by: Pantoprazole Sodium (Pantoprazole 40 Mg Tablet) 40 mg PO AC-BRKFST [facility] Last Admin: 01/06/21 08:42 Dose: 40 mg Documented by: Pravastatin Sodium (Pravastatin Sodium 80 Mg Tab) 80 mg PO HS [facility] Last Admin: 01/05/21 21:07 Dose: 80 mg Documented by: Sodium Bicarbonate (Sodium Bicarbonate Tab 650 Mg Tab) 650 mg PO BID [facility] Last Admin: 01/06/21 08:52 Dose: 650 mg Documented by: Tramadol HCl (Tramadol 50 Mg Tab) 50 mg PO BID PRN PRN Reason: Pain Last Admin: 01/06/21 14:03 Dose: 50 mg Documented by: Objective - Vital Signs Vital signs: Vital Signs Temp 99 F 01/06/21 06:41 Pulse 118 H 01/06/21 06:41 Resp 20 01/06/21 06:41 BP 183/85 01/06/21 06:41 Pulse Ox 99 01/06/21 06:41 Intake & Output 01/05/21 01/06/21 01/06/21 18:59 06:59 18:59 Intake Total 900 Balance 900 Intake: Intake, IV Titration 600 Amount Sodium Chloride 0.9% 1, 600 000 ml @ 50 mls/hr IV . Q20H [facility] Rx#:[id number] Oral 300 Other: Voiding Method Toilet Diaper # Voids 1 2 # Bowel Movements 1 - Exam Gen: This is a 80-year-old female awake, alert and oriented 1-2. Thin built. Temp is 99F, pulse is 94, respirations are 16, blood pressure 183/85, oxygen saturation is 99% on room air. HEENT: Head is atraumatic, normocephalic. Pupils equal, round. Sclerae is anicteric. NECK: Supple. No JVD. No lymphadenopathy. No thyromegaly. LUNGS: Diminished breath sounds bilaterally with no wheezing or rhonchi noted. No intercostal retractions. HEART: S1, S2 are muffled ABDOMEN: Soft. Bowel sounds are present. No masses. No tenderness. EXTREMITIES: No pedal edema. No calf tenderness. NEUROLOGICAL: Patient is awake, but lethargic, alert and oriented x1-2. continued confusion. Diffusely weak. - Labs CBC & Chem 7: 01/06/21 06:20 01/06/21 06:20 Labs: Abnormal Lab Results - Last 24 Hours (Table) 01/05/21 01/05/21 01/05/21 Range/Units 11:37 16:41 20:20 WBC (3.8-10.6) k/uL RBC (3.80-5.40) m/uL Hgb (11.4-16.0) gm/dL Hct (34.0-46.0) % Neutrophils # (1.3-7.7) k/uL Monocytes # (0-1.0) k/uL Chloride (98-107) mmol/L Carbon Dioxide (22-30) mmol/L BUN (7-17) mg/dL Glucose (74-99) mg/dL POC Glucose (mg/dL) 183 H 166 H 166 H (75-99) mg/dL 01/06/21 01/06/21 01/06/21 Range/Units 06:20 06:20 06:59 WBC 12.4 H (3.8-10.6) k/uL RBC 2.88 L (3.80-5.40) m/uL Hgb 8.5 L D (11.4-16.0) gm/dL Hct 26.6 L (34.0-46.0) % Neutrophils # 9.6 H (1.3-7.7) k/uL Monocytes # 1.2 H (0-1.0) k/uL Chloride 110 H (98-107) mmol/L Carbon Dioxide 18 L (22-30) mmol/L BUN 27 H (7-17) mg/dL Glucose 140 H (74-99) mg/dL POC Glucose (mg/dL) 140 H (75-99) mg/dL Microbiology - Last 24 Hours (Table) 01/04/21 22:44 Blood Culture - Preliminary Blood No Growth after 24 hours 01/04/21 16:00 Urine Culture - Preliminary Urine,Voided Gram Neg Bacilli Gram Neg Bacilli#2 01/02/21 19:46 Blood Culture - Preliminary Blood No Growth after 72 hours Assessment and Plan Assessment: Acute dehydration because of diminished oral intake with possible acute gastritis, rule out peptic ulcer disease Change in mental status, acute metabolic encephalopathy, multifactorial Acute on chronic renal failure with chronic kidney disease stage III baseline acute urinary tract infection with cultures showing ecoli and proteus mirabilis fevers possibly secondary to above Right bundle branch block on the EKG Hypercalcemia troponin 0.036 indeterminant Increased white blood count, possibly reactive or possibly secondary to acute UTI Diabetes mellitus type 2 Hypertension Hyperlipidemia History of osteoporosis history of peripheral vascular disease history of anxiety Remote history of nicotine dependence Mild to moderate mitral stenosis with mitral regurgitation as well as tricuspid regurgitation present Full code Recommendations and discussion: Recommend to continue with current medications, management, and symptomatic treatment. Will continue with gentle IV hydration and monitor hemoglobin closely as nursing staff report an episode of dark tarry stools. Hemoglobin has dropped and is currently 8.5. Patient is having continued fevers and urine culture finalized showing ecoli and proteus mriabilis and IV antibiotics being changed to IV Zosyn. Blood cultures have been negative. infectious disease following. Patient was seen by GI recommending outpatient follow-up as needed with no endoscopic interventions at this time and have signed off. If bleeding continues or worsens will consult surgery. Patient also evaluated by neurology with no further workup indicated. PT/OT to evaluate the patient. Will repeat a.m. labs . Due to multiple complex medical issues, prognosis is guarded.
[2021-01-07] MEDS: LEVOTHYROXINE 25 MCG TAB PO SCH (05:59)
[2021-01-07 06:34] LABS: Basophils % (A) 0 %; Eosinophils # (A) 0.1 k/uL (0-0.7); Eosinophils % (A) 1 %; HCT 23.6 % (34.0-46.0); HGB 7.6 gm/dL (11.4-16.0); Lymphocytes # (A) 1.3 k/uL (1.0-4.8); Lymphocytes % (A) 9 %; MCH 29.8 pg (25.0-35.0); MCHC 32.3 g/dL (31.0-37.0); MCV 92.1 fL (80.0-100.0); Mean Platelet Volume 7.8; Monocytes # (A) 1.1 k/uL (0-1.0); Monocytes % (A) 8 %; Neutrophils # (A) 10.8 k/uL (1.3-7.7); Neutrophils % (A) 79 %; Platelet Count 324 k/uL (150-450); RBC 2.56 m/uL (3.80-5.40); RDW 13.9 % (11.5-15.5); WBC 13.6 k/uL (3.8-10.6)
[2021-01-07 06:42] LABS: Glucose,Whole Blood 171 mg/dL (75-99)
[2021-01-07 06:49] LABS: African American GFR (CKD) 47 (>60 ml/min/1.73 sqM); Anion Gap 7 mmol/L; Blood Urea Nitrogen 30 mg/dL (7-17); Calcium 8.5 mg/dL (8.4-10.2); Carbon Dioxide 18 mmol/L (22-30); Chloride 111 mmol/L (98-107); Glucose 154 mg/dL (74-99); Non-African American GFR(CKD) 41 (>60 ml/min/1.73 sqM); Potassium 3.6 mmol/L (3.5-5.1); Sodium 136 mmol/L (137-145)
[2021-01-07] MEDS: PANTOPRAZOLE 40 MG/10 ML VIAL IVP SCH ×2 (09:12→21:26)
[2021-01-07] MEDS: PIPERACILLIN-TAZOBACTAM 3.375 GM in SODIUM CHLORIDE 0.9% 100 ML IVPB SCH ×2 (09:15→16:10)
[2021-01-07] MEDS: METOPROLOL SUCCINATE (ER) 25 MG TAB.ER.24H PO SCH (09:26)
[2021-01-07] MEDS: lisinopriL 10 MG TAB PO SCH (09:27)
[2021-01-07] MEDS: amLODIPine 10 MG TAB PO SCH (09:28)
[2021-01-07] MEDS: CHOLECALCIFEROL 25 MCG (1000 IU) TABLET PO SCH (09:29)
[2021-01-07] MEDS: busPIRone HCl 5 MG TAB PO SCH ×3 (09:33→21:25)
[2021-01-07] MEDS: SODIUM BICARBONATE TAB 650 MG TAB PO SCH ×2 (09:34→21:25)
[2021-01-07] MEDS: OXYBUTYNIN 10 MG TAB.ER.24 PO SCH (09:39)
[2021-01-07 11:39] LABS: Glucose,Whole Blood 167 mg/dL (75-99)
[2021-01-07] MEDS: traMADol 50 MG TAB PO PRN (12:36)
[2021-01-07] MEDS: APIXABAN 2.5 MG TABLET PO SCH (13:08)
--- NOTE | 2021-01-07 16:00 | PN ---
PROGRESS NOTE DATE OF SERVICE: 01/07/2021 REASON FOR FOLLOWUP: Fever, UTI. INTERVAL HISTORY: The patient's overall fever pattern has improved; last temperature was 100.1 around 2 in the morning. No fever since then. The patient is feeling better. She is breathing comfortably. Denies having any chest pain, shortness of breath or cough. No abdominal pain or diarrhea. PHYSICAL EXAMINATION: Blood pressure 150/66, pulse of 90, temperature 99. She is 97% on room air. GENERAL DESCRIPTION: General description is an elderly female lying in bed in no distress. RESPIRATORY SYSTEM: Unlabored breathing. Clear to auscultation anteriorly. HEART: S1, S2. Regular rate and rhythm. ABDOMEN: Soft. No tenderness. No guarding or rigidity. EXTREMITIES: No edema of the feet. LABS: Hemoglobin is 7. , white count 13.3, BUN of 30, creatinine is 1.24. Urine is showing Proteus and E coli. CT of abdomen and pelvis did not show evidence of colitis. DIAGNOSTIC IMPRESSION AND PLAN: Patient with a fever; concern for urinary tract infection versus abdominal source. CT did show some wall thickening involving the gastric fundus and thickening of the transverse colon; concern for possible mild colitis. The patient is on Zosyn; to continue. Transition to oral antibiotic on discharge and monitor clinical course closely. MMODL / IJN: [id number] /
[2021-01-07] MEDS: LIDOCAINE 5% PATCH TOPICAL SCH (16:09)
[2021-01-07] MEDS: SODIUM CHLORIDE 0.9% 1,000 ML IV SCH (16:28)
[2021-01-07 16:48] LABS: Glucose,Whole Blood 174 mg/dL (75-99)
[2021-01-07 21:17] LABS: Glucose,Whole Blood 175 mg/dL (75-99)
[2021-01-07] MEDS: MIRTAZAPINE 15 MG TAB PO SCH (21:25)
[2021-01-07] MEDS: PRAVASTATIN SODIUM 80 MG TAB PO SCH (21:26)
[2021-01-08] MEDS: PIPERACILLIN-TAZOBACTAM 3.375 GM in SODIUM CHLORIDE 0.9% 100 ML IVPB SCH ×3 (00:10→15:35)
--- NOTE | 2021-01-08 01:57 | P.PN ---
Subjective Progress Note Date: 01/07/21 Principal diagnosis: UTI, Possible GI Bleed Ms. Mejia is an 80-year-old female with the past medical history of chronic multiple conditions including hypertension, hyperlipidemia, diabetes mellitus, renal disease, vascular disorder, CKD stage III admitted to the hospital for generalized weakness and confusion. Patient had decreased p.o. intake for almost 3 days with some lower abdominal pain and she spiked a fever of 102.5 with a white count of 11.3. She is currently being treated for UTI. On 01/07/2021 -patient is seen and examined at the bedside. Patient's at the bedside and helped provide the history as the patient is still confused. As per discussion with nursing staff, patient complained of mild abdominal discomfort and she had dark-colored stool.Patient complained that she is tired of getting blood work and does not want anything to be done. She requests that she wants to go home. Patient had an abdominal CT showing generalized fold th ickening involving gastric fundus and proximal to mid gastric body to correlate for possible gastritis and with some diverticulosis but no acute diverticulitis. Patient's vitals this morning T-max of 100.1, heart rate of 76, respiratory rate 18, blood pressure 162/61, saturating at 96% on room air. On reviewing her labs white count of 13.6, hemoglobin 7.6, platelets 324, sodium 136, creatinine 1.24. Objective - Vital Signs Vital signs: Vital Signs Temp 99.0 F 01/07/21 09:16 Pulse 92 01/07/21 09:16 Resp 16 01/07/21 09:16 BP 150/66 01/07/21 09:16 Pulse Ox 97 01/07/21 09:56 Intake & Output 01/06/21 01/07/21 01/07/21 18:59 06:59 18:59 Intake Total 150 Balance 150 Weight 58.513 kg Intake: Oral 150 Other: Voiding Method Toilet Toilet Diaper Diaper # Voids 1 3 - Exam GEN. APPEARANCE: alert, in no apparent distress HE ENT: Mild pallor. No icterus. RESPIRATORY EXAM: Bilateral BS ,slightest diminished at the bases, No wheezes or crackles. CARDIOVASCULAR EXAM: S1-S2 heard. No additional sounds. GI/ABDOMINAL EXAM: soft, normal bowel sounds. Mild lower abdominal tenderness, EXTREMITIES EXAM: No edema. NEUROLOGICAL EXAM: alert, oriented X 1-2 , no focal deficits. SKIN EXAM: No rash. - Labs CBC & Chem 7: 01/07/21 06:21 01/07/21 06:21 Labs: Abnormal Lab Results - Last 24 Hours (Table) 01/06/21 01/06/21 01/07/21 Range/Units 17:01 20:26 06:21 WBC 13.6 H (3.8-10.6) k/uL RBC 2.56 L (3.80-5.40) m/uL Hgb 7.6 L (11.4-16.0) gm/dL Hct 23.6 L (34.0-46.0) % Neutrophils # 10.8 H (1.3-7.7) k/uL Monocytes # 1.1 H (0-1.0) k/uL Sodium (137-145) mmol/L Chloride (98-107) mmol/L Carbon Dioxide (22-30) mmol/L BUN (7-17) mg/dL Creatinine (0.52-1.04) mg/dL Glucose (74-99) mg/dL POC Glucose (mg/dL) 312 H 189 H (75-99) mg/dL 01/07/21 01/07/21 01/07/21 Range/Units 06:21 06:40 11:37 WBC (3.8-10.6) k/uL RBC (3.80-5.40) m/uL Hgb (11.4-16.0) gm/dL Hct (34.0-46.0) % Neutrophils # (1.3-7.7) k/uL Monocytes # (0-1.0) k/uL Sodium 136 L (137-145) mmol/L Chloride 111 H (98-107) mmol/L Carbon Dioxide 18 L (22-30) mmol/L BUN 30 H (7-17) mg/dL Creatinine 1.24 H (0.52-1.04) mg/dL Glucose 154 H (74-99) mg/dL POC Glucose (mg/dL) 171 H 167 H (75-99) mg/dL Microbiology - Last 24 Hours (Table) 01/04/21 22:44 Blood Culture - Preliminary Blood No Growth after 48 hours 01/02/21 19:46 Blood Culture - Preliminary Blood No Growth after 96 hours 01/04/21 16:00 Urine Culture - Final Urine,Voided Escherichia coli Proteus mirabilis Assessment and Plan Assessment: ASSESSMENT Acute metabolic encephalopathy multifactorial Acute on chronic renal failure CKD with stage III Acute blood loss anemia Dehydration secondary to poor p.o. intake Possible acute gastritis Acute UTI with cultures positive for E. coli and Proteus mirabilis Right bundle branch block Hypercalcemia Hypertension Hyperlipidemia Type 2 diabetes mellitus History of osteoporosis History of peripheral vascular disease History of anxiety History of remote nicotine dependence Moderate to mild mitral stenosis with mitral regurgitation PLAN: Patient dropped hemoglobin by 2.5 units in the last couple of days with dark-colored stool, possibility of GI bleed. Continue with IV Protonix twice daily. Will transfuse for hemoglobin less than 7. Anticoagulation currently on hold. GI services not available over the weekend so consulted surgery for possible upper and lower endoscopy. Patient to be continued on Zosyn for UTI as the cultures are positive for Proteus and E. coli. ID Dr. Choe on board and following the patient. Overall prognosis is guarded due to chronic multiple complex medical conditions. The treatment plan was discussed in detail above patient's at bedside. Further recommendations to follow depending on the progress of the patient.
[2021-01-08] MEDS: LEVOTHYROXINE 25 MCG TAB PO SCH (05:41)
[2021-01-08 06:49] LABS: Glucose,Whole Blood 128 mg/dL (75-99)
[2021-01-08] MEDS: PANTOPRAZOLE 40 MG/10 ML VIAL IVP SCH ×2 (08:55→21:54)
[2021-01-08] MEDS: busPIRone HCl 5 MG TAB PO SCH ×2 (08:58→21:53)
[2021-01-08] MEDS: METOPROLOL SUCCINATE (ER) 25 MG TAB.ER.24H PO SCH (09:04)
[2021-01-08] MEDS: lisinopriL 10 MG TAB PO SCH (09:05)
[2021-01-08] MEDS: amLODIPine 10 MG TAB PO SCH (09:06)
[2021-01-08] MEDS: OXYBUTYNIN 10 MG TAB.ER.24 PO SCH (09:08)
[2021-01-08] MEDS: SODIUM BICARBONATE TAB 650 MG TAB PO SCH ×2 (09:09→21:54)
[2021-01-08] MEDS: CHOLECALCIFEROL 25 MCG (1000 IU) TABLET PO SCH (09:13)
[2021-01-08] MEDS: SODIUM CHLORIDE 0.9% 1,000 ML IV SCH (09:13)
[2021-01-08 11:14] LABS: Acanthocytes 2+; Basophils # (A) 0.04 X 10*3/uL (0.00-0.10); Basophils % (A) 0.4 %; Eosinophils % (A) 1.8 %; HCT 18.7 % (37.2-46.3); HGB 6.6 g/dL (12.0-15.0); Lymphocytes # (A) 1.27 X 10*3/uL (0.90-5.00); Lymphocytes % (A) 11.3 %; MCH 34.9 pg (27.0-32.0); MCHC 35.3 g/dL (32.0-37.0); MCV 98.9 fL (80.0-97.0); Monocytes # (A) 1.36 X 10*3/uL (0.20-1.00); Monocytes % (A) 12.1 %; Neutrophils # (A) 8.26 X 10*3/uL (1.80-7.70); Neutrophils % (A) 73.6 %; Platelet Count 335 X 10*3/uL (140-440); RBC 1.89 X 10*6/uL (4.10-5.20); RDW 14.8 % (11.5-14.5); WBC 11.22 X 10*3/uL (4.50-10.00)
[2021-01-08 11:34] LABS: Glucose,Whole Blood 148 mg/dL (75-99)
[2021-01-08 12:31] LABS: African American GFR (CKD) 40.7 (60.0-200.0); Anion Gap 8.3 mmol/L (4.00-12.00); BUN/Creat Ratio 22.14 Ratio (12.00-20.00); Calcium 8.2 mg/dL (8.7-10.3); Carbon Dioxide 20.7 mmol/L (21.6-31.8); Non-African American GFR(CKD) 35.1 (60.0-200.0); Potassium 3.7 mmol/L (3.5-5.5)
[2021-01-08] MEDS: ACETAMINOPHEN TAB 325 MG TAB PO PRN (15:34)
[2021-01-08] MEDS: LIDOCAINE 5% PATCH TOPICAL SCH (15:37)
[2021-01-08 16:38] LABS: Glucose,Whole Blood 145 mg/dL (75-99)
--- NOTE | 2021-01-08 17:20 | PN ---
PROGRESS NOTE DATE OF SERVICE: 01/08/2021 REASON FOR FOLLOWUP: UTI and colitis. INTERVAL HISTORY: The patient is afebrile. The patient is feeling better. She is breathing comfortably. Denies having any chest pain or shortness of breath. Abdominal pain improved. No nausea, vomiting or diarrhea. PHYSICAL EXAMINATION: Blood pressure 152/51 with a pulse of 83, temperature 98.1. She is 99% on room air. GENERAL DESCRIPTION: General description is an elderly female lying in bed in no distress. RESPIRATORY SYSTEM: Unlabored breathing. Clear to auscultation anteriorly. HEART: S1, S2. Regular rate and rhythm. ABDOMEN: Soft. No tenderness. LABS: Urine with E coli, proteus. Blood culture has been negative. White count down to 11.22. She did have a hemoglobin drop to 6.6. DIAGNOSTIC IMPRESSION AND PLAN: Patient with a fever, concerning for colitis, now with evidence of significant anemia concerning for possible . Patient is covered with Zosyn; to continue while waiting for her condition to stabilize and monitor clinical course closely. MMODL / IJN: [id number] /
[2021-01-08 19:58] LABS: HCT 26.6 % (34.0-46.0); HGB 8.1 gm/dL (11.4-16.0); Hypochromasia Moderate; MCH 28.9 pg (25.0-35.0); MCHC 30.4 g/dL (31.0-37.0); MCV 95.1 fL (80.0-100.0); Mean Platelet Volume 7.7; Platelet Count 456 k/uL (150-450); WBC 10.6 k/uL (3.8-10.6)
[2021-01-08 20:49] LABS: Glucose,Whole Blood 198 mg/dL (75-99)
[2021-01-08] MEDS: PRAVASTATIN SODIUM 80 MG TAB PO SCH (21:53)
[2021-01-08] MEDS: MIRTAZAPINE 15 MG TAB PO SCH (21:54)
--- NOTE | 2021-01-09 01:31 | P.PN ---
Subjective Progress Note Date: 01/08/21 Principal diagnosis: UTI, Possible GI Bleed Ms. Mejia is an 80-year-old female with the past medical history of chronic multiple conditions including hypertension, hyperlipidemia, diabetes mellitus, renal disease, vascular disorder, CKD stage III admitted to the hospital for generalized weakness and confusion. Patient had decreased p.o. intake for almost 3 days with some lower abdominal pain and she spiked a fever of 102.5 with a white count of 11.3. She is currently being treated for UTI. On 01/07/2021 -patient is seen and examined at the bedside. Patient's at the bedside and helped provide the history as the patient is still confused. As per discussion with nursing staff, patient complained of mild abdominal discomfort and she had dark-colored stool.Patient complained that she is tired of getting blood work and does not want anything to be done. She requests that she wants to go home. Patient had an abdominal CT showing generalized fold th ickening involving gastric fundus and proximal to mid gastric body to correlate for possible gastritis and with some diverticulosis but no acute diverticulitis. Patient's vitals this morning T-max of 100.1, heart rate of 76, respiratory rate 18, blood pressure 162/61, saturating at 96% on room air. On reviewing her labs white count of 13.6, hemoglobin 7.6, platelets 324, sodium 136, creatinine 1.24. On 01/08/2021 -patient is seen and examined at the bedside. Her hemoglobin from this morning dropped to 6.6. Patient was having dark-colored stool for the last couple of days. Patient denies having any abdominal pain. She constantly keeps saying that she wants to go home and eat homemade food. Patient denies having any chest pain or palpitations. She complains of generalized weakness and tiredness. On reviewing the patient's vitals temperature of 98.7, heart rate 83, respiratory rate 16, blood pressure 140/75, saturating at 100% on room air. On reviewing the labs hemoglobin of 6.6, white count of 11.2, platelets 235. Sodium 140, potassium 3.7, chloride 111, bicarb 20, BUN 31, creatinine 1.4. Patient's medications have been reviewed. Anticoagulation has been held in view of active drop in hemoglobin with possible source being GI tract. Objective - Vital Signs Vital signs: Vital Signs Temp 99.3 F 01/08/21 07:14 Pulse 84 01/08/21 07:14 Resp 18 01/08/21 09:10 BP 127/63 01/08/21 07:14 Pulse Ox 95 01/08/21 08:17 Intake & Output 01/07/21 01/08/21 01/08/21 18:59 06:59 18:59 Intake Total 700 Balance 700 Intake: Intake, IV Titration 700 Amount Piperacillin-Tazobactam 3 100 .375 gm In Sodium Chloride 0.9% 100 ml @ 25 mls/hr IVPB Q8HR [facility] Rx# :[id number] Sodium Chloride 0.9% 1, 600 000 ml @ 50 mls/hr IV . Q20H [facility] Rx#:[id number] Other: Voiding Method Toilet Toilet Toilet Diaper Diaper Diaper # Voids 1 2 # Bowel Movements 1 - Exam GEN. APPEARANCE: alert, in no apparent distress HE ENT: Marked pallor. No icterus. RESPIRATORY EXAM: Bilateral BS ,slightest diminished at the bases, No wheezes or crackles. CARDIOVASCULAR EXAM: S1-S2 heard. No additional sounds. GI/ABDOMINAL EXAM: soft, normal bowel sounds. Mild lower abdominal tenderness, EXTREMITIES EXAM: No edema. NEUROLOGICAL EXAM: alert, oriented X 1-2 , no focal deficits. SKIN EXAM: No rash. - Labs CBC & Chem 7: 01/08/21 19:26 01/08/21 05:23 Labs: Abnormal Lab Results - Last 24 Hours (Table) 01/07/21 01/07/21 01/08/21 Range/Units 16:46 21:13 05:23 WBC (4.50-10.00) X 10*3/uL RBC (4.10-5.20) X 10*6/uL Hgb (12.0-15.0) g/dL Hct (37.2-46.3) % MCV (80.0-97.0) fL MCH (27.0-32.0) pg RDW (11.5-14.5) % Absolute Nucleated RBC (0.00-0.00) X 10*3/uL Immature Gran # (0.00-0.04) X 10*3/uL Neutrophils # (1.80-7.70) X 10*3/uL Monocytes # (0.20-1.00) X 10*3/uL NRBC/100 WBC Diff (0.0-0.0) /100 WBCS Chloride 111 H (96-109) mmol/L Carbon Dioxide 20.7 L (21.6-31.8) mmol/L BUN 31.0 H (9.0-27.0) mg/dL Est GFR (CKD-EPI)AfAm 40.7 L (60.0-200.0) Est GFR (CKD-EPI)NonAf 35.1 L (60.0-200.0) BUN/Creatinine Ratio 22.14 H (12.00-20.00) Ratio Glucose 111 H (70-110) mg/dL POC Glucose (mg/dL) 174 H 175 H (75-99) mg/dL Calcium 8.2 L (8.7-10.3) mg/dL 01/08/21 01/08/21 01/08/21 Range/Units 05:23 06:47 11:33 WBC 11.22 H (4.50-10.00) X 10*3/uL RBC 1.89 L (4.10-5.20) X 10*6/uL Hgb 6.6 L* (12.0-15.0) g/dL Hct 18.7 L* (37.2-46.3) % MCV 98.9 H (80.0-97.0) fL MCH 34.9 H (27.0-32.0) pg RDW 14.8 H (11.5-14.5) % Absolute Nucleated RBC 0.03 H (0.00-0.00) X 10*3/uL Immature Gran # 0.09 H (0.00-0.04) X 10*3/uL Neutrophils # 8.26 H (1.80-7.70) X 10*3/uL Monocytes # 1.36 H (0.20-1.00) X 10*3/uL NRBC/100 WBC Diff 0.3 H (0.0-0.0) /100 WBCS Chloride (96-109) mmol/L Carbon Dioxide (21.6-31.8) mmol/L BUN (9.0-27.0) mg/dL Est GFR (CKD-EPI)AfAm (60.0-200.0) Est GFR (CKD-EPI)NonAf (60.0-200.0) BUN/Creatinine Ratio (12.00-20.00) Ratio Glucose (70-110) mg/dL POC Glucose (mg/dL) 128 H 148 H (75-99) mg/dL Calcium (8.7-10.3) mg/dL Microbiology - Last 24 Hours (Table) 01/04/21 22:44 Blood Culture - Preliminary Blood No Growth after 72 hours 01/02/21 19:46 Blood Culture - Preliminary Blood No Growth after 120 hours Assessment and Plan Assessment: ASSESSMENT Acute metabolic encephalopathy multifactorial Acute on chronic renal failure CKD with stage III Acute blood loss anemia Dehydration secondary to poor p.o. intake Possible acute gastritis Acute UTI with cultures positive for E. coli and Proteus mirabilis Right bundle branch block Hypercalcemia Hypertension Hyperlipidemia Type 2 diabetes mellitus History of osteoporosis History of peripheral vascular disease History of anxiety History of remote nicotine dependence Moderate to mild mitral stenosis with mitral regurgitation PLAN: Patient's hemoglobin dropped to 6.6 this morning, type and cross was ordered. As per discussion with the nursing staff, patient has antibodies in her blood and it was difficult to find a compatible transfusion unit. So repeated a hemoglobin which came back at 8.1. Request for compatible blood to [facility] being processed. Continue with IV Protonix twice daily. . Anticoagulation currently on hold. GI services consulted and she is kept NPO tonight, for possible scope tomorrow AM. Patient to be continued on Zosyn for UTI as the cultures are positive for Proteus and E. coli. ID Dr. Choe on board and following the patient. Overall prognosis is guarded due to chronic multiple complex medical conditions. The treatment plan was discussed in detail above patient's at bedside. Further recommendations to follow depending on the progress of the patient.
[2021-01-09] MEDS: PIPERACILLIN-TAZOBACTAM 3.375 GM in SODIUM CHLORIDE 0.9% 100 ML IVPB SCH ×3 (01:38→15:35)
[2021-01-09] MEDS: LEVOTHYROXINE 25 MCG TAB PO SCH (05:17)
[2021-01-09 06:19] LABS: Basophils # (A) 0.1 k/uL (0-0.2); Basophils % (A) 1 %; Eosinophils # (A) 0.4 k/uL (0-0.7); Eosinophils % (A) 3 %; HCT 27.4 % (34.0-46.0); HGB 8.8 gm/dL (11.4-16.0); Lymphocytes # (A) 1.1 k/uL (1.0-4.8); Lymphocytes % (A) 10 %; MCH 29.5 pg (25.0-35.0); MCHC 32.2 g/dL (31.0-37.0); MCV 91.6 fL (80.0-100.0); Mean Platelet Volume 7.8; Monocytes # (A) 1.1 k/uL (0-1.0); Monocytes % (A) 10 %; Neutrophils # (A) 8.2 k/uL (1.3-7.7); Neutrophils % (A) 74 %; Platelet Count 403 k/uL (150-450); RBC 2.99 m/uL (3.80-5.40); RDW 13.9 % (11.5-15.5)
[2021-01-09 06:30] LABS: Anion Gap 7 mmol/L; Blood Urea Nitrogen 30 mg/dL (7-17); Carbon Dioxide 19 mmol/L (22-30); Chloride 112 mmol/L (98-107); Glucose 120 mg/dL (74-99); Potassium 3.8 mmol/L (3.5-5.1); Sodium 138 mmol/L (137-145)
[2021-01-09 06:31] LABS: African American GFR (CKD) 34 (>60 ml/min/1.73 sqM); Calcium 8.8 mg/dL (8.4-10.2); Non-African American GFR(CKD) 30 (>60 ml/min/1.73 sqM)
[2021-01-09 07:02] LABS: Glucose,Whole Blood 163 mg/dL (75-99)
[2021-01-09] MEDS: PANTOPRAZOLE 40 MG/10 ML VIAL IVP SCH ×2 (07:42→21:56)
[2021-01-09] MEDS: busPIRone HCl 5 MG TAB PO SCH ×2 (07:42→21:56)
[2021-01-09] MEDS: SODIUM BICARBONATE TAB 650 MG TAB PO SCH ×2 (07:42→21:56)
[2021-01-09] MEDS: lisinopriL 10 MG TAB PO SCH (07:42)
[2021-01-09] MEDS: OXYBUTYNIN 10 MG TAB.ER.24 PO SCH (07:43)
[2021-01-09] MEDS: amLODIPine 10 MG TAB PO SCH (07:43)
[2021-01-09] MEDS: CHOLECALCIFEROL 25 MCG (1000 IU) TABLET PO SCH (07:43)
[2021-01-09] MEDS: METOPROLOL SUCCINATE (ER) 25 MG TAB.ER.24H PO SCH (07:43)
[2021-01-09] MEDS: ACETAMINOPHEN TAB 325 MG TAB PO PRN (09:10)
[2021-01-09] MEDS: SODIUM CHLORIDE 0.9% 1,000 ML IV SCH (10:13)
[2021-01-09 11:27] LABS: Glucose,Whole Blood 194 mg/dL (75-99)
--- NOTE | 2021-01-09 12:59 | P.PN ---
Subjective Progress Note Date: 01/09/21 Principal diagnosis: poor oral intake, possible peptic ulcer disease 80-year-old female who presented to the emergency department with altered mental status, poor oral intake for the last 1 week's duration. Yesterday she had a drop in her hemoglobin to 6.6 and was given 1 unit of PRBC transfusion. Today's repeat hemoglobin is 8.8. Today she seen and examined sitting up and eating her breakfast. She denies any abdominal pain, nausea, or vomiting. Patient states she just had a bowel movement and it was brown, no black or blood in her stool. Patient is much more alert and and oriented, answering questions appropriately. Objective - Vital Signs Vital signs: Vital Signs Temp 98.6 F 01/09/21 07:43 Pulse 100 01/09/21 07:43 Resp 16 01/09/21 07:43 BP 159/67 01/09/21 07:43 Pulse Ox 98 01/09/21 07:43 Intake & Output 01/08/21 01/09/21 01/09/21 18:59 06:59 18:59 Intake Total 1310 Balance 1310 Intake: Intake, IV Titration 700 Amount Piperacillin-Tazobactam 3 100 .375 gm In Sodium Chloride 0.9% 100 ml @ 25 mls/hr IVPB Q8HR [facility] Rx# :[id number] Sodium Chloride 0.9% 1, 600 000 ml @ 50 mls/hr IV . Q20H [facility] Rx#:[id number] Oral 300 Blood Product 310 Rc Pheresis As-3 Unit 310 [id number] Other: Voiding Method Toilet Toilet Toilet Diaper Diaper Diaper # Voids 1 3 # Bowel Movements 1 - Exam General appearance: The patient is alert, oriented, appears in no acute distress. HET: Head is normocephalic and atraumatic. Conjunctiva pink. Sclera anicteric. Neck: Supple without lymphadenopathy. Abdomen: Soft, nontender, nondistended with bowel sounds. No guarding or rigidity. Extremities: Normal skin color and turgor. No pedal edema Skin: No rashes, no jaundice Neurological: No focal deficits. Alert and oriented x3. - Labs CBC & Chem 7: 01/09/21 05:40 01/09/21 05:40 Labs: Abnormal Lab Results - Last 24 Hours (Table) 01/08/21 01/08/21 01/08/21 Range/Units 05:23 05:23 11:33 WBC 11.22 H (4.50-10.00) X 10*3/uL RBC 1.89 L (4.10-5.20) X 10*6/uL Hgb 6.6 L* (12.0-15.0) g/dL Hct 18.7 L* (37.2-46.3) % MCV 98.9 H (80.0-97.0) fL MCH 34.9 H (27.0-32.0) pg MCHC (31.0-37.0) g/dL RDW 14.8 H (11.5-14.5) % Plt Count (150-450) k/uL Absolute Nucleated RBC 0.03 H (0.00-0.00) X 10*3/uL Immature Gran # 0.09 H (0.00-0.04) X 10*3/uL Neutrophils # 8.26 H (1.80-7.70) X 10*3/uL Monocytes # 1.36 H (0.20-1.00) X 10*3/uL NRBC/100 WBC Diff 0.3 H (0.0-0.0) /100 WBCS Chloride 111 H (96-109) mmol/L Carbon Dioxide 20.7 L (21.6-31.8) mmol/L BUN 31.0 H (9.0-27.0) mg/dL Creatinine (0.52-1.04) mg/dL Est GFR (CKD-EPI)AfAm 40.7 L (60.0-200.0) Est GFR (CKD-EPI)NonAf 35.1 L (60.0-200.0) BUN/Creatinine Ratio 22.14 H (12.00-20.00) Ratio Glucose 111 H (70-110) mg/dL POC Glucose (mg/dL) 148 H (75-99) mg/dL Calcium 8.2 L (8.7-10.3) mg/dL Crossmatch 01/08/21 01/08/21 01/08/21 Range/Units 13:06 16:36 19:26 WBC (4.50-10.00) X 10*3/uL RBC 2.80 L (4.10-5.20) X 10*6/uL Hgb 8.1 L (12.0-15.0) g/dL Hct 26.6 L (37.2-46.3) % MCV (80.0-97.0) fL MCH (27.0-32.0) pg MCHC 30.4 L (31.0-37.0) g/dL RDW (11.5-14.5) % Plt Count 456 H (150-450) k/uL Absolute Nucleated RBC (0.00-0.00) X 10*3/uL Immature Gran # (0.00-0.04) X 10*3/uL Neutrophils # (1.80-7.70) X 10*3/uL Monocytes # (0.20-1.00) X 10*3/uL NRBC/100 WBC Diff (0.0-0.0) /100 WBCS Chloride (96-109) mmol/L Carbon Dioxide (21.6-31.8) mmol/L BUN (9.0-27.0) mg/dL Creatinine (0.52-1.04) mg/dL Est GFR (CKD-EPI)AfAm (60.0-200.0) Est GFR (CKD-EPI)NonAf (60.0-200.0) BUN/Creatinine Ratio (12.00-20.00) Ratio Glucose (70-110) mg/dL POC Glucose (mg/dL) 145 H (75-99) mg/dL Calcium (8.7-10.3) mg/dL Crossmatch See Detail 01/08/21 01/09/21 01/09/21 Range/Units 20:48 05:40 05:40 WBC 11.0 H (4.50-10.00) X 10*3/uL RBC 2.99 L (4.10-5.20) X 10*6/uL Hgb 8.8 L (12.0-15.0) g/dL Hct 27.4 L (37.2-46.3) % MCV (80.0-97.0) fL MCH (27.0-32.0) pg MCHC (31.0-37.0) g/dL RDW (11.5-14.5) % Plt Count (150-450) k/uL Absolute Nucleated RBC (0.00-0.00) X 10*3/uL Immature Gran # (0.00-0.04) X 10*3/uL Neutrophils # 8.2 H (1.80-7.70) X 10*3/uL Monocytes # 1.1 H (0.20-1.00) X 10*3/uL NRBC/100 WBC Diff (0.0-0.0) /100 WBCS Chloride 112 H (96-109) mmol/L Carbon Dioxide 19 L (21.6-31.8) mmol/L BUN 30 H (9.0-27.0) mg/dL Creatinine 1.61 H (0.52-1.04) mg/dL Est GFR (CKD-EPI)AfAm (60.0-200.0) Est GFR (CKD-EPI)NonAf (60.0-200.0) BUN/Creatinine Ratio (12.00-20.00) Ratio Glucose 120 H (70-110) mg/dL POC Glucose (mg/dL) 198 H (75-99) mg/dL Calcium (8.7-10.3) mg/dL Crossmatch 01/09/21 Range/Units 06:49 WBC (4.50-10.00) X 10*3/uL RBC (4.10-5.20) X 10*6/uL Hgb (12.0-15.0) g/dL Hct (37.2-46.3) % MCV (80.0-97.0) fL MCH (27.0-32.0) pg MCHC (31.0-37.0) g/dL RDW (11.5-14.5) % Plt Count (150-450) k/uL Absolute Nucleated RBC (0.00-0.00) X 10*3/uL Immature Gran # (0.00-0.04) X 10*3/uL Neutrophils # (1.80-7.70) X 10*3/uL Monocytes # (0.20-1.00) X 10*3/uL NRBC/100 WBC Diff (0.0-0.0) /100 WBCS Chloride (96-109) mmol/L Carbon Dioxide (21.6-31.8) mmol/L BUN (9.0-27.0) mg/dL Creatinine (0.52-1.04) mg/dL Est GFR (CKD-EPI)AfAm (60.0-200.0) Est GFR (CKD-EPI)NonAf (60.0-200.0) BUN/Creatinine Ratio (12.00-20.00) Ratio Glucose (70-110) mg/dL POC Glucose (mg/dL) 163 H (75-99) mg/dL Calcium (8.7-10.3) mg/dL Crossmatch Microbiology - Last 24 Hours (Table) 01/04/21 22:44 Blood Culture - Preliminary Blood No Growth after 96 hours 01/02/21 19:46 Blood Culture - Final Blood No Growth after 144 hours 01/07/21 17:16 Blood Culture - Preliminary Blood No Growth after 24 hours Assessment and Plan (1) Abdominal pain Narrative/Plan: 80-year-old female who was brought in by her for complaints of increased confusion over the last 3-4 days duration. Patient has had poor oral intake due to abdominal pain and nausea is reported per the .. She's been afebrile. She has multiple comorbidities including atrial fibrillation on Eliquis. She was found to be dehydrated with acute on chronic kidney injury. She had elevated troponins on admission and cardiology was consult, they believe related to dehydration and acute kidney injury. Neurology is also following patient for confusion and believes a component related to metabolic encephalopathy due to dehydration and acute kidney injury. Patient is reporting no abdominal pain, she is nontender on palpation. She was able to eat have her breakfast this morning. No complaints of nausea or vomiting today. Abdominal pain is resolved, along with nausea. Current Visit: Yes Status: Acute Code(s): R10.9 - UNSPECIFIED ABDOMINAL PAIN SNOMED Code(s): 18532788 (2) Nausea Current Visit: Yes Status: Acute Code(s): R11.0 - NAUSEA SNOMED Code(s): 564309025 (3) Decreased oral intake Narrative/Plan: Resolved, patient has been eating well. Current Visit: Yes Status: Acute Code(s): R63.8 - OTHER SYMPTOMS AND SIGNS CONCERNING FOOD AND FLUID INTAKE SNOMED Code(s): 953521939 (4) Altered mental status Current Visit: Yes Status: Acute Code(s): R41.82 - ALTERED MENTAL STATUS, UNSPECIFIED SNOMED Code(s): 388050871 (5) Dehydration Narrative/Plan: resolved Current Visit: Yes Status: Acute Code(s): E86.0 - DEHYDRATION SNOMED Code(s): 31369107 (6) Atrial fibrillation Current Visit: No Status: Acute Code(s): I48.91 - UNSPECIFIED ATRIAL FIBRILLATION SNOMED Code(s): 01217852 Plan: 1. Continue symptomatic and supportive care 2. Protonix 40 mg daily 3. Antiemetics as needed 4. Diet as tolerated 5. No plans on endoscopic evaluation at this time as there are no signs or symptoms of GI bleed 6. Iron studies ordered, pretransfusion blood Thank you for this consultation, we will continue to follow. Dr. Leobardo Jacobo I agree with the dictator's note, documented as a scribe by Aranza Scott.
--- NOTE | 2021-01-09 13:18 | PN ---
PROGRESS NOTE DATE OF SERVICE: 01/09/2021 REASON FOR FOLLOWUP: UTI and possible colitis. INTERVAL HISTORY: The patient is afebrile. The patient is feeling better, breathing comfortably. No chest pain or shortness of breath or cough. No vomiting, diarrhea or other changed reported by the nursing staff. PHYSICAL EXAMINATION: Blood pressure 159/67, pulse 100, temperature 98.6. She is 98% on room air. GENERAL DESCRIPTION: General description is an elderly female lying in bed in no distress. RESPIRATORY SYSTEM: Unlabored breathing. Clear to auscultation anteriorly. HEART: S1, S2. Regular rate and rhythm. ABDOMEN: Soft. No tenderness. LABS: Hemoglobin is 8.8, white count 11, BUN of 30, creatinine 1.61. DIAGNOSTIC IMPRESSION AND PLAN: Patient with Escherichia coli urinary tract infection and a question of colitis involving the transverse colon, possibly ischemic. Patient doing well on the Zosyn. Finish therapy with oral Augmentin and close outpatient followup. MMODL / IJN: [id number] /
[2021-01-09] MEDS ORDERED: FUROSEMIDE 20 MG TAB PO STA (14:05)
[2021-01-09] MEDS: LIDOCAINE 5% PATCH TOPICAL SCH (15:35)
[2021-01-09 16:46] LABS: Glucose,Whole Blood 153 mg/dL (75-99)
[2021-01-09] MEDS ORDERED: LORazepam 2 MG/ML INJ IV PRN (19:55)
[2021-01-09] MEDS: PRAVASTATIN SODIUM 80 MG TAB PO SCH (21:56)
[2021-01-09] MEDS: MIRTAZAPINE 15 MG TAB PO SCH (21:56)
[2021-01-09 23:49] LABS: % Iron Saturation 17.18 (12.00-45.00)
[2021-01-09 23:57] LABS: Ferritin 110.8 ng/mL (10.0-291.0)
[2021-01-10 04:24] VITALS: RESP 16
[2021-01-10] MEDS: LEVOTHYROXINE 25 MCG TAB PO SCH (07:18)
[2021-01-10] MEDS: PANTOPRAZOLE 40 MG/10 ML VIAL IVP SCH (07:45)
[2021-01-10] MEDS: PIPERACILLIN-TAZOBACTAM 3.375 GM in SODIUM CHLORIDE 0.9% 100 ML IVPB SCH ×3 (07:45)
[2021-01-10 09:29] LABS: Basophils # (A) 0.09 X 10*3/uL (0.00-0.10); Basophils % (A) 0.9 %; Eosinophils # (A) 0.47 X 10*3/uL (0.04-0.35); Eosinophils % (A) 4.5 %; HCT 24.5 % (37.2-46.3); HGB 8.5 g/dL (12.0-15.0); Lymphocytes # (A) 1.33 X 10*3/uL (0.90-5.00); Lymphocytes % (A) 12.6 %; MCH 33.3 pg (27.0-32.0); MCHC 34.7 g/dL (32.0-37.0); MCV 96.1 fL (80.0-97.0); Mean Platelet Volume 9.6 fL (9.5-12.2); Monocytes # (A) 1.25 X 10*3/uL (0.20-1.00); Monocytes % (A) 11.9 %; Neutrophils # (A) 7.31 X 10*3/uL (1.80-7.70); Neutrophils % (A) 69.3 %; Platelet Count 436 X 10*3/uL (140-440); RBC 2.55 X 10*6/uL (4.10-5.20); RDW 14.2 % (11.5-14.5); WBC 10.53 X 10*3/uL (4.50-10.00)
[2021-01-10] MEDS: CHOLECALCIFEROL 25 MCG (1000 IU) TABLET PO SCH (10:39)
[2021-01-10] MEDS: OXYBUTYNIN 10 MG TAB.ER.24 PO SCH (10:46)
[2021-01-10] MEDS: SODIUM BICARBONATE TAB 650 MG TAB PO SCH (10:46)
[2021-01-10] MEDS: lisinopriL 10 MG TAB PO SCH (10:48)
[2021-01-10] MEDS: amLODIPine 10 MG TAB PO SCH (10:48)
[2021-01-10] MEDS: busPIRone HCl 5 MG TAB PO SCH (10:48)
[2021-01-10] MEDS: METOPROLOL SUCCINATE (ER) 25 MG TAB.ER.24H PO SCH (10:48)
--- NOTE | 2021-01-10 13:49 | P.CN ---
Psychiatric Consult - . Consult date: 01/10/21 Consult:: 01/10/21 13:42 IDENTIFYING DATA: This patient is a 80-year-old female who is currently lives in a house with her and has 4 daughters and several grandchildren. REASON FOR REFERRAL: Psychiatry was consulted for "dementia, sundowning". HISTORY OF PRESENT ILLNESS: The patient presented to the hospital initially on 01/02 for weakness, altered mental status and confusion. This has been reportedly going on for 3 days prior to admission. also complained the patient was having poor oral intake. Computed tomography scan of her head showed no acute changes however did show vascular ischemia signs. Patient had elevated troponins. Patient also had a drop in her hemoglobin and was transfused while on the medical floors. Neurology was following along as a solar sales consultant who states that patient was having metabolic encephalopathy likely secondary to dehydration. Patient was also reportedly not sleeping well in the hospital. Patient's nurse claims that patient has improved significantly and has a baseline of dementia. Patient's was at the bedside states that patient has been eating and sleeping better and more back to her baseline. Patient spoke with writer editor briefly and was alert and oriented 3 The current president was and had fair concentration and attention span. She was fairly cooperative and appropriate. She spoke about wanting to go to a wedding for one of her family members today and was asking about discharge. She states that her sleep has not been well in the hospital and claims that she has a approving appetite . At this time patient denies any suicidal or homical ideations, intent or plan. Patient denies any auditory, visual hallucinations and denies any paranoia or delusions. Patients admits to using and no recreational drugs or cigarettes. PAST PSYCHIATRIC HISTORY: Patient has a no significant psychiatric history and claims that she does not see a psychiatrist. She does claim that she follows up with her PCP about her medications which include BuSpar 15 mg twice a day, Remeron 7.5 mg daily at bedtime. Past Medical History: Diabetes Mellitus, Hyperlipidemia, Hypertension, Renal Disease, Vascular Disorder Additional Past Medical History / Comment(s): osteoporosis. stage III kidney disease. peripheral circ. disorder. DDD. HAS SOME MOLES ON HER BACK THAT HAVE CHANGES RECENTLY-PCP AWARE ALLERGIES: as per EMR. CHEMICAL DEPENDENCY HISTORY: as per HPI. FAMILY PSYCHIATRIC/SUBSTANCE USE HISTORY: denies SOCIAL HISTORY: Patient was born and raised in [facility]. She states that she has 4 daughters and is currently with her and lives in a house. She states that she used to work for several doctor's office doing billing. She claims that she is now retired. Her lives in [place].. MENTAL STATUS EXAM: General Appearance: Patient appears to be thin, elderly, stated age is alert, pleasant, and cooperative. Patient appears to have fair hygiene and grooming wearing hospital gown with fair eye contact. Behavior: Patient is calmly lying in bed without any agitated behavior. cooperative Speech: Patient's speech is fluent and nonpressured. Mood/Affect: Patient reports their mood is "ok", affect is congruent Suicidality/Homicidality: Patient denies having any suicidal or homicidal ideation intent or plan. Perceptions: Patient denies any visual hallucinations and denies any auditory hallucinations Though content/process: There is no evidence of any delusional thought content and thought process is linear and goal-directed. Memory and concentration: AOX3, grossly intact for the purposes of this session. Can spell "WORLD" backwards Judgment and insight: fair IMPRESSIONS: Dementia without behavioral disturbances PLAN: -At this time patient DOES NOT meet criteria for inpatient psychiatric admission. -Delirium precautions recommended with patient including - avoiding use of narcotics and DATABASE SECURITY ADMINISTRATOR sedatives, limit anticholinergic medications when possible, frequent re-orientation, minimize use of restraints, open window shades during the day and close them at night -Would recommend the following medication changes/additions: Discontinued Ativan, please do not prescribe any benzodiazepines as this may worsen patient's confusion/cause delirium. I added melatonin 3 mg daily at bedtime for sleep. Continue with Remeron and BuSpar as prescribed. -Communicated plan to patient's nurse -Psychiatry will sign off at this time -Please contact with any questions.
[2021-01-10 14:47] VITALS: BP 162/74; PULSE 72; TEMP 97.9
[2021-01-10 15:00] LABS: African American GFR (CKD) 44.6 (60.0-200.0); Anion Gap 8.7 mmol/L (4.00-12.00); BUN/Creat Ratio 19.23 Ratio (12.00-20.00); Calcium 8.4 mg/dL (8.7-10.3); Carbon Dioxide 21.3 mmol/L (21.6-31.8); Magnesium 1.6 mg/dL (1.5-2.4); Non-African American GFR(CKD) 38.4 (60.0-200.0); Potassium 3.7 mmol/L (3.5-5.5)
[2021-01-10] MEDS ORDERED: AMOXIC-POT CLAV 875-125MG 1 EACH TAB PO SCH (16:04)
--- NOTE | 2021-01-10 16:49 | PN ---
PROGRESS NOTE DATE OF SERVICE: 01/10/2021 REASON FOR FOLLOWUP: UTI and possible colitis. INTERVAL HISTORY: The patient is afebrile. The patient seems slightly upset and she wants to go home. The patient denies having any chest pain or shortness of breath or cough. No nausea, no vomiting. No abdominal pain or diarrhea. PHYSICAL EXAMINATION: Blood pressure 155/74 with a pulse of 80, temperature 97.7. She is 97% on room air. GENERAL DESCRIPTION: General description is an elderly female up in the chair in no distress. RESPIRATORY SYSTEM: Unlabored breathing. Clear to auscultation anteriorly. HEART: S1, S2. Regular rate and rhythm. ABDOMEN: Soft. No tenderness. EXTREMITIES: No edema of the feet. LABS: Hemoglobin 8.5, white count 10.5. DIAGNOSTIC IMPRESSION AND PLAN: Patient with Escherichia coli urinary tract infection and concern for possible colitis, on Zosyn. Transition to oral Augmentin on discharge and close outpatient followup. MMODL / IJN: [id number] /
[2021-01-10] MEDS ORDERED: MELATONIN 3 MG TABLET PO SCH (21:00)
[2021-01-10] MEDS ORDERED: PANTOPRAZOLE 40 MG TABLET PO SCH (21:00)
--- NOTE | 2021-01-11 01:12 | P.DS ---
Providers Date of admission: 01/02/21 17:06 Attending physician: Ludmila Fraser Consults: 01/02/21 17:07 Consult Physician Routine Consulting Provider: Rayray Rodriguez Consult Reason/Comments: AMS Do you want consulting provider notified?: Yes 01/02/21 22:39 Consult Physician Urgent Consulting Provider: Nenita Phelps Consult Reason/Comments: high troponin Do you want consulting provider notified?: Yes, Notify in am 01/05/21 10:48 Consult Physician Routine Consulting Provider: Ewelina Choe Consult Reason/Comments: uti, fever, elevated wbc Do you want consulting provider notified?: Yes 01/07/21 16:17 Consult Physician Routine Consulting Provider: Madai Jacobo Consult Reason/Comments: possible GI bleed, drop in Hbg Do you want consulting provider notified?: Yes 01/09/21 19:55 Consult Physician Routine Consulting Provider: Marquez Tierney Consult Reason/Comments: dementia, sundowning Do you want consulting provider notified?: Already Contacted Primary care physician: Physician Nonstaff Hospital Course: Diagnoses: Metabolic encephalopathy, present on admission. Patient is improved and back to baseline as per at bedside Acute urinary tract infection secondary to E. coli and Proteus, discharged on Augmentin per ID team Possible elements of colitis, improved, asymptomatic on discharge. Discharge on antibiotics. Acute kidney injury, improved Acute blood loss anemia status post one unit of blood transfusion Left upper extremity swelling, could be due to multiple iv lines As per . Doppler of the arm is negative for DVT A. fib on Eliquis Troponin leak with no evidence of coronary artery disease, cleared by mailing machine helper service will sign off Chronic kidney disease stage III Hospital course: This is a pleasant 80 years old female with multiple medical problems admitted with altered mental status found to have acute urinary tract infection secondary to E. coli and Proteus which is improved significantly with treatment with antibiotics and [facility] infectious disease team were on the case and recommended to discharge the patient on Augmentin. Patient today was sitting on the couch with at her side, both stated that she is back to her baseline and she was very eager with her to be discharged today and they didn't want to stay in the hospital for over 24 hours for close monitoring and stating that they can follow-up as an outpatient, also because her granddaughter waiting is tomorrow and she wants to get ready for it. Again patient and confirms she is back to baseline. She denies chest pain or dyspnea. Patient in urine or bowel habits. No fever. No headache or dizziness. Patient was cleared by all services including infectious disease team, GI team. Cardiology and neurology team were already signed off. I explained for the , mailing machine helper recommendation about Eliquis, as there is no documentation in our system for Iron. fib, stated her EKG showed multifocal atrial tachycardia per mailing machine helper, then our mailing machine helper preferred that she follow up with her primary doctor to decide whether to continue or hold Eliquis, is aware of this as well as patient when I discussed with them and he told me he is going to follow-up with the mailing machine helper duane within one week. And also he is aware that without Eliquis she'll be at risk of stroke and with alopecia Fatemeh completed. GI service. The patient also for discharge on Protonix once daily. Problems and management plan were discussed with the patient and he verbalized understanding and acceptance Patient was found stable and can be discharged home however he needs follow-up as an outpatient. Patient was instructed to follow up with PCP Dr. Gann within one week and patient agrees Also patient was instructed to follow up with GI service Dr. Jacobo in one week and mailing machine helper Dr. Franks in 2 weeks as well as his own primary mailing machine helper in 1 week to assess for his Eliquis and he agrees. Physical exam Gen: patient is a AAOx3, no distress CVS: S1-S2, RRR, no murmur Lungs: B/L CTA, no wheezing Abdomen: soft, no distention, no tenderness, positive bowel sounds Extremity: no leg edema or induration Time spent more than 35 minutes Patient Condition at Discharge: Stable Plan - Discharge Summary Discharge Rx Participant: No New Discharge Prescriptions: New Lidocaine 5% Patch [Lidoderm 5% Patch] 1 patch TOPICAL DAILY@1600 #7 patch Pantoprazole [Protonix] 40 mg PO DAILY #30 tablet. Melatonin 3 mg PO HS PRN 5 Days #5 tablet PRN Reason: Insomnia Amoxic-Pot Clav 875-125Mg [Augmentin 875-125] 1 each PO Q12HR 7 Days #14 tab Continue Sodium Bicarbonate Tab 650 mg PO BID Pravastatin Sodium [Pravachol] 80 mg PO HS lisinopriL [Prinivil] 10 mg PO DAILY Levothyroxine Sodium 25 mcg PO DAILY Tolterodine Tartrate [Detrol LA] 4 mg PO DAILY Escitalopram [Lexapro] 10 mg PO DAILY Cholecalciferol [Vitamin D3 (25 Mcg = 1000 Iu)] 50 mcg PO DAILY traMADol HCL [Ultram] 50 mg PO Q6H PRN PRN Reason: Pain Fenofibrate Nanocrystallized [Fenofibrate] 145 mg PO DAILY amLODIPine [Norvasc] 5 mg PO DAILY Furosemide [Lasix] 20 mg PO BID Mirtazapine 7.5 mg PO HS Apixaban [Eliquis] 2.5 mg PO BID busPIRone HCL 15 mg PO TID Metoprolol Succinate (ER) [Toprol XL] 12.5 mg PO DAILY Famotidine [Pepcid] 20 mg PO BID Gabapentin [Neurontin] 100 mg PO TID Discharge Medication List Levothyroxine Sodium 25 mcg PO DAILY 06/18/19 [History] Pravastatin Sodium [Pravachol] 80 mg PO HS 06/18/19 [History] Sodium Bicarbonate Tab 650 mg PO BID 06/18/19 [History] lisinopriL [Prinivil] 10 mg PO DAILY 06/18/19 [History] Tolterodine Tartrate [Detrol LA] 4 mg PO DAILY 07/10/19 [History] Cholecalciferol [Vitamin D3 (25 Mcg = 1000 Iu)] 50 mcg PO DAILY 10/26/19 [History] Escitalopram [Lexapro] 10 mg PO DAILY 10/26/19 [History] Fenofibrate Nanocrystallized [Fenofibrate] 145 mg PO DAILY 12/17/19 [History] traMADol HCL [Ultram] 50 mg PO Q6H PRN 12/17/19 [History] Furosemide [Lasix] 20 mg PO BID 01/29/20 [History] Mirtazapine 7.5 mg PO HS 01/29/20 [History] amLODIPine [Norvasc] 5 mg PO DAILY 01/29/20 [History] Apixaban [Eliquis] 2.5 mg PO BID 01/02/21 [History] Famotidine [Pepcid] 20 mg PO BID 01/02/21 [History] Gabapentin [Neurontin] 100 mg PO TID 01/02/21 [History] Metoprolol Succinate (ER) [Toprol XL] 12.5 mg PO DAILY 01/02/21 [History] busPIRone HCL 15 mg PO TID 01/02/21 [History] Amoxic-Pot Clav 875-125Mg [Augmentin 875-125] 1 each PO Q12HR 7 Days #14 tab 01/10/21 [Rx] Lidocaine 5% Patch [Lidoderm 5% Patch] 1 patch TOPICAL DAILY@1600 #7 patch 01/10/21 [Rx] Melatonin 3 mg PO HS PRN 5 Days #5 tablet 01/10/21 [Rx] Pantoprazole [Protonix] 40 mg PO DAILY #30 tablet. 01/10/21 [Rx] Follow up Appointment(s)/Referral(s): Madai Jacobo MD [STAFF PHYSICIAN] - 1 Week [facility], [NON-STAFF] - Nahum Lopez MD [STAFF PHYSICIAN] - 2 Weeks Activity/Diet/Wound Care/Special Instructions: PCP: Dr. Sanjuanita Mckay: [phone] - 1-2 days..called office and left message to call back with date and time of appointment Heart healthy diet Activity is restricted till you see your doctor please contact your primary mailing machine helper in 1-2 days for follow up and to decide weather you should be on blood thinner (Eliquis) -WE DO NOT RECOMMEND TO TAKE OR NOT TO TAKE ELIQUIS - Discharge Disposition: HOME WITH HOME HEALTH SERVICES
== END 2021-01-10 17:57 | disposition home health service (06) | DRG 682 ==
LOC: EC 14:32 → 4SSUR 17:06
PROVIDERS: ADMIT Hospitalist; ATTEND Hospitalist
PROC: 30233N1 Transfusion of Nonautologous Red Blood Cells into Peripheral Vein, Percutaneous Approach (ICD-10-PCS; principal; 2021-01-09)
DX: N17.9 Acute kidney failure, unspecified (principal); G93.41 Metabolic encephalopathy; I47.1 Supraventricular tachycardia; D62 Acute posthemorrhagic anemia; F05 Delirium due to known physiological condition; N39.0 Urinary tract infection, site not specified; E11.22 Type 2 diabetes mellitus with diabetic chronic kidney disease; E11.51 Type 2 diabetes mellitus with diabetic peripheral angiopathy without gangrene; N18.30 Chronic kidney disease, stage 3 unspecified; E86.0 Dehydration; R77.8 Other specified abnormalities of plasma proteins; R79.89 Other specified abnormal findings of blood chemistry; Z20.822 Contact with and (suspected) exposure to COVID-19; E83.52 Hypercalcemia; R11.0 Nausea; K29.00 Acute gastritis without bleeding; K57.90 Diverticulosis of intestine, part unspecified, without perforation or abscess without bleeding; B96.4 Proteus (mirabilis) (morganii) as the cause of diseases classified elsewhere; I45.10 Unspecified right bundle-branch block; I12.9 Hypertensive chronic kidney disease with stage 1 through stage 4 chronic kidney disease, or unspecified chronic kidney disease; G31.89 Other specified degenerative diseases of nervous system; I08.3 Combined rheumatic disorders of mitral, aortic and tricuspid valves; B96.20 Unspecified Escherichia coli [E. coli] as the cause of diseases classified elsewhere; E03.9 Hypothyroidism, unspecified; F03.90 Unspecified dementia, unspecified severity, without behavioral disturbance, psychotic disturbance, mood disturbance, and anxiety; I48.0 Paroxysmal atrial fibrillation; K52.9 Noninfective gastroenteritis and colitis, unspecified; M25.559 Pain in unspecified hip; E78.5 Hyperlipidemia, unspecified; G89.29 Other chronic pain; M54.5 Low back pain; M81.0 Age-related osteoporosis without current pathological fracture; F41.9 Anxiety disorder, unspecified; Z79.899 Other long term (current) drug therapy; Z79.84 Long term (current) use of oral hypoglycemic drugs; Z79.01 Long term (current) use of anticoagulants; Z79.890 Hormone replacement therapy; Z87.891 Personal history of nicotine dependence
CPT/HCPCS: 36415; 70450; 71045; 71046; 74177; 80048; 80053; 81001; 82607; 82728; 82746; 82747; 83540; 83550; 83605; 83690; 83735; 84145; 84443; 84484; 85025; 85027; 85610; 85652; 85730; 86140; 86850; 86900; 86901; 86920; 87040; 87077; 87086; 87186; 87635; 93005; 93306; 94760; 99285

== ENCOUNTER 2021-02-07 17:01 | Observation (INO) | payer MEDICARE, BC ==
[2021-02-07 17:28] LABS: Basophils # (A) 0.1 k/uL (0-0.2); Basophils % (A) 1 %; Eosinophils # (A) 0.2 k/uL (0-0.7); Eosinophils % (A) 2 %; HCT 27.1 % (34.0-46.0); HGB 8.3 gm/dL (11.4-16.0); Hypochromasia Moderate; Lymphocytes # (A) 1.7 k/uL (1.0-4.8); Lymphocytes % (A) 18 %; MCH 26.3 pg (25.0-35.0); MCHC 30.7 g/dL (31.0-37.0); Monocytes % (A) 11 %; Neutrophils # (A) 6.5 k/uL (1.3-7.7); Neutrophils % (A) 67 %; Platelet Count 615 k/uL (150-450); RBC 3.17 m/uL (3.80-5.40); WBC 9.7 k/uL (3.8-10.6)
[2021-02-07 17:38] LABS: Albumin 3.1 g/dL (3.5-5.0); Calcium 9.4 mg/dL (8.4-10.2); Magnesium 1.5 mg/dL (1.6-2.3); Potassium 3.4 mmol/L (3.5-5.1); Total Bilirubin 0.3 mg/dL (0.2-1.3); Total Protein 6.2 g/dL (6.3-8.2)
[2021-02-07 17:41] LABS: Appearance,Urine Clear (Clear); Bilirubin,Urine Negative (Negative); Blood,Urine Negative (Negative); Color,Urine Yellow; Glucose,Urine (UA) Negative (Negative); Hyaline Casts,Urine 3 /lpf (0-2); Ketones,Urine Negative (Negative); Leukocyte Esterase,Urine Negative (Negative); Mucus,Urine Rare /hpf; Nitrite,Urine Negative (Negative); PH, Urine 6.5 (5.0-8.0); Protein,Urine 3+ (Negative); RBC,Urine 2 /hpf (0-5); Urobilinogen,Urine <2.0 mg/dL (<2.0); WBC,Urine 1 /hpf (0-5)
[2021-02-07 17:42] LABS: MCV 85.5 fL (80.0-100.0)
[2021-02-07 17:50] LABS: Phencyclidine Screen,Urine Not Detected (NotDetected); Urn Cannabinoid Scrn Not Detected (NotDetected)
[2021-02-07 17:51] LABS: Amphetamine Screen,Urine Not Detected (NotDetected); Barbiturate Screen,Urine Not Detected (NotDetected); Benzodiazepines Screen,Urine Not Detected (NotDetected); Cocaine Screen,Urine Not Detected (NotDetected); Methadone Screen, Urine Not Detected (NotDetected); Opiate Screen,Urine Not Detected (NotDetected); Oxycodone Screen, Urine Not Detected (NotDetected); Tricyclic Antidepressant,Urine Not Detected (NotDetected)
--- NOTE | 2021-02-07 17:51 | ED ---
General Adult HPI - General Chief complaint: Overdose Stated complaint: accidental drug ingestion Time Seen by Provider: 02/07/21 17:04 Source: patient Mode of arrival: EMS Limitations: altered mental status - History of Present Illness Initial comments: Dictation was produced using [employer] dictation software. please excuse any grammatical, word or spelling errors. Chief Complaint: 80-year-old female presents to the emergency department for altered mental status. History of Present Illness: 80-year-old female she presents to the emergency department for altered mental status. Patient is a poor historian. She is alert oriented 2 out of 4. The history I obtained from the nurse was that patient was given another family members 1 mg of Ativan at 3 PM. Allegedly patient has had Ativan in the past with similar reaction. Unclear who his prescription of Ativan it was. Nurse was told that it was the daughter's Ativan. Patient reports that her gave her the medicine. Patient has no medical complaints at this time. The ROS documented in this emergency department record has been reviewed and confirmed by me. Those systems with pertinent positive or negative responses have been documented in the HPI. All other systems are other negative and/or noncontributory. PHYSICAL EXAM: General Impression: Alert and oriented x2/4, incorrectly answers month and place, oriented to year and person, not in acute distress HEENT: Normocephalic atraumatic, extra-ocular movements intact, bilateral mydriasis, extremities membranes Cardiovascular: Heart regular rate and rhythm Chest: Able to complete full sentences, no retractions, no tachypnea Abdomen: abdomen soft, non-tender, non-distended, no organomegaly Musculoskeletal: Pulses present and equal in all extremities, no peripheral edema Motor: no focal deficits noted Neurological: CN II-XII grossly intact, no focal motor or sensory deficits noted Skin: Intact with no visualized rashes Psych: Normal affect and mood ED course: 80-year-old female presents with acute altered mental status. Patient allegedly received someone else's prescription of Ativan. She allegedly took 1 mg of Ativan at approximately 3 PM. All signs upon arrival are within acceptable limits. Patient has dilated pupils bilaterally. There is concern of sympathomimetic versus anticholinergic toxicity. More history was obtained over the phone by Alvaro, patient's . According t o leave patient has been having insomnia. She had trouble sleeping last night. At around 1:30 PM she was given Ativan by patient's daughter to help her fall asleep. Shortly after patient showed signs of confusion. reports that patient has frequent episodes of confusion that occur sporadically. Chart review shows that patient was here in the hospital admitted for similar process last month. EKG interpretation: Ventricular rate 63, sinus rhythm,. 126, QRS 142, QTC 485. No FL prolongation, no QTC prolongation, no ST or T-wave changes noted. EKG compared to 01/02/2021 showing no changes. Overall, this EKG is unremarkable Laboratory evaluation was obtained. CBC, metabolic panel is within acceptable limits. An is slightly low 1.5. Patient given parenterally magnesium. Analysis negative. Social blood is negative. Urine drug screen is negative. Computed tomography scan of the brain is unremarkable. and daughter are now at the bedside and spent time with the patient. They've comfortable taking him home. He reports that patient has been having these episodes often. She has appointments with her physicians later this week. feels comfortable taking her home. States that she has been having these episodes for several weeks now. - Related Data Home Medications Medication Instructions Recorded Confirmed Levothyroxine Sodium 25 mcg PO DAILY 06/18/19 02/07/21 Pravastatin Sodium [Pravachol] 80 mg PO HS 06/18/19 02/07/21 Sodium Bicarbonate Tab 650 mg PO BID 06/18/19 02/07/21 lisinopriL [Prinivil] 10 mg PO DAILY 06/18/19 02/07/21 Tolterodine Tartrate [Detrol LA] 4 mg PO DAILY 07/10/19 02/07/21 Cholecalciferol [Vitamin D3 (25 50 mcg PO DAILY 10/26/19 02/07/21 Mcg = 1000 Iu)] Escitalopram [Lexapro] 10 mg PO DAILY 10/26/19 02/07/21 Fenofibrate Nanocrystallized 145 mg PO DAILY 12/17/19 02/07/21 [Fenofibrate] traMADol HCL [Ultram] 50 mg PO Q6H PRN 12/17/19 02/07/21 Furosemide [Lasix] 20 mg PO BID 01/29/20 02/07/21 Mirtazapine 7.5 mg PO HS 01/29/20 02/07/21 amLODIPine [Norvasc] 5 mg PO DAILY 01/29/20 02/07/21 Apixaban [Eliquis] 2.5 mg PO BID 01/02/21 02/07/21 Famotidine [Pepcid] 20 mg PO BID 01/02/21 02/07/21 Gabapentin [Neurontin] 100 mg PO TID 01/02/21 02/07/21 Metoprolol Succinate (ER) [Toprol 12.5 mg PO DAILY 01/02/21 02/07/21 XL] busPIRone HCL 15 mg PO TID 01/02/21 02/07/21 Previous Rx's Medication Instructions Recorded Pantoprazole [Protonix] 40 mg PO DAILY #30 tablet. 01/10/21 Allergies Allergy/AdvReac Type Severity Reaction Status Date / Time No Known Allergies Allergy Verified 02/07/21 18:28 Review of Systems ROS Statement: Those systems with pertinent positive or pertinent negative responses have been documented in the HPI. ROS Other: All systems not noted in ROS Statement are negative. Past Medical History Past Medical History: Diabetes Mellitus, Hyperlipidemia, Hypertension, Renal Disease, Vascular Disorder Additional Past Medical History / Comment(s): osteoporosis. stage III kidney disease. peripheral circ. disorder. DDD. HAS SOME MOLES ON HER BACK THAT HAVE CHANGES RECENTLY-PCP AWARE History of Any Multi-Drug Resistant Organisms: None Reported Past Surgical History: No Surgical Hx Reported Additional Past Surgical History / Comment(s): PAIN CLINIC PROCEDURE for hip pain Past Anesthesia/Blood Transfusion Reactions: No Reported Reaction Past Psychological History: Anxiety Smoking Status: Former smoker Past Alcohol Use History: None Reported Past Drug Use History: None Reported - Past Family History Mother Family Medical History: Cancer Father Family Medical History: Cancer General Exam Limitations: altered mental status Course Vital Signs 02/07/21 02/07/21 02/07/21 17:10 18:00 18:04 Temperature 98.1 F Pulse Rate 67 63 Respiratory 16 16 Rate Blood Pressure 193/71 127/94 167/83 O2 Sat by Pulse 95 95 Oximetry Medical Decision Making - Lab Data Result diagrams: 02/07/21 17:19 02/07/21 17:19 Lab Results 02/07/21 02/07/21 02/07/21 Range/Units 17:19 17:19 17:31 WBC 9.7 (3.8-10.6) k/uL RBC 3.17 L (3.80-5.40) m/uL Hgb 8.3 L (11.4-16.0) gm/dL Hct 27.1 L (34.0-46.0) % MCV 85.5 D (80.0-100.0) fL MCH 26.3 (25.0-35.0) pg MCHC 30.7 L (31.0-37.0) g/dL RDW 15.0 (11.5-15.5) % Plt Count 615 H (150-450) k/uL MPV 7.0 Neutrophils % 67 % Lymphocytes % 18 % Monocytes % 11 % Eosinophils % 2 % Basophils % 1 % Neutrophils # 6.5 (1.3-7.7) k/uL Lymphocytes # 1.7 (1.0-4.8) k/uL Monocytes # 1.0 (0-1.0) k/uL Eosinophils # 0.2 (0-0.7) k/uL Basophils # 0.1 (0-0.2) k/uL Hypochromasia Moderate Sodium 136 L (137-145) mmol/L Potassium 3.4 L (3.5-5.1) mmol/L Chloride 98 (98-107) mmol/L Carbon Dioxide 29 (22-30) mmol/L Anion Gap 9 mmol/L BUN 16 (7-17) mg/dL Creatinine 1.26 H (0.52-1.04) mg/dL Est GFR (CKD-EPI)AfAm 46 (>60 ml/min/1.73 sqM) Est GFR (CKD-EPI)NonAf 40 (>60 ml/min/1.73 sqM) Glucose 110 H (74-99) mg/dL Calcium 9.4 (8.4-10.2) mg/dL Magnesium 1.5 L (1.6-2.3) mg/dL Total Bilirubin 0.3 (0.2-1.3) mg/dL AST 36 (14-36) U/L ALT 10 (4-34) U/L Alkaline Phosphatase 91 (38-126) U/L Total Protein 6.2 L (6.3-8.2) g/dL Albumin 3.1 L (3.5-5.0) g/dL Urine Color Yellow Urine Appearance Clear (Clear) Urine pH 6.5 (5.0-8.0) Ur Specific [place] 1.010 (1.001-1.035) Urine Protein 3+ H (Negative) Urine Glucose (UA) Negative (Negative) Urine Ketones Negative (Negative) Urine Blood Negative (Negative) Urine Nitrite Negative (Negative) Urine Bilirubin Negative (Negative) Urine Urobilinogen <2.0 (<2.0) mg/dL Ur Leukocyte Esterase Negative (Negative) Urine RBC 2 (0-5) /hpf Urine WBC 1 (0-5) /hpf Hyaline Casts 3 H (0-2) /lpf Urine Mucus Rare H (None) /hpf Stool Occult Blood (Negative) Urine Opiates Screen Not Detected (NotDetected) Ur Oxycodone Screen Not Detected (NotDetected) Urine Methadone Screen Not Detected (NotDetected) Ur Propoxyphene Screen Not Detected (NotDetected) Ur Barbiturates Screen Not Detected (NotDetected) U Tricyclic Antidepress Not Detected (NotDetected) Ur Phencyclidine Scrn Not Detected (NotDetected) Ur Amphetamines Screen Not Detected (NotDetected) U Methamphetamines Scrn Not Detected (NotDetected) U Benzodiazepines Scrn Not Detected (NotDetected) Urine Cocaine Screen Not Detected (NotDetected) U Marijuana (THC) Screen Not Detected (NotDetected) 02/07/21 Range/Units 18:28 WBC (3.8-10.6) k/uL RBC (3.80-5.40) m/uL Hgb (11.4-16.0) gm/dL Hct (34.0-46.0) % MCV (80.0-100.0) fL MCH (25.0-35.0) pg MCHC (31.0-37.0) g/dL RDW (11.5-15.5) % Plt Count (150-450) k/uL MPV Neutrophils % % Lymphocytes % % Monocytes % % Eosinophils % % Basophils % % Neutrophils # (1.3-7.7) k/uL Lymphocytes # (1.0-4.8) k/uL Monocytes # (0-1.0) k/uL Eosinophils # (0-0.7) k/uL Basophils # (0-0.2) k/uL Hypochromasia Sodium (137-145) mmol/L Potassium (3.5-5.1) mmol/L Chloride (98-107) mmol/L Carbon Dioxide (22-30) mmol/L Anion Gap mmol/L BUN (7-17) mg/dL Creatinine (0.52-1.04) mg/dL Est GFR (CKD-EPI)AfAm (>60 ml/min/1.73 sqM) Est GFR (CKD-EPI)NonAf (>60 ml/min/1.73 sqM) Glucose (74-99) mg/dL Calcium (8.4-10.2) mg/dL Magnesium (1.6-2.3) mg/dL Total Bilirubin (0.2-1.3) mg/dL AST (14-36) U/L ALT (4-34) U/L Alkaline Phosphatase (38-126) U/L Total Protein (6.3-8.2) g/dL Albumin (3.5-5.0) g/dL Urine Color Urine Appearance (Clear) Urine pH (5.0-8.0) Ur Specific [place] (1.001-1.035) Urine Protein (Negative) Urine Glucose (UA) (Negative) Urine Ketones (Negative) Urine Blood (Negative) Urine Nitrite (Negative) Urine Bilirubin (Negative) Urine Urobilinogen (<2.0) mg/dL Ur Leukocyte Esterase (Negative) Urine RBC (0-5) /hpf Urine WBC (0-5) /hpf Hyaline Casts (0-2) /lpf Urine Mucus (None) /hpf Stool Occult Blood Negative (Negative) Urine Opiates Screen (NotDetected) Ur Oxycodone Screen (NotDetected) Urine Methadone Screen (NotDetected) Ur Propoxyphene Screen (NotDetected) Ur Barbiturates Screen (NotDetected) U Tricyclic Antidepress (NotDetected) Ur Phencyclidine Scrn (NotDetected) Ur Amphetamines Screen (NotDetected) U Methamphetamines Scrn (NotDetected) U Benzodiazepines Scrn (NotDetected) Urine Cocaine Screen (NotDetected) U Marijuana (THC) Screen (NotDetected) Disposition Clinical Impression: Benzodiazepine intoxication Disposition: HOME SELF-CARE Condition: Fair Instructions (If sedation given, give patient instructions): Adult Overdose (ED) Is patient prescribed a controlled substance at d/c from ED?: No Referrals: Nonstaff,Physician [Primary Care Provider] - 1-2 days
[2021-02-07] MEDS: MAGNESIUM SULFATE-D5W PMX 1 GM in DEXTROSE/WATER 1 100ML.BAG IVPB SCH ×2 (17:59→18:55)
--- NOTE | 2021-02-07 18:40 | CT ---
EXAM: CT brain wo con CLINICAL HISTORY: Mental status changes. COMPARISON: 01/02/2021. TECHNIQUE: Contiguous axial noncontrast images of the brain were obtained. Coronal and sagittal refor mats were generated and reviewed. Automated dose control was used for this exam. FINDINGS: There is no evidence for intracranial hemorrhage, mass effect or midline shift. Moderate white matter disease and parenchymal volume loss. Ventricular size and configuration is within normal limits for degree of parenchymal volume. The paranasal sinuses are clear. The mastoid air cells are clear. No evidence for calvarial fracture. IMPRESSION: No acute intracranial abnormality.
[2021-02-07] MEDS ORDERED: NALOXONE 0.4 MG/ML 1 ML VIAL IV PRN (19:14)
[2021-02-07] MEDS ORDERED: SODIUM CHLORIDE 0.9% 1,000 ML IV SCH (19:15)
--- NOTE | 2021-02-07 19:16 | ED ---
Medical Decision Making - Medical Decision Making Patient was about to be discharged however family reconsidered and preferred the patient be admitted due to perhaps difficulty care of the patient at home. Patient will be admitted observation. - Lab Data Result diagrams: 02/07/21 17:19 02/07/21 17:19 Lab Results 02/07/21 02/07/21 02/07/21 Range/Units 17:19 17:19 17:31 WBC 9.7 (3.8-10.6) k/uL RBC 3.17 L (3.80-5.40) m/uL Hgb 8.3 L (11.4-16.0) gm/dL Hct 27.1 L (34.0-46.0) % MCV 85.5 D (80.0-100.0) fL MCH 26.3 (25.0-35.0) pg MCHC 30.7 L (31.0-37.0) g/dL RDW 15.0 (11.5-15.5) % Plt Count 615 H (150-450) k/uL MPV 7.0 Neutrophils % 67 % Lymphocytes % 18 % Monocytes % 11 % Eosinophils % 2 % Basophils % 1 % Neutrophils # 6.5 (1.3-7.7) k/uL Lymphocytes # 1.7 (1.0-4.8) k/uL Monocytes # 1.0 (0-1.0) k/uL Eosinophils # 0.2 (0-0.7) k/uL Basophils # 0.1 (0-0.2) k/uL Hypochromasia Moderate Sodium 136 L (137-145) mmol/L Potassium 3.4 L (3.5-5.1) mmol/L Chloride 98 (98-107) mmol/L Carbon Dioxide 29 (22-30) mmol/L Anion Gap 9 mmol/L BUN 16 (7-17) mg/dL Creatinine 1.26 H (0.52-1.04) mg/dL Est GFR (CKD-EPI)AfAm 46 (>60 ml/min/1.73 sqM) Est GFR (CKD-EPI)NonAf 40 (>60 ml/min/1.73 sqM) Glucose 110 H (74-99) mg/dL Calcium 9.4 (8.4-10.2) mg/dL Magnesium 1.5 L (1.6-2.3) mg/dL Total Bilirubin 0.3 (0.2-1.3) mg/dL AST 36 (14-36) U/L ALT 10 (4-34) U/L Alkaline Phosphatase 91 (38-126) U/L Total Protein 6.2 L (6.3-8.2) g/dL Albumin 3.1 L (3.5-5.0) g/dL Urine Color Yellow Urine Appearance Clear (Clear) Urine pH 6.5 (5.0-8.0) Ur Specific [place] 1.010 (1.001-1.035) Urine Protein 3+ H (Negative) Urine Glucose (UA) Negative (Negative) Urine Ketones Negative (Negative) Urine Blood Negative (Negative) Urine Nitrite Negative (Negative) Urine Bilirubin Negative (Negative) Urine Urobilinogen <2.0 (<2.0) mg/dL Ur Leukocyte Esterase Negative (Negative) Urine RBC 2 (0-5) /hpf Urine WBC 1 (0-5) /hpf Hyaline Casts 3 H (0-2) /lpf Urine Mucus Rare H (None) /hpf Stool Occult Blood (Negative) Urine Opiates Screen Not Detected (NotDetected) Ur Oxycodone Screen Not Detected (NotDetected) Urine Methadone Screen Not Detected (NotDetected) Ur Propoxyphene Screen Not Detected (NotDetected) Ur Barbiturates Screen Not Detected (NotDetected) U Tricyclic Antidepress Not Detected (NotDetected) Ur Phencyclidine Scrn Not Detected (NotDetected) Ur Amphetamines Screen Not Detected (NotDetected) U Methamphetamines Scrn Not Detected (NotDetected) U Benzodiazepines Scrn Not Detected (NotDetected) Urine Cocaine Screen Not Detected (NotDetected) U Marijuana (THC) Screen Not Detected (NotDetected) 02/07/21 Range/Units 18:28 WBC (3.8-10.6) k/uL RBC (3.80-5.40) m/uL Hgb (11.4-16.0) gm/dL Hct (34.0-46.0) % MCV (80.0-100.0) fL MCH (25.0-35.0) pg MCHC (31.0-37.0) g/dL RDW (11.5-15.5) % Plt Count (150-450) k/uL MPV Neutrophils % % Lymphocytes % % Monocytes % % Eosinophils % % Basophils % % Neutrophils # (1.3-7.7) k/uL Lymphocytes # (1.0-4.8) k/uL Monocytes # (0-1.0) k/uL Eosinophils # (0-0.7) k/uL Basophils # (0-0.2) k/uL Hypochromasia Sodium (137-145) mmol/L Potassium (3.5-5.1) mmol/L Chloride (98-107) mmol/L Carbon Dioxide (22-30) mmol/L Anion Gap mmol/L BUN (7-17) mg/dL Creatinine (0.52-1.04) mg/dL Est GFR (CKD-EPI)AfAm (>60 ml/min/1.73 sqM) Est GFR (CKD-EPI)NonAf (>60 ml/min/1.73 sqM) Glucose (74-99) mg/dL Calcium (8.4-10.2) mg/dL Magnesium (1.6-2.3) mg/dL Total Bilirubin (0.2-1.3) mg/dL AST (14-36) U/L ALT (4-34) U/L Alkaline Phosphatase (38-126) U/L Total Protein (6.3-8.2) g/dL Albumin (3.5-5.0) g/dL Urine Color Urine Appearance (Clear) Urine pH (5.0-8.0) Ur Specific [place] (1.001-1.035) Urine Protein (Negative) Urine Glucose (UA) (Negative) Urine Ketones (Negative) Urine Blood (Negative) Urine Nitrite (Negative) Urine Bilirubin (Negative) Urine Urobilinogen (<2.0) mg/dL Ur Leukocyte Esterase (Negative) Urine RBC (0-5) /hpf Urine WBC (0-5) /hpf Hyaline Casts (0-2) /lpf Urine Mucus (None) /hpf Stool Occult Blood Negative (Negative) Urine Opiates Screen (NotDetected) Ur Oxycodone Screen (NotDetected) Urine Methadone Screen (NotDetected) Ur Propoxyphene Screen (NotDetected) Ur Barbiturates Screen (NotDetected) U Tricyclic Antidepress (NotDetected) Ur Phencyclidine Scrn (NotDetected) Ur Amphetamines Screen (NotDetected) U Methamphetamines Scrn (NotDetected) U Benzodiazepines Scrn (NotDetected) Urine Cocaine Screen (NotDetected) U Marijuana (THC) Screen (NotDetected) Disposition Clinical Impression: Benzodiazepine intoxication, Altered behavior Disposition: ADMITTED IP TO THIS [facility] Condition: Fair Referrals: Nonstaff,Physician [Primary Care Provider] - 1-2 days
[2021-02-07 22:42] LABS: Glucose,Whole Blood 111 mg/dL (75-99)
[2021-02-08] MEDS ORDERED: lisinopriL 10 MG TAB PO SCH (09:15)
[2021-02-08] MEDS ORDERED: PANTOPRAZOLE 40 MG TABLET PO SCH (09:15)
[2021-02-08] MEDS ORDERED: ESCITALOPRAM 10 MG TAB PO SCH (09:15)
[2021-02-08] MEDS ORDERED: OXYBUTYNIN XL 5 MG TAB.ER.24 PO SCH (09:15)
[2021-02-08] MEDS ORDERED: SODIUM BICARBONATE TAB 650 MG TAB PO SCH (09:15)
[2021-02-08] MEDS ORDERED: METOPROLOL SUCCINATE (ER) 25 MG TAB.ER.24H PO SCH (09:15)
[2021-02-08] MEDS ORDERED: amLODIPine 5 MG TAB PO SCH (09:15)
[2021-02-08] MEDS ORDERED: LEVOTHYROXINE 25 MCG TAB PO SCH (09:30)
[2021-02-08 13:36] VITALS: BP 182/68; PULSE 79; RESP 16; TEMP 98.7
[2021-02-08] MEDS ORDERED: ACETAMINOPHEN TAB 325 MG TAB PO PRN (14:26)
--- NOTE | 2021-02-08 15:26 | P.HPIM ---
History of Present Illness H&P Date: 02/08/21 This is a pleasant 80-year-old female who presented to the emergency room accompanied by her daughter and her . Patient is oriented 3 the time of my assessment. However states that over the last 2-3 days she has been having trouble sleeping at night and his episodes of acute confusion throughout the evening. Patient usually takes mirtazapine 7.5 mg at bedtime. Patient and her live with daughter, but given patient a 1 mg tablet of Ativan to help patient get to sleep. After this Ativan, patient was very lethargic and confused and was brought to the hospital for evaluation. Patient was recently admitted from January 02 to January 10 for confusion, poor intake, dehydration. Patient has a past medical history for A. fib, diabetes, hypertension, hyperlipidemia, renal disorder stage III chronic kidney disease, peripheral vascular disorder, degenerative disc disease and she follows up with a pain clinic for hip pain. Patient also has a history of anxiety, she takes Lexapro daily, Buspirone 3 times a day as well as mirtazapine at bedtime. Patient's focal neurological exam is negative, my assessment. She had a brain CT that was negative for any acute process. EKG revealed normal sinus rhythm in the 60s. Patient is maintained on eliquis 2.5 mg twice a day renal dosing. During her last hospital stay patient was found to have a hemoglobin of 6.4 patient did receive 1 unit of PRBCs. Patient's hemoglobin today is 8.3 which is trending upwards from previous admission. There is no signs of active bleeding, patient denies any blood in her stool. Potassium was 3.4 yesterday, it was not supplemented, magnesium 1.5 patient received 2 bags of IV magnesium. Labs are currently pending from today. Please replace per protocol. Creatinine is 1.26 which appears to be patient's baseline. Occult blood was negative, urine negative for infection, toxicology was negative. COVID negative. Vital signs have remained stable since admission, patient is afebrile, heart rate sinus rhythm in the 70s, blood pressure 181/69 patient has resumed all her antihypertensive medication this morning. Patient was evaluated by neuro services in December 2020, workup was negative. It was felt by neurology that it was unclear whether patient was taking mirtazapine for history of dementia. REVIEW OF SYSTEMS: CONSTITUTIONAL: No fever, no malaise, no fatigue. HEENT: No recent visual problems or hearing problems. Denied any sore throat. CARDIOVASCULAR: No chest pain, orthopnea, PND, no palpitations, no syncope. PULMONARY: No shortness of breath, no cough, no hemoptysis. GASTROINTESTINAL: No diarrhea, no nausea, no vomiting, no abdominal pain. NEUROLOGICAL: No headaches, no weakness, no numbness. HEMATOLOGICAL: Denies any bleeding or petechiae. GENITOURINARY: Denies any burning micturition, frequency, or urgency. MUSCULOSKELETAL/RHEUMATOLOGICAL: Denies any joint pain, swelling, or any muscle pain. ENDOCRINE: Denies any polyuria or polydipsia. The rest of the 14-point review of systems is negative. PHYSICAL EXAMINATION: GENERAL: The patient is alert and oriented x3, not in any acute distress. Well developed, well nourished. HEENT: Pupils are round and equally reacting to light. EOMI. No scleral icterus. No conjunctival pallor. Normocephalic, atraumatic. No pharyngeal erythema. No thyromegaly. CARDIOVASCULAR: S1 and S2 present. No murmurs, rubs, or gallops. PULMONARY: Chest is clear to auscultation, no wheezing or crackles. ABDOMEN: Soft, nontender, nondistended, normoactive bowel sounds. No palpable organomegaly. MUSCULOSKELETAL: No joint swelling or deformity. EXTREMITIES: No cyanosis, clubbing, or pedal edema. NEUROLOGICAL: Gross neurological examination did not reveal any focal deficits. SKIN: No rashes. Assessment and plan 1. Acute Toxic Encephalopathy r/t Ativan Use and Polypharmacy, improved alert and oriented 3 time of my assessment 2. Vascular Dementia cannot be excluded. Acute agitation and sundowners in the evenings per , on mirtazipine will add small dose of seroquel 3. hypomagnesia, hypokalemia - replace per protocol. Repeat outpatient 4. atrial fibrillation, paroxsymal on eliquis 5. diabetes mellitus type 2, on oral agents, diet controlled 6. hypertension, continue all medications 7. hyperlipidemia, continue on statin 8. stage 3 CKD most likely r/t diabetic nephropathy; CR 1.26 which is baseline 9. anxiety; on buspar, and lexapro 10. GI prophylaxis -Protonix 11. DVT prophylaxis - on Eliquis Patient is physically exhibiting symptoms of a vascular dementia, due to some mild agitation and sundowners. The is describing at home. Patient states that she does feel some confusion in the late afternoon and evenings. We will try low-dose of Seroquel 12.5 as needed to promote sleep. Please replace LITES per protocol. Patient is stable for discharge home with daughter and . Please follow-up with PCP. Past Medical History Past Medical History: Atrial Fibrillation, Diabetes Mellitus, Hyperlipidemia, Hypertension, Renal Disease, Vascular Disorder Additional Past Medical History / Comment(s): osteoporosis. stage III kidney disease. peripheral circ. disorder. DDD. HAS SOME MOLES ON HER BACK THAT HAVE CHANGES RECENTLY-PCP AWARE. Gout History of Any Multi-Drug Resistant Organisms: None Reported Past Surgical History: No Surgical Hx Reported Additional Past Surgical History / Comment(s): PAIN CLINIC PROCEDURE for hip pain Past Anesthesia/Blood Transfusion Reactions: No Reported Reaction Past Psychological History: Anxiety Smoking Status: Former smoker Past Alcohol Use History: None Reported Additional Past Alcohol Use History / Comment(s): QUIT SMOKING 25+YEARS AGO Past Drug Use History: None Reported - Past Family History Mother Family Medical History: Cancer Father Family Medical History: Cancer Medications and Allergies Home Medications Medication Instructions Recorded Confirmed Type Levothyroxine Sodium 25 mcg PO DAILY 06/18/19 02/07/21 History Pravastatin Sodium [Pravachol] 80 mg PO HS 06/18/19 02/07/21 History Sodium Bicarbonate Tab 650 mg PO BID 06/18/19 02/07/21 History lisinopriL [Prinivil] 10 mg PO DAILY 06/18/19 02/07/21 History Tolterodine Tartrate [Detrol LA] 4 mg PO DAILY 07/10/19 02/07/21 History Cholecalciferol [Vitamin D3 (25 50 mcg PO DAILY 10/26/19 02/07/21 History Mcg = 1000 Iu)] Escitalopram [Lexapro] 10 mg PO DAILY 10/26/19 02/07/21 History Fenofibrate Nanocrystallized 145 mg PO DAILY 12/17/19 02/07/21 History [Fenofibrate] traMADol HCL [Ultram] 50 mg PO Q6H PRN 12/17/19 02/07/21 History Furosemide [Lasix] 20 mg PO BID 01/29/20 02/07/21 History Mirtazapine 7.5 mg PO HS 01/29/20 02/07/21 History amLODIPine [Norvasc] 5 mg PO DAILY 01/29/20 02/07/21 History Apixaban [Eliquis] 2.5 mg PO BID 01/02/21 02/07/21 History Famotidine [Pepcid] 20 mg PO BID 01/02/21 02/07/21 History Gabapentin [Neurontin] 100 mg PO TID 01/02/21 02/07/21 History Metoprolol Succinate (ER) [Toprol 12.5 mg PO DAILY 01/02/21 02/07/21 History XL] busPIRone HCL 15 mg PO TID 01/02/21 02/07/21 History Pantoprazole [Protonix] 40 mg PO DAILY #30 tablet. 01/10/21 02/07/21 Rx Allergies Allergy/AdvReac Type Severity Reaction Status Date / Time No Known Allergies Allergy Verified 02/07/21 18:28 Physical Exam Vitals: Vital Signs Temp Pulse Pulse Resp BP BP Pulse Ox 02/08/21 07:00 98.1 F 71 18 181/69 96 02/08/21 00:51 97.7 F 80 18 177/67 93 L 02/07/21 22:00 61 20 02/07/21 21:18 97.3 F L 61 20 156/65 93 L 02/07/21 18:04 167/83 02/07/21 18:00 63 16 127/94 95 02/07/21 17:10 98.1 F 67 16 193/71 95 Intake and Output 02/07/21 02/08/21 02/08/21 22:59 06:59 14:59 Intake Total 90 Balance 90 Intake: Oral 90 Other: Voiding Method Toilet # Voids 5 0 Weight 59.421 kg Results CBC & Chem 7: 02/07/21 17:19 02/07/21 17:19 Labs: Abnormal Lab Results - Last 24 Hours (Table) 02/07/21 02/07/21 02/07/21 Range/Units 17:19 17:19 17:31 RBC 3.17 L (3.80-5.40) m/uL Hgb 8.3 L (11.4-16.0) gm/dL Hct 27.1 L (34.0-46.0) % MCHC 30.7 L (31.0-37.0) g/dL Plt Count 615 H (150-450) k/uL Sodium 136 L (137-145) mmol/L Potassium 3.4 L (3.5-5.1) mmol/L Creatinine 1.26 H (0.52-1.04) mg/dL Glucose 110 H (74-99) mg/dL POC Glucose (mg/dL) (75-99) mg/dL Magnesium 1.5 L (1.6-2.3) mg/dL Total Protein 6.2 L (6.3-8.2) g/dL Albumin 3.1 L (3.5-5.0) g/dL Urine Protein 3+ H (Negative) Hyaline Casts 3 H (0-2) /lpf Urine Mucus Rare H (None) /hpf 02/07/21 Range/Units 22:36 RBC (3.80-5.40) m/uL Hgb (11.4-16.0) gm/dL Hct (34.0-46.0) % MCHC (31.0-37.0) g/dL Plt Count (150-450) k/uL Sodium (137-145) mmol/L Potassium (3.5-5.1) mmol/L Creatinine (0.52-1.04) mg/dL Glucose (74-99) mg/dL POC Glucose (mg/dL) 111 H (75-99) mg/dL Magnesium (1.6-2.3) mg/dL Total Protein (6.3-8.2) g/dL Albumin (3.5-5.0) g/dL Urine Protein (Negative) Hyaline Casts (0-2) /lpf Urine Mucus (None) /hpf Thrombosis Risk Factor Assmnt - Choose All That Apply Each Risk Factor Represents 3 Points: Age 75 years or older Thrombosis Risk Factor Assessment Total Risk Factor Score: 3 Thrombosis Risk Factor Assessment Level: Moderate Risk
[2021-02-08] MEDS ORDERED: QUEtiapine 25 MG TAB PO PRN (15:33)
[2021-02-08] MEDS ORDERED: Magnesium Replacement Protocol 1 EACH MISC MISCELLANE PRN (15:34)
[2021-02-08] MEDS ORDERED: Potassium Replacement Protocol 1 EACH MISC MISCELLANE PRN (15:34)
[2021-02-08 16:12] LABS: Basophils # (A) 0.06 X 10*3/uL (0.00-0.10); Basophils % (A) 0.4 %; Eosinophils # (A) 0.27 X 10*3/uL (0.04-0.35); Eosinophils % (A) 1.7 %; HCT 24.8 % (37.2-46.3); HGB 7.9 g/dL (12.0-15.0); Lymphocytes # (A) 0.52 X 10*3/uL (0.90-5.00); Lymphocytes % (A) 3.3 %; MCH 29.3 pg (27.0-32.0); MCHC 31.9 g/dL (32.0-37.0); MCV 91.9 fL (80.0-97.0); Mean Platelet Volume 9.5 fL (9.5-12.2); Monocytes # (A) 1.36 X 10*3/uL (0.20-1.00); Monocytes % (A) 8.7 %; Neutrophils # (A) 13.35 X 10*3/uL (1.80-7.70); Neutrophils % (A) 85.5 %; Platelet Count 585 X 10*3/uL (140-440); RDW 16.2 % (11.5-14.5); WBC 15.63 X 10*3/uL (4.50-10.00)
--- NOTE | 2021-02-08 17:59 | P.DS ---
Providers Date of admission: 02/07/21 19:14 Attending physician: Ludmila Fraser Primary care physician: Physician Nonstaff Hospital Course: Final Diagnosis 1. Acute Toxic Encephalopathy r/t Ativan Use and Polypharmacy, improved alert and oriented 3 time of my assessment 2. Vascular Dementia cannot be excluded. Acute agitation and sundowners in the evenings per , will add small dose of seroquel, DC mirtazipine 3. hypomagnesia, hypokalemia - replace per protocol. Repeat outpatient 4. atrial fibrillation, paroxsymal on eliquis 5. diabetes mellitus type 2, on oral agents, diet controlled 6. hypertension, continue all medications 7. hyperlipidemia, continue on statin 8. stage 3 CKD most likely r/t diabetic nephropathy; CR 1.26 which is baseline 9. anxiety; on buspar, and lexapro Discharge Disposition Patient is discharged home with at beside. She and her currently live with their daughter. Pts states that recently she has been agitated confused and having a hard time sleeping at night. Pt was evaluated by neurology in 12/2020 which was a negative work-up. Patient will need a repeat CBC and BMP in 2-3 days to check sodium and magnesium level. Follow up with PCP in 1-2 days, Dr. Sanjuanita Mckay. Hospital Course This is a pleasant 80 year old female with a PMH for afib maintained on eliquis, DM type 2, hypertension, hyperlipidemia, chronic kidney diseasee stage 3, Cr 1.62, appears to be baseline. She follows with Dr Rocha. She was admitted to the hospital for some acute confusion r/t her daughter giving her 1 mg of PO ativan to help her sleep and the patient becoming confused and lethargic. Patients toxicology however was negative. Patient has a history of anxiety and takes buspar and lexapro. Patient was initially going to be discharged from the ER, however she was admitting for observation overnight. Brain CT was negative for any acute intracranial abnormality. At the time of my assessment patient was Alert and oriented x 3 and states that she was feeling much better. Pts magnesium in the EC was 1.5, she received 2 bags. Her potassium was 3.4. She was supposed to receive supplementation prior to discharge pending a recheck, however, she left with her before her morning labs were back. Patient was sent home on a small dose of 12.5 mg PO of seroquel as needed at bedtime to promote sleep. Patient will stop the remeron. Patient was discharged on po potassium 20 meq daily with repeat CBC/BMP in 2-3 days. Her labwork came back with a WBC of 15.63 after patient had left he hospital, this is most likely reactive in nature, as there were no signs of infection, urinalysis was WNL, and pt has been afebrile. Covid is negative. Vital signs are stable, afebrile, SR in the 70's, BP 180/60's. Will increase norvasc to 10 mg po daily. QTC was reviewed; 486, f/u with an EKG outpt to ensure QT is stable while on lexapro and seroquel combination. 02/08/2021 Patient is alert and oriented today. She reports feeling better. Her focal neurological examination is negative. Patients is at the bedside and feels her mentation has restored to baseline. Medications have been adjusted as documented. Unfortunatley, patient left before her morning labs were resulted. Script for oral potassium was sent, and pt was given scripts for repeat blood work. She will follow up with her PCP. Lungs are clear, s1 and s2 are auscultated. Pt was up in the chair today, tolerated diet. She denies chest pain , palpitations, cough, SOB, n/v. She denies any blood in her stool. She states that since her previous admission this has resolved. Please see medication reconciliation for a list of current medications. Thank you for allowing us to participate in the care of this patient. Patient Condition at Discharge: Fair Plan - Discharge Summary New Discharge Prescriptions: New QUEtiapine [SEROquel] 12.5 mg PO HS PRN #20 tab PRN Reason: Agitation Or Acute Anxiety Potassium Chloride ER [K-Dur 20] 20 meq PO DAILY #30 tab Continue Sodium Bicarbonate Tab 650 mg PO BID Pravastatin Sodium [Pravachol] 80 mg PO HS lisinopriL [Prinivil] 10 mg PO DAILY Levothyroxine Sodium 25 mcg PO DAILY Tolterodine Tartrate [Detrol LA] 4 mg PO DAILY Escitalopram [Lexapro] 10 mg PO DAILY Cholecalciferol [Vitamin D3 (25 Mcg = 1000 Iu)] 50 mcg PO DAILY traMADol HCL [Ultram] 50 mg PO Q6H PRN PRN Reason: Pain Fenofibrate Nanocrystallized [Fenofibrate] 145 mg PO DAILY amLODIPine [Norvasc] 5 mg PO DAILY Furosemide [Lasix] 20 mg PO BID Apixaban [Eliquis] 2.5 mg PO BID busPIRone HCL 15 mg PO TID Metoprolol Succinate (ER) [Toprol XL] 12.5 mg PO DAILY Pantoprazole [Protonix] 40 mg PO DAILY #30 tablet. Famotidine [Pepcid] 20 mg PO BID Gabapentin [Neurontin] 100 mg PO TID Discontinued Mirtazapine 7.5 mg PO HS Discharge Medication List Levothyroxine Sodium 25 mcg PO DAILY 06/18/19 [History] Pravastatin Sodium [Pravachol] 80 mg PO HS 06/18/19 [History] Sodium Bicarbonate Tab 650 mg PO BID 06/18/19 [History] lisinopriL [Prinivil] 10 mg PO DAILY 06/18/19 [History] Tolterodine Tartrate [Detrol LA] 4 mg PO DAILY 07/10/19 [History] Cholecalciferol [Vitamin D3 (25 Mcg = 1000 Iu)] 50 mcg PO DAILY 10/26/19 [History] Escitalopram [Lexapro] 10 mg PO DAILY 10/26/19 [History] Fenofibrate Nanocrystallized [Fenofibrate] 145 mg PO DAILY 12/17/19 [History] traMADol HCL [Ultram] 50 mg PO Q6H PRN 12/17/19 [History] Furosemide [Lasix] 20 mg PO BID 01/29/20 [History] amLODIPine [Norvasc] 5 mg PO DAILY 01/29/20 [History] Apixaban [Eliquis] 2.5 mg PO BID 01/02/21 [History] Famotidine [Pepcid] 20 mg PO BID 01/02/21 [History] Gabapentin [Neurontin] 100 mg PO TID 01/02/21 [History] Metoprolol Succinate (ER) [Toprol XL] 12.5 mg PO DAILY 01/02/21 [History] busPIRone HCL 15 mg PO TID 01/02/21 [History] Pantoprazole [Protonix] 40 mg PO DAILY #30 tablet. 01/10/21 [Rx] Potassium Chloride ER [K-Dur 20] 20 meq PO DAILY #30 tab 02/08/21 [Rx] QUEtiapine [SEROquel] 12.5 mg PO HS PRN #20 tab 02/08/21 [Rx] Follow up Appointment(s)/Referral(s): Nonstaff,Physician [Primary Care Provider] - 1-2 days Ambulatory/Diagnostic Orders: Basic Metabolic Panel [LAB.AMB] Time Frame: 3 Days, Location: None Selected Complete Blood Count w/diff [LAB.AMB] Location: None Selected Patient Instructions/Handouts: Altered Mental Status (GEN) Activity/Diet/Wound Care/Special Instructions: Please follow up with neurology and PCP Patient is started on Seroquel as needed for acute agitation only give at bedtime Remeron discontinued Please follow up with potassium and magnesium Discharge Disposition: HOME SELF-CARE
[2021-02-08] MEDS ORDERED: PRAVASTATIN SODIUM 80 MG TAB PO SCH (21:00)
[2021-02-08] MEDS ORDERED: MIRTAZAPINE 15 MG TAB PO SCH (21:00)
[2021-02-08 21:48] LABS: African American GFR (CKD) 49.1 (60.0-200.0); Anion Gap 10.7 mmol/L (4.00-12.00); BUN/Creat Ratio 11.67 Ratio (12.00-20.00); Carbon Dioxide 25.3 mmol/L (21.6-31.8); Magnesium 1.8 mg/dL (1.5-2.4); Non-African American GFR(CKD) 42.3 (60.0-200.0); Potassium 3.7 mmol/L (3.5-5.5)
== END 2021-02-08 17:02 | disposition home or self-care (01) ==
LOC: EC 17:01 → EEVIPCON 19:14 → 6NMEDSUR 19:14
PROVIDERS: ADMIT Hospitalist; ATTEND Hospitalist
DX: T50.901A Poisoning by unspecified drugs, medicaments and biological substances, accidental (unintentional), initial encounter (principal); G92 Toxic encephalopathy; F05 Delirium due to known physiological condition; Z20.822 Contact with and (suspected) exposure to COVID-19; E83.42 Hypomagnesemia; E78.5 Hyperlipidemia, unspecified; E87.6 Hypokalemia; F41.9 Anxiety disorder, unspecified; G47.00 Insomnia, unspecified; I12.9 Hypertensive chronic kidney disease with stage 1 through stage 4 chronic kidney disease, or unspecified chronic kidney disease; E11.22 Type 2 diabetes mellitus with diabetic chronic kidney disease; E11.51 Type 2 diabetes mellitus with diabetic peripheral angiopathy without gangrene; I48.91 Unspecified atrial fibrillation; M81.0 Age-related osteoporosis without current pathological fracture; N18.30 Chronic kidney disease, stage 3 unspecified; Z79.01 Long term (current) use of anticoagulants; Z79.890 Hormone replacement therapy; Z79.899 Other long term (current) drug therapy; Z87.891 Personal history of nicotine dependence
CPT/HCPCS: 99285; 96365; 36415; 93005; 80053; 80048; 83735 ×2; 85025 ×2; 82272; 81001; 80306; 87635; 70450; G0378 ×2; J3475

== ENCOUNTER 2022-08-10 14:25 | Day surgery (SDC) | payer MEDICARE, BC ==
[~2022-08-10 14:25] MED LIST changes: +LABETALOL 5 MG/ML VIAL MDV ONE; +LIDOCAINE 1% (10MG/ML) FOR IV START INTRADERMA PRN; +LIDOCAINE 2% INJ 20 MG/ML (2 ML VIAL) ONE; +PROPOFOL 10 MG/ML 20 ML VIAL IV ONE
[2022-08-10 16:38] LABS: Glucose,Whole Blood 97 mg/dL (70-110)
[2022-08-10 16:40] VITALS: TEMP 97.7
--- NOTE | 2022-08-10 17:15 | P.PCN ---
Date of Procedure: 08/10/22 Procedure(s) Performed: Brief history: Patient is a pleasant 81-year-old white female scheduled for an elective upper endoscopy as well as colonoscopy as a part of evaluation of iron deficiency anemia. Patient has history of A. fib and has been on a liquid was. She had severe anemia requiring blood transfusions almost on a monthly basis for the last 4-5 months. She was hospitalized at [facility] last week with black tarry stools and hemoglobin of 6-20 units of PRBC transfusion. Procedure performed: Esophagogastroduodenoscopy with argon plasma coagulation and Endo Clip placement Colonoscopy Preoperative diagnosis: Iron deficiency anemia and intermittent black tarry stools [place] [facility] [place] After informed consent was obtained from the patient was brought into the endoscopy unit and IV sedation was administered by anesthesia under continuous monitoring. Initially upper endoscopy was done. The Olympus GF 160 video endoscope was inserted inserted into the mouth and esophagus intubated without any difficulty and was gradually advanced into the stomach and duodenum and carefully examined. The bulb of the duodenum appeared normal. The second part of the duodenum there was a 7-8 mm actively bleeding duodenal AVM. Initially the plasma coag ablation was performed and was unable to obtain hemostasis. At this time and Endo Clip was placed and good hemostasis was achieved. Small sliding Hernia Noted The scope was then withdrawn into the stomach adequately insufflated with air and upon careful examination the antrum and body, cardia and fundus appeared normal. The scope was then withdrawn into the esophagus. The GE junction was located at 38 cm to the incisors. It appeared regular with no erythema erosions or ulcerations. Rest of the esophagus appeared normal. Patient tolerated the procedure well. At this time the patient continued to remain sedation. Initial digital rectal examination was normal. Olympus CF 160 video colonoscope was then inserted into the rectum and gradually advanced to the cecum without any difficulty. Careful examination was performed as the scope was gradually being withdrawn. The prep was fair.. The cecum, ascending colon, transverse colon, descending colon, sigmoid colon and rectum appeared normal. Moderate sigmoidal reticulosis seen. Retroflexion was performed in the rectum and no lesions were noted. Patient tolerated the procedure well. Impression: 1. 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 colonoscopy revealed scattered sigmoid diverticulosis but no evidence of colitis, dysplasia or colorectal neoplasia Recommendations: Findings of this examination were discussed with the patient as well as her family. She was advised to resume eliquis tomorrow. Monitor CBC on a periodic basis.
[2022-08-10 17:45] VITALS: BP 190/72; PULSE 66; RESP 16
== END 2022-08-10 18:02 | disposition home or self-care (01) ==
LOC: ORWHC2ENDO 14:25 → EEVIPCON 15:00 → ORWHC2ENDO 18:02
PROVIDERS: ATTEND Internal Medicine Gastroenterology
DX: K31.811 Angiodysplasia of stomach and duodenum with bleeding (principal); K57.30 Diverticulosis of large intestine without perforation or abscess without bleeding; D50.9 Iron deficiency anemia, unspecified; I13.0 Hypertensive heart and chronic kidney disease with heart failure and stage 1 through stage 4 chronic kidney disease, or unspecified chronic kidney disease; I50.9 Heart failure, unspecified; I48.91 Unspecified atrial fibrillation; E78.5 Hyperlipidemia, unspecified; N18.30 Chronic kidney disease, stage 3 unspecified; Z79.899 Other long term (current) drug therapy; Z79.01 Long term (current) use of anticoagulants
CPT/HCPCS: 45378; 43255; 43270; J2704; J2001

== ENCOUNTER 2023-03-20 14:52 | Emergency (ER) | payer MEDICARE, BC ==
--- NOTE | 2023-03-20 15:07 | ED ---
Weakness HPI - General Source: patient, RN notes reviewed Mode of arrival: ambulatory Limitations: no limitations - History of Present Illness Complaint: generalized weakness <Chelsi Olivo - Last Filed: 03/20/23 15:05> - History of Present Illness Complaint: generalized weakness, lack of energy -: hour(s) Location: generalized Severity: moderate Severity scale (1-10): 4 Consistency: constant Improves with: none Worsens with: none Context: history of similar Associated Symptoms: denies other symptoms <Hugo Ulloa - Last Filed: 03/25/23 00:22> - General Chief complaint: Weakness Stated complaint: Chest Pain,Weakness Time Seen by Provider: 03/20/23 15:05 - History of Present Illness Initial comments: This is an 82 year old female who presents to the emergency department for generalized weakness. Reports associated chest pain and dark/tarry stool. Patient has a hx of anemia, and she states that symptoms feel the same. (Chelsi Olivo) This is a 82-year-old female who presents with family for evaluation regards to some chest pain concern for anemia some weakness not feeling well and found of fever. Family states patient may have been altered do states she is improved here in the ER but throughout the day getting worse. (Hugo Ulloa) - Related Data Home Medications Medication Instructions Recorded Confirmed Levothyroxine Sodium 25 mcg PO QAM 06/18/19 03/07/23 Pravastatin Sodium [Pravachol] 80 mg PO QAM 06/18/19 03/07/23 Tolterodine Tartrate [Detrol LA] 4 mg PO QAM 07/10/19 03/07/23 Escitalopram [Lexapro] 10 mg PO PC-SUPPER 10/26/19 03/07/23 Fenofibrate Nanocrystallized 145 mg PO HS 12/17/19 03/07/23 [Fenofibrate] traMADol HCL [Ultram] 50 mg PO BID 12/17/19 03/07/23 Furosemide [Lasix] 20 mg PO QAM 01/29/20 03/07/23 Apixaban [Eliquis] 2.5 mg PO BID 01/02/21 03/07/23 Famotidine [Pepcid] 20 mg PO BID 01/02/21 03/07/23 Gabapentin [Neurontin] 100 mg PO TID 01/02/21 03/07/23 Ferrous Sulfate [Feosol] 325 mg PO PC-SUPPER 07/10/22 03/07/23 hydrALAZINE HCL [Apresoline] 50 mg PO BID 07/10/22 03/07/23 Budesonide/Formoterol Fumarate 1 puff PO BID 08/07/22 03/07/23 [Symbicort 160-4.5 Mcg Inhaler] Cholecalciferol (Vitamin D3) 2,000 units PO QAM 08/07/22 03/07/23 [Vitamin D3 (50 Mcg = 2000 Iu) Chew Tab] Potassium Chloride [Klor-Con M20] 20 meq PO QAM 08/07/22 03/07/23 Sodium Bicarbonate Tab 650 mg PO BID 08/07/22 03/07/23 carvediloL [Coreg] 6.25 mg PO BID 08/07/22 03/07/23 lisinopriL [Zestril] 40 mg PO QAM 08/07/22 03/07/23 Allergies Allergy/AdvReac Type Severity Reaction Status Date / Time No Known Allergies Allergy Verified 03/20/23 14:59 Review of Systems ROS Other: All systems not noted in ROS Statement are negative. <Chelsi Olivo - Last Filed: 03/20/23 15:05> ROS Other: All systems not noted in ROS Statement are negative. <Hugo Ulloa - Last Filed: 03/25/23 00:22> ROS Statement: Those systems with pertinent positive or pertinent negative responses have been documented in the HPI. Past Medical History Past Medical History: Atrial Fibrillation, Heart Failure, Dementia, Diabetes M ellitus, GERD/Reflux, Hyperlipidemia, Hypertension, Osteoarthritis (OA), Renal Disease, Vascular Disorder Additional Past Medical History / Comment(s): Recent anemia/low hemag lobin/benign stool for OB/recent hospitalizations at [facility], osteoporosis, stage III kidney disease, peripheral vascular disorder, DDD, edema of legs and feet at times,. past gout- hx. of. Januvia years ago but none since weight loss. [place] History of Any Multi-Drug Resistant Organisms: None Reported Past Surgical History: No Surgical Hx Reported Additional Past Surgical History / Comment(s): PAIN CLINIC PROCEDURE for back pain, past colonoscopy, facial cosmetic surgery, D&C. Past Anesthesia/Blood Transfusion Reactions: No Reported Reaction, Motion Sickness Additional Past Anesthesia/Blood Transfusion Reaction / Comment(s): Pt has recently received blood transfusions without reaction. Past Psychological History: Anxiety Smoking Status: Former smoker - Past Family History Mother Family Medical History: Cancer Father Family Medical History: Cancer <Chelsi Olivo - Last Filed: 03/20/23 15:05> General Exam Limitations: no limitations <Chelsi Olivo - Last Filed: 03/20/23 15:05> General appearance: alert, in no apparent distress, anxious Head exam: Present: atraumatic, normocephalic, normal inspection Eye exam: Present: normal appearance, PERRL, EOMI. Absent: scleral icterus, conjunctival injection, periorbital swelling ENT exam: Present: normal exam, mucous membranes moist Neck exam: Present: normal inspection. Absent: tenderness, meningismus, lymphadenopathy Respiratory exam: Present: normal lung sounds bilaterally. Absent: respiratory distress, wheezes, rales, rhonchi, stridor Cardiovascular Exam: Present: regular rate, normal rhythm, normal heart sounds. Absent: systolic murmur, diastolic murmur, rubs, gallop, clicks GI/Abdominal exam: Present: soft, normal bowel sounds. Absent: distended, tenderness, guarding, rebound, rigid Extremities exam: Present: normal inspection, full ROM, normal capillary refill. Absent: tenderness, pedal edema, joint swelling, calf tenderness Back exam: Present: normal inspection Neurological exam: Present: alert, oriented X3, CN II-XII intact Psychiatric exam: Present: normal affect, normal mood Skin exam: Present: warm, dry, intact, normal color. Absent: rash <Hugo Ulloa - Last Filed: 03/25/23 00:22> - General Exam Comments Initial Comments: General: Well-appearing, nontoxic, no acute distress. Head: Normocephalic, atraumatic Eyes: PERRLA, EOMI ENT: Airway patent Chest: Nonlabored breathing Skin: No visual rash, normal skin tone Neuro: Alert and oriented 3 Musculoskeletal: No gross abnormalities I completed the quick note portion of this chart signed Chelsi Olivo PA-C (Chelsi Olivo) Course <Hugo Ulloa - Last Filed: 03/25/23 00:22> Vital Signs 03/20/23 03/20/23 03/20/23 14:56 21:00 22:30 Temperature 100.2 F H 98.3 F Pulse Rate 80 77 81 Respiratory 16 20 16 Rate Blood Pressure 183/95 177/83 O2 Sat by Pulse 95 94 L 96 Oximetry - Reevaluation(s) Reevaluation #1: 03/20/23 21:03 Medical record is reviewed (Hugo Ulloa) Reevaluation #2: Symptoms are improved, feels well (Hugo Ulloa) Reevaluation #3: Patient informed results questions answered (Hugo Ulloa) Reevaluation #4: 03/20/23 21:03 Was pt. sent in by a medical professional or institution ([facility], MANAGING [employer]NER, urgent care, hospital, or halfway...) When possible be specific @ -no Did you speak to anyone other than the patient for history (EMS, parent, family, police, friend...)? What history was obtained from this source @ -no Did you review nursing and triage notes (agree or disagree)? Why? @ -agree Are old charts reviewed (outside hosp., previous admission, EMS record, old EKG, old radiological studies, urgent care reports/EKG's, halfway records)? Report findings @ -yes Differential Diagnosis (chest pain, altered mental status, abdominal pain women, abdominal pain men, vaginal bleeding, weakness, fever, dyspnea, syncope, headache, dizziness, GI bleed, back pain, seizure, CVA, palpatations, mental health, musculoskeletal)? @ -prior EKG interpreted by me (3pts min.). @ -yes X-rays interpreted by me (1pt min.). @ -yes CT interpreted by me (1pt min.). @ -no U/S interpreted by me (1pt. min.). @ -no What testing was considered but not performed or refused? (CT, X-rays, U/S, l abs)? Why? @ -none What meds were considered but not given or refused? Why? @ -none Did you discuss the management of the patient with other professionals (professionals i.e. , [facility], MANAGING PARTNER, lab, RT, psych nurse, social insurance analyst, neonatal intensive care nurse, teacher, svp chief marketing officer, case planner)? Give summary @ -no Was smoking cessation discussed for >3mins.? @ -no Was critical care preformed (if so, how long)? @ -no Were there social determinants of health that impacted care today? How? (Homelessness, low income, unemployed, alcoholism, drug addiction, transportation, low edu. Level, literacy, decrease access to med. care, long-term, rehab)? @ -none Was there de-escalation of care discussed even if they declined (Discuss DNR or withdrawal of care, Hospice)? DNR status @ -no What co-morbidities impacted this encounter? (DM, HTN, Smoking, COPD, CAD, Cancer, CVA, ARF, Chemo, Hep., AIDS, mental health diagnosis, sleep apnea, morbid obesity)? @ -none Was patient admitted / discharged? Hospital course, mention meds given and route, prescriptions, significant lab abnormalities, going to OR and other pertinent info. @ - 82 female to the emergency department for evaluation of fever and weakness altered mental status prior to arrival which is persistently improving yesterday. Patient feels well prefers discharged home Discharge Undiagnosed new problem with uncertain prognosis? @ -no Drug Therapy requiring intensive monitoring for toxicity (Heparin, Nitro, Insulin, Cardizem)? @ -no Were any procedures done? @ -no Diagnosis/symptom? @ -Fever, weakness Acute, or Chronic, or Acute on Chronic? @ -Acute Uncomplicated (without systemic symptoms) or Complicated (systemic symptoms)? @ -Complicated Side effects of treatment? @ -no Exacerbation, Progression, or Severe Exacerbation? @ -exacerbation Poses a threat to life or bodily function? How? (Chest pain, USA, AR, pneumonia, PE, COPD, DKA, ARF, appy, cholecystitis, CVA, Diverticulitis, Homicidal, Suicidal, threat to staff... and all critical care pts) @ -yes with extreme of age (Hugo Ulloa) EKG Findings - EKG Comments: EKG Findings:: EKG is sinus 82 NH 149 QRS 103 QTC 420 - EKG Results: EKG: interpreted by ERMD <Hugo Ulloa - Last Filed: 03/25/23 00:22> Medical Decision Making - Lab Data Result diagrams: 03/20/23 15:15 03/20/23 15:15 - EKG Data -: EKG Interpreted by Me - Radiology Data Radiology results: report reviewed (Chest x-rays negative for acute disease), image reviewed <Hugo Ulloa - Last Filed: 03/25/23 00:22> - Medical Decision Making 82 female to the emergency department for evaluation difficulty weakness. Unknown cause a fever found here in the ER. Patient feeling improved here in the ER though he can be discharged home (Hugo Ulloa) - Lab Data Lab Results 03/20/23 03/20/23 03/20/23 Range/Units 15:15 15:15 15:15 WBC 11.8 H (3.8-10.6) k/uL RBC 3.30 L (3.80-5.40) m/uL Hgb 10.3 L D (11.4-16.0) gm/dL Hct 32.6 L (34.0-46.0) % MCV 98.6 (80.0-100.0) fL MCH 31.2 (25.0-35.0) pg MCHC 31.7 (31.0-37.0) g/dL RDW 15.6 H (11.5-15.5) % Plt Count 356 (150-450) k/uL MPV 7.9 Neutrophils % 87 % Lymphocytes % 4 % Monocytes % 7 % Eosinophils % 1 % Basophils % 0 % Neutrophils # 10.3 H (1.3-7.7) k/uL Lymphocytes # 0.5 L (1.0-4.8) k/uL Monocytes # 0.8 (0-1.0) k/uL Eosinophils # 0.1 (0-0.7) k/uL Basophils # 0.0 (0-0.2) k/uL Hypochromasia Slight Macrocytosis Slight PT 12.1 (10.0-12.5) sec INR 1.1 (<1.2) APTT 30.9 H (22.0-30.0) sec Sodium 136 L (137-145) mmol/L Potassium 4.0 (3.5-5.1) mmol/L Chloride 99 (98-107) mmol/L Carbon Dioxide 28 (22-30) mmol/L Anion Gap 9 mmol/L BUN 26 H (7-17) mg/dL Creatinine 1.48 H (0.52-1.04) mg/dL Est GFR (CKD-EPI)AfAm 38 (>60 ml/min/1.73 sqM) Est GFR (CKD-EPI)NonAf 33 (>60 ml/min/1.73 sqM) Glucose 131 H (74-99) mg/dL Plasma Lactic Acid Melvin (0.7-2.0) mmol/L Calcium 9.5 (8.4-10.2) mg/dL Total Bilirubin 0.6 (0.2-1.3) mg/dL AST 28 (14-36) U/L ALT 13 (4-34) U/L Alkaline Phosphatase 178 H (38-126) U/L Troponin I (0.000-0.034) ng/mL Total Protein 5.7 L (6.3-8.2) g/dL Albumin 3.3 L (3.5-5.0) g/dL Urine Color Urine Appearance (Clear) Urine pH (5.0-8.0) Ur Specific [place] (1.001-1.035) Urine Protein (Negative) Urine Glucose (UA) (Negative) Urine Ketones (Negative) Urine Blood (Negative) Urine Nitrite (Negative) Urine Bilirubin (Negative) Urine Urobilinogen (<2.0) mg/dL Ur Leukocyte Esterase (Negative) Urine RBC (0-5) /hpf Urine WBC (0-5) /hpf Ur Squamous Epith Cells (0-4) /hpf Urine Mucus (None) /hpf Influenza Type A (PCR) (Not Detectd) Influenza Type B (PCR) (Not Detectd) RSV (PCR) (Not Detectd) SARS-CoV-2 (PCR) (Not Detectd) 03/20/23 03/20/23 03/20/23 Range/Units 15:15 17:45 20:08 WBC (3.8-10.6) k/uL RBC (3.80-5.40) m/uL Hgb (11.4-16.0) gm/dL Hct (34.0-46.0) % MCV (80.0-100.0) fL MCH (25.0-35.0) pg MCHC (31.0-37.0) g/dL RDW (11.5-15.5) % Plt Count (150-450) k/uL MPV Neutrophils % % Lymphocytes % % Monocytes % % Eosinophils % % Basophils % % Neutrophils # (1.3-7.7) k/uL Lymphocytes # (1.0-4.8) k/uL Monocytes # (0-1.0) k/uL Eosinophils # (0-0.7) k/uL Basophils # (0-0.2) k/uL Hypochromasia Macrocytosis PT (10.0-12.5) sec INR (<1.2) APTT (22.0-30.0) sec Sodium (137-145) mmol/L Potassium (3.5-5.1) mmol/L Chloride (98-107) mmol/L Carbon Dioxide (22-30) mmol/L Anion Gap mmol/L BUN (7-17) mg/dL Creatinine (0.52-1.04) mg/dL Est GFR (CKD-EPI)AfAm (>60 ml/min/1.73 sqM) Est GFR (CKD-EPI)NonAf (>60 ml/min/1.73 sqM) Glucose (74-99) mg/dL Plasma Lactic Acid Melvin 1.2 (0.7-2.0) mmol/L Calcium (8.4-10.2) mg/dL Total Bilirubin (0.2-1.3) mg/dL AST (14-36) U/L ALT (4-34) U/L Alkaline Phosphatase (38-126) U/L Troponin I 0.038 H* (0.000-0.034) ng/mL Total Protein (6.3-8.2) g/dL Albumin (3.5-5.0) g/dL Urine Color Colorless Urine Appearance Clear (Clear) Urine pH 6.5 (5.0-8.0) Ur Specific [place] 1.011 (1.001-1.035) Urine Protein 3+ H (Negative) Urine Glucose (UA) Negative (Negative) Urine Ketones Negative (Negative) Urine Blood Negative (Negative) Urine Nitrite Negative (Negative) Urine Bilirubin Negative (Negative) Urine Urobilinogen <2.0 (<2.0) mg/dL Ur Leukocyte Esterase Negative (Negative) Urine RBC 4 (0-5) /hpf Urine WBC 3 (0-5) /hpf Ur Squamous Epith Cells <1 (0-4) /hpf Urine Mucus Rare H (None) /hpf Influenza Type A (PCR) (Not Detectd) Influenza Type B (PCR) (Not Detectd) RSV (PCR) (Not Detectd) SARS-CoV-2 (PCR) (Not Detectd) 03/20/23 03/20/23 Range/Units 20:08 20:08 WBC (3.8-10.6) k/uL RBC (3.80-5.40) m/uL Hgb (11.4-16.0) gm/dL Hct (34.0-46.0) % MCV (80.0-100.0) fL MCH (25.0-35.0) pg MCHC (31.0-37.0) g/dL RDW (11.5-15.5) % Plt Count (150-450) k/uL MPV Neutrophils % % Lymphocytes % % Monocytes % % Eosinophils % % Basophils % % Neutrophils # (1.3-7.7) k/uL Lymphocytes # (1.0-4.8) k/uL Monocytes # (0-1.0) k/uL Eosinophils # (0-0.7) k/uL Basophils # (0-0.2) k/uL Hypochromasia Macrocytosis PT (10.0-12.5) sec INR (<1.2) APTT (22.0-30.0) sec Sodium (137-145) mmol/L Potassium (3.5-5.1) mmol/L Chloride (98-107) mmol/L Carbon Dioxide (22-30) mmol/L Anion Gap mmol/L BUN (7-17) mg/dL Creatinine (0.52-1.04) mg/dL Est GFR (CKD-EPI)AfAm (>60 ml/min/1.73 sqM) Est GFR (CKD-EPI)NonAf (>60 ml/min/1.73 sqM) Glucose (74-99) mg/dL Plasma Lactic Acid [place] (0.7-2.0) mmol/L Calcium (8.4-10.2) mg/dL Total Bilirubin (0.2-1.3) mg/dL AST (14-36) U/L ALT (4-34) U/L Alkaline Phosphatase (38-126) U/L Troponin I 0.040 H* (0.000-0.034) ng/mL Total Protein (6.3-8.2) g/dL Albumin (3.5-5.0) g/dL Urine Color Urine Appearance (Clear) Urine pH (5.0-8.0) Ur Specific [place] (1.001-1.035) Urine Protein (Negative) Urine Glucose (UA) (Negative) Urine Ketones (Negative) Urine Blood (Negative) Urine Nitrite (Negative) Urine Bilirubin (Negative) Urine Urobilinogen (<2.0) mg/dL Ur Leukocyte Esterase (Negative) Urine RBC (0-5) /hpf Urine WBC (0-5) /hpf Ur Squamous Epith Cells (0-4) /hpf Urine Mucus (None) /hpf Influenza Type A (PCR) Not Detected (Not Detectd) Influenza Type B (PCR) Not Detected (Not Detectd) RSV (PCR) Not Detected (Not Detectd) SARS-CoV-2 (PCR) Not Detected (Not Detectd) Disposition <Chelsi Olivo - Last Filed: 03/20/23 15:05> Is patient prescribed a controlled substance at d/c from ED?: No Time of Disposition: 22:00 <Hugo Ulloa - Last Filed: 03/25/23 00:22> Clinical Impression: Debility, Dehydration, Fever, Weakness Disposition: HOME SELF-CARE Condition: Good Instructions (If sedation given, give patient instructions): Weakness (ED) Referrals: Brandin French MD [Primary Care Provider] - 1-2 days
[2023-03-20 15:32] LABS: Basophils % (A) 0 %; Eosinophils # (A) 0.1 k/uL (0-0.7); Eosinophils % (A) 1 %; HCT 32.6 % (34.0-46.0); Hypochromasia Slight; Lymphocytes # (A) 0.5 k/uL (1.0-4.8); Lymphocytes % (A) 4 %; MCH 31.2 pg (25.0-35.0); MCHC 31.7 g/dL (31.0-37.0); MCV 98.6 fL (80.0-100.0); Macrocytosis Slight; Mean Platelet Volume 7.9; Monocytes # (A) 0.8 k/uL (0-1.0); Monocytes % (A) 7 %; Neutrophils # (A) 10.3 k/uL (1.3-7.7); Neutrophils % (A) 87 %; Platelet Count 356 k/uL (150-450); RDW 15.6 % (11.5-15.5); WBC 11.8 k/uL (3.8-10.6)
[2023-03-20 15:34] LABS: HGB 10.3 gm/dL (11.4-16.0)
[2023-03-20 15:40] LABS: ALT 13 U/L (4-34); AST 28 U/L (14-36); African American GFR (CKD) 38 (>60 ml/min/1.73 sqM); Albumin 3.3 g/dL (3.5-5.0); Alkaline Phosphatase 178 U/L (38-126); Anion Gap 9 mmol/L; Blood Urea Nitrogen 26 mg/dL (7-17); Calcium 9.5 mg/dL (8.4-10.2); Carbon Dioxide 28 mmol/L (22-30); Chloride 99 mmol/L (98-107); Glucose 131 mg/dL (74-99); Non-African American GFR(CKD) 33 (>60 ml/min/1.73 sqM); Sodium 136 mmol/L (137-145); Total Bilirubin 0.6 mg/dL (0.2-1.3); Total Protein 5.7 g/dL (6.3-8.2)
[2023-03-20 16:11] LABS: INR 1.1 (<1.2); Partial Thromboplastin Time 30.9 sec (22.0-30.0); Prothrombin Time 12.1 sec (10.0-12.5)
[2023-03-20 18:47] LABS: Appearance,Urine Clear (Clear); Bilirubin,Urine Negative (Negative); Blood,Urine Negative (Negative); Color,Urine Colorless; Glucose,Urine (UA) Negative (Negative); Ketones,Urine Negative (Negative); Leukocyte Esterase,Urine Negative (Negative); Mucus,Urine Rare /hpf; Nitrite,Urine Negative (Negative); PH, Urine 6.5 (5.0-8.0); Protein,Urine 3+ (Negative); RBC,Urine 4 /hpf (0-5); Specific Gravity,Urine 1.011 (1.001-1.035); Squamous Epithelial Cell,Urine <1 /hpf (0-4); Urobilinogen,Urine <2.0 mg/dL (<2.0); WBC,Urine 3 /hpf (0-5)
[2023-03-20] MEDS ORDERED: ACETAMINOPHEN IV (For NPO) 1,000 MG in EMPTY BAG 1 BAG IVPB STA (21:04)
[2023-03-20] MEDS ORDERED: IBUPROFEN IV 800 MG in SODIUM CHLORIDE 0.9% 250 ML IV ONE (21:04)
--- NOTE | 2023-03-20 21:23 | XR ---
EXAMINATION TYPE: XR chest 1V portable DATE OF EXAM: 03/20/2023 COMPARISON: 02/14/2023 INDICATION: Cough TECHNIQUE: Single frontal view of the chest is obtained. FINDINGS: The heart size is mildly prominent. The pulmonary vasculature is prominent. The lungs are clear. IMPRESSION: 1. Cardiomegaly with mild vascular prominence. Consider volume overload or developing congestive hear t failure.
[2023-03-20 21:51] VITALS: BP 177/83
[2023-03-20 22:35] VITALS: PULSE 81; RESP 16; TEMP 98.3
== END 2023-03-20 22:32 | disposition home or self-care (01) ==
LOC: EC 14:52
DX: E86.0 Dehydration (principal); R53.81 Other malaise; R53.1 Weakness; E11.9 Type 2 diabetes mellitus without complications; E78.5 Hyperlipidemia, unspecified; I11.0 Hypertensive heart disease with heart failure; I48.91 Unspecified atrial fibrillation; I50.9 Heart failure, unspecified; I25.10 Atherosclerotic heart disease of native coronary artery without angina pectoris; K21.9 Gastro-esophageal reflux disease without esophagitis; F41.9 Anxiety disorder, unspecified; Z87.891 Personal history of nicotine dependence; Z79.899 Other long term (current) drug therapy; Z79.51 Long term (current) use of inhaled steroids; Z79.01 Long term (current) use of anticoagulants; Z20.822 Contact with and (suspected) exposure to COVID-19
CPT/HCPCS: 36415; 93005; 80053; 83605; 84484; 85025; 85610; 85730; 81001; 87636; 71045; 99285; 96374; J0131

== ENCOUNTER 2023-04-14 03:28 | Emergency (ER) | payer MEDICARE, BC ==
--- NOTE | 2023-04-14 03:52 | ED ---
General Adult HPI - General Chief complaint: Urogenital Stated complaint: Urinary retention Time Seen by Provider: 04/14/23 03:52 Source: EMS Mode of arrival: EMS - History of Present Illness Initial comments: 82-year-old female with dementia who is brought to the ER today by ambulance after family reports no wet diapers today, estimated spent approximately 24 hours with a wet diaper. Patient did have a bowel movement today. Patient denies any complaints. - Related Data Home Medications Medication Instructions Recorded Confirmed Levothyroxine Sodium 25 mcg PO QAM 06/18/19 03/07/23 Pravastatin Sodium [Pravachol] 80 mg PO QAM 06/18/19 03/07/23 Tolterodine Tartrate [Detrol LA] 4 mg PO QAM 07/10/19 03/07/23 Escitalopram [Lexapro] 10 mg PO PC-SUPPER 10/26/19 03/07/23 Fenofibrate Nanocrystallized 145 mg PO HS 12/17/19 03/07/23 [Fenofibrate] traMADol HCL [Ultram] 50 mg PO BID 12/17/19 03/07/23 Furosemide [Lasix] 20 mg PO QAM 01/29/20 03/07/23 Apixaban [Eliquis] 2.5 mg PO BID 01/02/21 03/07/23 Famotidine [Pepcid] 20 mg PO BID 01/02/21 03/07/23 Gabapentin [Neurontin] 100 mg PO TID 01/02/21 03/07/23 Ferrous Sulfate [Feosol] 325 mg PO PC-SUPPER 07/10/22 03/07/23 hydrALAZINE HCL [Apresoline] 50 mg PO BID 07/10/22 03/07/23 Budesonide/Formoterol Fumarate 1 puff PO BID 08/07/22 03/07/23 [Symbicort 160-4.5 Mcg Inhaler] Cholecalciferol (Vitamin D3) 2,000 units PO QAM 08/07/22 03/07/23 [Vitamin D3 (50 Mcg = 2000 Iu) Chew Tab] Potassium Chloride [Klor-Con M20] 20 meq PO QAM 08/07/22 03/07/23 Sodium Bicarbonate Tab 650 mg PO BID 08/07/22 03/07/23 carvediloL [Coreg] 6.25 mg PO BID 08/07/22 03/07/23 lisinopriL [Zestril] 40 mg PO QAM 08/07/22 03/07/23 Allergies Allergy/AdvReac Type Severity Reaction Status Date / Time No Known Allergies Allergy Verified 03/20/23 14:59 Review of Systems ROS Statement: Those systems with pertinent positive or pertinent negative responses have been documented in the HPI. ROS Other: All systems not noted in ROS Statement are negative. Past Medical History Past Medical History: Atrial Fibrillation, Heart Failure, Dementia, Diabetes Mellitus, GERD/Reflux, Hyperlipidemia, Hypertension, Osteoarthritis (OA), Renal Disease, Vascular Disorder Additional Past Medical History / Comment(s): Recent anemia/low hemaglobin/benign stool for OB/recent hospitalizations at [facility], osteoporosis, stage III kidney disease, peripheral vascular disorder, DDD, edema of legs and feet at times,. past gout- hx. of. Januvia years ago but none since weight loss. iqugmiut History of Any Multi-Drug Resistant Organisms: None Reported Past Surgical History: No Surgical Hx Reported Additional Past Surgical History / Comment(s): PAIN CLINIC PROCEDURE for back pain, past colonoscopy, facial cosmetic surgery, D&C. Past Anesthesia/Blood Transfusion Reactions: No Reported Reaction, Motion Sickness Additional Past Anesthesia/Blood Transfusion Reaction / Comment(s): Pt has recently received blood transfusions without reaction. Past Psychological History: Anxiety Smoking Status: Former smoker - Past Family History Mother Family Medical History: Cancer Father Family Medical History: Cancer General Exam Limitations: altered mental status General appearance: alert (Dementia), in no apparent distress Head exam: Present: atraumatic, normocephalic Eye exam: Present: normal appearance Respiratory exam: Absent: respiratory distress Cardiovascular Exam: Present: regular rate GI/Abdominal exam: Present: soft. Absent: distended Extremities exam: Present: normal inspection Neurological exam: Present: alert, other (Oriented to self and location) Skin exam: Present: dry Course Vital Signs 04/14/23 03:30 Temperature 98.2 F Pulse Rate 72 Respiratory 19 Rate Blood Pressure 189/99 O2 Sat by Pulse 99 Oximetry Medical Decision Making - Medical Decision Making Was pt. sent in by a medical professional or institution (, PA, [employer], urgent care, hospital, or fci...) When possible be specific @ -No Did you speak to anyone other than the patient for history (EMS, parent, family, police, friend...)? What history was obtained from this source @ -EMS, family Did you review nursing and triage notes (agree or disagree)? Why? @ -I reviewed and agree with nursing and triage notes Were old charts reviewed (outside hosp., previous admission, EMS record, old EKG, old radiological studies, urgent care reports/EKG's, fci records)? Report findings @ -Previous labs were reviewed Differential Diagnosis (chest pain, altered mental status, abdominal pain women, abdominal pain men, vaginal bleeding, weakness, fever, dyspnea, syncope, headache, dizziness, GI bleed, back pain, seizure, CVA, palpatations, mental health)? @ - Urinary tract infection, acute retention, dehydration EKG interpreted by me (3pts min.). @ -As above X-rays interpreted by me (1pt min.). @ -None done CT interpreted by me (1pt min.). @ -None done U/S interpreted by me (1pt. min.). @ -None done What testing was considered but not performed or refused? (CT, X-rays, U/S, labs)? Why? @ -None What meds were considered but not given or refused? Why? @ -None Did you discuss the management of the patient with other professionals (professionals i.e. , PA, [employer], lab, RT, psych nurse, social security assessor, continuous improvement engineer, teacher, chief risk officer, keycase assembler)? Give summary @ -No Was smoking cessation discussed for >3mins.? @ -No Was critical care preformed (if so, how long)? @ -No Were there social determinants of health that impacted care today? How? (Homelessness, low income, unemployed, alcoholism, drug addiction, transportation, low edu. Level, literacy, decrease access to med. care, care home, rehab)? @ -No Was there de-escalation of care discussed even if they declined (Discuss DNR or withdrawal of care, Hospice)? DNR status @ -No What co-morbidities impacted this encounter? (DM, HTN, Smoking, COPD, CAD, Cancer, CVA, ARF, Chemo, Hep., AIDS, mental health diagnosis, sleep apnea, morbid obesity)? @ -Dementia Was patient admitted / discharged? Hospital course, mention meds given and route, prescriptions, significant lab abnormalities, going to OR and other pertinent info. @ -hospital course The patient was seen and evaluated, history is obtained from EMS. Per EMS patient has not urinated at home for 24 hours. Initial bladder scan at bedside reveals greater than 450 in the bladder, patient was placed on bedside commode was able to avoid over 400 mL's of urine. Urine was sent for urinalysis there significant hyaline casts and evidence of dehydration. CBC and CMP were obtained patient has elevated BUN and creatinine above her baseline. Patient's family members were agreeable to a small IV fluid bolus. 500 mL bolus was ordered. Patient will be discharged home continue home management. Undiagnosed new problem with uncertain prognosis? @ -No Drug Therapy requiring intensive monitoring for toxicity (Heparin, Nitro, Insulin, Cardizem)? @ -No Were any procedures done? @ -No Diagnosis/symptom? @ -dehydration Acute, or Chronic, or Acute on Chronic? @ -Acute Uncomplicated (without systemic symptoms) or Complicated (systemic symptoms)? @ -complicated Side effects of treatment? @ -No Exacerbation, Progression, or Severe Exacerbation? @ -No Poses a threat to life or bodily function? How? (Chest pain, [place], [place], pneumonia, PE, COPD, DKA, ARF, appy, cholecystitis, CVA, Diverticulitis, Homicidal, Suicidal, threat to staff... and all critical care pts) @ -No - Lab Data Result diagrams: 04/14/23 03:58 04/14/23 03:58 Lab Results 04/14/23 04/14/23 04/14/23 Range/Units 03:55 03:58 03:58 WBC 10.5 (3.8-10.6) k/uL RBC 3.28 L (3.80-5.40) m/uL Hgb 10.1 L (11.4-16.0) gm/dL Hct 31.4 L (34.0-46.0) % MCV 95.7 (80.0-100.0) fL MCH 30.7 (25.0-35.0) pg MCHC 32.1 (31.0-37.0) g/dL RDW 16.2 H (11.5-15.5) % Plt Count 422 (150-450) k/uL MPV 8.3 Neutrophils % 92 % Lymphocytes % 4 % Monocytes % 3 % Eosinophils % 1 % Basophils % 0 % Neutrophils # 9.7 H (1.3-7.7) k/uL Lymphocytes # 0.4 L (1.0-4.8) k/uL Monocytes # 0.3 (0-1.0) k/uL Eosinophils # 0.1 (0-0.7) k/uL Basophils # 0.0 (0-0.2) k/uL Hypochromasia Slight Anisocytosis Slight Sodium 137 (137-145) mmol/L Potassium 4.6 (3.5-5.1) mmol/L Chloride 107 (98-107) mmol/L Carbon Dioxide 19 L (22-30) mmol/L Anion Gap 11 mmol/L BUN 50 H (7-17) mg/dL Creatinine 1.86 H (0.52-1.04) mg/dL Est GFR (CKD-EPI)AfAm 29 (>60 ml/min/1.73 sqM) Est GFR (CKD-EPI)NonAf 25 (>60 ml/min/1.73 sqM) Glucose 236 H (74-99) mg/dL Calcium 9.1 (8.4-10.2) mg/dL Total Bilirubin 0.2 (0.2-1.3) mg/dL AST 34 (14-36) U/L ALT 22 (4-34) U/L Alkaline Phosphatase 219 H (38-126) U/L Total Protein 5.4 L (6.3-8.2) g/dL Albumin 2.8 L (3.5-5.0) g/dL Urine Color Light Yellow Urine Appearance Clear (Clear) Urine pH 6.0 (5.0-8.0) Ur Specific Browns 1.014 (1.001-1.035) Urine Protein 3+ H (Negative) Urine Glucose (UA) 1+ H (Negative) Urine Ketones Negative (Negative) Urine Blood Negative (Negative) Urine Nitrite Negative (Negative) Urine Bilirubin Negative (Negative) Urine Urobilinogen <2.0 (<2.0) mg/dL Ur Leukocyte Esterase Negative (Negative) Urine RBC 2 (0-5) /hpf Urine WBC 2 (0-5) /hpf Urine Bacteria Rare H (None) /hpf Hyaline Casts 15 H (0-2) /lpf Urine Mucus Rare H (None) /hpf Disposition Clinical Impression: Dehydration Disposition: HOME SELF-CARE Condition: Serious Is patient prescribed a controlled substance at d/c from ED?: No Referrals: Brandin French MD [Primary Care Provider] - 1-2 days
[2023-04-14 04:17] LABS: Appearance,Urine Clear (Clear); Bacteria,Urine Rare /hpf; Bilirubin,Urine Negative (Negative); Blood,Urine Negative (Negative); Color,Urine Light Yellow; Glucose,Urine (UA) 1+ (Negative); Hyaline Casts,Urine 15 /lpf (0-2); Ketones,Urine Negative (Negative); Leukocyte Esterase,Urine Negative (Negative); Mucus,Urine Rare /hpf; Nitrite,Urine Negative (Negative); Protein,Urine 3+ (Negative); RBC,Urine 2 /hpf (0-5); Specific Gravity,Urine 1.014 (1.001-1.035); Urobilinogen,Urine <2.0 mg/dL (<2.0); WBC,Urine 2 /hpf (0-5)
[2023-04-14 04:19] LABS: Anisocytosis Slight; Basophils % (A) 0 %; Eosinophils # (A) 0.1 k/uL (0-0.7); Eosinophils % (A) 1 %; HCT 31.4 % (34.0-46.0); HGB 10.1 gm/dL (11.4-16.0); Hypochromasia Slight; Lymphocytes # (A) 0.4 k/uL (1.0-4.8); Lymphocytes % (A) 4 %; MCH 30.7 pg (25.0-35.0); MCHC 32.1 g/dL (31.0-37.0); MCV 95.7 fL (80.0-100.0); Mean Platelet Volume 8.3; Monocytes # (A) 0.3 k/uL (0-1.0); Monocytes % (A) 3 %; Neutrophils # (A) 9.7 k/uL (1.3-7.7); Neutrophils % (A) 92 %; Platelet Count 422 k/uL (150-450); RBC 3.28 m/uL (3.80-5.40); RDW 16.2 % (11.5-15.5); WBC 10.5 k/uL (3.8-10.6)
[2023-04-14 04:28] LABS: ALT 22 U/L (4-34); AST 34 U/L (14-36); African American GFR (CKD) 29 (>60 ml/min/1.73 sqM); Albumin 2.8 g/dL (3.5-5.0); Alkaline Phosphatase 219 U/L (38-126); Anion Gap 11 mmol/L; Blood Urea Nitrogen 50 mg/dL (7-17); Calcium 9.1 mg/dL (8.4-10.2); Carbon Dioxide 19 mmol/L (22-30); Chloride 107 mmol/L (98-107); Glucose 236 mg/dL (74-99); Non-African American GFR(CKD) 25 (>60 ml/min/1.73 sqM); Potassium 4.6 mmol/L (3.5-5.1); Sodium 137 mmol/L (137-145); Total Bilirubin 0.2 mg/dL (0.2-1.3); Total Protein 5.4 g/dL (6.3-8.2)
[2023-04-14] MEDS ORDERED: SODIUM CHLORIDE 0.9% 500 ML 500 ML IV ONE (05:26)
[2023-04-14 06:41] VITALS: BP 171/70; PULSE 83; RESP 17; TEMP 98
== END 2023-04-14 06:57 | disposition home or self-care (01) ==
LOC: EC 03:28
DX: E86.0 Dehydration (principal); E11.51 Type 2 diabetes mellitus with diabetic peripheral angiopathy without gangrene; E11.22 Type 2 diabetes mellitus with diabetic chronic kidney disease; I13.10 Hypertensive heart and chronic kidney disease without heart failure, with stage 1 through stage 4 chronic kidney disease, or unspecified chronic kidney disease; N18.30 Chronic kidney disease, stage 3 unspecified; I50.9 Heart failure, unspecified; I48.91 Unspecified atrial fibrillation; K21.9 Gastro-esophageal reflux disease without esophagitis; E78.5 Hyperlipidemia, unspecified; F41.9 Anxiety disorder, unspecified; Z79.01 Long term (current) use of anticoagulants; Z79.899 Other long term (current) drug therapy; Z87.891 Personal history of nicotine dependence
CPT/HCPCS: 36415; 80053; 81001; 85025; 99285